=== PATIENT | male | born 1965 | race Caucasian/White ===

== ENCOUNTER 2022-09-09 07:20 | Outpatient (CLI) | payer BC, SELFPAY ==
--- OUTSIDE RECORDS SUMMARY | 2022-09-09 08:22 | XMS_ITS | Clinical Summary ---
:1965 Author Organization [employer] [facility] [facility] [place] [address] Care Team Providers Name Role Phone Gee Knowles MD Primary Care Provider [phone] Allergies No known active allergies Medications Medication Sig Dispensed Refills Start Date End Date Status MULTI-VITAMIN ORAL TAB one tablet daily ? 0 03/31/2004 Active amLODIPine (NORVASC) 5 Take 1 tablet by 0 09/17/2013 Active mg tablet mouth once daily. lisinopril (PRINIVIL; Take 1 tablet by 0 09/17/2013 Active ZESTRIL) 40 mg tablet mouth once daily. Cholecalciferol, Take 4,000 Units 0 Active Vitamin D3, 2,000 unit by mouth once tablet daily. diclofenac (VOLTAREN) Take 1 tablet by 60 tablet 1 09/04/2014 Active 75 mg delayed-release mouth 2 times tabletIndications: daily with meals. Surgery follow-up Active Problems Problem Noted Date Chest pain, unspecified Unspecified essential hypertension Immunizations Name Administration Dates Next Due AMB Influenza, IIV4 PF (=>6 mos Flulaval,Fluzone 08/29/2017 Fluarix)(Flu Clinic Only) Influenza, IIV4 09/17/2018 Family History Medical History Relation Name Comments Genetic Other Both his father and brother had hypertension. Exercise - he walks occas ionally 30 minutes. ~~There is no premature athero sclerotic heart disease in his family. Relation Name Status Comments Other Social History Tobacco Use Types Packs/Day Years Used Date Never Smoker Alcohol Use Standard Drinks/Week Comments No 0 (1 standard drink = 0.6 oz pure alcoho l) Sex Assigned at Date Recorded Not on file Obstetrics History Last Filed Vital Signs Vital Sign Reading Time Taken Comments Blood Pressure 138/78 09/04/2014 11:35 AM CDT Pulse 65 12/20/2013 11:20 AM GUIDANCE AND CONTROL SYSTEM ENGINEER Temperature 36.7 ??C (98 ??F) 12/20/2013 10:45 AM GUIDANCE AND CONTROL SYSTEM ENGINEER Respiratory Rate 16 12/20/2013 11:20 AM GUIDANCE AND CONTROL SYSTEM ENGINEER Oxygen Saturation 98% 12/20/2013 11:20 AM GUIDANCE AND CONTROL SYSTEM ENGINEER Inhaled Oxygen Concentration - - Weight 115.2 kg (254 lb) 12/20/2013 6:50 AM GUIDANCE AND CONTROL SYSTEM ENGINEER Height 189.2 cm (6' 2.49) 12/20/2013 6:50 AM GUIDANCE AND CONTROL SYSTEM ENGINEER Body Mass Index 32.19 12/20/2013 6:50 AM GUIDANCE AND CONTROL SYSTEM ENGINEER Plan of Treatment Health Maintenance Due Date Last Done Comments COVID-19 vaccine series (#1) 01/05/1966 Tdap 1974 Depression screening for age 12+ 1975 BMI (ht and wt on same day) for age 18+ 1981 Hepatitis C screening for age 18-79 1981 Tetanus booster 1983 Colonoscopy through age 75 2008 Lipids for age 45-75 2008 Zoster (shingles) series for age 50+ (1 of 2013 2) Influenza for age 50-64 2022 09/17/2018, 08/29/2017 Medical Devices Implanted Type Area Stock Dealer Device Shelf Model / Identifier Expiration Date Ser ial / Lot [place], Polysorb 3mm [id number] - [id number] Right: R-AUTO SUT [id number] [id number] / Implanted: Qty: 2 on 12/20/2013 by Say Deng, DPJose at [facility] Foot / [id number] Results Not on filefrom Last 3 Months Insurance Payer Benefit Plan / Subscriber ID Effective Dates Phone Addre ss Type Group [employer] [id number] 2013-Present [address] [place] [address] [employer] [id number] 2010-Present [address] [place] [address] Guarantor Name Account Type Relation to Date of Phone Billing Patient Address HERLINDA TIWARI Personal/Family Self 1965 [address] (Home) [place] [id number] Herlinda Tiwari Personal/Family Self 1965 [address] (Home) [place] [id number] Advance Directives Latest Code Status on File Code Status Date Activated Date Inactivated Comments Full Code 12/20/2013 11:03 AM 12/20/2013 4:43 PM Full Code 12/20/2013 6:22 AM 12/20/2013 11:03 AM Care Teams Ragman Relationship Specialty Start Date End Date Gee Knowles MD PCP - General Family Practice 12/20/13
--- OUTSIDE RECORDS SUMMARY | 2022-09-09 08:22 | XMS_ITS | Encounter Summary ---
:1965 Author Organization [facility] Address [address] [place] [address] Care Team Providers Name Role Phone Tavon Obrien M.D. Primary Care Provider Encounter Details Date Type Department Care Team Description 08/18/2021 Clinical Communication Department of Natalie Stanford, Medicine, Louis Espinosa M.D. [facility], in [address] [phone] Social History Tobacco Use Types Packs/Day Years Used Date Smoking Tobacco: Never Smokeless Tobacco: Never Alcohol Use Standard Drinks/Week Comments No 0 (1 standard drink = 0.6 oz pure alcoho l) Sex Assigned at Date Recorded Not on file documented as of this encounter Plan of Treatment Not on filedocumented as of this encounter Visit Diagnoses Not on filedocumented in this encounter Care Teams Director Export Relationship Specialty Start Date End Date Tavon Obrien M.D. PCP - General Family Medicine 10/24/[address] [place] [phone] documented as of this encounter
--- OUTSIDE RECORDS SUMMARY | 2022-09-09 08:22 | XMS_ITS | Encounter Summary ---
:1965 Author Organization [facility] Address [address] [place] [address] Care Team Providers Name Role Phone Tavon Obrien M.D. Primary Care Provider Reason for Visit Physical Therapy (Routine) - Canceled Specialty Diagnoses / Procedures Referred By Contact Refer red To Contact Diagnoses Intervertebral Disc Disorders With Radiculopathy Lumbar Region Tavon Obrien M.D. [facility] Procedures PT Ongoing treatment [address] [place] [phone] Referral ID Status Reason Start Date Expiration Date Visits V isits Requested Authorized [id number] Canceled 06/29/2021 06/29/2022 Encounter Details Date Type Department Care Team Description 08/03/2021 Clinical Support Department of Emelia Obrien M.D. [address] [place] [phone] Intervertebral Disc Rehabilitation Arturo Rader PAdinaTAdina [address] [place] [phone] Disorders With Services in [address] [phone] Social History Tobacco Use Types Packs/Day Years Used Date Smoking Tobacco: Never Smokeless Tobacco: Never Alcohol Use Standard Drinks/Week Comments No 0 (1 standard drink = 0.6 oz pure alcoho l) Sex Assigned at Date Recorded Not on file documented as of this encounter Progress Notes Arturo Rader P.T. - 08/03/2021 6:30 AM CDT Physical Therapy Outpatient Treatment Note SUBJECTIVE Patient's Name: Louie German Referring Provider: Tavon Obrien M.D. Visit Diagnosis: 1. Intervertebral Disc Disorders With Radiculopathy Lumbar Region Reason for Referral: Low back pain with radiculopathy into the right extremity. Payor: / No data recorded Epic Visit Count: 10 Patient comments: Daniel comes into therapy today with similar issues overall. Some days are better than others. He continues to work with both therapy and chiropractic at this time. He is still waiting on his insurance to determine when he can proceed with surgery. Contact monitoring: Appropriate PPE was utilized including face mask/protective eyewear. OBJECTIVE Pain: Pain Assessment Pain Score: 4 Ortho Exam Outcome Measures: TREATMENT Treatment today consisted of: We did treat once again with intermittent pelvic traction cycling on for 60 seconds and off for 5 seconds. This did not exceed 140 lb. This was for 20 minutes. Assessment Clinical Impression: Patient tolerated well overall. Functional Goals and Timeframes: PT Goal #1: To help decrease pain in the low back/radicular symptoms. PT Goal #1 Date: 08/31/21 PT Goal #2: Patient is able to tolerate prolonged sitting/standing PT Goal #2 Date: 08/03/21 PT Goal #3: Patient is independent with home exercise program which will address core strengthening and extension protocol. This was initiated today. PT Goal #3 Date: 06/29/21 No data recorded Plan We will continue if this is helpful for him. Plan for next session: Time Spent with Patient Mechanical Traction (min): 20 min Time Calculation Total Treatment Time (min): 20 min Arturo Rader P.T. Department of Rehabilitation Services in [address] [phone] Dept: [phone] documented in this encounter Plan of Treatment Not on filedocumented as of this encounter Visit Diagnoses Diagnosis Intervertebral Disc Disorders With Radic ulopathy Lumbar Region documented in this encounter Care Teams Drill Sergeant Relationship Specialty Start Date End Date Tavon Obrien M.D. PCP - General Family Medicine 10/24/[address] [place] [phone] documented as of this encounter
--- OUTSIDE RECORDS SUMMARY | 2022-09-09 08:22 | XMS_ITS | Encounter Summary ---
:1965 Author Organization [facility] Address [address] [place] [address] Care Team Providers Name Role Phone Tavon Obrien M.D. Primary Care Provider Reason for Visit Reason Onset Date Comments Outpatient COVID-19 Testing 08/28/2021 Encounter Details Date Type Department Care Team Description 08/28/2021 External Outreach Department of Renato Mac And Internal Medicine in [place], D.O. (Suspected) Exposure [place], [place] [address] To COVID-19 (Primary [address] [place], [place] Dx) [place] [phone] Social History Tobacco Use Types Packs/Day Years Used Date Smoking Tobacco: Never Smokeless Tobacco: Never Alcohol Use Standard Drinks/Week Comments No 0 (1 standard drink = 0.6 oz pure alcoho l) Sex Assigned at Date Recorded Not on file documented as of this encounter Progress Notes Chastity La - 08/28/2021 8:20 AM CDT Encounter created for infectious disease screening. documented in this encounter Plan of Treatment Not on filedocumented as of this encounter Procedures Procedure Name Priority Date/Time Associated Diagnosis Comme nts SARS CORONAVIRUS-2 Routine 08/29/2021 11:19 AM Contact With An d Results for this RNA, V CDT (Suspected) Exposure procedu re are in To COVID-19 the results section. documented in this encounter Results SARS Coronavirus-2 RNA, V Asymptomatic (08/29/2021 11:19 AM CDT) [facility] Method Time Signature SARS-CoV-2 Swab, 08/30/2021 MKTO Specimen Nasopharynx 3:05 PM CDT Source SARS CoV-2 Undetected Undetected 08/30/2021 MKTO RNA, TMA 3:05 PM CDT Comment: SARS-CoV-2 RNA absent. This result does not rule out COVID-19 in the patient, as the sensitivity of the test depends o n the timing of the specimen collection and the quality of the specim en. Result should be correlated with patient's history and clinical presentat ion. ----ADDITIONAL INFORMATION---- This molecular amplification test was pe rformed using the Aptima SARS-CoV-2 assay ([employer] on the eBrevias tem under emergency use authorization (EUA) by the U.S. Food and Drug Administ ration. Fact sheets for this EUA assay can be fo und at the following links: For Healthcare Providers: https://www.fd a.gov/media/883239/download For Patients: https://www.fda.gov/media/ 652602/download Specimen Anatomical Collection Method Collection Time Receive d Time (Source) Location / / Volume Laterality Varies 08/29/2021 11:19 08/30/2021 6:31 (Nasopharynx) AM CDT AM CDT Renato Mac D.O. LAB MICROBIOLOGY - GENERAL O RDERABLES Performing Organization Address City/State/ZIP Code Phon e Number [facility] [address] [place] [phone] [place] [address] [place] [address] System in [address] documented in this encounter Visit Diagnoses Diagnosis Contact With And (Suspected) Exposure To COVID-19 - Primary documented in this encounter Additional Health Concerns Infection Onset Date Last Indicated Resolved Time COVID19 Pending 08/28/2021 08/29/2021 08/30/2021 3:06 PM CDT documented as of this encounter Care Teams Strike On Machine Operator Relationship Specialty Start Date End Date Tavon Obrien M.D. PCP - General Family Medicine 10/24/[address] [place] [phone] documented as of this encounter
--- OUTSIDE RECORDS SUMMARY | 2022-09-09 08:22 | XMS_ITS | Encounter Summary ---
:1965 Author Organization [facility] Address [address] [place] [address] Care Team Providers Name Role Phone Tavon Obrien M.D. Primary Care Provider Encounter Details Date Type Department Care Team Description 08/29/2021 Admin Visit Department of Family Medicine, [address] [phone] [facility] [phone] Social History Tobacco Use Types Packs/Day Years Used Date Smoking Tobacco: Never Smokeless Tobacco: Never Alcohol Use Standard Drinks/Week Comments No 0 (1 standard drink = 0.6 oz pure alcoho l) Sex Assigned at Date Recorded Not on file documented as of this encounter Plan of Treatment Not on filedocumented as of this encounter Visit Diagnoses Not on filedocumented in this encounter Additional Health Concerns Infection Onset Date Last Indicated Resolved Time COVID19 Pending 08/28/2021 08/29/2021 08/30/2021 3:06 PM CDT documented as of this encounter Care Teams Horse Racetrack Manager Relationship Specialty Start Date End Date Tavon Obrien M.D. PCP - General Family Medicine 10/24/[address] [place] [phone] documented as of this encounter
--- OUTSIDE RECORDS SUMMARY | 2022-09-09 08:22 | XMS_ITS | Encounter Summary ---
:1965 Author Organization [facility] Address [address] [place] [address] Care Team Providers Name Role Phone Tavon Obrien M.D. Primary Care Provider Reason for Visit Physical Therapy (Routine) - Canceled Specialty Diagnoses / Procedures Referred By Contact Refer red To Contact Diagnoses Intervertebral Disc Disorders With Radiculopathy Lumbar Region Tavon Obrien M.D. [facility] Procedures PT Ongoing treatment [address] [place] [phone] Referral ID Status Reason Start Date Expiration Date Visits V isits Requested Authorized [id number] Canceled 06/29/2021 06/29/2022 Encounter Details Date Type Department Care Team Description 08/19/2021 Clinical Support Department of Emelia Obrien M.D. [address] [place] [phone] Intervertebral Disc Rehabilitation Arturo Rader PAdinaTAdina [address] [place] [phone] Disorders With Services in [address] [phone] Social History Tobacco Use Types Packs/Day Years Used Date Smoking Tobacco: Never Smokeless Tobacco: Never Alcohol Use Standard Drinks/Week Comments No 0 (1 standard drink = 0.6 oz pure alcoho l) Sex Assigned at Date Recorded Not on file documented as of this encounter Progress Notes Arturo Rader P.T. - 08/19/2021 6:30 AM CDT Physical Therapy Outpatient Treatment Note SUBJECTIVE Patient's Name: Louie German Referring Provider: Tavon Obrien M.D. Visit Diagnosis: 1. Intervertebral Disc Disorders With Radiculopathy Lumbar Region Reason for Referral: Low back pain with radiculopathy into the right extremity. Payor: Pumpic [facility] [employer] / Plan: [facility] [employer] / Product Type: Indemnity / No data recorded Epic Visit Count: 15 Patient comments: Daniel comes into therapy today stating that he is a little more sore secondary to having to sit 8 hours for class yesterday. He has a difficult time sitting in general. Contact monitoring: Appropriate PPE was utilized including face mask/protective eyewear. OBJECTIVE Pain: Pain Assessment Pain Score: 5 - Moderate pain Ortho Exam Outcome Measures: TREATMENT Treatment today consisted of: We continued with intermittent pelvic traction cycling on for 60 seconds and off for 5 seconds. Thiswas for 20 minutes. This did not exceed 125 lb. This does give him some subjective relief. Assessment Clinical Impression: Traction does give patient some relief. However, he continues to have radicular symptoms. He is alsoseen chiropractic to help relieve some of his symptoms. He is still scheduled for surgery in approximately 2 weeks. Functional Goals and Timeframes: PT Goal #1: [...] data recorded Plan We will continue if helpful. Plan for next session: Time Spent with Patient Mechanical Traction (min): 20 min Time Calculation Total Treatment Time (min): 20 min Arturo Rader P.T. Department of Rehabilitation Services in [address] [address] Dept: [phone] documented in this encounter Plan of Treatment Not on filedocumented as of this encounter Visit Diagnoses Diagnosis Intervertebral Disc Disorders With Radic ulopathy Lumbar Region documented in this encounter Care Teams Spring Repairer Helper Hand Relationship Specialty Start Date End Date Tavon Obrien M.D. PCP - General Family Medicine 10/24/[address] [place] [phone] documented as of this encounter
--- OUTSIDE RECORDS SUMMARY | 2022-09-09 08:22 | XMS_ITS | Encounter Summary ---
:[address] [facility] Address [address] [place] [address] Care Team Providers Name Role Phone Tavon Obrien M.D. Primary Care Provider Reason for Visit Physical Therapy (Routine) - Canceled Specialty Diagnoses / Procedures Referred By Contact Refer red To Contact Diagnoses Intervertebral Disc Disorders With Radiculopathy Lumbar Region Tavon Obrien M.D. [facility] Procedures PT Ongoing treatment [address] [place] [phone] Referral ID Status Reason Start Date Expiration Date Visits V isits Requested Authorized [id number] Canceled 06/29/2021 06/29/2022 Encounter Details Date Type Department Care Team Description 08/17/2021 Clinical Support Department of Emelia Obrien M.D. [address] [place] [phone] Intervertebral Disc Rehabilitation Arturo Rader PAdinaTAdina [address] [place] [phone] Disorders With Services in [address] [phone] Social History Tobacco Use Types Packs/Day Years Used Date Smoking Tobacco: Never Smokeless Tobacco: Never Alcohol Use Standard Drinks/Week Comments No 0 (1 standard drink = 0.6 oz pure alcoho l) Sex Assigned at Date Recorded Not on file documented as of this encounter Progress Notes Arturo Rader P.T. - 08/17/2021 6:30 AM CDT Physical Therapy Outpatient Treatment Note SUBJECTIVE Patient's Name: Louie German Referring Provider: Tavon Obrien M.D. Visit Diagnosis: 1. Intervertebral Disc Disorders With Radiculopathy Lumbar Region Reason for Referral: Low back pain with radiculopathy into the right extremity. Payor: lifeIO [facility] [employer] / Plan: [facility] / Product Type: Indemnity / No data recorded Epic Visit Count: 14 Patient comments: Daniel comes into therapy today for continued treatment with traction. This does give him some relief.He will be having surgery in approximately 2 weeks. Contact monitoring: Appropriate PPE was utilized including face mask/protective eyewear. OBJECTIVE Pain: Pain Assessment Pain Score: 4 Ortho Exam Outcome Measures: TREATMENT Treatment today consisted of: We treated once again with intermittent pelvic traction cycling on for 60 seconds and off for 5 seconds. This did not exceed 130 lb. Assessment Clinical Impression: Patient tolerated well. He does get some relief with traction. Functional Goals and Timeframes: PT Goal #1: [...] #3 Date: 06/29/21 No data recorded Plan I we will continue with traction. Plan for next session: Time Spent with Patient Mechanical Traction (min): 20 min Time Calculation Total Treatment Time (min): 20 min Arturo Rader P.T. Department of Rehabilitation Services in [address] [phone] Dept: [phone] documented in this encounter Plan of Treatment Not on filedocumented as of this encounter Visit Diagnoses Diagnosis Intervertebral Disc Disorders With Radic ulopathy Lumbar Region documented in this encounter Care Teams Er Tech Relationship Specialty Start Date End Date Tavon Obrien M.D. PCP - General Family Medicine 10/24/[address] [place] [phone] documented as of this encounter
--- OUTSIDE RECORDS SUMMARY | 2022-09-09 08:22 | XMS_ITS | Encounter Summary ---
:1965 Author Organization [facility] Address [address] [place] [address] Care Team Providers Name Role Phone Tavon Obrien M.D. Primary Care Provider Reason for Visit Physical Therapy (Routine) - Canceled Specialty Diagnoses / Procedures Referred By Contact Refer red To Contact Diagnoses Intervertebral Disc Disorders With Radiculopathy Lumbar Region Tavon bOrien M.D. [facility] Region Procedures PT Ongoing treatment [address] [place] [phone] Referral ID Status Reason Start Date Expiration Date Visits V isits Requested Authorized [id number] Canceled 06/29/2021 06/29/2022 Encounter Details Date Type Department Care Team Description 08/10/2021 Clinical Support Department of Emelia Obrien M.D. [address] [place] [phone] Pain Knee Bilateral (Primary Dx); Rehabilitation Arturo Rader PAdinaTAdina [address] [place] [phone] Intervertebral Disc Disorders With Radic ulopathy Lumbar Region Services in [address] [phone] Social History Tobacco Use Types Packs/Day Years Used Date Smoking Tobacco: Never Smokeless Tobacco: Never Alcohol Use Standard Drinks/Week Comments No 0 (1 standard drink = 0.6 oz pure alcoho l) Sex Assigned at Date Recorded Not on file documented as of this encounter Progress Notes Arturo Rader P.T. - 08/10/2021 6:30 AM CDT Physical Therapy Outpatient Treatment Note SUBJECTIVE Patient's Name: Louie German Referring Provider: Tavon Obrien M.D. Visit Diagnosis: 1. Pain Knee Bilateral 2. Intervertebral Disc Disorders With Radiculopathy Lumbar Region Reason for Referral: Low back pain with radiculopathy into the right extremity. Payor: Sepior [facility] [employer] / Plan: [employer] [facility] [facility] / Product Type: Indemnity / No data recorded Epic Visit Count: 12 Patient comments: Daniel comes into therapy today with similar issues overall. He does have a date set up for surgery. That will be approximately 2 weeks. Contact monitoring: Appropriate PPE was utilized including face mask/protective eyewear. OBJECTIVE Pain: Pain Assessment Pain Score: 4 Ortho Exam Outcome Measures: TREATMENT Treatment today consisted of: We continued with intermittent pelvic traction cycling on for 60 seconds and off for 5 seconds. Thisdid not exceed 140 lb. This was for 20 minutes total. Assessment Clinical Impression: Patient tolerated well overall. He does get some relief with traction. He is also seeking chiropractic cares to help with some of his symptoms. Functional Goals and Timeframes: PT Goal #1: [...] recorded Plan I we will continue with traction if this is helpful. Plan for next session: Time Spent with Patient Mechanical Traction (min): 20 min Time Calculation Total Treatment Time (min): 20 min Arturo Rader P.T. Department of Rehabilitation Services in [address] [phone] Dept: [phone] documented in this encounter Plan of Treatment Not on filedocumented as of this encounter Visit Diagnoses Diagnosis Pain Knee Bilateral - Primary Intervertebral Disc Disorders With Radic ulopathy Lumbar Region documented in this encounter Care Teams Chamfering Machine Operator Relationship Specialty Start Date End Date Tavon Obrien M.D. PCP - General Family Medicine 10/24/[address] [place] [phone] documented as of this encounter
--- OUTSIDE RECORDS SUMMARY | 2022-09-09 08:22 | XMS_ITS | Encounter Summary ---
:[address] [facility] Address [address] [place] [address] Care Team Providers Name Role Phone Tavon Obrien M.D. Primary Care Provider Encounter Details Date Type Department Care Team Description 12/07/2021 Orders Only [facility] Tavon Obrien M.D. Hyperlipidemia [id number] [phone] (Wo rk) Social History Tobacco Use Types Packs/Day Years Used Date Smoking Tobacco: Never Smokeless Tobacco: Never Alcohol Use Standard Drinks/Week Comments No 0 (1 standard drink = 0.6 oz pure alcoho l) Sex Assigned at Date Recorded Not on file documented as of this encounter Plan of Treatment Not on filedocumented as of this encounter Visit Diagnoses Diagnosis Hyperlipidemia documented in this encounter Care Teams Supervisor Facepiece Line Relationship Specialty Start Date End Date Tavon Obrien M.D. PCP - General Family Medicine 10/24/[id number] [phone] documented as of this encounter
--- OUTSIDE RECORDS SUMMARY | 2022-09-09 08:22 | XMS_ITS | Encounter Summary ---
:1965 Author Organization [facility] Address [address] [place] [address] Care Team Providers Name Role Phone Tavon Obrien M.D. Primary Care Provider Reason for Visit Physical Therapy (Routine) - Canceled Specialty Diagnoses / Procedures Referred By Contact Refer red To Contact Diagnoses Pain Knee Bilateral Elio Gary M.D. [facility] Procedures PT Ongoing treatment [address] [place] [phone] Referral ID Status Reason Start Date Expiration Date Visits V isits Requested Authorized [id number] Canceled 08/10/2021 08/10/2022 99 99 Encounter Details Date Type Department Care Team Description 08/31/2021 Clinical Support Department of Elio Gary M.D. [address] [place] [phone] Pain Knee Bilateral Rehabilitation Services Arturo Rader, P.TAdina [address] [place] [phone] [phone] Social History Tobacco Use Types Packs/Day Years Used Date Smoking Tobacco: Never Smokeless Tobacco: Never Alcohol Use Standard Drinks/Week Comments No 0 (1 standard drink = 0.6 oz pure alcoho l) Sex Assigned at Date Recorded Not on file documented as of this encounter Progress Notes Arturo Rader P.T. - 08/31/2021 6:30 AM CDT Physical Therapy Outpatient Treatment Note SUBJECTIVE Patient's Name: Louie German Referring Provider: Elio Gary M.D. Visit Diagnosis: 1. Pain Knee Bilateral Reason for Referral: Low back pain with radiculopathy into the right extremity. Payor: [facility] / Plan: [employer] [place] / Product Type: PPO / No data recorded Epic Visit Count: 17 Patient comments: To have comes into therapy today with symptoms relatively the same overall. He will be having surgery to his low back tomorrow. Contact monitoring: Appropriate PPE was utilized including face mask/protective eyewear. OBJECTIVE Pain: Pain Assessment Pain Score: 5 - Moderate pain Ortho Exam Outcome Measures: TREATMENT Treatment today consisted of: We did treat once again today with intermittent pelvic traction cycling on for 60 seconds and off for 5 seconds. This did not exceed 125 lb. This was for a total of 20 minutes. Assessment Clinical Impression: Traction has given patient some relief over the past several weeks. However, he will now be having surgery to hopefully alleviate his symptoms. Functional Goals and Timeframes: PT [...] 06/29/21 No data recorded Plan We will hold on physical therapy at this time. Plan for next session: Time Spent with Patient Mechanical Traction (min): 20 min Time Calculation Total Treatment Time (min): 20 min documented in this encounter Plan of Treatment Not on filedocumented as of this encounter Visit Diagnoses Diagnosis Pain Knee Bilateral documented in this encounter Care Teams Industrial Equipment Wirer Relationship Specialty Start Date End Date Tavon Obrien M.D. PCP - General Family Medicine 10/24/[address] [place] [address] [place] [phone] documented as of this encounter
--- OUTSIDE RECORDS SUMMARY | 2022-09-09 08:22 | XMS_ITS | Encounter Summary ---
:1965 Author Organization [facility] Address [address] [place] [address] Care Team Providers Name Role Phone Tavon Obrien M.D. Primary Care Provider Reason for Visit Physical Therapy (Routine) - Canceled Specialty Diagnoses / Procedures Referred By Contact Refer red To Contact Diagnoses Intervertebral Disc Disorders With Radiculopathy Lumbar Region Tavon Obrien M.D. [facility] Procedures PT Ongoing treatment [address] [place] [phone] Referral ID Status Reason Start Date Expiration Date Visits V isits Requested Authorized [id number] Canceled 06/29/2021 06/29/2022 Encounter Details Date Type Department Care Team Description 07/30/2021 Clinical Support Department of Emelia Obrien M.D. [address] [place] [phone] Intervertebral Disc Rehabilitation Arturo Rader PAdinaTAdina [address] [place] [phone] Disorders With Services in [address] [phone] Social History Tobacco Use Types Packs/Day Years Used Date Smoking Tobacco: Never Smokeless Tobacco: Never Alcohol Use Standard Drinks/Week Comments No 0 (1 standard drink = 0.6 oz pure alcoho l) Sex Assigned at Date Recorded Not on file documented as of this encounter Progress Notes Arturo Rader P.T. - 07/30/2021 6:30 AM CDT Physical Therapy Outpatient Treatment Note SUBJECTIVE Patient's Name: Louie German Referring Provider: Tavon Obrien M.D. Visit Diagnosis: 1. Intervertebral Disc Disorders With Radiculopathy Lumbar Region Reason for Referral: Low back pain with radiculopathy into the right extremity. Payor: [employer] [place] [employer] / Plan: [employer] [facility] [employer] / Product Type: Indemnity / No data recorded Epic Visit Count: 9 Patient comments: Daniel comes into therapy today for similar issues. His symptoms have been a little less overall. He rates his pain as a 4/10. However, he feels he may be building up tolerance to some of the pain/discomfort. Contact monitoring: OBJECTIVE Pain: Pain Assessment Pain Score: 4 Ortho Exam Outcome Measures: TREATMENT Treatment today consisted of: We continued with intermittent pelvic traction cycling on for 60 seconds and off for 5 seconds. Thisdid not exceed 130 lb. He is on traction for a total of 25 minutes today. Assessment Clinical Impression: Patient tolerated well overall. Traction does give him some relief. Functional Goals and Timeframes: PT Goal #1: To decrease tingling/numbness in the right lower extremity by 50% PT Goal #1 Date: 07/27/21 PT Goal #2: Patient is able to tolerate prolonged sitting/standing PT Goal #2 Date: 08/03/21 PT Goal #3: Patient is independent with home exercise program which will address core strengthening and extension protocol. This was initiated today. PT Goal #3 Date: 06/29/21 No data recorded Plan We will continue if this is effective for him. He is still trying to establish a date for surgery. Plan for next session: Time Spent with Patient Mechanical Traction (min): 20 min Time Calculation Total Treatment Time (min): 20 min Arturo Rader P.T. Department of Rehabilitation Services in [address] [phone] Dept: [phone] documented in this encounter Plan of Treatment Not on filedocumented as of this encounter Visit Diagnoses Diagnosis Intervertebral Disc Disorders With Radic ulopathy Lumbar Region documented in this encounter Care Teams Biotechnician Relationship Specialty Start Date End Date Tavon Obrien M.D. PCP - General Family Medicine 10/24/[address] [place] [phone] documented as of this encounter
--- OUTSIDE RECORDS SUMMARY | 2022-09-09 08:22 | XMS_ITS | Encounter Summary ---
:1965 Author Organization [facility] Address [address] [place] [address] Care Team Providers Name Role Phone Tavon Obrien M.D. Primary Care Provider Encounter Details Date Type Department Care Team Description 09/28/2021 [facility] [id number] [phone] (Wo rk) Social History Tobacco Use Types [...] on filedocumented in this encounter Care Teams Music Director Relationship Specialty Start Date End Date Tavon Obrien M.D. PCP - General Family Medicine 10/24/[address] [phone] documented as of this encounter
--- OUTSIDE RECORDS SUMMARY | 2022-09-09 08:22 | XMS_ITS | Encounter Summary ---
:1965 Author Organization [facility] Address [address] [place] [address] Care Team Providers Name Role Phone Tavon Obrien M.D. Primary Care Provider Encounter Details Date Type Department Care Team Description 09/06/2022 Orders Only [facility] PCP [facility] MNT Tavon Obrien M.D. Hyperlipidemia [address] [phone] (Wo rk) Social History Tobacco Use Types Packs/Day Years Used Date Smoking Tobacco: Never Smokeless Tobacco: Never Alcohol Use Standard Drinks/Week Comments No 0 (1 standard drink = 0.6 oz pure alcoho l) Sex Assigned at Date Recorded Not on file documented as of this encounter Plan of Treatment Scheduled Orders Name Type Priority Associated Diagnoses Order S chedule Lipid Panel Lab Routine Hyperlipidemia Expected: , Expires: 12/07/2023 documented as of this encounter Visit Diagnoses Diagnosis Hyperlipidemia documented in this encounter Care Teams Rn Bsn Relationship Specialty Start Date End Date Tavon Obrien M.D. PCP - General Family Medicine 10/24/[address] [phone] documented as of this encounter
--- OUTSIDE RECORDS SUMMARY | 2022-09-09 08:22 | XMS_ITS | Encounter Summary ---
:1965 Author Organization [facility] Address [address] [place] [address] Care Team Providers Name Role Phone Tavon Obrien M.D. Primary Care Provider Reason for Visit Physical Therapy (Routine) - Canceled Specialty Diagnoses / Procedures Referred By Contact Refer red To Contact Diagnoses Intervertebral Disc Disorders With Radiculopathy Lumbar Region Tavon Obrien M.D. [facility] Procedures PT Ongoing treatment [address] [place] [phone] Referral ID Status Reason Start Date Expiration Date Visits V isits Requested Authorized [id number] Canceled 06/29/2021 06/29/2022 Encounter Details Date Type Department Care Team Description 08/05/2021 Clinical Support Department of Emelia Obrien M.D. [address] [place] [phone] Intervertebral Disc Rehabilitation Arturo Rader PAdinaTAdina [address] [place] [phone] Disorders With Services in [address] [phone] Social History Tobacco Use Types Packs/Day Years Used Date Smoking Tobacco: Never Smokeless Tobacco: Never Alcohol Use Standard Drinks/Week Comments No 0 (1 standard drink = 0.6 oz pure alcoho l) Sex Assigned at Date Recorded Not on file documented as of this encounter Progress Notes Arturo Rader P.T. - 08/05/2021 6:30 AM CDT Physical Therapy Outpatient Treatment Note SUBJECTIVE Patient's Name: Louie German Referring Provider: Tavon Obrien M.D. Visit Diagnosis: 1. Intervertebral Disc Disorders With Radiculopathy Lumbar Region Reason for Referral: Low back pain with radiculopathy into the right extremity. [facility] / Plan[facility] / Product Type: Indemnity / No data recorded Epic Visit Count: 11 Patient comments: Daniel comes into therapy today stating that his insurance has approved his surgery. He will now be meeting with the deployment specialist to determine the date of his surgery. He continues to get reliefwith both therapy and chiropractic. Contact monitoring: Appropriate PPE was utilized including face mask/protective eyewear. OBJECTIVE Pain: Pain Assessment Pain Score: 4 Ortho Exam Outcome Measures: TREATMENT Treatment today consisted of: We continue with intermittent pelvic traction cycling on for 60 seconds and off for 5 seconds. This did not exceed 140 lb. He tolerated this all well. Assessment Clinical Impression: Patient does get relief with therapy. He uses this in conjunction with chiropractic. Functional Goals and Timeframes: PT Goal #1: [...] Plan We will continue if this is affective. Plan for next session: Time Spent with Patient Mechanical Traction (min): 20 min Time Calculation Total Treatment Time (min): 20 min Arturo Rader P.T. Department of Rehabilitation Services in [address] [phone] Dept: [phone] documented in this encounter Plan of Treatment Not on filedocumented as of this encounter Visit Diagnoses Diagnosis Intervertebral Disc Disorders With Radic ulopathy Lumbar Region documented in this encounter Care Teams Hand Dry Cleaner Relationship Specialty Start Date End Date Tavon Obrien M.D. PCP - General Family Medicine 10/24/[address] [place] [phone] documented as of this encounter
--- OUTSIDE RECORDS SUMMARY | 2022-09-09 08:22 | XMS_ITS | Encounter Summary ---
:1965 Author Organization [facility] Address [address] [place] [address] Care Team Providers Name Role Phone Tavon Obrien M.D. Primary Care Provider Reason for Referral Specialty Diagnoses / Procedures Referred By Contact Refer red To Contact Tavon Obrien M. D. [address] [phone] Referral ID Status Reason Start Date Expiration Date Visits Requ ested Visits Authorized Encounter Details Date Type Department Care Team Description 07/25/2022 Orders Only [facility] PCP [facility]NT Tavon Obrien M.D. [address] [place] [phone] (Wo rk) Social History Tobacco Use Types Packs/Day Years Used Date Smoking Tobacco: Never Smokeless Tobacco: Never Alcohol Use Standard Drinks/Week Comments No 0 (1 standard drink = 0.6 oz pure alcoho l) Sex Assigned at Date Recorded Not on file documented as of this encounter Plan of Treatment Scheduled Referrals Name Type Priority Associated Order Schedule Diagnoses Covid immunization Outpatient Referral Routine Ex pected: office visit 07/25/2022 Immuno/Booster (Approximate) , Expires: 07/25/2023 documented as of this encounter Visit Diagnoses Not on filedocumented in this encounter Care Teams Bellows Tester Relationship Specialty Start Date End Date Tavon Obrien M.D. PCP - General Family Medicine 10/24/[address] [place] [phone] documented as of this encounter
--- OUTSIDE RECORDS SUMMARY | 2022-09-09 08:22 | XMS_ITS | Encounter Summary ---
:1965 Author Organization [facility] Address [address] [place] [address] Care Team Providers Name Role Phone Tavon Obrien M.D. Primary Care Provider Reason for Referral Outpatient (Routine) - Closed Specialty Diagnoses / Procedures Referred By Contact Refer red To Contact Diagnoses Herniated Disc Lumbar Radiculopathy Preoperative Exam Tavon Obrien M.D. [facility] Procedures ECG [address] [place] [phone] Referral ID Status Reason Start Date Expiration Date Visits Requ ested Visits Authorized [id number] Closed 08/18/2021 08/18/2022 1 1 Reason for Visit Reason Comments Pre-op Exam 09/01/2021 at [facility] by Dr. Ibarra. Micro lumbar disectomy. Encounter Details Date Type Department Care Team Description 08/18/2021 Office Visit Department of Family Tavon Obrien He rniated Disc Lumbar (Primary Dx); Louis Bolaños M.D. Radiculopathy; [facility], [place] [address] Preopera tive Exam [address] [address] [place], [place] [phone] (Work) [phone] Social History Tobacco Use Types Packs/Day Years Used Date Smoking Tobacco: Never Smokeless Tobacco: Never Tobacco Cessation: Counseling Given: Yes Alcohol Use Standard Drinks/Week Comments No 0 (1 standard drink = 0.6 oz pure alcoho l) Sex Assigned at Date Recorded Not on file documented as of this encounter Last Filed Vital Signs Vital Sign Reading Time Taken Comments Blood Pressure 128/77 08/18/2021 8:27 AM CDT Pulse 71 08/18/2021 8:27 AM CDT Temperature 36.6 ??C (97.9 ??F) 08/18/2021 8:27 AM CDT Respiratory Rate 16 08/18/2021 8:27 AM CDT Oxygen Saturation 98% 08/18/2021 8:27 AM CDT Inhaled Oxygen Concentration - - Weight 108 kg (237 lb 10.5 oz) 08/18/2021 8:27 AM CDT Height 187 cm (6' 1.62) 08/18/2021 8:27 AM CDT Body Mass Index 30.83 08/18/2021 8:27 AM CDT documented in this encounter H&P Notes Tavon Obrien M.D. - 08/18/2021 8:30 AM CDT Louie German [phone] DATE OF SURGERY: 09/01/2021 DATE OF EXAM: 08/18/21 TYPE OF SURGERY: Micro diskectomy lumbar spine, Dr. Ibarra CHIEF COMPLAINT/REASON FOR VISIT: Preoperative consultation. HISTORY OF PRESENT ILLNESS Jeremías is a pleasant 56-year-old gentleman who presents to clinic today for preoperative medical exam prior to undergoing microdiskectomy of the lumbar spine performed by Dr. Patterson. Patient suffered an injury while on work resulting in lumbar disc desiccation and radiculopathy with neurological symptomsto include footdrop on the right. He has undergone conservative management for the past few months has made progress with physical therapy as well as progressive care nurse. His symptoms do persist though is proceeding in next steps of care. SYSTEMS REVIEW There is no history of difficulty with anesthesia, bleeding tendencies, blood clots, congestive heart failure, heart valve disease, heart arrhythmias, chest pain or dyspnea. The patient is able to climb a flight of stairs without any chest pain, dyspnea or extreme fatigue. Patient denies any recent illness. No fevers or signs of upper respiratory tract infection. Review of systems is otherwise negative with the exceptions of the positives/negatives listed above. PAST MEDICAL HISTORY Patient Active Problem List Diagnosis ??? Hypertension ??? Hyperlipidemia ??? Pain Knee Right ??? Herniated Disc Lumbar ??? Radiculopathy PAST SURGICAL HISTORY Past Surgical History: Procedure Laterality Date ??? KNEE ARTHROSCOPY ??? REFRACTIVE SURGERY Bilateral 1998 PRK ??? TONSILLECTOMY ALLERGIES No Known Allergies CURRENT MEDICATIONS Current Outpatient Medications on File Prior to Visit Medication Sig Dispense Refill ??? albuterol (Ventolin HFA) 90 mcg/actuation inhaler 90 puffs. ??? amLODIPine (for_NORVASC) 5 mg tablet Take 5 mg by mouth daily. ??? cholecalciferol (VITAMIN D3) 50 mcg (2,000 Unit) tablet 50 mcg. ??? lisinopril (for_PRINIVIL,ZESTRIL) 40 mg tablet Take 40 mg by mouth daily. ??? multivitamin capsule multivitamin ??? mupirocin (BACTROBAN) 2 % ointment 2 application. ??? ozenoxacin (Xepi) 1 % cream 1 application. ??? sodium chloride (LESLIE-128) 5 % ophthalmic ointment Apply 1/2 inch into both eyes 3 times a day (Patient taking differently: Apply to left eye. As needed ) 3.5 g 11 ??? triamcinolone (KENALOG) 0.1 % cream 0.1 application. ??? [DISCONTINUED] amoxicillin (AMOXIL) 500 mg capsule amoxicillin 500 mg capsule ??? [DISCONTINUED] doxycycline hyclate (VIBRAMYCIN) 100 mg capsule Take 100 mg by mouth 2 (two) times a day. No current facility-administered medications on file prior to visit. SOCIAL HISTORY Social History Social History Narrative ??? Not on file FAMILY HISTORY No family history of difficulty with anesthesia, bleeding tendencies or blood clotting disorders. OBJECTIVE VITAL SIGNS: Vitals: 08/18/21 0827 BP: 128/77 Pulse: 71 Resp: 16 Temp: 36.6 ??C SpO2: 98% Stop Bang Total Score: 4 GENERAL: Awake, alert and oriented x 3, comfortable. Affect normal. HEENT: Pupils equal, round, reactive to light. Extraocular movements intact. Conjunctivae not injected. External auditory canals are clear. Tympanic membranes are normal without erythema. Nasopharynx without erythema. No tonsillar hypertrophy or exudate. Mucous membranes are moist. Dentition and gums intact. Neck supple without lymphadenopathy. HEART: Regular rate and rhythm. No murmurs, gallops or rubs. LUNGS: Clear to auscultation bilaterally. ABDOMEN: Positive bowel sounds in all four quadrants. Soft, nondistended, nontender. No masses. EXTREMITIES: Warm and well perfused. No cyanosis or edema. SKIN: No erythema or rashes. No open sores or ulcers. DIAGNOSTICS Results for orders placed or performed in visit on 05/05/21 Colonoscopy Result Value Ref Range EXT Colonoscopy Abnormal - See Scanned Report for Details (A) Normal - See Scanned Report for Details, HIMS - Report Received and Scanned ASSESSMENT / PLAN #1 Herniated Disc Lumbar #2 Radiculopathy #3 Preoperative Exam Blood work and EKG is WNL today. This patient has been deemed to be MEDICALLY ACCEPTABLE for the planned surgery/procedure, with a low risk of phan-operative cardiac event. Patient is capable of climbing a flight of stairs without unusual dyspnea or chest pain. No additional cardiac testing is needed. Stop Bang Total Score: 4 which puts him at medium risk for any breathing/perioperative complications. Preoperative instructions discussed and understanding indicated: 1. Follow all preop hospital/center instructions. 2. IF TAKING ASPIRIN/NSAIDs: Stop aspirin/NSAIDs 1 week before procedure and resume 1 day after the procedure unless instructed otherwise 3. IF TAKING ANY ANTICOAGULANTS: Stop other anticoagulants per instructions of hospital/center or, if no instructions provided, stop anticoagulants 5 days before procedure and resume 1 day after the procedure unless instructed otherwise 4. IF TAKING METFORMIN: Hold metformin on the day of the procedure and resume 1 day after the procedure unless instructed otherwise 5. IF TAKING SHEILA INHIBITOR OR ARB (LISINOPRIL OR LOSARTAN): Hold SHEILA inhibitor/ARB/diuretic on the day of the procedure and resume 1 day after the procedure unless instructed otherwise 6. IF TAKING INSULIN: Hold basal insulin on the day of the procedure and resume once eating 7. IF TAKING SUPPLEMENTS: Stop all supplements 1 week prior to procedure and may resume 1 day after the procedure unless instructed otherwise. 8. IF TAKING DMARDs as a part of medication regimen: - hydroxychloroquine can be continued uninterrupted. - methotrexate should be held for 2 wks prior if low CRCL - methotrexate can be continued weekly if normal CRCL - azathioprine and sulfasalazine should be held for 1 wk prior 9. IF TAKING ALLOPURINOL: Hold allopurinol on the day of the procedure and resume the following day unless instructed otherwise Patient was instructed to follow up in primary care with concerns. Plan was discussed with patient and is in agreement with plan. All questions were answered, side effects of any/all new medications were discussed. Patient left in no acute distress. Ready to learn. No apparent learning barriers were identified. Learning preferences include listening. Explained diagnosis and treatment plan. Patient/Child/Caregiver expressed understanding of the content. Tavon Obrien M.D. documented in this encounter Plan of Treatment Not on filedocumented as of this encounter Procedures Procedure Name Priority Date/Time Associated Diagnosis Comme nts BASIC METABOLIC Routine 08/18/2021 9:03 AM Herniated Dis c Lumbar Results for this PANEL, S/P CDT Radiculopathy procedure are in Preoperative Exam the result s section. HCV AB SCRN Routine 08/18/2021 9:02 AM Preoperative Exam Resu lts for this W/REFLEX TO HCV CDT procedure ar e in PCR, S the results section. ECG Routine 08/18/2021 8:57 AM Herniated Dis c Lumbar Results for this CDT Radiculopathy procedure are in Preoperative Exam the result s section. documented in this encounter Results Basic Metabolic Panel (08/18/2021 9:03 AM CDT) P athologist Signature Potassium, P 4.1 3.6 - 5.2 08/18/2021 CNFL mmol/L 9:47 AM CDT Comment: Testing performed on serum Sodium, P 139 135 - 145 mmol/L 08/18/2021 9:47 AM CDT CNFL Chloride, P 102 98 - 107 mmol/L 08/18/2021 9:47 AM CDT CNFL Bicarbonate, P 28 22 - 29 mmol/L 08/18/2021 9:47 AM C DT CNFL Anion Gap, P 9 7 - 15 08/18/2021 9:47 AM CDT CNFL BUN (Blood Urea Nitrogen), P 16 8 - 24 mg/dL 08/18/20 9:47 AM CDT CNFL Creatinine 1.06 0.74 - 1.35 mg/dL 08/18/2021 9:47 AM CD T CNFL eGFR-Black/ 89 >=60 mL/min/BSA 2020 9:47 AM CDT CNFL Comment: ----ADDITIONAL INFORMATION---- Estimated GFR calculated using the 2009 CKD_EPI creatinine equation. eGFR Non-Black/ 77 >=60 mL/min/BSA 9:47 AM CDT CNFL Comment: ----ADDITIONAL INFORMATION---- Estimated GFR calculated using the 2009 CKD_EPI creatinine equation. Calcium, Total, P 9.3 8.6 - 10.0 mg/dL 08/18/2021 9:47 AM CDT CNFL Glucose, P 89 70 - 140 mg/dL 08/18/2021 9:47 AM CDT C NFL Specimen Anatomical Collection Method Collection Time Receive d Time (Source) Location / / Volume Laterality Blood (Blood, 08/18/2021 9:03 AM 08/18/20 9:05 Venous) CDT AM CDT Tavon Obrien M.D. LAB BLOOD ADD-ON Performing Organization Address City/State/ZIP Code Phon e Number [facility] [address] [place] [phone] [place] [address] [place] [address] System [address] HCV Ab Scrn w/Reflex to HCV PCR, Serum (08/18/2021 9:02 AM CDT) athologist Signature HCV Ab Screen, Negative Negative 08/18/2021 ECLR S 4:04 PM CDT Comment: Biotin has been identified by the dejuan graham as a potential interfering substance. ??Higher concentr ations of biotin may be found in multivitamins, hair/nail supple ments, and workout supplements. ??If the result does not [facility] clinical observations, repeat testing after patient refrains fr om the use of supplements for at least 12 hours. Specimen Anatomical Collection Method Collection Time Receive d Time (Source) Location / / Volume Laterality Blood (Blood, 08/18/2021 9:02 AM 08/18/20 3:06 Venous) CDT PM CDT Narrative [facility] - 08/18/2021 4:04 PM CDT Specimen Information: Specimen ID: [id number] Specimen Type: Blood Specimen Collection Start Date: 021 ??9:02 AM Specimen Received Date: 08/18/2021 ??3: 06 PM Specimen ID: [id number] Specimen Type: Blood Specimen Collection Start Date: 021 ??9:03 AM Specimen Received Date: 08/18/2021 ??3: 06 PM Tavon Obrien M.D. LAB MICROBIOLOGY - BLOOD ORD ERABLES Performing Organization Address City/State/ZIP Code Phon e Number [facility]- [address] [place] [phone] [facility] [place] [address] System [address] ECG 12 Lead (08/18/2021 8:57 AM CDT) P athologist Signature Ventricular Rate 61 BPM MUSE ECG/Min WA Interval 216 ms MUSE QRSD Interval 116 ms MUSE QT Interval 422 ms MUSE QTC Interval 424 ms MUSE P [place] 34 degrees MUSE R [place] 7 degrees MUSE T Wave [place] 24 degrees MUSE Specimen Anatomical Collection Method Collection Time Receive d Time (Source) Location / / Volume Laterality 08/18/2021 8:57 AM 9:00 CDT AM CDT Impressions MUSE - 08/18/2021 9:00 AM CDT Sinus rhythm with 1st degree A-V block Non-specific intra-ventricular conductio n delay When compared with ECG of 11-OCT-2010 10 :55, QRS duration has increased WA interval has increased Reviewed by NELY Frausto Narrative This result has an attachment that is no t available. Procedure Note Abner Dorsey M.D. - 08/18/2021Formatti ng of this note might be different from the original. IMPRESSION: Sinus rhythm with 1st degree A-V block Non-specific intra-ventricular conductio n delay When compared with ECG of 06-DEC-2010 10 :55, QRS duration has increased WA interval has increased Reviewed by NELY Frausto Tavon Obrien M.D. ECG ORDERABLES Performing Organization Address City/State/ZIP Code Phon e Number MUSE MUSE NA documented in this encounter Visit Diagnoses Diagnosis Herniated Disc Lumbar - Primary Radiculopathy Preoperative Exam documented in this encounter Care Teams Activity Leader Relationship Specialty Start Date End Date Tavon Obrien M.D. PCP - General Family Medicine 10/24/[address] [place] [phone] documented as of this encounter
--- OUTSIDE RECORDS SUMMARY | 2022-09-09 08:22 | XMS_ITS | Encounter Summary ---
:1965 Author Organization [facility] Address [address] [place] [address] Care Team Providers Name Role Phone Tavon Obrien M.D. Primary Care Provider Reason for Visit Physical Therapy (Routine) - Canceled Specialty Diagnoses / Procedures Referred By Contact Refer red To Contact Diagnoses Pain Knee Bilateral Elio Gary M.D. [facility] Procedures PT Ongoing treatment [address] [place] [phone] Referral ID Status Reason Start Date Expiration Date Visits V isits Requested Authorized [id number] Canceled 08/10/2021 08/10/2022 99 99 Encounter Details Date Type Department Care Team Description 08/24/2021 Clinical Support Department of Elio Gary M.D. [address] [place] [phone] Pain Knee Bilateral Rehabilitation Services Arturo Rader, P.TAdina [address] [place] [phone] [phone] Social History Tobacco Use Types Packs/Day Years Used Date Smoking Tobacco: Never Smokeless Tobacco: Never Alcohol Use Standard Drinks/Week Comments No 0 (1 standard drink = 0.6 oz pure alcoho l) Sex Assigned at Date Recorded Not on file documented as of this encounter Progress Notes Arturo Rader P.T. - 08/24/2021 6:30 AM CDT Physical Therapy Outpatient Treatment Note SUBJECTIVE Patient's Name: Louie German Referring Provider: Elio Gary M.D. Visit Diagnosis: 1. Pain Knee Bilateral Reason for Referral: Low back pain with radiculopathy into the right extremity. Payor: [employer] / Plan: [employer] / Product Type: Indemnity / No data recorded Epic Visit Count: 16 Patient comments: Daniel comes into therapy stating that he is doing relatively the same overall. He will be having surgery next week. Contact monitoring: Appropriate PPE was utilized including face mask/protective eyewear. OBJECTIVE Pain: Ortho Exam Outcome Measures: TREATMENT Treatment today consisted of: We provided intermittent pelvic traction cycling on for 60 seconds and off for 5 seconds. This was for 20 minutes. This did not exceed 125 lb. He tolerated this well. Assessment Clinical Impression: Patient does get relief with traction. However, he does seem to be at a baseline for which he still has symptoms. Functional Goals and Timeframes: PT Goal [...] No data recorded Plan We will continue as needed. As mentioned, he will have surgery next week. Plan for next session: Time Spent with Patient Mechanical Traction (min): 20 min Time Calculation Total Treatment Time (min): 20 min Arturo Rader P.T. Department of Rehabilitation Services in [address] [address] Dept: [phone] documented in this encounter Plan of Treatment Not on filedocumented as of this encounter Visit Diagnoses Diagnosis Pain Knee Bilateral documented in this encounter Care Teams Boat Master Relationship Specialty Start Date End Date Tavon Obrien M.D. PCP - General Family Medicine 10/24/[address] [place] [phone] documented as of this encounter
--- OUTSIDE RECORDS SUMMARY | 2022-09-09 08:22 | XMS_ITS | Encounter Summary ---
:1965 Author Organization [facility] Address [address] [place] [address] Care Team Providers Name Role Phone Tavon Obrien M.D. Primary Care Provider Reason for Visit Physical Therapy (Routine) - Canceled Specialty Diagnoses / Procedures Referred By Contact Refer red To Contact Diagnoses Intervertebral Disc Disorders With Radiculopathy Lumbar Region Tavon Obrien M.D. [facility] Procedures PT Ongoing treatment [address] [place] [phone] Referral ID Status Reason Start Date Expiration Date Visits V isits Requested Authorized [id number] Canceled 06/29/2021 06/29/2022 Encounter Details Date Type Department Care Team Description 08/12/2021 Clinical Support Department of Emelia Obrien M.D. [address] [place] [phone] Intervertebral Disc Rehabilitation Arturo Rader PAdinaTAdina [address] [place] [phone] Disorders With Services in [address] [phone] Social History Tobacco Use Types Packs/Day Years Used Date Smoking Tobacco: Never Smokeless Tobacco: Never Alcohol Use Standard Drinks/Week Comments No 0 (1 standard drink = 0.6 oz pure alcoho l) Sex Assigned at Date Recorded Not on file documented as of this encounter Progress Notes Arturo Rader P.T. - 08/12/2021 6:30 AM CDT Physical Therapy Outpatient Treatment Note SUBJECTIVE Patient's Name: Louie German Referring Provider: Tavon Obrien M.D. Visit Diagnosis: 1. Intervertebral Disc Disorders With Radiculopathy Lumbar Region Reason for Referral: Low back pain with radiculopathy into the right extremity. Payor: [employer] / Plan: [employer] [place] / Product Type: PPO / No data recorded Epic Visit Count: 13 Patient comments: Daniel comes into therapy with similar issues overall. He does get relief with traction. However, thisis temporary. Contact monitoring: Appropriate PPE was utilized including face mask/protective eyewear. OBJECTIVE Pain: Pain Assessment Pain Score: 4 Ortho Exam Outcome Measures: TREATMENT Treatment today consisted of: We continue with intermittent pelvic traction cycling on for 60 seconds and off for 5 seconds. This did not exceed 140 lb. This is on for 20 minutes. Assessment Clinical Impression: Patient [...] No data recorded Plan We will continue with traction if this is helpful. He is scheduled for surgery on approximately 2 and half weeks. Plan for next session: Time Spent with Patient Mechanical Traction (min): 20 min Time Calculation Total Treatment Time (min): 20 min Arturo Rader P.T. Department of Rehabilitation Services in [address] [phone] Dept: [phone] documented in this encounter Plan of Treatment Not on filedocumented as of this encounter Visit Diagnoses Diagnosis Intervertebral Disc Disorders With Radic ulopathy Lumbar Region documented in this encounter Care Teams Health Service Worker Relationship Specialty Start Date End Date Tavon Obrien M.D. PCP - General Family Medicine 10/24/[address] [place] [phone] documented as of this encounter
--- OUTSIDE RECORDS SUMMARY | 2022-09-09 08:23 | XMS_ITS | Encounter Summary ---
:1965 Author Organization [facility] Address [address] [place] [address] Care Team Providers Name Role Phone Tavon Obrien M.D. Primary Care Provider Reason for Referral Outpatient (Routine) - Closed Specialty Diagnoses / Procedures Referred By Contact Refer red To Contact Ophthalmology Kevin Irizarry M.D. [facility] [address] [place] [phone] Referral ID Status Reason Start Date Expiration Date Visits Requ ested Visits Authorized [id number] Closed 06/28/2018 06/28/2019 1 1 Reason for Visit Outpatient (Routine) - Closed Specialty Diagnoses / Procedures Referred By Contact Refer red To Contact Diagnoses Degeneration Retinal Lattice Bilateral Kevin Irizarry M.D. [address] [place] [phone] Referral ID Status Reason Start Date Expiration Date Visits Requ ested Visits Authorized [id number] Closed 08/17/2017 02/13/2018 1 1 Encounter Details Date Type Department Care Team Description 06/28/2018 Office Visit Department of Kevin Irizarry, Cataract Se nile Nuclear Sclerosis Bilateral (Primary Dx); Ophthalmology in M.D. Eye Examination Normal; [place], [place] [address] Degeneration Retinal Lattice Bilateral [address] [place] [phone] Social History Tobacco Use Types Packs/Day Years Used Date Smoking Tobacco: Never Smokeless Tobacco: Never Alcohol Use Standard Drinks/Week Comments No 0 (1 standard drink = 0.6 oz pure alcoho l) Sex Assigned at Date Recorded Not on file documented as of this encounter Progress Notes Kevin Irizarry M.D. - 06/28/2018 1:30 PM CDT Louie German was seen today for No chief complaint on file. 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 Plan: Finn 128 5% evita bedtime both eyes for one month. Ocular lubricants. RTC one year. cex/ref documented in this encounter Plan of Treatment Scheduled Referrals Name Type Priority Associated Order Schedule Diagnoses Ophthalmology office Outpatient Referral Routine Expected: visit (clinic) 06/28/2019 (Approximate), Expires: 06/28/2021 documented as of this encounter Visit Diagnoses Diagnosis Cataract Senile Nuclear Sclerosis Bilate ral - Primary Eye Examination Normal Degeneration Retinal Lattice Bilateral documented in this encounter Care Teams Processing Clerk Relationship Specialty Start Date End Date Tavon Obrien M.D. PCP - General Family Medicine 10/24/[address] [place] [phone] documented as of this encounter
--- OUTSIDE RECORDS SUMMARY | 2022-09-09 08:23 | XMS_ITS | Encounter Summary ---
:1965 Author Organization [facility] Address [address] [place] [address] Care Team Providers Name Role Phone Tavon Obrien M.D. Primary Care Provider Reason for Visit Reason Comments Follow-up back, PT helps and chiroprac tic Outpatient (Routine) - Closed Specialty Diagnoses / Procedures Referred By Contact Refer red To Contact Family Medicine Diagnoses rechTavon Novoa M.D. [address] [address] Referral ID Status Reason Start Date Expiration Date Visits Requ ested Visits Authorized [id number] Closed 07/09/2021 07/09/2022 1 1 Encounter Details Date Type Department Care Team Description 07/30/2021 Office Visit Department of Tavon Stanford He rniated Disc Lumbar (Primary Dx); Louis Bolaños M.D. Radiculopathy [address] [address] [place], [place] [phone] (Work) [phone] Social History Tobacco Use Types Packs/Day Years Used Date Smoking Tobacco: Never Smokeless Tobacco: Never Tobacco Cessation: Counseling Given: No Alcohol Use Standard Drinks/Week Comments No 0 (1 standard drink = 0.6 oz pure alcoho l) Sex Assigned at Date Recorded Not on file documented as of this encounter Last Filed Vital Signs Vital Sign Reading Time Taken Comments Blood Pressure 140/84 07/30/2021 9:54 AM CDT Pulse 63 07/30/2021 9:54 AM CDT Temperature 36 ??C (96.8 ??F) 07/30/2021 9:54 AM CDT Respiratory Rate 17 07/30/2021 9:54 AM CDT Oxygen Saturation 99% 07/30/2021 9:54 AM CDT Inhaled Oxygen Concentration - - Weight 109 kg (240 lb 4.8 oz) 07/30/2021 9:54 AM CDT Height - - Body Mass Index 30.84 11/03/2017 1:30 PM PERSONAL LINES APPRAISER documented in this encounter Progress Notes Tavon Obiren M.D. - 07/30/2021 10:00 AM CDT SUBJECTIVE CHIEF COMPLAINT / REASON FOR VISIT Louie is a 56 y.o. male who presents for evaluation of Follow-up (back, PT helps and chiropractic ). HISTORY OF PRESENT ILLNESS Louie is a pleasant 56 y.o. male who presents to clinic today for ongoing management of workplace injury resulting in herniated lumbar disc with radiculopathy specifically on the right resulting in right-sided footdrop and pain. He is continue with physical therapy and date night caregiver which has hel ped manage his symptoms. He has also recently undergone Spine Center evaluation at [facility] and current recommendation is to proceed with surgery. He is awaiting clearance. Symptoms are managed at this time on current regimen. The following portions of the patient's history were reviewed and updated as appropriate: allergies,current medications, family history, medical history, social history, surgical history and problem list. Brief Review of Systems: A brief review of systems was negative except for that mentioned in the history of present of illness. OBJECTIVE PHYSICAL EXAM BP 140/84 (BP Location: Left arm, Patient Position: Sitting, Cuff Size: Regular) Pulse 63 Temp 36 ??C (Temporal) Resp 17 Wt 109 kg SpO2 99% BMI 30.84 kg/m?? Body mass index is 30.84 kg/m??. GENERAL: Patient is in no distress. Capable of full communication without difficulty. Patient is polite and cooperative. EXTREMITIES: Decreased sensation right lower extremity with footdrop noted. Right lumbar paraspinal musculature spasm with pain. PSYCH: Affect is appropriate ASSESSMENT / PLAN #1 Herniated Disc Lumbar #2 Radiculopathy Recommend continue with current restrictions at this time. Awaiting clearance for surgery which willbe definitive care for his current injury. Continue with physical therapy as well as date night caregiver as this is helping manage his symptoms at this time. Follow-up as needed for preop prior to the anticipated surgery. Total time spent 31 minutes. Patient was instructed to follow up in primary care if symptoms are worsening or there is no improvement over the next several days. Plan was discussed with patient and is [...] as of this encounter Visit Diagnoses Diagnosis Herniated Disc Lumbar - Primary Radiculopathy documented in this encounter Care Teams Security Manager Relationship Specialty Start Date End Date Tavon Obrien M.D. PCP - General Family Medicine 10/24/[address] [place] [phone] documented as of this encounter
--- OUTSIDE RECORDS SUMMARY | 2022-09-09 08:23 | XMS_ITS | Encounter Summary ---
:1965 Author Organization [facility] Address [address] [place] [address] Care Team Providers Name Role Phone Tavon Obrien M.D. Primary Care Provider Encounter Details Date Type Department Care Team Description 10/26/2017 Abstract Department of Family Medicine in [place] [address] [address] [place], [place] [phone] Social History Tobacco Use Types Packs/Day Years [...] on filedocumented in this encounter Care Teams Truck Assembler Relationship Specialty Start Date End Date Tavon Obrien M.D. PCP - General Family Medicine 10/24/[address] [place] [phone] documented as of this encounter
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
--- OUTSIDE RECORDS SUMMARY | 2022-09-09 08:23 | XMS_ITS | Encounter Summary ---
:1965 Author Organization [facility] Address [address] [place] [address] Care Team Providers Name Role Phone Tavon Obrien M.D. Primary Care Provider Reason for Referral MRI/CAT/PET Scan (Routine) - Closed Specialty Diagnoses / Procedures Referred By Contact Refer red To Contact Radiology Diagnoses Pain Low Back Unspecified Tavon Obrien M.D. [facility] [place] [facility] Procedures MR Lumbar Spine without IV Contrast [id number] [phone] Referral ID Status Reason Start Date Expiration Date Visits Requ ested Visits Authorized [id number] Closed 06/02/2021 06/02/2022 1 1 Reason for Visit MRI/CAT/PET Scan (Routine) - Closed Specialty Diagnoses / Procedures Referred By Contact Refer red To Contact Radiology Diagnoses Pain Low Back Unspecified Tavon Obrien M.D. [facility] [place] [facility] Procedures MR Lumbar Spine without IV Contrast [id number] [phone] Referral ID Status Reason Start Date Expiration Date Visits Requ ested Visits Authorized [id number] Closed 06/02/2021 06/02/2022 1 1 Encounter Details Date Type Department Care Team Description 06/24/2021 Hospital Encounter Department of Radiology Chano Obrien, Pain Low Back in Stefany Espinosa M.D. [address] [facility] [place] [phone] Social History Tobacco Use Types Packs/Day Years Used Date Smoking Tobacco: Never Smokeless Tobacco: Never Alcohol Use Standard Drinks/Week Comments No 0 (1 standard drink = 0.6 oz pure alcoho l) Sex Assigned at Date Recorded Not on file documented as of this encounter Medications at Time of Discharge Medication Sig Dispensed Refills Start Date End Date albuterol (Ventolin HFA) 90 puffs. 0 90 mcg/actuation inhaler amLODIPine (for_NORVASC) Take 5 mg by mouth 0 5 mg tablet daily. cholecalciferol (VITAMIN 50 mcg. 0 D3) 50 mcg (2,000 Unit) tablet lisinopril Take 40 mg by mouth 0 02/01/2014 (for_PRINIVIL,ZESTRIL) daily. 40 mg tablet multivitamin capsule multivitamin 0 09/14/2010 mupirocin (BACTROBAN) 2 2 application. 0 % ointment ozenoxacin (Xepi) 1 % 1 application. 0 cream sodium chloride Apply 1/2 inch into 3.5 g 11 06/28/2018 (LESLIE-128) 5 % both eyes 3 times a ophthalmic ointment day triamcinolone (KENALOG) 0.1 application. 0 0.1 % cream albuterol 90 90 puffs. 0 05/31/2021 07/09/2021 mcg/actuation inhaler predniSONE (DELTASONE) Take 1 tablet (20 mg 10 tablet 0 06/30/2021 20 mg tablet total) by mouth daily. documented as of this encounter Plan of Treatment Not on filedocumented as of this encounter Procedures Procedure Name Priority Date/Time Associated Comments Diagnosis MR LUMBAR SPINE RAD - Routine 06/24/2021 11:53 Pain Low Back Result s for this WITHOUT IV (most inpatients AM CDT procedure a re in CONTRAST and all the results outpatients) section. documented in this encounter Results MR Lumbar Spine without IV Contrast (06/24/2021 11:53 AM CDT) Anatomical Region Laterality Modality Lumbar Spine, Neuroradiology RST LOS, Neuroradiology N/A Magnetic Resonance ARZ LOS, Neuroradiology FLA LOS Specimen (Source) Anatomical Collection Method Collection Time Re ceived Time Location / / Volume Laterality 06/24/2021 12:29 PM CDT Impressions 06/24/2021 12:38 PM CDT Large right-sided disc extrusion at L4-5 with mass effect upon the traversing right L5 nerve root. This pro bably accounts for the patient's symptoms. Narrative 06/24/2021 12:38 PM CDT EXAM: MR LUMBAR SPINE WITHOUT IV CONTRAST COMPARISON: Noncontrast lumbar spine CT 05/14/2021. FINDINGS: Unchanged since the prior stud y, allowing for technical differences. Again visualized is minimal degenerative disc disease L3-S1. Small Schmorl's nodes in the superior L3, L4 and L5 endp lates. Mild bone marrow edema within the left L5 pedicle and inferior L5 facet (5 /4), degenerative versus traumatic. At L4-5, moderate central and right neural foraminal stenosis due to a disc bulge with superimposed intraforaminal/lateral disc extrusion, with the extrusion coursing inferiorly in the right lateral recess (/, 7/18, 4/9). This extrusion imparts significant mass effec t upon the traversing right L5 nerve root in the lateral recess at this level in conjunction with mild to moderate facet joint and ligamentum flavum hypert rophy. At L5-S1, moderate left neural foraminal stenosis and mild central and right neural foraminal stenosis due to a disc bulge with superimposed right intra foraminal disc protrusion and moderate bilateral facet joint hypertrophy. Small hemangioma in the L1 and S3 vertebral bodies. Remainder normal including ce l lower thoracic cord, conus and cauda equina. Procedure Note Ceasar Jacob M.D., Ph.D. - 06/24/2021Fo rmatting of this note might be different from the original. EXAM: MR LUMBAR SPINE WITHOUT IV CONTRAS T COMPARISON: Noncontrast lumbar spine CT 05/14/2021. FINDINGS: Unchanged since the prior stud y, allowing for technical differences. Again visualized is minimal degenerative disc disease L3-S1. Small Schmorl's nodes in the superior L3, L4 and L5 endp lates. Mild bone marrow edema within the left L5 pedicle and inferior L5 facet (5 /4), degenerative versus traumatic. At L4-5, moderate central and right neural foraminal stenosis due to a disc bulge with superimposed intraforaminal/lateral disc extrusion, with the extrusion coursing inferiorly in the right lateral recess (05/22, 05/23, 02/12). This extrusion imparts significant mass effec t upon the traversing right L5 nerve root in the lateral recess at this level in conjunction with mild to moderate facet joint and ligamentum flavum hypert rophy. At L5-S1, moderate left neural foraminal stenosis and mild central and right neural foraminal stenosis due to a disc bulge with superimposed right intra foraminal disc protrusion and moderate bilateral facet joint hypertrophy. Small hemangioma in the L1 and S3 vertebral bodies. Remainder normal including ce l lower thoracic cord, conus and cauda equina. IMPRESSION: Large right-sided disc extrusion at L4-5 with mass effect upon the traversing right L5 nerve root. This pro bably accounts for the patient's symptoms. Tavon Obrien M.D. IMG MRI PROCEDURES documented in this encounter Visit Diagnoses Diagnosis Pain Low Back Unspecified documented in this encounter Care Teams Potato Chip Fryer Relationship Specialty Start Date End Date Tavon Obrien M.D. PCP - General Family Medicine 10/24/[address] [place] [phone] documented as of this encounter
--- OUTSIDE RECORDS SUMMARY | 2022-09-09 08:23 | XMS_ITS | Encounter Summary ---
:1965 Author Organization [facility] Address [address] [place] [address] Care Team Providers Name Role Phone Tavon Obrien M.D. Primary Care Provider Reason for Referral Outpatient (Routine) - Closed Specialty Diagnoses / Procedures Referred By Contact Refer red To Contact Procedures Crossband Layer Colonoscopy Referral ID Status Reason Start Date Expiration Date Visits Requ ested Visits Authorized [id number] Closed 05/05/2021 05/05/2022 1 1 Encounter Details Date Type Department Care Team Description 05/05/2021 Abstract GROWTH MEDIA MIXER MUSHROOM Chano Obrien M.D. [id number] [phone] (Wo rk) Social History Tobacco Use Types [...] Name Priority Date/Time Associated Diagnosis Comme nts COLONOSCOPY Routine 04/17/2019 8:15 AM Results f or this CDT procedure are i n the results section . documented in this encounter Results (ABNORMAL) Colonoscopy (04/17/2019 8:15 AM CDT) [facility] Method Time Signature EXT Colonoscopy Abnormal - Normal - See See Scanned Scanned Report for Report for Details (A) Details, HIMS - Report Received and Scanned Comment: See Care Everywhere for results : Performing facility: [facility]. Provider: Judi Wynn MD, Results: Two tubular adenomas Impressions Margot Pérez - 04/17/2019 8:15 AM CDT Final dx: A Colon, hepatic flexure, polypectomy: 1. Tubular adenoma 2. Negative for high grade dysplasia 3. Per the colonoscopy report: ?a. Polyp size: 4mm ?b. Resection: Complete ?c. Retrieval complete B Colon, transverse, polypectomy: 1. Tubular adenoma 2. Negative for high grade dysplasia 3. Per the colonoscopy report: ?a. Polyp size: 2mm ?b. Resection: Complete ?c. Retrieval complete Historical Provider GI PROCEDURE ORDERABLES documented in this encounter Visit Diagnoses Not on filedocumented in this encounter Care Teams Stick Inserter Relationship Specialty Start Date End Date Tavon Obrien M.D. PCP - General Family Medicine 10/24/[address] [place] [phone] documented as of this encounter
--- OUTSIDE RECORDS SUMMARY | 2022-09-09 08:23 | XMS_ITS | Encounter Summary ---
:[address] [facility] Address [address] [place] [address] Care Team Providers Name Role Phone Tavon Obrien M.D. Primary Care Provider Reason for Visit Physical Therapy (Routine) - Canceled Specialty Diagnoses / Procedures Referred By Contact Refer red To Contact Diagnoses Intervertebral Disc Disorders With Radiculopathy Lumbar Region Tavon Obrien M.D. [facility] Procedures PT Ongoing treatment [address] [place] [phone] Referral ID Status Reason Start Date Expiration Date Visits V isits Requested Authorized [id number] Canceled 06/29/2021 06/29/2022 Encounter Details Date Type Department Care Team Description 07/08/2021 Clinical Support Department of Emelia Obrien M.D. [address] [place] [phone] Intervertebral Disc Rehabilitation Arturo Rader PAdinaTAdina [address] [place] [phone] Disorders With Services in [address] [phone] Social History Tobacco Use Types Packs/Day Years Used Date Smoking Tobacco: Never Smokeless Tobacco: Never Alcohol Use Standard Drinks/Week Comments No 0 (1 standard drink = 0.6 oz pure alcoho l) Sex Assigned at Date Recorded Not on file documented as of this encounter Progress Notes Arturo Rader P.T. - 07/08/2021 7:00 AM CDT Physical Therapy Outpatient Treatment Note SUBJECTIVE Patient's Name: Louie German Referring Provider: Tavon Obrien M.D. Visit Diagnosis: 1. Intervertebral Disc Disorders With Radiculopathy Lumbar Region Reason for Referral: Low back pain with radiculopathy into the right extremity. Payor: [email or web address] [place] / Plan: [email or web address] [place] [employer] / Product Type: Indemnity / No data recorded Epic Visit Count: 4 Patient comments: Daniel comes into therapy today stating that he feels his leg may be a little weaker overall. His backdoes not have as much pain is it had previously. However, the tingling/numbness is still in the lower extremity. Contact monitoring: Appropriate PPE was utilized including face mask/protective eyewear. OBJECTIVE Pain: Pain Assessment Pain Score: 4 Ortho Exam Outcome Measures: TREATMENT Treatment today consisted of: We treated patient once again with intermittent pelvic traction cycling on for 60 seconds and off for 5 seconds. This did not exceed 120 lb. He tolerated this well. Assessment Clinical Impression: Patient still continues to have symptoms into the lower extremity. His low back pain has decreased over time. However, he does feel that his leg is a little weaker overall. He does have footdrop. Functional Goals and Timeframes: PT Goal #1: [...] #3 Date: 06/29/21 No data recorded Plan He is hoping that traction is giving him some relief. I we will see him once again next week to follow-up with traction he is also seeking chiropractic treatment as well. Plan for next session: Time Spent with Patient Mechanical Traction (min): 20 min Time Calculation Total Treatment Time (min): 20 min Arturo Rader P.T. Department of Rehabilitation Services in [address] [phone] Dept: [phone] documented in this encounter Plan of Treatment Not on filedocumented as of this encounter Visit Diagnoses Diagnosis Intervertebral Disc Disorders With Radic ulopathy Lumbar Region documented in this encounter Care Teams Dietetic Assistant Relationship Specialty Start Date End Date Tavon Obrien M.D. PCP - General Family Medicine 10/24/[address] [place] [phone] documented as of this encounter
--- OUTSIDE RECORDS SUMMARY | 2022-09-09 08:23 | XMS_ITS | Encounter Summary ---
:1965 Author Organization [facility] Address [address] [place] [address] Care Team Providers Name Role Phone Tavon Obrien M.D. Primary Care Provider Reason for Visit Physical Therapy (Routine) - Canceled Specialty Diagnoses / Procedures Referred By Contact Refer red To Contact Diagnoses Intervertebral Disc Disorders With Radiculopathy Lumbar Region Tavon Obrien M.D. [facility] Procedures PT Ongoing treatment [address] [place] [phone] Referral ID Status Reason Start Date Expiration Date Visits V isits Requested Authorized [id number] Canceled 06/29/2021 06/29/2022 Encounter Details Date Type Department Care Team Description 07/20/2021 Clinical Support Department of Emelia Obrien M.D. [address] [place] [phone] Intervertebral Disc Rehabilitation Arturo Rader PAdinaTAdina [address] [place] [phone] Disorders With Services in [address] [phone] Social History Tobacco Use Types Packs/Day Years Used Date Smoking Tobacco: Never Smokeless Tobacco: Never Alcohol Use Standard Drinks/Week Comments No 0 (1 standard drink = 0.6 oz pure alcoho l) Sex Assigned at Date Recorded Not on file documented as of this encounter Progress Notes Arturo Rader P.T. - 07/20/2021 6:30 AM CDT Physical Therapy Outpatient Treatment Note SUBJECTIVE Patient's Name: Louie German Referring Provider: Tavon Obrien M.D. Visit Diagnosis: 1. Intervertebral Disc Disorders With Radiculopathy Lumbar Region Reason for Referral: Low back pain with radiculopathy into the right extremity. Payor: [employer] [place] [employer] / Plan: [facility] [employer] [place] [employer] / Product Type: Indemnity / No data recorded Epic Visit Count: 7 Patient comments: Daniel comes into therapy with similar issues overall he is going to be set up for diskectomy. Appropriate PPE was utilized including face mask/protective eyewear. OBJECTIVE Pain: Pain Assessment Pain Score: 4 Ortho Exam Outcome Measures: TREATMENT Treatment today consisted of: We continued with intermittent pelvic traction cycling on for 60 seconds and off for 5 seconds. Thisdid not exceed 130 lb. Assessment Clinical Impression: Patient tolerated therapy well overall. He does get some relief with traction. He is also receiving chiropractic cares. This is helping on manage his discomfort/pain until as this ectomy. Functional Goals and Timeframes: PT Goal #1: [...] recorded Plan We will continue as needed. Plan for next session: Time Spent with Patient Mechanical Traction (min): 20 min Time Calculation Total Treatment Time (min): 20 min Arturo Rader P.T. Department of Rehabilitation Services in [address] [phone] Dept: [phone] documented in this encounter Plan of Treatment Not on filedocumented as of this encounter Visit Diagnoses Diagnosis Intervertebral Disc Disorders With Radic ulopathy Lumbar Region documented in this encounter Care Teams Dag Coater Relationship Specialty Start Date End Date Tavon Obrien M.D. PCP - General Family Medicine 10/24/[address] [place] [phone] documented as of this encounter
--- OUTSIDE RECORDS SUMMARY | 2022-09-09 08:23 | XMS_ITS | Encounter Summary ---
:1965 Author Organization [facility] Address [address] [place] [address] Care Team Providers Name Role Phone Tavon Obrien M.D. Primary Care Provider Reason for Visit Physical Therapy (Routine) - Canceled Specialty Diagnoses / Procedures Referred By Contact Refer red To Contact Diagnoses Intervertebral Disc Disorders With Radiculopathy Lumbar Region Tavon Obrien M.D. [facility] Procedures PT Ongoing treatment [address] [place] [phone] Referral ID Status Reason Start Date Expiration Date Visits V isits Requested Authorized [id number] Canceled 06/29/2021 06/29/2022 Encounter Details Date Type Department Care Team Description 07/06/2021 Clinical Support Department of Emelia Obrien M.D. [address] [place] [phone] Intervertebral Disc Rehabilitation Arturo Rader PAdinaTAdina [address] [place] [phone] Disorders With Services in [address] [phone] Social History Tobacco Use Types Packs/Day Years Used Date Smoking Tobacco: Never Smokeless Tobacco: Never Alcohol Use Standard Drinks/Week Comments No 0 (1 standard drink = 0.6 oz pure alcoho l) Sex Assigned at Date Recorded Not on file documented as of this encounter Progress Notes Arturo Rader P.T. - 07/06/2021 7:30 AM CDT Physical Therapy Outpatient Treatment Note SUBJECTIVE Patient's Name: Louie German Referring Provider: Tavon Obrien M.D. Visit Diagnosis: 1. Intervertebral Disc Disorders With Radiculopathy Lumbar Region Reason for Referral: Low back pain with radiculopathy into the right extremity. Payor: [employer] [place] [employer] / Plan: [facility] [employer] [place] [employer] / Product Type: Indemnity / No data recorded Epic Visit Count: 3 Patient comments: Daniel comes into therapy today stating that he is quite sore after therapy last time. This lasted forapproximately 3 days. However, today, he is doing better once again. He rates his pain as a 3/10. He was wondering if that was the back extension exercises which may have cause his discomfort. Contact monitoring: Appropriate PPE was utilized including face mask/protective eyewear. OBJECTIVE Pain: Pain Assessment Pain Score: 3 Ortho Exam Outcome Measures: TREATMENT Treatment today consisted of: We provided intermittent pelvic traction cycling on for 60 seconds and off for 5 seconds. This did not exceed 120 lb. This was for 20 minutes total. He tolerated this very well. We did not do any back extension exercises today. Home Exercise Program/Education: Assessment Clinical Impression: Patient tolerated well overall. [...] Date: 06/29/21 No data recorded Plan We continued. He is trying to make an appointment with Dr. Horne in [place] for possible injection. Plan for next session: Time Spent with Patient Mechanical Traction (min): 20 min Time Calculation Total Treatment Time (min): 20 min Arturo Rader P.T. Department of Rehabilitation Services in [address] [address] Dept: [phone] documented in this encounter Plan of Treatment Not on filedocumented as of this encounter Visit Diagnoses Diagnosis Intervertebral Disc Disorders With Radic ulopathy Lumbar Region documented in this encounter Care Teams Core Extruder Relationship Specialty Start Date End Date Tavon Obrien M.D. PCP - General Family Medicine 10/24/[address] [place] [phone] documented as of this encounter
--- OUTSIDE RECORDS SUMMARY | 2022-09-09 08:23 | XMS_ITS | Encounter Summary ---
:1965 Author Organization [facility] Address [address] [place] [address] Care Team Providers Name Role Phone Tavon Obrien M.D. Primary Care Provider Reason for Visit Physical Therapy (Routine) - Canceled Specialty Diagnoses / Procedures Referred By Contact Refer red To Contact Diagnoses Intervertebral Disc Disorders With Radiculopathy Lumbar Region Tvaon Obrien M.D. [facility] Procedures PT Ongoing treatment [address] [place] [phone] Referral ID Status Reason Start Date Expiration Date Visits V isits Requested Authorized [id number] Canceled 06/29/2021 06/29/2022 Encounter Details Date Type Department Care Team Description 07/13/2021 Clinical Support Department of Emelia Obrien M.D. [address] [place] [phone] Intervertebral Disc Rehabilitation Arturo Rader PAdinaTAdina [address] [place] [phone] Disorders With Services in [address] [phone] Social History Tobacco Use Types Packs/Day Years Used Date Smoking Tobacco: Never Smokeless Tobacco: Never Alcohol Use Standard Drinks/Week Comments No 0 (1 standard drink = 0.6 oz pure alcoho l) Sex Assigned at Date Recorded Not on file documented as of this encounter Progress Notes Arturo Rader P.T. - 07/13/2021 6:30 AM CDT Physical Therapy Outpatient Treatment Note SUBJECTIVE Patient's Name: Louie German Referring Provider: Tavon Obrien M.D. Visit Diagnosis: 1. Intervertebral Disc Disorders With Radiculopathy Lumbar Region Reason for Referral: Low back pain with radiculopathy into the right extremity. Payor: [employer] [place] [employer] / Plan: [facility] [employer] / Product Type: Indemnity / No data recorded Epic Visit Count: 5 Patient comments: Of Daniel comes into therapy today stating that he feels that the traction is giving him some relief. Contact monitoring: Appropriate PPE was utilized including face mask/protective eyewear. OBJECTIVE Pain: Pain Assessment Pain Score: 4 Ortho Exam Outcome Measures: TREATMENT Treatment today consisted of: We continue with traction today. We did increased attention to 130 lb. This was for 20 minutes. He tolerated this all well. Home Exercise Program/Education: Assessment Clinical Impression: Patient reports he continues to have the tingling into his lower extremity. Functional Goals and Timeframes: PT Goal #1: [...] 06/29/21 No data recorded Plan We will see him once again on . He does have an appointment for injection as well. Plan for next session: Time Spent with Patient Mechanical Traction (min): 20 min Time Calculation Total Treatment Time (min): 20 min Arturo Rader P.T. Department of Rehabilitation Services in [address] [phone] Dept: [phone] documented in this encounter Plan of Treatment Not on filedocumented as of this encounter Visit Diagnoses Diagnosis Intervertebral Disc Disorders With Radic ulopathy Lumbar Region documented in this encounter Care Teams Order Packer Relationship Specialty Start Date End Date Tavon Obrien M.D. PCP - General Family Medicine 10/24/[address] [place] [phone] documented as of this encounter
--- OUTSIDE RECORDS SUMMARY | 2022-09-09 08:23 | XMS_ITS | Encounter Summary ---
:1965 Author Organization [facility] Address [address] [place] [address] Care Team Providers Name Role Phone Tavon Obrien M.D. Primary Care Provider Reason for Visit Reason Comments Chiropractic referral Encounter Details Date Type Department Care Team Description 06/08/2021 Clinical Communication Department of David Obrien Family MedicineTavon M.D. referral [address], in [address] [phone] [facility] [phone] [place], [place] (Work) [phone] Social History Tobacco Use Types Packs/Day Years Used Date Smoking Tobacco: Never Smokeless Tobacco: Never Alcohol Use Standard Drinks/Week Comments No 0 (1 standard drink = 0.6 oz pure alcoho l) Sex Assigned at Date Recorded Not on file documented as of this encounter Miscellaneous Notes Telephone Encounter - Delores Bey RAdinaNAdina - 06/08/2021 10:18 AM CDT Referral faxed to [facility] Eduardo Arndt . FAX: [phone] documented in this encounter Plan of Treatment Not on filedocumented as of this encounter Visit Diagnoses Not on filedocumented in this encounter Care Teams Software Computer Specialist Relationship Specialty Start Date End Date Tavon Obrien M.D. PCP - General Family Medicine 10/24/[address] [place] [phone] documented as of this encounter
--- OUTSIDE RECORDS SUMMARY | 2022-09-09 08:23 | XMS_ITS | Encounter Summary ---
:1965 Author Organization [facility] Address [address] [place] [address] Care Team Providers Name Role Phone Tavon Obrien M.D. Primary Care Provider Encounter Details Date Type Department Care Team Description 07/13/2018 Clinical Communication Department of Sleep Ez Irizarry, Medicine in [place] [address] [place] [phone] Social History Tobacco Use Types Packs/Day Years Used Date Smoking Tobacco: Never Smokeless Tobacco: Never Alcohol Use Standard Drinks/Week Comments No 0 (1 standard drink = 0.6 oz pure alcoho l) Sex Assigned at Date Recorded Not on file documented as of this encounter Miscellaneous Notes Telephone Encounter - Angela Castillo - 07/16/2018 5:02 PM CDT Called pt and answered his questions about Finn 128 Evita Rx vs OTC. States understanding. He will pick pack worker the evita and try as prescribed. If it does not give relief, he will call back . No other questions. Telephone Encounter - Angela Castillo - 07/13/2018 5:08 PM CDT Attempted to call pt. His mailbox is full and unable to lm at this time. NOTE--Dr. Irizarry did order Finn Evita to Aggie Verdin, at time of pt's exam on 06/28/18. Telephone Encounter - Daina Bhatt - 07/13/2018 3:59 PM CDT Patient calling has questions about rx that was supposed to be sent at 06/28 appt. Said over the counter med was discussed but decided on a prescription strength rx. It was never sent in. Lambert Marcial documented in this encounter Plan of Treatment Not on filedocumented as of this encounter Visit Diagnoses Not on filedocumented in this encounter Care Teams Sound Equipment Mechanic Relationship Specialty Start Date End Date Tavon Obrien M.D. PCP - General Family Medicine 10/24/[address] [place] [phone] documented as of this encounter
--- OUTSIDE RECORDS SUMMARY | 2022-09-09 08:23 | XMS_ITS | Encounter Summary ---
:1965 Author Organization [facility] Address [address] [place] [address] Care Team Providers Name Role Phone Tavon Obrien M.D. Primary Care Provider Reason for Visit Physical Therapy (Routine) - Canceled Specialty Diagnoses / Procedures Referred By Contact Refer red To Contact Diagnoses Pain Knee Right Gee Knowles M.D. [facility] Procedures PT Ongoing treatment [address] [place] [address] Referral ID Status Reason Start Date Expiration Date Visits V isits Requested Authorized [id number] Canceled 03/26/2019 07/06/2019 99 7 Encounter Details Date Type Department Care Team Description 06/14/2019 Clinical Support Department of Dawson Knowles M.D. [address] [place], [place] [phone] Pain Knee Right Rehabilitation Services Melissa Rdz PAdinaTAdina in [address] [phone] Social History Tobacco Use Types Packs/Day Years Used Date Smoking Tobacco: Never Smokeless Tobacco: Never Alcohol Use Standard Drinks/Week Comments No 0 (1 standard drink = 0.6 oz pure alcoho l) Sex Assigned at Date Recorded Not on file documented as of this encounter Progress Notes Melissa Rdz P.T., D.P.T. - 06/14/2019 2:30 PM CDT Physical Therapy Outpatient Treatment Note SUBJECTIVE Patient's Name: Louie German Referring Provider: Brendan Fletcher* Visit Diagnosis: 1. Pain Knee Right Reason for Referral: PT evaluation and treat Onset Date: 03/26/19 Payor: [employer] [facility] [employer] / Plan: [employer] [facility] / Product Type: Indemnity / No data recorded Epic Visit Count: 6 Patient comments: Patient feels that he has made progress since starting physical therapy. He has little to no pain today. However continues to have waxing and waning symptoms, he is in agreement that we have plateaued in therapy. He requests that progress note be sent to his Primary Care Physician. OBJECTIVE Pain: No pain rated on numerical scale today, patient reports that he has minimal to no pain today. Tenderness to R medial tibiofemoral joint line. Hamstring, quadriceps, hip adductor and hip flexor tightness bilateral. Patient has shown progress and to continue with home stretching program. Good Lower extremity strength overall. Hip weakness relative to other major muscle groups inititally. 5/5 MMT hip extension and abduction upon discharge. Decreased tenderness in region of plantar fascia. Hypermobility noted throughout L mid and forefoot in comparison to R foot. Increased great toe flexion on this side as well. - patient to continue L sided strengthening in HEP. TREATMENT Treatment today consisted of: Therapeutic Exercise: Progressed proximal strengthening exercises to lift and standing clam with resistance. Home Exercise Program/Education: Pt reports good compliance with his HEP. Access Code: [email or web address] URL: [email or web address] Date: 06/14/2019 Prepared by: Melissa Rdz Exercises Standing Eccentric Heel Raise - 10 reps - 3 sets - 1x daily - 7x weekly Seated Plantar Fascia Stretch - 3 sets - 30 hold - 1x daily - 7x weekly Ankle Inversion with Anchored Resistance at Table - 10 reps - 3 sets - 1x daily - 7x weekly Towel Scrunches - 10 reps - 3 sets - 1x daily - 7x weekly Seated Hamstring Stretch - 3 sets - 30 hold - 1x daily - 7x weekly Side Lunge Adductor Stretch - 3 sets - 30 hold - 1x daily - 7x weekly Seated Piriformis Stretch with Trunk Bend - 3 sets - 30 hold - 1x daily - 7x weekly Standing Quadricep Stretch with Counter Support - 3 sets - 30 hold - 1x daily - 7x weekly Single Leg Partial Squat with Resistance - 10 reps - 3 sets - 1x daily - 7x weekly Half Lift with Kettlebell - 10 reps - 3 sets - 1x daily - 7x weekly Standing Clam with Resistance Loop - 10 reps - 3 sets - 1x daily - 7x weekly Assessment Clinical Impression: Mr. German is a pleasant 53 y.o. M who presents with lingering L plantar fascitis pain and R medial knee pain. Patient has shown good progress in his L heel and R knee pain withmobility and strengthening program. He shows improved stance stability and strength, as well as progressing LE mobility. His pain continues to wax and wan depending on work related requirements of the day/week. Patient was given home exercise program tailored to his L heel pain and R knee pain. Discussion on continuing program, and that if pain increases he should come back for re-evaluation at that time. We also discussed the best treatment options as a whole for plantar fascitis and pain from meniscal injury. Patient agrees with plan of care. Functional Goals and Timeframes: PT Goal #1: Patient will report 0/10 R knee pain and L heel pain throughout work day. (Goal partially met.) PT Goal #1 Date: 06/14/19 PT Goal #2: Patient will show symmetric stance stability of R lower extremity compared to L. (Goal met.) PT Goal #2 Date: 06/14/19 PT Goal #3: Patient will be independent in home exercise program. (Goal met.) PT Goal #3 Date: 06/14/19 Plan Plan: Discontinue therapy DISCHARGE STATUS STATUS OF GOALS: Goals partially met. REASON FOR DISCHARGE: Pt's therapy progress has plateaued and does not meet criteria for continued skilled care. DISCHARGE PLAN/RECOMMENDATIONS: It is recommended that Mr. German continue with therapeutic recommendations provided in the course of his care. If additional skilled care is indicated in the future, a new physical therapy order and evaluation would be required.. Time Spent with Patient Therapeutic Exercise (min): 20 min Time Calculation Total Timed Units (min): 20 min Total Treatment Time (min): 20 min Melissa Rdz P.T., D.P.T. Department of Rehabilitation Services in [address] [phone] Dept: [phone] documented in this encounter Plan of Treatment Not on filedocumented as of this encounter Visit Diagnoses Diagnosis Pain Knee Right documented in this encounter Care Teams Associate Professor Physician Relationship Specialty Start Date End Date Tavon Obrien M.D. PCP - General Family Medicine 10/24/[address] [place] [address], [place] [phone] documented as of this encounter
--- OUTSIDE RECORDS SUMMARY | 2022-09-09 08:23 | XMS_ITS | Encounter Summary ---
:1965 Author Organization [facility] Address [address] [place] [address] Care Team Providers Name Role Phone Tavon Obrien M.D. Primary Care Provider Reason for Visit Physical Therapy (Routine) - Closed Specialty Diagnoses / Procedures Referred By Contact Refer red To Contact Diagnoses Intervertebral Disc Disorders With Radiculopathy Lumbar Region Pain Low Back Unspecified Tavon Obrien M.D. [facility] Procedures PT Evaluate and treat [address] [place] [phone] Referral ID Status Reason Start Date Expiration Date Visits Requ ested Visits Authorized [id number] Closed 06/02/2021 11/05/2021 1 1 Encounter Details Date Type Department Care Team Description 06/29/2021 Comprehensive Visit Department of Sid Obrien M.D. [address] [place] [phone] Intervertebral Disc Disorders With Radic ulopathy Lumbar Region (Primary Dx); Rehabilitation Arturo Rader, PAdinaTAdina [address] [phone] [facility] in [place], [place] [phone] [place] [phone] Social History Tobacco Use Types Packs/Day Years Used Date Smoking Tobacco: Never Smokeless Tobacco: Never Alcohol Use Standard Drinks/Week Comments No 0 (1 standard drink = 0.6 oz pure alcoho l) Sex Assigned at Date Recorded Not on file documented as of this encounter Consult Notes Arturo Rader P.T. - 06/29/2021 7:00 AM CDT Physical Therapy Outpatient Evaluation/Treatment SUBJECTIVE Patient's Name: Louie German Referring Provider: Tavon Obrien M.D. Visit Diagnosis: 1. Intervertebral Disc Disorders With Radiculopathy Lumbar Region 2. Pain Low Back Reason for Referral: Low back pain with radiculopathy into the right extremity. Payor: [employer] [facility] / Plan: [employer] [facility] [employer] / Product Type: retickr / [employer] Visit Count: 1 PERTINENT MEDICAL / SURGICAL HISTORY: Patient Active Problem List Diagnosis ??? Hypertension ??? Hyperlipidemia ??? Pain Knee Right Past Surgical History: Procedure Laterality Date ??? KNEE ARTHROSCOPY ??? REFRACTIVE SURGERY Bilateral 1998 PRK ??? TONSILLECTOMY Louie German is a 55 y.o. male who presents to outpatient physical therapy for evaluation. His symptoms consist of: 1. Low back pain with right radiculopathy. 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 Presently, he states that he has tingling/numbness down the left lower extremity. He also feels thatthere is weakness in the lower extremity. His date of injury was approximately 6 weeks ago. He is not seeing any improvement thus far. He states that prolonged sitting and standing can be difficult. Hefeels better when he is moving around verses static positions. Previous Treatments: Patient is seen chiropractic cares as well. Family/Caregiver Present: No Patient goals: Contact monitoring: Pre PPE was utilized including face mask/protective eyewear. OBJECTIVE REVIEW OF SYSTEMS PHYSICAL EXAM Pain: Pain Assessment Pain Assessment: 0-10 Numeric Pain Intensity Scale Pain Score: 5 - Moderate pain Ortho Exam Upon observation, patient ambulates into therapy with a noted deviation in his gait. He is protective of his right lower extremity. We did have patient in standing we had him go up onto his toes. Thereis noted weakness with toe raises with his right lower extremity. There is also some noted weakness when trying to stand on his heels. In short sitting, slump test is positive on the right. Straight leg raise is positive in supine. Sensory is affected as well. He is hypo sensitive at the L4-5 dermatomal region. Reflexes are decreased bilaterally. He does present with weakness of the right lower extremity, particularly with dorsiflexion. Outcome Measures: TREATMENT Treatment today consisted of: We treated today with trial intermittent pelvic traction cycling on for 60 seconds and off for 5 seconds. This did not exceed 120 lb. After this, we instructed patient with stabilization exercises as well as extension exercises which she should start doing at home. This included posterior pelvic tiltsin supine. We included bird dog exercises as well as leg raises while maintaining proper stability of the lumbar spine. We recommended that he avoid any static positions. He should avoid a lot of forward bending at this time. Illustrations were provided for him for exercises. Assessment Clinical Impression: Mr. German presents to physical therapy with signs and symptoms consistent with low back pain with right radiculopathy. Rehab Potential: Mr. German has Fair potential to achieve established physical therapy goals within the time frame outlined below, provided he actively participates in his physical therapy treatmentplan and home program. Clinical Presentation: Stable Examination elements: 1-2 Clinical Decision Making: Low complexity clinical decision making Functional Goals and Timeframes: PT Outpatient Goals PT Goal #1: To decrease tingling/numbness in the right lower extremity by 50% PT Goal #1 Date: 07/27/21 PT Goal #2: Patient is able to tolerate prolonged sitting/standing PT Goal #2 Date: 08/03/21 PT Goal #3: Patient is independent with home exercise program which will address core strengthening and extension protocol. This was initiated today. PT Goal #3 Date: 06/29/21 Plan Mr. German was educated regarding evaluative findings, diagnosis, prognosis, potential risks and benefits of rehabilitation interventions. A collaborative effort was used to establish goals and planof care. He was informed of his right to make decisions regarding his care, including refusal of examination or treatment or selection of services from another provider if desired. The treatment plan may be progressed or modified based upon his response to treatment. Treatment Plan: We will continue with therapy on Monday. We may try traction once again that this was helpful. We will review his home exercises. Start of Plan of Care: 06/29/2021 Number of Visits:12 visits PT Duration: 45 days PT Frequency: PT Frequency: 2 times per week Treatment interventions may include: Treatment/Interventions: Therapeutic exercise, Manual therapy Plan for next session: Time Spent with Patient PT Evaluation (min): 25 min Mechanical Traction (min): 20 min Time Calculation Total Treatment Time (min): 45 min Arturo Rader P.T. Department of Rehabilitation Services in [address] [address] Dept: [phone] documented in this encounter Plan of Treatment Not on filedocumented as of this encounter Visit Diagnoses Diagnosis Intervertebral Disc Disorders With Radic ulopathy Lumbar Region - Primary Pain Low Back Unspecified documented in this encounter Care Teams Scrap Preparer Relationship Specialty Start Date End Date Tavon Obrien M.D. PCP - General Family Medicine 10/24/[address] [place] [phone] documented as of this encounter
--- OUTSIDE RECORDS SUMMARY | 2022-09-09 08:23 | XMS_ITS | Encounter Summary ---
:1965 Author Organization [facility] Address [address] [place] [address] Care Team Providers Name Role Phone Tavon Obrien M.D. Primary Care Provider Reason for Visit Outpatient (Routine) - Closed Specialty Diagnoses / Procedures Referred By Contact Refer red To Contact Ophthalmology Kevin Irizarry M.D. [facility] Region [address] [place] [phone] Referral ID Status Reason Start Date Expiration Date Visits Requ ested Visits Authorized [id number] Closed 06/28/2018 06/28/2019 1 1 Encounter Details Date Type Department Care Team Description 08/16/2019 Comprehensive Visit Department of Kevin Irizarry Eye Exa mination Normal (Primary Dx); Ophthalmology in [place] Dry Eye Syndrome Bilateral; [place], [place] [address] Cat[address]act Senile Nuclear Scle rosis Bilateral; [address] [place] [phone] Social History Tobacco Use Types Packs/Day Years Used Date Smoking Tobacco: Never Smokeless Tobacco: Never Alcohol Use Standard Drinks/Week Comments No 0 (1 standard drink = 0.6 oz pure alcoho l) Sex Assigned at Date Recorded Not on file documented as of this encounter Progress Notes Kevin Irizarry M.D. - 08/16/2019 1:15 PM CDT Louie German was seen today for No chief complaint on file. #1 Myopia Bilateral #2 Dry Eye Syndrome Bilateral #3 Cataract Senile Nuclear Sclerosis Bilateral Plan: Update glasses as desired. U/v protection. Ocular lubricants twice daily. F/u one year for routine exam or as needed. cex/ref documented in this encounter Plan of Treatment Scheduled Orders Name Type Priority Associated Diagnoses Order S chedule OPH General eye exam Procedures Routine Expecte d: 08/16/2020 (Approximate), Expires: 08/16/2022 documented as of this encounter Visit Diagnoses Diagnosis Eye Examination Normal - Primary Dry Eye Syndrome Bilateral Cataract Senile Nuclear Sclerosis Bilate ral Myopia Bilateral documented in this encounter Care Teams Manufacturing Business Analyst Relationship Specialty Start Date End Date Tavon Obrien M.D. PCP - General Family Medicine 10/24/[address] [place] [phone] documented as of this encounter
--- OUTSIDE RECORDS SUMMARY | 2022-09-09 08:23 | XMS_ITS | Encounter Summary ---
:1965 Author Organization [facility] Address [address] [place] [address] Care Team Providers Name Role Phone Tavon Obrien M.D. Primary Care Provider Reason for Visit Reason Comments prescription sent to incorrect pharmacy Encounter Details Date Type Department Care Team Description 07/09/2021 Clinical Communication Department of pres Micah cription sent to Family MedicineTavon M.D. incorrect pharmacy [address] [phone] [facility] [phone] [place], [place] (Work) [phone] Social History Tobacco Use Types Packs/Day Years Used Date Smoking Tobacco: Never Smokeless Tobacco: Never Alcohol Use Standard Drinks/Week Comments No 0 (1 standard drink = 0.6 oz pure alcoho l) Sex Assigned at Date Recorded Not on file documented as of this encounter Miscellaneous Notes Telephone Encounter - Luisa Isaac - 07/09/2021 4:30 PM CDT Reason for Communication: prescription sent to incorrect pharmacy Current Can Nursing/Provider leave a detailed message?: yes Did the patient refuse triage through Nurse line? (for symptom based concerns): n/a Action Needed: Katelin from [facility] called in. Pt's prescription for hydrocodone-acetaminophen was sent to the [facility] in [place]. Pt is requesting that this be sent to [facility] in [place]. Thank you! Name of Medication (if relevant): hydrocodone-acetaminophen 5-325 mg Please send all scheduling replies to scheduling pool. documented in this encounter Plan of Treatment Not on filedocumented as of this encounter Visit Diagnoses Not on filedocumented in this encounter Care Teams Pilates Instructor Relationship Specialty Start Date End Date Tavon Obrien M.D. PCP - General Family Medicine 10/24/[address] [place] [phone] documented as of this encounter
--- OUTSIDE RECORDS SUMMARY | 2022-09-09 08:23 | XMS_ITS | Encounter Summary ---
:1965 Author Organization [facility] Address [address] [place] [address] Care Team Providers Name Role Phone Tavon Obrien M.D. Primary Care Provider Reason for Visit Reason Onset Date Comments Scheduled Outreach 06/20/2018 Encounter Details Date Type Department Care Team Description 06/20/2018 Clinical Communication Department of Vy Obrien Family MedicineTavon M.D. [address] [phone] [facility] [phone] [place], [place] (Work) [phone] Social History Tobacco Use Types Packs/Day Years Used Date Smoking Tobacco: Never Smokeless Tobacco: Never Alcohol Use Standard Drinks/Week Comments No 0 (1 standard drink = 0.6 oz pure alcoho l) Sex Assigned at Date Recorded Not on file documented as of this encounter Miscellaneous Notes Telephone Encounter - Katelin Aquino - 06/20/2018 12:11 PM CDT Letter sent. Patient is due for the following: Topic ??? Lipid Panel ??? Diabetes Screening ??? Blood Pressure Check / Re-check documented in this encounter Plan of Treatment Not on filedocumented as of this encounter Visit Diagnoses Not on filedocumented in this encounter Care Teams Shank Tapper Relationship Specialty Start Date End Date Tavon Obrien M.D. PCP - General Family Medicine 10/24/[address] [place] [phone] documented as of this encounter
--- OUTSIDE RECORDS SUMMARY | 2022-09-09 08:23 | XMS_ITS | Encounter Summary ---
:1965 Author Organization [facility] Address [address] [place] [address] Care Team Providers Name Role Phone Tavon Obrien M.D. Primary Care Provider Reason for Visit Physical Therapy (Routine) - Canceled Specialty Diagnoses / Procedures Referred By Contact Refer red To Contact Diagnoses Intervertebral Disc Disorders With Radiculopathy Lumbar Region Tavon Obrien M.D. [facility] Procedures PT Ongoing treatment [address] [place] [phone] Referral ID Status Reason Start Date Expiration Date Visits V isits Requested Authorized [id number] Canceled 06/29/2021 06/29/2022 Encounter Details Date Type Department Care Team Description 07/27/2021 Clinical Support Department of Emelia Obrien M.D. [address] [place] [phone] Intervertebral Disc Rehabilitation Arturo Rader PAdinaTAdina [address] [place] [phone] Disorders With Services in [address] [phone] Social History Tobacco Use Types Packs/Day Years Used Date Smoking Tobacco: Never Smokeless Tobacco: Never Alcohol Use Standard Drinks/Week Comments No 0 (1 standard drink = 0.6 oz pure alcoho l) Sex Assigned at Date Recorded Not on file documented as of this encounter Progress Notes Arturo Rader P.T. - 07/27/2021 6:30 AM CDT Physical Therapy Outpatient Treatment Note SUBJECTIVE Patient's Name: Louie German Referring Provider: Tavon Obrien M.D. Visit Diagnosis: 1. Intervertebral Disc Disorders With Radiculopathy Lumbar Region Reason for Referral: Low back pain with radiculopathy into the right extremity. Payor: [employer] [facility] Possible Web / Plan[facility] / Product Type: Indemnity / No data recorded Epic Visit Count: 8 Patient comments: Daniel comes into therapy today stating that his symptoms may be a little better overall. He feels that the traction does help along with customer care voice consultant. He is scheduling for surgery when he is cleared by his insurance. Contact monitoring: Appropriate PPE was utilized including face mask/protective eyewear. OBJECTIVE Pain: Pain Assessment Pain Score: 4 Ortho Exam Outcome Measures: TREATMENT Treatment today consisted of: We continued with intermittent pelvic traction cycling on for 60 seconds and off for 5 seconds. Thisdid not exceed 130 lb. Assessment Clinical Impression: Patient tolerated well overall. [...] 06/29/21 No data recorded Plan We will continue. Plan for next session: Time Spent with Patient Mechanical Traction (min): 20 min Time Calculation Total Treatment Time (min): 20 min Arturo Rader P.T. Department of Rehabilitation Services in [address] [phone] Dept: [phone] documented in this encounter Plan of Treatment Not on filedocumented as of this encounter Visit Diagnoses Diagnosis Intervertebral Disc Disorders With Radic ulopathy Lumbar Region documented in this encounter Care Teams Accounts Receivable Assistant Relationship Specialty Start Date End Date Tavon Obrien M.D. PCP - General Family Medicine 10/24/[address] [place] [phone] documented as of this encounter
--- OUTSIDE RECORDS SUMMARY | 2022-09-09 08:23 | XMS_ITS | Encounter Summary ---
:1965 Author Organization [facility] Address [address] [place] [address] Care Team Providers Name Role Phone Tavon Obrien M.D. Primary Care Provider Reason for Referral Outpatient (Routine) - Closed Specialty Diagnoses / Procedures Referred By Contact Refer red To Contact Family Medicine Diagnoses recheck Tavon Obrien M.D. [facility] Region [address] [place] [phone] Referral ID Status Reason Start Date Expiration Date Visits Requ ested Visits Authorized [id number] Closed 06/02/2021 06/02/2022 1 1 Physical Therapy (Routine) - Closed Specialty Diagnoses / Procedures Referred By Contact Refer red To Contact Diagnoses Intervertebral Disc Disorders With Radiculopathy Lumbar Region Pain Low Back Unspecified Tavon Obrien M.D. [facility] Region Procedures PT Evaluate and treat [address] [place] [phone] Referral ID Status Reason Start Date Expiration Date Visits Requ ested Visits Authorized [id number] Closed 06/02/2021 11/05/2021 1 1 MRI/CAT/PET Scan (Routine) - Closed Specialty Diagnoses / Procedures Referred By Contact Refer red To Contact Radiology Diagnoses Pain Low Back Unspecified Tavon Obrien M.D. [facility] Region Procedures MR Lumbar Spine without IV Contrast [address] [place] [phone] Referral ID Status Reason Start Date Expiration Date Visits Requ ested Visits Authorized [id number] Closed 06/02/2021 06/02/2022 1 1 Reason for Visit Reason Comments Post Ed Visit Follow-up back pain was givien lido pa tch to get more, nothing was broken take otc meds but not helping pain getting worse, numbness and tingling in leg s started in right hip and goes down leg, pain feels like so mething is pushing on back, right hip and leg sitting makes pa in worse Appointment Request (Routine) - Closed Specialty Diagnoses / Procedures Referred By Contact Refer red To Contact Family Medicine Referral ID Status Reason Start Date Expiration Date Visits Requ ested Visits Authorized [id number] Closed 05/28/2021 05/28/2022 1 1 Encounter Details Date Type Department Care Team Description 06/02/2021 Office Visit Department of Letty Stanford rtebral Disc Disorders With Radiculopathy Lumbar Region (Primary Dx); Medicine, Louis Montes De Oca M.D. [facility], in [address] [place] [phone] [place], [place] [phone] (Work) [phone] Social History Tobacco Use Types Packs/Day Years Used Date Smoking Tobacco: Never Smokeless Tobacco: Never Alcohol Use Standard Drinks/Week Comments No 0 (1 standard drink = 0.6 oz pure alcoho l) Sex Assigned at Date Recorded Not on file documented as of this encounter Last Filed Vital Signs Vital Sign Reading Time Taken Comments Blood Pressure 175/98 06/02/2021 9:47 AM CDT Pulse 66 06/02/2021 9:47 AM CDT Temperature 36.3 ??C (97.3 ??F) 06/02/2021 9:47 AM CDT Respiratory Rate - - Oxygen Saturation 98% 06/02/2021 9:47 AM CDT Inhaled Oxygen Concentration - - Weight 112 kg (246 lb 14.6 oz) 06/02/2021 9:47 AM CDT Height - - Body Mass Index 31.69 11/03/2017 1:30 PM WAITER/WAITRESS [place] documented in this encounter Progress Notes Tavon Obrien M.D. - 06/02/2021 9:45 AM CDT SUBJECTIVE CHIEF COMPLAINT / REASON FOR VISIT Louie is a 55 y.o. male who presents for evaluation of Post Ed Visit Follow-up (back pain was givien lido patch to get more, nothing was broken take otc meds but not helping pain getting worse, numbness and tingling in legs started in right hip and goes down leg, pain feels like something is pushingon back, right hip and leg sitting makes pain worse ). HISTORY OF PRESENT ILLNESS Louie is a pleasant 55 y.o. male who presents to clinic today with ongoing concerns of right sidedlow back pain with radiation down his buttock, back of his leg down to his feet. He has been developing progressive numbness in his feet. States the pain has been excruciating. Described as a intense throbbing ache with intermittent sharp stabbing pain. Worse with walking and standing. Better with lying flat. He has been utilizing Tylenol and ibuprofen with some relief. Intermittent weakness reported. No saddle anesthesia or bowel or bladder dysfunction at this time The following portions of the patient's history were reviewed and updated as appropriate: allergies,current medications, family history, medical history, social history, surgical history and problem list. Brief Review of Systems: A brief review of systems was negative except for that mentioned in the history of present of illness. OBJECTIVE PHYSICAL EXAM BP (!) 175/98 (BP Location: Left arm, Patient Position: Sitting, Cuff Size: Large) Pulse 66 Temp36.3 ??C (Temporal) Wt 112 kg SpO2 98% BMI 31.69 kg/m?? Body mass index is 31.69 kg/m??. GENERAL: Patient is in no distress. Capable of full communication without difficulty. Patient is polite and cooperative. HEENT: Normocephalic. EOMI, PERRL, Canals patent, TMs normal. Oropharynx without lesion of mucosa. Pharyngeal rises symmetrically without exudate. HEART: Regular rate and rhythm. No murmurs, gallops or rubs noted. LUNGS: Clear to auscultation bilaterally. No expiratory wheeze. No accessory muscles of respiration noted. BACK: No erythema, edema or asymmetry. Pain to palpation over the lumbar paraspinal musculature. Forward flexion and rotation is limited secondary to pain. Positive straight leg testing bilateral. Strength 5/5. Sensation intact distally. EXTREMITIES: No neurovascular compromise. No cyanosis, clubbing or edema. PSYCH: Affect is appropriate ASSESSMENT / PLAN #1 Intervertebral Disc Disorders With Radiculopathy Lumbar Region #2 Pain Low Back Reviewed emergency department evaluation to include documentation and CT imaging. Concern at this time for nerve impingement secondary to disc extrusion and likely inflammation. Radiology recommended further imaging with MRI for diagnostic clarity. Will increase patient's regimen to include [id number] mg daily for a 10 day course. Also recommended physical therapy to help with symptom management. Work limitations provided restricting him to light duty with minimal lifting. Recommend against controlling activities at this time as he would put himself and others at danger. Recommend follow-up in 10 days time for further evaluation and treatment options. Patient was instructed to follow up in [...] understanding of the content. Daniel Obrien M.D. documented in this encounter Plan of Treatment Scheduled Referrals Name Type Priority Associated Diagnoses Order S [facility] Medicine Outpatient Referral Routine Expec andra: office visit 06/11/2021 (clinic) (Approximate), Expires: 06/02/2024 documented as of this encounter Results MR Lumbar Spine without [...] in the right lateral recess (05/22, 05/23, /). This extrusion imparts significant mass effec t [...] in the right lateral recess (05/22, 05/23, /). This extrusion imparts significant mass effec t [...] documented in this encounter Visit Diagnoses Diagnosis Intervertebral Disc Disorders With Radic ulopathy Lumbar Region - Primary Pain Low Back Unspecified Pain Low Back Unspecified documented in this encounter Care Teams Telephone Directory Deliverer Relationship Specialty Start Date End Date Tavon Obrien M.D. PCP - General Family Medicine 10/24/[address] [place] [phone] documented as of this encounter
--- OUTSIDE RECORDS SUMMARY | 2022-09-09 08:23 | XMS_ITS | Encounter Summary ---
:1965 Author Organization [facility] Address [address] [place] [address] Care Team Providers Name Role Phone Tavon Obrien M.D. Primary Care Provider Reason for Visit Physical Therapy (Routine) - Closed Specialty Diagnoses / Procedures Referred By Contact Refer red To Contact Diagnoses Pain Knee Right Gee Knowels M.D. [facility] Procedures PT Evaluate and treat [address] [place] [address] Referral ID Status Reason Start Date Expiration Date Visits Requ ested Visits Authorized [id number] Closed 03/21/2019 05/05/2019 1 1 Encounter Details Date Type Department Care Team Description 03/26/2019 Comprehensive Visit Department of Brittany Knowles M.D. [address] [place] [id number] Pain Knee Right Rehabilitation Melissa Rdz P.TAdina Services in [address] [phone] Social History Tobacco Use Types Packs/Day Years Used Date Smoking Tobacco: Never Smokeless Tobacco: Never Alcohol Use Standard Drinks/Week Comments No 0 (1 standard drink = 0.6 oz pure alcoho l) Sex Assigned at Date Recorded Not on file documented as of this encounter Consult Notes Melissa Rdz P.T., D.P.T. - 03/26/2019 1:30 PM CDT Physical Therapy Outpatient Evaluation/Treatment SUBJECTIVE Patient's Name: Louie German Referring Provider: Brendan Fletcher* Visit Diagnosis: 1. Pain Knee Right Reason for Referral: PT evaluation and treat Onset Date: 03/26/19 Payor: [facility] / Plan: [facility] / Product Type: Indemnity / Zero Locus Visit Count: 1 PERTINENT MEDICAL / SURGICAL HISTORY: Patient Active Problem List Diagnosis ??? Hypertension ??? Hyperlipidemia ??? Pain Knee Right Past Surgical History: Procedure Laterality Date ??? KNEE ARTHROSCOPY ??? REFRACTIVE SURGERY Bilateral 1999 PRK ??? TONSILLECTOMY Diagnostic Tests: X-ray: mild arthritic changes R knee per patient report. No MRI performed. Louie German is a 53 y.o. male who presents to outpatient physical therapy for evaluation. His symptoms consist of: 1. R knee pain 2. Decreased motor control, stance stability R lower extremity 3. L heel pain Overall he reports his status remains the same. History of Present Illness:Patient had fall this winter, he landed on his weapon on R hip, and also injured L heel during fall. He was having Sacroiliac pain for ~1 month per patient report, several visits to the chiropractor helped to improve this pain, and he no longer has any back/SI pain. He does still have L heel pain, at insertion for plantar fascia, he has been doing some exercises that his doctor gave him for this. His biggest concern is his R knee pain which he feels is a result of limping for so long. 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 Patient also has history of medial meniscal tear R knee, with arthroscopic debridement per his report. Aggravating Factors: L heel pain worse in morning then loosens up and is sore again at mid-end of day, stairs, too much activity increase knee pain. Relieving Factors: Rubbing his medial knee improves symptoms. 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 OBJECTIVE PHYSICAL EXAM Pain: 6/10 average R knee pain, 3/10 average L heel pain Single limb stance stability: Patient is unable to balance on R lower extremity without loss of balance. Good single limb balance on L lower extremity. Ambulation: mild frontal plan pelvic translation during ambulation (patient wearing belt with work equipment, relatively equally distributed) No pain in R knee with ambulation today. Mild decreased weight bearing R. Varus stress: (-) for pain L medial knee, (-) for instability Valgus stress: (-) for pain L medial knee, (-) for instability Jose Cruz's(-) Anterior drawer (-) Posterior drawer(-) ?? No significant tenderness to palpation of joint line Meryl's testing (+) R for onset of his symptoms. Thessaly's (+) for mild discomfort in area of his symptoms Ortho Exam TREATMENT Treatment today consisted of: Therapeutic Exercise: Reviewed the following for HEP: Patient given handout and we discussed parameters. Sidelying hip abduction Followed by sidelying hip isometric hip abduction with flexion/extension arc of motion Sidestepping with purple Theraband Supine core strengthening- marching. INTERDISCIPLINARY PATIENT EDUCATION RECORD: Assessment of learning challenges of patient/family: No barriers Learning preferences: Verbal, print, demonstration Topic of education: physical therapy plan of care and timeframes Current knowledge assessment: Some understanding Readiness/barriers to learning: Accepting Teaching method: Verbal, print and demonstration Outcomes and reinforcement: Verbalizes understanding Home Exercise Program/Education: Sidelying hip abduction, followed by sidelying hip isometric hip abduction with flexion/extension arc of motion. Sidestepping with purple Theraband, Supine core strengthening- marching. Assessment Clinical Impression: Mr. German presents to physical therapy with signs and symptoms consistent with R knee pain. Impairments: Decreased balance/stance stability R lower extremity, decreased pelvic stability with ambulation. Functional Deficits: Pain with his work-related activities. Rehab Potential: Mr. German has Good potential to achieve established physical therapy goals within the time frame outlined below, provided he actively participates in his physical therapy treatmentplan and home program. Personal Factors: None Clinical Presentation: Stable Examination elements: 1-2 Clinical Decision Making: Low: no complicating factors, 1-2 eval elements, stable clinical presentation Functional Goals and Timeframes: PT Goal #1: Patient will report 0/10 R knee pain and L heel pain throughout work day. PT Goal #1 Date: 05/05/19 PT Goal #2: Patient will show symmetric stance stability of R lower extremity compared to L. PT Goal #2 Date: 05/05/19 PT Goal #3: Patient will be independent in home exercise program. PT Goal #3 Date: 05/05/19 Plan Mr. German was educated regarding evaluative [...] upon his response to treatment. Treatment Plan: Start of Plan of Care: 03/26/2019 Number of Visits: 10 visits PT Duration: Until goals met, tentatively 6-8 weeks PT Frequency: 1-2x/week Treatment interventions may include: Therapeutic exercise, Therapeutic functional activity, Gait training, Neuromuscular re-education Plan for next session: Assess need for mobility and add appropriate stretching exercises.Pelvic strengthening for decreased stress on knee. Time Spent with Patient PT Evaluation (min): 25 min Therapeutic Exercise (min): 15 min Time Calculation Total Timed Units (min): 15 min Total Treatment Time (min): 40 min Melissa Rdz P.T., D.P.T. Department of Rehabilitation Services in [address] [phone] Dept: [phone] documented in this encounter Plan of Treatment Not on filedocumented as of this encounter Visit Diagnoses Diagnosis Pain Knee Right documented in this encounter Care Teams Contracts Administrator Relationship Specialty Start Date End Date Tavon Obrien M.D. PCP - General Family Medicine 10/24/[address] [place] [phone] documented as of this encounter
--- OUTSIDE RECORDS SUMMARY | 2022-09-09 08:23 | XMS_ITS | Encounter Summary ---
:1965 Author Organization [facility] Address [address] [place] [address] Care Team Providers Name Role Phone Tavon bOrien M.D. Primary Care Provider Reason for Referral Outpatient (Routine) - Closed Specialty Diagnoses / Procedures Referred By Contact Refer red To Contact Family Medicine Diagnoses recheck Tavon Obrien M.D. [facility] [address] [address] Referral ID Status Reason Start Date Expiration Date Visits Requ ested Visits Authorized [id number] Closed 06/30/2021 06/30/2022 1 1 Outpatient (Routine) - Closed Specialty Diagnoses / Procedures Referred By Contact Refer red To Contact Diagnoses Intervertebral Disc Disorders With Radiculopathy Lumbar Region Tavon Obrien M.D. [address] [place] [phone] Referral ID Status Reason Start Date Expiration Visits Visits Date Requested Authorized [id number] Closed Patient 06/30/2021 06/30/2022 1 1 Preference Outpatient (Routine) - Closed Specialty Diagnoses / Procedures Referred By Contact Refer red To Contact Orthopedic Surgery Diagnoses Intervertebral Disc Disorders With Radiculopathy Lumbar Region Tavon Obrien [facility] James M.D. [address] [place] [phone] Referral ID Status Reason Start Date Expiration Date Visits Requ ested Visits Authorized [id number] Closed 06/30/2021 06/30/2022 1 1 Scheduling Instructions Ortho internal referral panel order, sara ging before Consult visit Reason for Visit Reason Comments Follow-up Back pain Outpatient (Routine) - Closed Specialty Diagnoses / Procedures Referred By Contact Refer red To Contact Family Medicine Diagnoses Tavon Parr M.D. [address] [address] Referral ID Status Reason Start Date Expiration Date Visits Requ ested Visits Authorized [id number] Closed 06/14/2021 06/14/2022 1 1 Encounter Details Date Type Department Care Team Description 06/30/2021 Office Visit Department of Letty Stanford rtebral Disc Medicine, Louis Montes De Oca M.D. [facility], in [address] [place] [address] Radiculo analia Lumbar [facility] (Primary Dx) [address] [address] [place], [place] [phone] (Work) [phone] Social History Tobacco Use Types Packs/Day Years Used Date Smoking Tobacco: Never Smokeless Tobacco: Never Alcohol Use Standard Drinks/Week Comments No 0 (1 standard drink = 0.6 oz pure alcoho l) Sex Assigned at Date Recorded Not on file documented as of this encounter Last Filed Vital Signs Vital Sign Reading Time Taken Comments Blood Pressure 168/95 06/30/2021 7:31 AM CDT Pulse 75 06/30/2021 7:31 AM CDT Temperature 36.2 ??C (97.2 ??F) 06/30/2021 7:31 AM CDT Respiratory Rate 20 06/30/2021 7:31 AM CDT Oxygen Saturation - - Inhaled Oxygen Concentration - - Weight 109 kg (239 lb 10.2 oz) 06/30/2021 7:31 AM CDT Height - - Body Mass Index 30.75 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 - 06/30/2021 7:30 AM CDT SUBJECTIVE CHIEF COMPLAINT / REASON FOR VISIT Louie is a 55 y.o. male who presents for evaluation of Follow-up (Back pain). HISTORY OF PRESENT ILLNESS Louie is a pleasant 55 y.o. male who presents to clinic today with ongoing concerns of low back pain with nerve involvement have radiculopathy going down his right leg. 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 He states that since our last visit his symptoms have remained the same. Both clinical manager home care as well as physical therapy help in the short term and has provided him some relief of symptoms. He continues with ibuprofen and Tylenol which he has equivocal if it is helping. Changing positions help. Standing is difficult. Static positions cause him difficulty. Intermittent subjective weakness reported. No change in bowel or bladder control. Brief Review of Systems: A brief review of systems was negative except for that mentioned in the history of present of illness. OBJECTIVE PHYSICAL EXAM BP (!) 168/95 (BP Location: Left arm, Patient Position: Sitting, Cuff Size: Regular) Pulse 75 Temp 36.2 ??C (Temporal) Resp 20 Wt 109 kg BMI 30.75 kg/m?? Body mass index is 30.75 kg/m??. GENERAL: Patient is in no distress. Capable of full communication without difficulty. Patient is polite and cooperative. HEART: Regular rate and rhythm. No murmurs, gallops or rubs noted. LUNGS: Clear to auscultation bilaterally. No expiratory wheeze. No accessory muscles of respiration noted. EXTREMITIES: No neurovascular compromise. No cyanosis, clubbing or edema. Positive straight leg testing bilateral. Strength 5/5. Sensation intact. NEURO: Alert and oriented x3, nonfocal, moving all 4 extremities. CN II-XII grossly intact. PSYCH: Affect is appropriate ASSESSMENT / PLAN #1 Intervertebral Disc Disorders With Radiculopathy Lumbar Region Patient's symptoms continue and have not improved over the last few weeks. He is gaining benefit carrie from both chiropractic and physical therapy. Continue as prescribed. Referral provided for ongoing clinical manager home care. Recommended pain medicine Spine consult with Dr. Horne in [place] for consideration of injections. This is currently in the evaluation of worksandi's comp at this time. Also placeconsult for the Spine Center as I know this will take time to gain approval and he is requesting that at this time. Follow-up in 2-4 weeks for ongoing evaluation. Patient was instructed to follow up in [...] Name Type Priority Associated Diagnoses Order S [facility] Orthopedic Surgery Outpatient Referral Routine Intervertebral Disc Expected: - Spine non Disorders With 06/30/2021 surgical consult Radiculopathy Lumbar (Ap proximate), (clinic) Region Expires: 06/30/2024 Family Medicine Outpatient Referral Routine Expec andra: office visit 07/31/2021 (clinic) (Approximate), Expires: 06/30/2024 documented as of this encounter Visit Diagnoses Diagnosis Intervertebral Disc Disorders With Radic ulopathy Lumbar Region - Primary documented in this encounter Care Teams Car Greaser Relationship Specialty Start Date End Date Tavon Obrien M.D. PCP - General Family Medicine 10/24/[address] [place] [phone] documented as of this encounter
--- OUTSIDE RECORDS SUMMARY | 2022-09-09 08:23 | XMS_ITS | Encounter Summary ---
:1965 Author Organization [facility] Address [address] [place] [address] Care Team Providers Name Role Phone Tavon Obrien M.D. Primary Care Provider Reason for Referral Outpatient (Routine) - Closed Specialty Diagnoses / Procedures Referred By Contact Refer red To Contact Family Medicine Diagnoses recheck Tavon Obrien M.D. [address] [address] Referral ID Status Reason Start Date Expiration Date Visits Requ ested Visits Authorized [id number] Closed 07/09/2021 07/09/2022 1 1 Outpatient (Routine) - Closed Specialty Diagnoses / Procedures Referred By Contact Refer red To Contact Diagnoses Herniated Disc Lumbar Radiculopathy Tavon Obrien M.D. [address] [place] [phone] Referral ID Status Reason Start Date Expiration Visits Visits Date Requested Authorized [id number] Closed Patient 07/09/2021 07/09/2022 1 1 Preference Reason for Visit Reason Comments Follow-up Has been approved for Spine Center and Pain Management. Tried to get into Dr. Horne, that is a 6 w moapa wait period. Switching to [facility] from [facility]. Appt set up 07/13 with [facility]. Med Management Vicodin ran out. Would like a refill Appointment Request (Routine) - Incomplete Specialty Diagnoses / Procedures Referred By Contact Refer red To Contact Referral ID Status Reason Start Date Expiration Date Visits V isits Requested Authorized [id number] Incomplete 07/08/2021 07/08/2022 1 1 Encounter Details Date Type Department Care Team Description 07/09/2021 Office Visit Department of Family Tavon Obrien He rniated Disc Lumbar (Primary Dx); Medicine, Louis Thakur Radiculopathy [address] [address] [place], [place] [phone] (Work) [phone] Social History Tobacco Use Types Packs/Day Years Used Date Smoking Tobacco: Never Smokeless Tobacco: Never Alcohol Use Standard Drinks/Week Comments No 0 (1 standard drink = 0.6 oz pure alcoho l) Sex Assigned at Date Recorded Not on file documented as of this encounter Last Filed Vital Signs Vital Sign Reading Time Taken Comments Blood Pressure 155/97 07/09/2021 12:31 PM CDT Pulse 77 07/09/2021 12:31 PM CDT Temperature 36.9 ??C (98.4 ??F) 07/09/2021 12:31 PM CDT Respiratory Rate 18 07/09/2021 12:31 PM CDT Oxygen Saturation - - Inhaled Oxygen Concentration - - Weight 108 kg (237 lb 14 oz) 07/09/2021 12:31 PM CDT Height - - Body Mass Index 30.53 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 - 07/09/2021 12:30 PM CDT SUBJECTIVE CHIEF COMPLAINT / REASON FOR VISIT Louie is a 56 y.o. male who presents for evaluation of Follow-up (Has been approved for Spine Center and Pain Management. Tried to get into Dr. Horne, that is a 6 week wait period. Switching to [facility] from [facility]. Appt set up 07/13 with [facility].) and Med Management (Vicodin ran out. Would like a refill). HISTORY OF PRESENT ILLNESS Louie is a pleasant 56 y.o. male who presents to clinic today for ongoing management of low back pain with radicular symptoms going down his right leg. He continues work with physical therapy and care attendant with improvement in symptoms although no resolution. He is scheduled for pain medicineand Spine Center evaluation at [facility] but unfortunately was going to be extended. Out before he could get an appointment. He was able to obtain an [facility] for July [facility] at this time. He also is in need of renewal of medication for his pain at thistime. The following portions of the patient's history were reviewed and updated as appropriate: allergies,current medications, family history, medical history, social history, surgical history and problem list. Brief Review of Systems: A brief review of systems was negative except for that mentioned in the history of present of illness. OBJECTIVE PHYSICAL EXAM BP (!) 155/97 (BP Location: Left arm, Patient Position: Sitting, Cuff Size: Regular) Pulse 77 Temp 36.9 ??C (Temporal) Resp 18 Wt 108 kg BMI 30.53 kg/m?? Body mass index is 30.53 kg/m??. GENERAL: Patient is in no distress. Capable of full communication without difficulty. Patient is polite and cooperative. EXTREMITIES: No neurovascular compromise. No cyanosis, clubbing or edema. NEURO: Alert and oriented x3, nonfocal, moving all 4 extremities. CN II-XII grossly intact. PSYCH: Affect is appropriate ASSESSMENT / PLAN #1 Herniated Disc Lumbar #2 Radiculopathy Symptoms showing some improvement with physical therapy and care attendant. Continue as prescribed. New referral provided for [facility] for spine evaluation and treatment options. Consider corticosteroid injection. Pain medication renewed. Follow-up in three weeks time for ongoing evaluation. Total time 32 minutes. Patient was instructed to follow up [...] Name Type Priority Associated Diagnoses Order S [facility] Family Medicine Outpatient Referral Routine Expec andra: office visit 07/30/2021 (clinic) (Approximate), Expires: 07/09/2024 documented as of this encounter Visit Diagnoses Diagnosis Herniated Disc Lumbar - Primary Radiculopathy documented in this encounter Care Teams Unclaimed Property Officer Relationship Specialty Start Date End Date Tavon Obrien M.D. PCP - General Family Medicine 10/24/[address] [place] [phone] documented as of this encounter
--- OUTSIDE RECORDS SUMMARY | 2022-09-09 08:23 | XMS_ITS | Encounter Summary ---
:1965 Author Organization [facility] Address [address] [place] [address] Care Team Providers Name Role Phone Tavon Obrien M.D. Primary Care Provider Reason for Visit Physical Therapy (Routine) - Canceled Specialty Diagnoses / Procedures Referred By Contact Refer red To Contact Diagnoses Intervertebral Disc Disorders With Radiculopathy Lumbar Region Tavon Obrien M.D. [facility] Procedures PT Ongoing treatment [address] [place] [phone] Referral ID Status Reason Start Date Expiration Date Visits V isits Requested Authorized [id number] Canceled 06/29/2021 06/29/2022 Encounter Details Date Type Department Care Team Description 07/15/2021 Clinical Support Department of Emelia Obrien M.D. [address] [place] [phone] Intervertebral Disc Rehabilitation Arturo Rader PAdinaTAdina [address] [place] [phone] Disorders With Services in [address] [phone] Social History Tobacco Use Types Packs/Day Years Used Date Smoking Tobacco: Never Smokeless Tobacco: Never Alcohol Use Standard Drinks/Week Comments No 0 (1 standard drink = 0.6 oz pure alcoho l) Sex Assigned at Date Recorded Not on file documented as of this encounter Progress Notes Arturo Rader P.T. - 07/15/2021 6:30 AM CDT Physical Therapy Outpatient Treatment Note } SUBJECTIVE Patient's Name: Louie German Referring Provider: Tavon Obrien M.D. Visit Diagnosis: 1. Intervertebral Disc Disorders With Radiculopathy Lumbar Region Reason for Referral: Low back pain with radiculopathy into the right extremity. Payor: [employer] [place] [employer] / Plan: [employer] (acquired by [employer] in 2014)[facility] [place] [employer] / Product Type: Indemnity / No data recorded Epic Visit Count: 6 Patient comments: Daniel comes into therapy today stating that the tingling/numbness in his lower leg has resolved some.However, he still has some issues in his foot. He did meet with his land acquisition specialist who feels that he may now require surgery. The MRI did show fairly significant disc in the lumbar spine. However, he feels that traction has been giving him some relief as well. Contact monitoring: OBJECTIVE Pain: Pain Assessment Pain Score: 3 Ortho Exam Outcome Measures: TREATMENT Treatment today consisted of: We treated with traction once again cycling on for 60 seconds and off for 5 seconds. This did not exceed 130 lb. Assessment Clinical Impression: Patient tolerated well overall. As mentioned, he did have some relief with traction. However, he feels that he will be requiring surgery in the near future. Functional Goals and Timeframes: PT Goal #1: [...] No data recorded Plan We will continue to treat with traction with him having positive results. Plan for next session: Time Spent with Patient Mechanical Traction (min): 20 min Time Calculation Total Treatment Time (min): 20 min Arturo Rader P.T. Department of Rehabilitation Services in [address] [address] Dept: [phone] documented in this encounter Plan of Treatment Not on filedocumented as of this encounter Visit Diagnoses Diagnosis Intervertebral Disc Disorders With Radic ulopathy Lumbar Region documented in this encounter Care Teams Preschool Associate Teacher Relationship Specialty Start Date End Date Tavon Obrien M.D. PCP - General Family Medicine 10/24/[address] [place] [address] [place] [phone] documented as of this encounter
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
--- OUTSIDE RECORDS SUMMARY | 2022-09-09 08:23 | XMS_ITS | Encounter Summary ---
:1965 Author Organization [facility] Address [address] [place] [address] Care Team Providers Name Role Phone Tavon Obrien M.D. Primary Care Provider Reason for Referral Outpatient (Routine) - Closed Specialty Diagnoses / Procedures Referred By Contact Refer red To Contact Diagnoses Radiculopathy Lumbar Tavon Obrien M.D. [address] [place] [phone] Referral ID Status Reason Start Date Expiration Visits Visits Date Requested Authorized [id number] Closed Patient 06/14/2021 06/14/2022 1 1 Preference Outpatient (Routine) - Closed Specialty Diagnoses / Procedures Referred By Contact Refer red To Contact Family Medicine Diagnoses Tavon Parr M.D. [address] [address] Referral ID Status Reason Start Date Expiration Date Visits Requ ested Visits Authorized [id number] Closed 06/14/2021 06/14/2022 1 1 Reason for Visit Reason Comments Follow-up Would like to discuss his pa in and PT, stated he would not start until 06/07 so in meantime would like to get authorization for chiropractor. Concerned with his nerve pain and numb ness. Outpatient (Routine) - Closed Specialty Diagnoses / Procedures Referred By Contact Refer red To Contact Family Medicine Diagnoses Tavon Parr M.D. [address] [phone] Referral ID Status Reason Start Date Expiration Date Visits Requ ested Visits Authorized [id number] Closed 06/02/2021 06/02/2022 1 1 Encounter Details Date Type Department Care Team Description 06/14/2021 Office Visit Department of Tavon Stanford Ra diculopathy Lumbar MedicineLouis M.D. (Primary Dx) [address] [address] [place], [place] [phone] (Work) [phone] Social History Tobacco Use Types Packs/Day Years Used Date Smoking Tobacco: Never Smokeless Tobacco: Never Alcohol Use Standard Drinks/Week Comments No 0 (1 standard drink = 0.6 oz pure alcoho l) Sex Assigned at Date Recorded Not on file documented as of this encounter Last Filed Vital Signs Vital Sign Reading Time Taken Comments Blood Pressure 145/86 06/14/2021 11:18 AM CDT Pulse 72 06/14/2021 11:18 AM CDT Temperature 36.1 ??C (97 ??F) 06/14/2021 11:18 AM CDT Respiratory Rate 18 06/14/2021 11:18 AM CDT Oxygen Saturation 98% 06/14/2021 11:18 AM CDT Inhaled Oxygen Concentration - - Weight 110 kg (243 lb 6.2 oz) 06/14/2021 11:18 AM CDT Height - - Body Mass Index 31.24 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 - 06/14/2021 11:30 AM CDT SUBJECTIVE CHIEF COMPLAINT / REASON FOR VISIT Louie is a 55 y.o. male who presents for evaluation of Follow-up (Would like to discuss his pain and PT, stated he would not start until 06/07 so in meantime would like to get authorization for chiropractor. Concerned with his nerve pain and numbness. ). HISTORY OF PRESENT ILLNESS Louie is a pleasant 55 y.o. male who presents to clinic today for ongoing evaluation of recent traumatic injury occurred while on the job resulting and low back pain with radiation of symptoms down initially his right leg and now bilateral. He has been successfully undergoing health care law specialist with some improvement in symptoms. Pain improved for a few days and then returns. Patient reports that over the last week he developed a right-sided footdrop and the numbness and tingling seems to be worsening. He has recently been approved for physical therapy which he is scheduled to begin on the 29 of June. Tylenol and ibuprofen helps and he has been using [place] at night to help with sleep. The following portions of the patient's history were reviewed and updated as appropriate: allergies,current medications, family history, medical history, social history, surgical history and problem list. Brief Review of Systems: A brief review of systems was negative except for that mentioned in the history of present of illness. OBJECTIVE PHYSICAL EXAM BP 145/86 (BP Location: Left arm, Patient Position: Sitting, Cuff Size: Regular) Pulse 72 Temp 36.1 ??C (Temporal) Resp 18 Wt 110 kg SpO2 98% BMI 31.24 kg/m?? Body mass index is 31.24 kg/m??. GENERAL: Patient is in no distress. Capable of full communication without difficulty. Patient is polite and cooperative. HEENT: Normocephalic. EOMI, PERRL, Canals patent, TMs normal. Oropharynx without lesion of mucosa. Pharyngeal rises symmetrically without exudate. HEART: Regular rate and rhythm. No murmurs, gallops or rubs noted. LUNGS: Clear to auscultation bilaterally. No expiratory wheeze. No accessory muscles of respiration noted. BACK: Pain to palpation along the lumbar midline. Spasming noted bilateral. No visualized erythema, edema or asymmetry EXTREMITIES: Right-sided footdrop present. Positive straight leg testing bilateral. Sensation intact. No cyanosis, clubbing or edema. NEURO: Alert and oriented x3, nonfocal, moving all 4 extremities. CN II-XII grossly intact. PSYCH: Affect is appropriate ASSESSMENT / PLAN #1 Radiculopathy Lumbar Patient's symptoms seem to be worsening at this time with a new weakness noted on the right. MRI hasbeen requested awaiting approval. Recommend continue with health care law specialist at this time at 3 times a week for the next four weeks until he can re-engage with physical therapy. Continue with medicationregimen as prescribed. Continue with current restrictions as outlined at his last visit. Discussed red flag signs would warrant emergent evaluation. Follow-up in three weeks time. 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 PCP - General Family Medicine 10/24/[address] [place] [phone] documented as of this encounter
--- OUTSIDE RECORDS SUMMARY | 2022-09-09 08:23 | XMS_ITS | Encounter Summary ---
:[address] [facility] Address [address] [place] [address] Care Team Providers Name Role Phone Tavon Obrien M.D. Primary Care Provider Encounter Details Date Type Department Care Team Description 06/24/2021 Orders Only Department of Family Tavon Obrien, In tervertebral Disc MedicineLouis M.D. 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 PCP - General Family Medicine 10/24/[address] [place] [address] [phone] documented as of this encounter
--- OUTSIDE RECORDS SUMMARY | 2022-09-09 08:23 | XMS_ITS | Encounter Summary ---
:1965 Author Organization [facility] Address [address] [place] [address] Care Team Providers Name Role Phone Tavon Obrien M.D. Primary Care Provider Reason for Visit Physical Therapy (Routine) - Canceled Specialty Diagnoses / Procedures Referred By Contact Refer red To Contact Diagnoses Intervertebral Disc Disorders With Radiculopathy Lumbar Region Tavon Obrien M.D. [facility] Procedures PT Ongoing treatment [address] [place] [phone] Referral ID Status Reason Start Date Expiration Date Visits V isits Requested Authorized [id number] Canceled 06/29/2021 06/29/2022 Encounter Details Date Type Department Care Team Description 07/02/2021 Clinical Support Department of Emelia Obrien M.D. [address] [place] [phone] Intervertebral Disc Rehabilitation Arturo Rader PAdinaTAdina [address] [place] [phone] Disorders With Services in [address] [phone] Social History Tobacco Use Types Packs/Day Years Used Date Smoking Tobacco: Never Smokeless Tobacco: Never Alcohol Use Standard Drinks/Week Comments No 0 (1 standard drink = 0.6 oz pure alcoho l) Sex Assigned at Date Recorded Not on file documented as of this encounter Progress Notes Arturo Rader P.T. - 07/02/2021 6:30 AM CDT Physical Therapy Outpatient Treatment Note SUBJECTIVE Patient's Name: Louie German Referring Provider: Tavon Obrien M.D. Visit Diagnosis: 1. Intervertebral Disc Disorders With Radiculopathy Lumbar Region Reason for Referral: Low back pain with radiculopathy into the right extremity. Payor: [employer] [place] [employer] / Plan: [facility] / Product Type: Indemnity / No data recorded Epic Visit Count: 2 Patient comments: Daniel comes into therapy today stating that traction was helpful overall. His symptoms had decreased significantly for a good part of the day. However, his symptoms do return. He continues to see chiropractic. He is also going to try to see Dr. Horne for possible injection. Contact monitoring: Appropriate PPE was utilized including face mask/protective eyewear. OBJECTIVE Pain: Pain Assessment Pain Score: 4 Ortho Exam Outcome Measures: TREATMENT Treatment today consisted of: I we did treat with intermittent pelvic traction once again cycling on for 60 seconds and off for 5 seconds. After this, I we did have patient work on back extension exercises on machine. He tolerated this well. Home Exercise Program/Education: Assessment Clinical Impression: Patient does get some temporary relief with traction. This does decrease the tingling/numbness in his foot. He continues to have some footdrop in his right foot. Functional Goals and Timeframes: PT Goal #1: [...] Plan I we will continue with traction next week. Plan for next session: Time Spent with Patient Mechanical Traction (min): 20 min Time Calculation Total Treatment Time (min): 20 min Arturo Rader P.T. Department of Rehabilitation Services in [address] [phone] Dept: [phone] documented in this encounter Plan of Treatment Not on filedocumented as of this encounter Visit Diagnoses Diagnosis Intervertebral Disc Disorders With Radic ulopathy Lumbar Region documented in this encounter Care Teams Manager Retail Relationship Specialty Start Date End Date Tavon Obrien M.D. PCP - General Family Medicine 10/24/[address] [place] [phone] documented as of this encounter
--- OUTSIDE RECORDS SUMMARY | 2022-09-09 08:23 | XMS_ITS | Encounter Summary ---
:1965 Author Organization [facility] Address [address] [place] [address] Care Team Providers Name Role Phone Tavon Obrien M.D. Primary Care Provider Reason for Visit Physical Therapy (Routine) - Canceled Specialty Diagnoses / Procedures Referred By Contact Refer red To Contact Diagnoses Pain Knee Right Gee Knowles M.D. [facility] Procedures PT Ongoing treatment [address] [place] [address] Referral ID Status Reason Start Date Expiration Date Visits V isits Requested Authorized [id number] Canceled 03/26/2019 07/06/2019 99 7 Encounter Details Date Type Department Care Team Description 04/24/2019 Clinical Support Department of Dawson Knowles M.D. [address] [place], [place] [phone] Pain Knee Right Rehabilitation Services Melissa Rdz PAdinaTAdina in [address] [phone] Social History Tobacco Use Types Packs/Day Years Used Date Smoking Tobacco: Never Smokeless Tobacco: Never Alcohol Use Standard Drinks/Week Comments No 0 (1 standard drink = 0.6 oz pure alcoho l) Sex Assigned at Date Recorded Not on file documented as of this encounter Progress Notes Melissa Rdz P.T., D.P.T. - 04/24/2019 2:30 PM CDT Physical Therapy Outpatient Treatment Note SUBJECTIVE Patient's Name: Louie German Referring Provider: Brendan Fletcher* Visit Diagnosis: 1. Pain Knee Right Reason for Referral: PT evaluation and treat Onset Date: 03/26/19 Payor: [employer] / Plan: [employer] / Product Type: Indemnity / No data recorded Epic Visit Count: 3 Patient comments: Patient reports that he has decreased pain in his R knee and L heel, and has excellent compliance with home exercises. He states that he notices less knee pain when at his desk/throughout day. He does note pain with he sits on R hip in abducted, externally rotated position. OBJECTIVE Pain: not rated on numerical scale. Feels that it is improving, not complaints of pain in today's session, tolerates exercises well. L hip ER: 45 degrees L hip IR: 40 degrees R hip ER: 55 degrees R hip IR: 15 degrees TREATMENT Treatment today consisted of: Therapeutic Exercise: Sidelying hip abduction, followed by sidelying hip isometric hip abduction with flexion/extension arc of motion. Progressed to standing isometric hip abduction into wall. Seated Figure 4 stretch Standing IT band stretch Home Exercise Program/Education: L plantar fascia stretch with STM. Intrinsic L foot strengthening with towel. Sidelying hip abduction, followed by sidelying hip isometric hip abduction with flexion/extension arc of motion. Sidestepping with purple Theraband, Supine core strengthening- marching. Seated hamstring stretch and standing adductor stretch. Added Seated Figure 4 stretch, Standing IT band stretch and standing isometric hip abduction into wall. Pt reports good compliance with his HEP. Assessment Clinical Impression: Patient shows improvements in his compliance with home exercise program and thus has a decrease in his R knee and L heel pain throughout the day. Will continue to progress his planof care. Rehab Potential: Good Personal Factors: None Clinical Presentation: Stable Examination [...] program. PT Goal #3 Date: 05/05/19 Plan Treatment/Interventions: Therapeutic exercise, Therapeutic functional activity, Gait training, Neuromuscular re-education Number of outpatient visits: 10 PT Frequency: 1-2x/week PT Duration: Until goals met, tentatively 6-8 weeks Plan: Continue with current plan Plan for next session: Progress strengthening, progress and add LE stretching/mobility exercises. Time Spent with Patient Therapeutic Exercise (min): 25 min Time Calculation Total Timed Units (min): 25 min Total Treatment Time (min): 25 min Melissa Rdz P.T., D.P.T. Department of Rehabilitation Services in [address] [phone] Dept: [phone] documented in this encounter Plan of Treatment Not on filedocumented as of this encounter Visit Diagnoses Diagnosis Pain Knee Right documented in this encounter Care Teams Charge Accounts Audit Clerk Relationship Specialty Start Date End Date Tavon Obrien M.D. PCP - General Family Medicine 10/24/[address] [place] [phone] documented as of this encounter
--- OUTSIDE RECORDS SUMMARY | 2022-09-09 08:24 | XMS_ITS | Encounter Summary ---
:1965 Author Organization [facility] Address [address] [place] [address] Care Team Providers Name Role Phone Tavon Obrien M.D. Primary Care Provider Encounter Details Date Type Department Care Team Description 06/28/2017 Historical Ophthalmology [facility] Kevin Irizarry M.D. [address] [place], [place] [phone] (Wo rk) Social History Tobacco Use Types Packs/Day Years Used Date Smoking Tobacco: Never Sex Assigned at Date Recorded Not on file documented as of this encounter Progress Notes Kevin Irizarry M.D. - 06/28/2017 2:46 PM CDT Eye General CHIEF COMPLAINT CE HISTORY OF PRESENT ILLNESS Pt here today for annual routine comprehensive eye exam. No concerns; nothing new in general health. 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 #2 Cataraccts nuclear both eyes. Plan: RD precautions reviewed. F/u six months. 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 #2 Cataraccts nuclear both eyes. CD Reports - EYEGEN Id: [id number] Status: Fnl documented in this encounter Plan of Treatment Not on filedocumented as of this encounter Visit Diagnoses Not on filedocumented in this encounter Additional Health Concerns Infection Onset Date Last Indicated Resolved Time COVID19 Pending 08/28/2021 08/29/2021 08/30/2021 3:06 PM CDT documented as of this encounter Care Teams Recreation Activities Coordinator Relationship Specialty Start Date End Date Tavon Obrien M.D. PCP - General Family Medicine 10/24/[address] [place] [phone] documented as of this encounter
--- OUTSIDE RECORDS SUMMARY | 2022-09-09 08:24 | XMS_ITS | Encounter Summary ---
:1965 Author Organization [facility] Address [address] [place] [address] Care Team Providers Name Role Phone Unavailable Primary Care Provider Unavailable Encounter Details Date Type Department Care Team Description 01/14/2014 Hospital Encounter HX [facility] Oscar Watson M.D. [address] [place], [place] [phone] (Wo rk) Social History Tobacco Use Types Packs/Day Years Used Date Smoking Tobacco: Never Assessed Sex Assigned at Date Recorded Not on file documented as of this encounter Medications at Time of Discharge Medication Sig Dispensed Refills Start Date End Date multivitamin capsule multivitamin 0 09/14/2010 documented as of this encounter Progress Notes Fauzia Emery, C.O.A. - 01/14/2014 2:56 PM CDT Eye Services Clinic Exam Eye Services Clinic Exam Entered On: 01/14/2014 15:05 CDT Performed On: 01/14/2014 14:56 CDT by FAUZIA EMERY Chief Complaint and History Chief Complaint : Routine exam Pain Symptoms : No Smoking Status : Never smoker Comment : CE- Pt here for complete exam, wears cheaters as needed. Family History Reviewed : 01/14/2014 CDT FAUZIA EMERY - 01/14/2014 14:56 CDT Optometry Exam Familty History Grid Macular Degeneration : Grandparents Cancer : Grandparents Diabetes : Grandparents Hypertension : Father, Self FAUZIA EMERY - 01/14/2014 14:56 CDT Vision Testing Right Eye Vision Testing : Without correction, 20/20, -1 Left Eye Vision Testing : Without correction, 20/20 Near Vision Right Eye : With glasses - secondary, J-1+ Near Vision Left Eye : With glasses - secondary, J-1+ FAUZIA EMERY 01/14/2014 14:56 CDT Refraction Glasses and/or Prescription : No Rx FAUZIA EMERY 01/14/2014 14:56 CDT Right Eye Manifest Grid Date : 05/02/2011 CDT 10/16/2012 INTERNAL SALESPERSON Sphere : -.50 CYL : +0.50 [place] : 160 = 20/20 ADD : +1.75 Comment : DEFERRED FAUZIA EMERY 01/14/2014 14:56 CDT FAUZIA EMERY 01/14/2014 14:56 CDT Left Eye Manifest Grid Date : 05/02/2011 CDT Sphere : -.75 CYL : +0.50 [place] : 60 = 20/20 ADD : +1.75 FAUZIA EMERY 01/14/2014 14:56 CDT Ocular Testing EOMS : Normal Comment : 4-2 4-2 Pupils : PERRLA Confrontation [place] : RE Normal, LE Normal FAUZIA EMERY 01/14/2014 14:56 CDT Intraoccular Pressures Intraoccular Pressures Grid Date : 05/02/2011 CDT 05/02/2011 CDT 10/16/2012 INTERNAL SALESPERSON 10/16/2012 INTERNAL SALESPERSON Eye : RE LE RE LE Applanation : 15 15 17 17 Eye Drops : Comments : 2:58 2:23 FAUZIA EMERY 01/14/2014 14:56 CDT FAUZIA EMERY 01/14/2014 14:56 CDT FAUZIA EMERY 01/14/2014 14:56 CDT FAUZIA EMERY 01/14/2014 14:56 CDT Date : 01/14/2014 CDT 01/14/2014 CDT Eye : RE LE Applanation : 14 15 Eye Drops : Fluress Fluress Comments : 15:02 15:02 FAUZIA EMERY 01/14/2014 14:56 CDT FAUZIA EMERY 01/14/2014 14:56 CDT Eye Drops Exam Other Medication Eye Drops : N&M Other Medication Eye Drops Eye : Both eyes Other Medication Eye Drops Amnt : One drop Other Medication Eye Drops Time : 15:05 INTERNAL SALESPERSON FAUZIA EMERY 01/14/2014 14:56 CDT Source: [facility] POWERCHART Document Id: [id number] documented in this encounter H&P Notes Kevin De La O M.D. - 01/14/2014 2:39 PM CDT [id number] CHIEF COMPLAINT/REASON FOR VISIT Routine annual exam. IMPRESSION/REPORT/PLAN 1. 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 2. Status post photorefractive keratectomy laser, both eyes. Doing very well, 20/20 uncorrected acuity in each eye. 3. Cataracts without significant change. 4. Newly discovered peripheral retinal hemorrhages each eye, undetermined etiology, but possibly related to diabetes. PLAN: Will check HbA1c. Followup for her dilated exam in 6 months. Kevin De La O M.D./terry Electronically Signed By: KEVIN DE LA O MD On: 01/17/2014 07:15 AM Source: [facility] [id number] Document Id: [id number] documented in this encounter Miscellaneous Notes Miscellaneous - Kevin De La O M.D. - 01/14/2014 3:46 PM CDT Ambulatory Patient Summary [address] [id number] Visit Information Name: HERLINDA TIWARI [facility] Number: [id number] Current Date: 01/14/2014 15:46:48 Physicians Attending Provider: KEVIN DE LA O MD Primary Care Provider: PCPIZZY JEFFREY LAWRENCE has been given the following list of follow-up instructions, medicationlist, and patient education materials: Follow-up Instructions Your Medications Here is a list of your medications. It is important to take your medications as directed. Use a pillbox or chart to help remind you to take your medications. Please let your doctor or nurse know if you have problems taking your medications. Medication/Strength How to Take Indications/Special Instructions/Comments/Notes for Patient Medication Changes/Routing amlodipine (Norvasc 5 mg oral tablet) aspirin (aspirin 81 mg oral tablet) fluocinonide topical (Lidex 0.05% topical ointment) 1 adryan, Topical, two times a day fluorouracil topical (Efudex 5% topical cream) 1 adryan, Topical, once a day (at bedtime) apply to wartat bedtime lisinopril (lisinopril 40 mg oral tablet) 1 Tablet(s), Oral, once a day multivitamin (multivitamin) salicylic acid topical (salicylic acid 17% topical film, extended release) 1 adryan, Topical, once a day apply to wart in AM Stop Taking the Following Medications: Medication list as of 01-14-14 15:46 Attention: If you have any medications at home that are not on this list, DO NOT take them until youcontact your provider for clarification. Give a copy of your medication list to your primary care provider. Update your medication list any time medications or doses are changed and carry your medication list at all times in case of emergency. Your Allergies & Intolerances Substance Reaction Symptoms Category Comments No Known Allergies Drug Your Problem List Problem Status Onset Comments Hyperlipidemia Active 09/22/2008 Verruca Active 01/04/12 unknown date of dx Actinic Keratosis Active 05/27/2011 Hypertension Active 10/06/2010 Lichen simplex chronicus Active 04/03/2013 Your Upcoming Appointments Date Time Location Reason Provider No Appointments found Attention: Contact your local Clinic if further appointment detail needed. Your Goals/Additional instructions: Source: [facility] POWERCHART Document Id: [id number] Miscellaneous - Kevin De La O M.D. - 01/14/2014 3:46 PM CDT Ambulatory Discharge Medication List [facility] [address] [place] [id number] Visit Information Name: HERLINDA TIWARI [facility] Number: [id number] Visit Date: 01/14/2014 15:46:47 Attending Provider: KEVIN DE LA O MD Primary Care Provider: PCP, HERLINDA LANGSTON has been given the following list of medications: Your Medications It is important to take your medications as directed. Use a pill box or chart to help remind you to take your medications. Please let your doctor or nurse know if you have problems taking your medications. Medication/Strength How to Take Indications/Special Instructions/Comments/Notes for Patient Medication Changes/Routing amlodipine (Norvasc 5 mg oral tablet) aspirin (aspirin 81 mg oral tablet) fluocinonide topical (Lidex 0.05% topical ointment) 1 adryan, Topical, two times a day fluorouracil topical (Efudex 5% topical cream) 1 adryan, Topical, once a day (at bedtime) apply to wartat bedtime lisinopril (lisinopril 40 mg oral tablet) 1 Tablet(s), Oral, once a day multivitamin (multivitamin) salicylic acid topical (salicylic acid 17% topical film, extended release) 1 adryan, Topical, once a day apply to wart in AM Stop Taking the Following Medications: Medication list as of 01-14-14 15:46 Attention: If you have any medications at home that are not on this list, DO NOT take them until youcontact your provider for clarification. Give a copy of your medication list to your primary care provider. Update your medication list any time medications or doses are changed and carry your medication list at all times in case of emergency. Additional Information: Source: [facility] POWERCHART Document Id: [id number] documented in this encounter Plan of Treatment Not on filedocumented as of this encounter Visit Diagnoses Not on filedocumented in this encounter
--- OUTSIDE RECORDS SUMMARY | 2022-09-09 08:24 | XMS_ITS | Encounter Summary ---
:1965 Author Organization [facility] Address [address] [place] [address] Care Team Providers Name Role Phone Unavailable Primary Care Provider Unavailable Encounter Details Date Type Department Care Team Description 11/21/2014 Hospital Encounter HX [facility] Zee Collazo M.D. [address] [facility], [place] [address] (Wo rk) Social History Tobacco Use Types Packs/Day Years Used Date Smoking Tobacco: Never Assessed Sex Assigned at Date Recorded Not on file documented as of this encounter Last Filed Vital Signs Vital Sign Reading Time Taken Comments Blood Pressure - - Pulse - - Temperature - - Respiratory Rate - - Oxygen Saturation - - Inhaled Oxygen Concentration - - Weight - - Height 187 cm (6' 1.62) 11/21/2014 2:35 PM DERRICK OPERATOR Body Mass Index - - documented in this encounter Medications at Time of Discharge Medication Sig Dispensed Refills Start Date End Date amLODIPine (for_NORVASC) Take 5 mg by mouth 0 5 mg tablet daily. lisinopril Take 40 mg by mouth 0 02/01/2014 (for_PRINIVIL,ZESTRIL) daily. 40 mg tablet multivitamin capsule multivitamin 0 09/14/2010 documented as of this encounter Consult Notes Chitra Collazo M.D. - 11/21/2014 2:29 PM CST [id number] CHIEF COMPLAINT/REASON FOR VISIT Several skin problems. HISTORY OF PRESENT ILLNESS This 49-year-old male is here for recheck of warts on thumbs. He says they are looking good right now and does not have any spots that need to be treated at this time. He also has a little bump on his right palm that he has been watching and wonders if it is a wart, and he has a little bump on the underside of his nose that keeps reappearing, and fourthly, there is a spot on his right back that has been a little different and kind of itchy. He has noted improvement in the seborrheic dermatitis of the hairline. PHYSICAL EXAMINATION Exam of thumbs shows good resolution of verrucae and nothing to treat today. Exam of palm shows slight erythema, but difficult to say if it is a wart. I do not see any black dots under dermoscopy. We decided to observe this. Exam of the tip of the nose shows a 1 mm slightly raised papule that is flesh- colored on the underside of the nose. This was treated with liquid nitrogen on a Q-tip. Exam of back shows a few inflammatory papules that appeared to be folliculitis. He states that he had been wearing a very hot vest for work over the last couple of weeks and that could have aggravated this. No treatment necessary. IMPRESSION/REPORT/PLAN 1. Resolution of warts on thumbs. 2. Probable small wart on nose treated with liquid nitrogen. 3. Observe spot on the right hand for recurrence of wart. 4. Folliculitis on back. No treatment necessary, and he will follow up as needed. Chitra Collazo M.D./terry Electronically Signed By: CHITRA COLLAZO MD On: 12/03/2014 12:53 PM Source: [facility] MHSDOLBEYNONRADSYS Document Id: [id number] ICK OPERATOR documented in this encounter Miscellaneous Notes Miscellaneous - Chitra Collazo M.D. - 11/21/2014 5:43 PM CST Ambulatory Patient Summary [facility] [address] [place] [id number] Visit Information Name: HERLINDA TIWARI [facility] Number: [id number] Current Date: 11/21/2014 17:43:03 Physicians Attending Provider: CHITRA COLLAZO MD Primary Care Provider: PCP, IZZY HERLINDA TIWARI has been given the following list of [...] Take Indications/Special Instructions/Comments/Notes for Patient Medication Changes/Routing amLODIPine (amLODIPine 5 mg oral tablet) 5 mg, Oral, once a day fluocinonide topical (Lidex 0.05% topical ointment) 1 adryan, Topical, two times a day lisinopril (lisinopril 40 mg oral tablet) 40 mg, Oral, once a day multivitamin (multivitamin) Stop Taking the Following Medications: Medication list as of 11-21-14 17:43 Attention: If you have any medications at home that are not on this list, DO NOT take them until youcontact your provider for clarification. Give a copy of your medication list to your primary care provider. Update your medication list any time medications or doses are changed and carry your medication list at all times in case of emergency. Electronically Signed By: CHITRA COLLAZO MD Signed On:21-NOV-2014 17:42:59 Your Allergies & Intolerances Substance Reaction Symptoms Category Comments No Known Allergies Drug Your Problem List Problem Status Onset Comments Hyperlipidemia Active 09/22/2008 Verruca Active 01/04/12 unknown date of dx Actinic Keratosis Active 05/27/2011 Hypertension Active 10/06/2010 Lichen simplex chronicus Active 04/03/2013 Keratosis Seborrheic Inflamed Active Rash Arm Active Your Upcoming Appointments Date Time Location Provider No Appointments found Attention: Contact your local Clinic if further appointment detail needed. Your Goals/Additional instructions: Source: [facility] POWERCHART Document Id: [id number] ICK OPERATOR Miscellaneous - Chitra Collazo M.D. - 11/21/2014 5:43 PM CST Ambulatory Discharge Medication List [facility] [address] [place] [id number] Visit Information Name: HERLINDA TIWARI [facility] Number: [id number] Visit Date: 11/21/2014 17:43:02 Attending Provider: CHITRA COLLAZO MD Primary Care Provider: PCP, IZZY HERLINDA TIWARI has been given the following list of medications: Your Medications It is important to take your medications as directed. Use a pill box or chart to help remind you to take your medications. Please let your doctor or nurse know if you have problems taking your medications. Medication/Strength How to Take Indications/Special Instructions/Comments/Notes for Patient Medication Changes/Routing amLODIPine (amLODIPine 5 mg oral tablet) 5 mg, Oral, once a day fluocinonide topical (Lidex 0.05% topical ointment) 1 adryan, Topical, two times a day lisinopril (lisinopril 40 mg oral tablet) 40 mg, Oral, once a day multivitamin (multivitamin) Stop Taking the Following Medications: Medication list as of 11-21-14 17:43 Attention: If you have any medications at home that are not on this list, DO NOT take them until youcontact your provider for clarification. Give a copy of your medication list to your primary care provider. Update your medication list any time medications or doses are changed and carry your medication list at all times in case of emergency. Electronically Signed By: CHITRA COLLAZO MD Signed On:21-NOV-2014 17:42:59 Additional Information: Source: [facility] POWERCHART Document Id: [id number] ICK OPERATOR Miscellaneous - Angela Flanagan L.P.NAdina - 11/21/2014 2:35 PM CST Adult Spot Man Intake/History Adult Spot Man Intake/History Entered On: 11/21/2014 14:35 DERRICK OPERATOR Performed On: 11/21/2014 14:35 DERRICK OPERATOR by ANGELA FLANAGAN Intake Chief Complaint : Recheck warts check spots on right hand, right neck and under nose. Height : 187 cm(Converted to: 6 ft 2 inch(es), 74 inch(es)) ANGELA FLANAGAN - 11/21/2014 14:35 DERRICK OPERATOR General Info Information Given By : Patient Languages : Portuguese Is Patient Female and 13-50 no hysterectomy : No ANGELA FLANAGAN 11/21/2014 14:35 DERRICK OPERATOR Subjective Pain Symptoms : No ANGELA FLANAGAN 11/21/2014 14:35 DERRICK OPERATOR Dependent Habits Tobacco Use/Currently Using : No Exposure to Tobacco Smoke : Other: never Smoking Status : Never smoker ANGELA FLANAGAN - 11/21/2014 14:35 DERRICK OPERATOR Tobacco Use Grid Last Use : never ANGELA FLANAGAN 11/21/2014 14:35 DERRICK OPERATOR Caffeine Use Grid Caffeine Use : None ANGELA FLANAGAN 11/21/2014 14:35 DERRICK OPERATOR Recreational Drug Use Grid Drug Use : None ANGELA FLANAGAN 11/21/2014 14:35 DERRICK OPERATOR ID Screen Travel Within Last 21 Days : ANGELA Valle 11/21/2014 14:35 DERRICK OPERATOR Source: [employer] POWERCHART Document Id: [id number] DERRICK OPERATOR!25 ICK OPERATOR documented in this encounter Plan of Treatment Not on filedocumented as of this encounter Visit Diagnoses Not on filedocumented in this encounter
--- OUTSIDE RECORDS SUMMARY | 2022-09-09 08:24 | XMS_ITS | Encounter Summary ---
:1965 Author Organization [facility] Address [address] [place] [address] Care Team Providers Name Role Phone Unavailable Primary Care Provider Unavailable Encounter Details Date Type Department Care Team Description 09/26/2014 Hospital Encounter HX [facility] Zee Collazo M.D. [address] [facility], [place] [address] (Wo rk) Social History Tobacco Use Types [...] - - Height 187 cm (6' 1.62) 09/26/2014 9:43 AM PERSONNEL RECRUITER Body Mass Index - - documented in this encounter Medications at Time of Discharge Medication Sig Dispensed Refills Start Date End Date amLODIPine (for_NORVASC) Take 5 mg by mouth 0 5 mg tablet daily. lisinopril Take 40 mg by mouth 0 02/01/2014 (for_PRINIVIL,ZESTRIL) daily. 40 mg tablet multivitamin capsule multivitamin 0 09/14/2010 documented as of this encounter Progress Notes Chitra Collazo M.D. - 09/26/2014 9:37 AM CST [id number] CHIEF COMPLAINT/REASON FOR VISIT Warts on thumbs and seborrheic keratoses. HISTORY OF PRESENT ILLNESS This 49-year-old male is here with concerns that the warts on his right thumb are getting worse. He has about 4 spots now. 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 He also points out 2 raised papules on the left preauricular skin that we had attempted to treat at last visit but they did not completely go away. He would like them treated again. PHYSICAL EXAMINATION Hands are very dry and have fissures on the fingers and palms. We talked about Super glue for this. He does have 4 small hemorrhagic spots on the right periungual skin of the thumb, difficult to say ifthese are actually warts or just irritated areas but we decided to treat it with liquid nitrogen in any case. On left preauricular skin, there were 2 small seborrheic keratoses treated with liquid nitrogen. IMPRESSION/REPORT/PLAN 1. Warts. 2. Seborrheic keratoses treated with liquid nitrogen. Care instructions were given. He will follow up as needed. Chitra Collazo M.D./terry Electronically Signed By: CHITRA COLLAZO MD On: 10/28/2014 01:09 PM Source: [facility] MHSDOLBEYNONRADSYS Document Id: [id number] ONNEL RECRUITER documented in this encounter Miscellaneous Notes Miscellaneous - Wood Cameron, C.M.A. - 09/26/2014 9:43 AM CST Adult Frame Expander Intake/History Adult Frame Expander Intake/History Entered On: 09/26/2014 9:43 PERSONNEL RECRUITER Performed On: 09/26/2014 9:43 PERSONNEL RECRUITER by WOOD CAMERON Intake Chief Complaint : warts Height : 187 cm(Converted to: 6 ft 2 inch(es), 74 inch(es)) WOOD CAMERON - 09/26/2014 9:43 PERSONNEL RECRUITER General Info Information Given By : Patient Languages : Indonesian Is Patient Female and 13-50 no hysterectomy : No WOOD CAMERON 09/26/2014 9:43 PERSONNEL RECRUITER Subjective Pain Symptoms : No WOOD CAMERON 09/26/2014 9:43 PERSONNEL RECRUITER Dependent Habits Tobacco Use/Currently Using : No Exposure to Tobacco Smoke : Other: never Smoking Status : Never smoker WOOD CAMERON 09/26/2014 9:43 PERSONNEL RECRUITER Tobacco Use Grid Last Use : never WOOD CAMERON 09/26/2014 9:43 PERSONNEL RECRUITER Caffeine Use Grid Caffeine Use : None WOOD CAMERON 09/26/2014 9:43 PERSONNEL RECRUITER Recreational Drug Use Grid Drug Use : None WOOD CAMERON 09/26/2014 9:43 PERSONNEL RECRUITER ID Screen Travel Within Last 21 Days : Vanesa WOOD CAMERON 09/26/2014 9:43 PERSONNEL RECRUITER Source: [facility] [employer] Document Id: [id number] PERSONNEL RECRUITER!25 ONNEL RECRUITER documented in this encounter Plan of Treatment Not on filedocumented as of this encounter Visit Diagnoses Not on filedocumented in this encounter
--- OUTSIDE RECORDS SUMMARY | 2022-09-09 08:24 | XMS_ITS | Encounter Summary ---
:1965 Author Organization [facility] Address [address] [place] [address] Care Team Providers Name Role Phone Elsewhere, Pcp Primary Care Provider Unavailable Encounter Details Date Type Department Care Team Description 09/13/2017 Hospital Encounter Department of Laboratory Ambrosio Sheehan, Drug Screen Medicine in [address] [phone] Social History Tobacco Use Types Packs/Day Years [...] 0 09/14/2010 documented as of this encounter Plan of Treatment Not on filedocumented as of this encounter Visit Diagnoses Diagnosis Drug Screen documented in this encounter Care Teams [employer] Salesperson Relationship Specialty Start Date End Date Elsewhere, Pcp PCP - General Internal Medicine 09/13/17 7 documented as of this encounter
--- OUTSIDE RECORDS SUMMARY | 2022-09-09 08:24 | XMS_ITS | Encounter Summary ---
:[address] [facility] Address [address] [place] [address] Care Team Providers Name Role Phone Unavailable Primary Care Provider Unavailable Encounter Details Date Type Department Care Team Description 03/31/2015 Hospital Encounter HX [facility] Oscar Spicer M.D. [address] [place], [place] [phone] (Wo rk) Social History [...] - - Height 187 cm (6' 1.62) 03/31/2015 1:56 PM CDT Body Mass Index - - documented in this encounter Medications at Time of Discharge Medication Sig Dispensed Refills Start Date End Date amLODIPine (for_NORVASC) Take 5 mg by mouth 0 5 mg tablet daily. lisinopril Take 40 mg by mouth 0 02/01/2014 (for_PRINIVIL,ZESTRIL) daily. 40 mg tablet multivitamin capsule multivitamin 0 09/14/2010 documented as of this encounter Progress Notes Kevin De La O M.D. - 03/31/2015 1:56 PM CDT [id number] The documentation for this visit is available in [employer] IMPRESSION/REPORT/PLAN #1 Lattice degeneration right eye. Stable. Dot hemorrhage unchanged in location and size from previous exam. Plan: RD precautions reviewed. F/u six months. INT Kevin De La O M.D./chino Electronically Signed By: KEVIN DE LA O MD On: 04/07/2015 08:03 AM Source: [facility] MHSDOLBEYNONRADSYS Document Id: [id number] documented in this encounter Miscellaneous Notes Telephone Encounter - Conversion, Historical Provider Ser - 02/29/2016 2:02 PM CDT *Phone Adele/Juan C Document Contains Addenda Addendum by ELIZ CORRLAES on March 03, 2016 15:56:09 CDT I talked to Daniel and he will call back to schedule. I told him to mention the PC note that Dr De La Ohas ok'd 4 family members. Addendum by ELIZ CORRALES on March 02, 2016 16:56:24 CDT I will attempt to reach patients. Eliz Addendum by COSMO DUNNE on March 02, 2016 14:39:54 CDT From: COSMO DUNNE ( [facility]) To: Ophthalmology Public Relations Counselor; ELIZ CORRALES; Sent: 03/02/2016 14:39:54 CDT Subject: RE: *Phone Message/Juan C Per Dr. De La O he will see all 4 family members. Addendum by ELIZ CORRALES on March 02, 2016 08:45:48 CDT From: ELIZ CORRALES ( Ophthalmology Public Relations Counselor) To: [facility]; Sent: 03/02/2016 08:45:48 CDT Subject: RE: *Phone Message/Juan C I called patient and he was upset and stated that we did not ask Dr. De La O and he does let them do that. Please return a call to the patient. Thanks Eliz Addendum by ELIZ CORRALES on February 29, 2016 15:13:57 CDT From: ELIZ CORRALES ( Ophthalmology Public Relations Counselor) To: [facility]; Sent: 02/29/2016 15:13:57 CDT Subject: RE: *Phone Message/Juan C Thanks, he stated we let them do that but need permission. He didn't say they see different doctors. Thanks, Eliz Addendum by HERMAN CALL on February 29, 2016 14:31:52 CDT From: HERMAN CALL ( [facility]) To: Ophthalmology Public Relations Counselor; Sent: 02/29/2016 14:31:52 CDT Subject: FW: *Phone Message/Juan C PSR'S--- I CHECKED WITH LUIS ALBERTO AND SHE CONFIRMED ONLY 2 FAMILY MEMBERS AT THE SAME TIME FOR THE SAME M.D. IF THEY WANT/NEED TO SCHEDULE ALL 4 IN THE SAME TIMEFRAME, THEN 2 WOULD NEED TO BE SCHEDULED WITH ONE MD AND THE OTHER 2 WITH A DIFFERENT MD. HOPE THAT WILL HELP. HERMAN From: ELIZ CORRALES ( Ophthalmology Public Relations Counselor) To: Eye Services; Sent: 02/29/2016 14:02:35 CDT Subject: *Phone Message/Juan C Caller is: ( x ) Patient ( ) Mother ( ) Father ( ) Spouse ( ) Daughter ( ) Son ( ) Pharmacy ( ) Other: Physician: Patient MRN #: Reason for Call: Message: Patient called wanting to know if it is ok to schedule all 4 family members together as they drive from [place]. Please advise Advice/Action: Source used: ( ) Verbalizes understanding of instructions ( ) Instructed to call back if symptoms worsen or do not resolve ( ) Refused to see provider ( ) Appointment Scheduled ( ) OK to leave message on voice mail ( ) Patient told to expect return call: ( ) today ( ) tomorrow ( ) next work day ( ) Patient's email ( ) Patient told physician out of office, will call upon return call on ( ) ( ) Patient told physician out of office, routed to other physician ( ) Other ( ) Call back telephone number ( ) Call back cell phone number ( ) Source: [facility] POWERCHART Document Id: [id number] Miscellaneous - Kevin De La O M.D. - 03/31/2015 2:53 PM CDT Ambulatory Patient Summary [address] [id number] Visit Information Name: HERLINDA TIWARI [facility] Number: [id number] Current Date: 03/31/2015 14:53:01 Physicians Attending Provider: KEVIN DE LA O MD Primary Care Provider: PCP, IZZY HERLINDA [...] the Following Medications: Medication list as of 03-31-15 14:53 Attention: If you have any medications at home that are not on this list, DO NOT take them until youcontact your provider for clarification. Give a copy of your medication list to your primary care provider. Update your medication list any time medications or doses are changed and carry your medication list at all times in case of emergency. Electronically Signed By: KEVIN DE LA O MD Signed On:31-MAR-2015 14:52:48 Your Allergies & Intolerances Substance Reaction Symptoms [...] appointment detail needed. Your Goals/Additional instructions: Source: [facility] POWERCHART Document Id: [id number] Miscellaneous - Kevin De La O M.D. - 03/31/2015 2:53 PM CDT Ambulatory Discharge Medication List [facility] [address] [place], [place] [phone] Visit Information Name: HERLINDA TIWARI [facility] Number: [id number] Visit Date: 03/31/2015 14:53:00 Attending Provider: KEVIN DE LA O MD [...] the Following Medications: Medication list as of 03-31-15 14:53 Attention: If you have any medications at home that are not on this list, DO NOT take them until youcontact your provider for clarification. Give a copy of your medication list to your primary care provider. Update your medication list any time medications or doses are changed and carry your medication list at all times in case of emergency. Electronically Signed By: KEVIN DE LA O MD Signed On:31-MAR-2015 14:52:48 Additional Information: Source: [facility] SurgientCHART Document Id: [id number] documented in this encounter Plan of Treatment Not on filedocumented as of this encounter Visit Diagnoses Not on filedocumented in this encounter
--- OUTSIDE RECORDS SUMMARY | 2022-09-09 08:24 | XMS_ITS | Encounter Summary ---
:1965 Author Organization [facility] Address [address] [place] [address] Care Team Providers Name Role Phone Unavailable Primary Care Provider Unavailable Encounter Details Date Type Department Care Team Description 03/31/2015 Historical Ophthalmology [facility] Kevin Irizarry M.D. [address] [place], [place] [phone] (Wo rk) Social History Tobacco Use Types Packs/Day Years Used Date Smoking Tobacco: Never Assessed Sex Assigned at Date Recorded Not on file documented as of this encounter Progress Notes Kevin Irizarry M.D. - 03/31/2015 2:05 PM CDT Eye General CHIEF COMPLAINT CE HISTORY OF PRESENT ILLNESS Prevenative exam, no eye troubles or concerns. Uses OTC readers sometimes, more often in the last 3-4 months. ROS WNL. 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 Plan: RD precautions reviewed. F/u six months. INT DIAGNOSIS #1 Lattice degeneration right eye. Stable. Dot hemorrhage unchanged in location and size from previous exam. CDM Reports - EYEGEN Id: [id number] Status: Fnl Electronically signed by [facility] Notes [id number] at 04/26/2017 12:09 PM CDT documented in this encounter Plan of Treatment Not on filedocumented as of this encounter Visit Diagnoses Not on filedocumented in this encounter
--- OUTSIDE RECORDS SUMMARY | 2022-09-09 08:24 | XMS_ITS | Encounter Summary ---
:1965 Author Organization [facility] Address [address] [place] [address] Care Team Providers Name Role Phone Unavailable Primary Care Provider Unavailable Encounter Details Date Type Department Care Team Description 05/17/2016 Historical Ophthalmology [facility] Kevin Irizarry M.D. [address], [place] [phone] (Wo rk) Social History Tobacco Use Types Packs/Day Years Used Date Smoking Tobacco: Never Assessed Sex Assigned at Date Recorded Not on file documented as of this encounter Progress Notes Kevin Irizarry M.D. - 05/17/2016 2:51 PM CDT Eye General CHIEF COMPLAINT routine exam HISTORY OF PRESENT ILLNESS Last exam was 1 year ago Pt. denies any changes with distance [facility] but has noticed he needs to use readers more often. Denies any pain or discomfort with the eyes Does not use any eye drops Hx of PRK 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 #2 Cataraccts nuclear both eyes. Plan: RD precautions reviewed. F/u six months. 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 #2 Cataraccts nuclear both eyes. CDM Reports - EYEGEN Id: [id number] Status: Fnl Electronically signed by Nahum [facility] Ophthalmology Notes [id number] at 04/26/2017 3:18 PM CDT documented in this encounter Plan of Treatment Not on filedocumented as of this encounter Visit Diagnoses Not on filedocumented in this encounter
--- OUTSIDE RECORDS SUMMARY | 2022-09-09 08:24 | XMS_ITS | Encounter Summary ---
:1965 Author Organization [facility] Address [address] [place] [address] Care Team Providers Name Role Phone Unavailable Primary Care Provider Unavailable Encounter Details Date Type Department Care Team Description 09/22/2014 Hospital Encounter HX [facility] Tesha Taylor M.D. 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 lisinopril Take 40 mg by mouth 0 02/01/2014 (for_PRINIVIL,ZESTRIL) daily. 40 mg tablet multivitamin capsule multivitamin 0 09/14/2010 documented as of this encounter Progress Notes Tesha Taylor M.D. 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 CHIEF COMPLAINT/REASON FOR VISIT Right nasal vestibular swelling. HISTORY OF PRESENT ILLNESS Approximately 2-1/2 weeks ago he noticed a hard lump on the inside of his right nostril just pointing to and describing his septum. It had moderate swelling, pain and tenderness. In the last week the tenderness has completely resolved, but it still feels like it is present to some extent. I saw him September 11, 2013 last (note reviewed) at which time he had some left anterior epistaxis which resolved with saline and/or Vaseline gel use. PHYSICAL EXAMINATION External nose normal. Intranasal midline septum. The septal mucosa bilaterally is mildly inflamed with some scant purulent mucus stasis. The posterior nasal cavity is patent and healthy (he has been doing a lot of dry wall with a chetna environment). On palpation there is a slight dislocation of the inferior septum to the right which accounts for the only palpable asymmetry. There is no septal or columellar mass. Intraoral normal including upper gingivolabial sulcus. Oropharynx normal. IMPRESSION/REPORT/PLAN 1. Right nostril midline hard lump. Suspect folliculitis or cellulitis which is now resolved. 2. Dry nasal septal mucosa - recommended humidification and hydration. Follow up as needed. Tesha Taylor M.D./terry Electronically Signed By: TESHA TAYLOR MD On: 10/06/2014 02:36 PM Source: [facility] [id number] Document Id: [id number] BACK OPERATOR documented in this encounter Miscellaneous Notes Miscellaneous - Chris Medel, R.N. - 09/22/2014 1:36 PM CST Health Assessment Health Assessment Entered On: 09/22/2014 13:37 PLAYBACK OPERATOR Performed On: 09/22/2014 13:36 PLAYBACK OPERATOR by CHRIS MEDEL RN Health Assessment Complete Health Assessment Complete or Modified : Annual Health Assessment Annual Health Assessment Completed : Yes CHRIS MEDEL RN - 09/22/2014 13:36 PLAYBACK OPERATOR Nutrition Nutrition Risk Factors by History Adult : None CHRIS MEDEL RN - 09/22/2014 13:36 PLAYBACK OPERATOR Functional Current Daily Living Assistance : None CHRIS MEDEL RN - 09/22/2014 13:36 PLAYBACK OPERATOR Dependent Habits Tobacco Use/Currently Using : No Exposure to Tobacco Smoke : Other: never Smoking Status : Never smoker CHRIS MEDEL RN - 09/22/2014 13:36 PLAYBACK OPERATOR Tobacco Use Grid Last Use : never CHRIS MEDEL RN - 09/22/2014 13:36 PLAYBACK OPERATOR Caffeine Use Grid Caffeine Use : None CHRIS MEDEL RN - 09/22/2014 13:36 PLAYBACK OPERATOR Recreational Drug Use Grid Drug Use : None CHRIS MEDEL RN - 09/22/2014 13:36 PLAYBACK OPERATOR Psychosocial Domestic Abuse Concerns : None Rastafari Preference : No qualifying data available. CHRIS MEDEL RN - 09/22/2014 13:36 PLAYBACK OPERATOR Advance Directive Advanced Directives : Yes Advance Directive Type : Living will Advance Directive Location : Other: it is scanned in at primary physician's office, [facility] CHRIS MEDEL RN - 09/22/2014 13:36 PLAYBACK OPERATOR Educ Needs Learning Style Preference Adult Grid Patient : Printed materials, Verbal explanation Family : None CHRIS MEDEL RN - 09/22/2014 13:36 PLAYBACK OPERATOR [facility] [employer] Document Id: [id number] PLAYBACK OPERATOR!32 BACK OPERATOR Miscellaneous - Chris Medel R.N. 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 operator Chief Complaint : hard lump in right nare x 2.5 weeks Height : 187 cm(Converted to: 6 ft 2 inch(es), 74 inch(es)) CHRIS MEDEL RN - 09/22/2014 13:33 PLAYBACK OPERATOR General Info Information Given By : Patient Preferred Communication Mode : Verbal Languages : [place] Citizen Is Patient Female and 13-50 no hysterectomy : No CHRIS MEDEL RN - 09/22/2014 13:33 PLAYBACK OPERATOR Subjective Pain Symptoms : No CHRIS MEDEL RN - 09/22/2014 13:33 PLAYBACK OPERATOR Dependent Habits Tobacco Use/Currently Using : No Exposure to Tobacco Smoke : Other: never Smoking Status : Never smoker CHRIS MEDEL RN - 09/22/2014 13:33 PLAYBACK OPERATOR Tobacco Use Grid Last Use : never CHRIS MEDEL RN - 09/22/2014 13:33 PLAYBACK OPERATOR Caffeine Use Grid Caffeine Use : None CHRIS MEDEL RN - 09/22/2014 13:33 PLAYBACK OPERATOR Recreational Drug Use Grid Drug Use : None CHRIS MEDEL RN - 09/22/2014 13:33 PLAYBACK OPERATOR ID Screen Travel Within Last 21 Days : No CHRIS MEDEL RN - 09/22/2014 13:33 PLAYBACK OPERATOR Source: [facility] Document Id: [id number] PLAYBACK OPERATOR!26 BACK OPERATOR documented in this encounter Plan of Treatment Not on filedocumented as of this encounter Visit Diagnoses Not on filedocumented in this encounter
--- OUTSIDE RECORDS SUMMARY | 2022-09-09 08:24 | XMS_ITS | Encounter Summary ---
:1965 Author Organization [facility] Address [address] [place] [address] Care Team Providers Name Role Phone Unavailable Primary Care Provider Unavailable Encounter Details Date Type Department Care Team Description 06/28/2017 Hospital Encounter HX [facility] Oscar Spicer M.D. [address] [place], [place] [phone] (Wo rk) Social History [...] - - Height 187 cm (6' 1.62) 06/28/2017 1:52 PM CDT Body Mass Index - - [...]
--- OUTSIDE RECORDS SUMMARY | 2022-09-09 08:24 | XMS_ITS | Encounter Summary ---
:1965 Author Organization [facility] Address [address] [place] [address] Care Team Providers Name Role Phone Unavailable Primary Care Provider Unavailable Encounter Details Date Type Department Care Team Description 03/14/2014 - Hospital Encounter HX [facility], 11/24/2014 LELAND Santiago M.D. [address] [place] [phone] Social History Tobacco Use Types Packs/Day Years [...] as of this encounter Progress Notes Arturo Rodriguez, P.T. - 06/09/2014 12:00 AM CDT [id number] IMPRESSION/REPORT/PLAN Daniel comes in today stating that he is doing fairly well overall. He still has pain, this being moredistal now near the insertion of the Achilles tendon. Prior to this, it was higher, more in the tendon rather than the insertion itself. He feels that he has been able to slowly do more and that the pain does not increase until the day has progressed. We did treat once again today with ultrasound at 1.2 bergeron per cm squared to the lateral and medial aspect of the Achilles insertion. From there, we worked on some soft tissue massage. We did check to see what sort of activities kind of increase his symptoms. In so doing, we recommend that he just try some isometric exercises at this time. He is to avoid going through the full range of motion where he may cause too much strain on the Achilles tendon at this time. He will also be going on vacation over the next week. We will see how he is doing when he returns. He is to follow these restrictions at this time. Anam Sanches/terry Electronically Signed By: ARTURO RODRIGUEZ On: 06/12/2014 07:34 AM Source: [facility] Document Id: [id number] Arturo Rodriguez P.T. - 05/23/2014 12:00 AM CDT [id number] PHYSICAL THERAPY DAILY PROGRESS NOTE IMPRESSION/REPORT/PLAN Daniel comes in stating that he feels his calcaneal region and gastroc/Achilles tendon continues to improve. He is trying to do more as time goes on. He is now feeling it is just over the inferior aspectof the Achilles insertion. This is no longer causing a lot of pain up the bursal side of the ankle itself along the tendinous insertion. We did treat once again with ultrasound at 1.3 bergeron per cm squared over this area involved, followed by aggressive stretching. We also did reduce his exercises. We recommend that he work on more eccentric contraction/exercises if possible. We also worked on aggressive stretching of the gastrocs today. Total time today was 15 minutes of manual therapy and 8 minutesof ultrasound. ASSESSMENT Patient tolerated well. Overall, he is with subjective improvement. Plan will be to continue in 2 weeks. Anam Sanches/terry Electronically Signed By: ARTURO RODRIGUEZ On: 05/28/2014 10:25 AM Source: [facility] Document Id: [id number] Arturo Rene PCynthia. - 05/07/2014 12:00 AM CDT [id number] DAILY PROGRESS NOTE IMPRESSION/REPORT/PLAN Daniel comes in today stating that his heel is doing fairly well overall. He still continues to have pain, this just superior to the Achilles tendon. This is on bilateral sides of this tendon. He notes that he can feel it more when he does more excessive walking. He can tell that there is some instability in it at this time especially when he gets into the boat. He felt the ultrasound was helpful. He did not feel the iontophoresis helped a whole lot last time. We did treat once again with ultrasound at 1.3 bergeron per cm squared to bilateral aspects of the upper Achilles tendon. We also worked on aggressive stretching. From there, we worked on some manual resistance for dorsiflexion. There is still some weakness with this. Overall strength is 4 to 5 on a 0 to 5 strength scale. Because of this, we didinstruct patient with further exercises. He is to concentrate on some donkey kicks, just at the edgeof his steps at home. We also gave him some ijyn-qj-nira motions that he can work on with some partial knee bends. This will work on overall stability. Total time today was 8 minutes of ultrasound and 15 minutes of Therex. IMPRESSION/REPORT/PLAN Patient is with continued improvement though this is slow. PLAN: Will be to see him in approximately 2 weeks to see how he is progressing. Anam Sanches/terry Electronically Signed By: ARTURO RODRIGUEZ On: 05/15/2014 08:48 AM Source: [facility] Document Id: [id number] Arturo Rene P.T. - 04/24/2014 12:00 AM CDT [id number] DAILY PROGRESS NOTE IMPRESSION/REPORT/PLAN Daniel comes in today stating that he has been doing a little bit more walking and has been getting down onto his knees and crouching more. This has caused some increase in pain over the lateral aspect of the calcaneal region. He continues to stretch it, however, he thinks he may have overdone this to some extent. Today we did try iontophoresis over this area to see if this would give him any relief atthis time. Total time with this was 20 minutes. He is to continue icing at home as well. He is to continue with the stretches. Total time today was 20 minutes of iontophoresis. ASSESSMENT Patient tolerated well overall. He is with some increase in symptoms. This being more increased painover the lateral aspect of the calcaneal bone. PLAN We will see once again in approximately 2 weeks to see how he is doing. Anam Sanches/terry Electronically Signed By: ARTURO RODRIGUEZ On: 05/01/2014 06:11 AM Source: [facility] Document Id: [id number] Arturo Rene P.T. - 04/07/2014 12:00 AM CDT [id number] DAILY PROGRESS NOTE IMPRESSION/REPORT/PLAN Daniel comes in today stating that he is doing fairly well overall. He did see his physician once again. 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 They feel he is doing well. They wish for him to continue for the next several weeks just to see how he is progressing with everything. At this time, he has some pain, this being over the medial and lateral aspect of the Achilles tendon. We did see him we did continue again with ultrasound at 1.3 bergeron per cm squared over the lateral and medial aspect of the heel. We also worked on aggressive stretching along with transverse friction massage. We did review his exercises once again. All this is looking good. His mobility is basically within normal limits. He does feel a stretch in the gastroc/soleus with stretching. Total time today was 8 minutes of ultrasound and 15 minutes of manual therapy. Assessment, patient is progressing overall. PLAN: Will be to see patient in approximately 2 weeks to see how he is progressing. Anam Sanches/terry Electronically Signed By: ARTURO RODRIGUEZ On: 04/22/2014 07:18 AM Source: [facility] Document Id: [id number] Arturo Rodriguez P.T. - 03/28/2014 12:00 AM CDT [id number] DAILY PROGRESS NOTE IMPRESSION/REPORT/PLAN Daniel comes in today stating that his Achilles insertion region is doing better overall. It is still point tender over the medial and lateral aspect of the insertion of the Achilles tendon. However, he feels it is improving. We did continue with ultrasound at 1.3 bergeron per cm squared over the Achilles tendon and up into the distal aspect of the gastroc/soleus. From there, we worked on aggressive stretching. He does not feel any significant discomfort over the insertion this way. We then instructed patient with some exercises consisting of squatting exercises stretching the Achilles tendon. Much of what he feels is through the insertion this way. However, with aggressive stretching on the leg press machine, he feels most of this in the calf. He does complain of some increase in symptoms when he is trying to go down steps. Therefore, we felt that there may be some inflammatory issues going on at the insertion. We did recommend that he avoid any type of aggressive strengthening at this time for 1 week. We would then reassess after that time. Total time today was 10 minutes of ultrasound along with15 minutes of manual therapy with deep friction massage and stretching. PLAN We will see patient in approximately 10 days to see if there is any noticeable change this way. Anam Sanches/terry Electronically Signed By: ARTURO RODRIGUEZ On: 04/07/2014 07:02 AM [facility] Document Id: [id number] Arturo Rodriguez P.T. - 03/14/2014 12:00 AM CDT [id number] PROGRESS NOTE CHIEF COMPLAINT/REASON FOR VISIT Daniel comes in today stating that he is doing fairly well overall. He has now been given the okay to become more aggressive with some of the activities. He does have some scar tissue which they wish forhim to start working on this over the insertion site itself. Patient states that he has been doing his exercises at home. TREATMENT We did treat today with ultrasound at 1.3 bergeron per centimeter squared over the medial and lateral aspect of the Achilles tendon. We worked on aggressive stretching after that. From there, we instructed patient with more aggressive stretching and also strengthening. This is consisting of donkey kicks.We encouraged him to go all the way down with the dorsiflexion off of a step. He is to work on his donkey kicks equally with his weight. Patient is well aware of this and he is going to start doing this more aggressively now. TOTAL TIME Total time today was 15 minutes of manual therapy and 10 minutes of ultrasound. IMPRESSION/REPORT/PLAN Patient is doing well overall. We will see patient once again in approximately 2 weeks. Will progress with strengthening as able. Anam Sanches/terry Electronically Signed By: ARTURO RODRIGUEZ On: 03/19/2014 06:15 AM Source: [facility] Document Id: [id number] Arturo Rodriguez P.T. - 02/28/2014 12:00 AM CDT [id number] PHYSICAL THERAPY PROGRESS NOTE IMPRESSION/REPORT/PLAN Daniel comes in today stating that he has been doing well overall. He still has some soreness over theposterior aspect of the calcaneal region. This is over the incision itself. We did continue today with some ultrasound at 1.3 bergeron per cm squared over the lateral aspects of the calcaneal region and into the upper part of the calcaneal tendon. We then worked on some stretching of the gastrocs and soleus. We would isolate out the soleus itself with the knee in flexion. This is also with some tightness. We did review patient's home exercises. We recommend that he not do anything too aggressive as of yet for plantar flexion. He is walking right now with no significant deviation in his gait. PLAN We will have patient follow up with his physician again in approximately 1 week. If it is possible, we will probably become more aggressive with this strengthening at that time. We will hold until he sees his physician once again with patient independent with home exercises at this time. Anam Sanches/terry Electronically Signed By: ARTURO RODRIGUEZ On: 03/14/2014 12:41 PM Source: [facility] Document Id: [id number] Arturo Rene PCynthia. - 02/21/2014 12:00 AM CDT [id number] DAILY PROGRESS NOTE IMPRESSION/REPORT/PLAN Daniel comes in after having seen his physician/surgeon. He did get permission to start walking without the boot at this time. He can also start strengthening slowly within his own pain-free range if possible. He is not to get too aggressive with plantar flexion at this time. However, he can start walking as normal as he can. We did continue today with ultrasound at 1.3 W/cm2 over the medial and lateral aspect of the calcaneal region. We worked on stretching of the gastrocs and soleus. He tolerated this all well. We also worked on some joint mobilization of the talocrural joint. Overall, his mobilityis doing quite well. He does lack some plantar flexion, but this is not significant. We did instructpatient with some light donkey kicks. This is just from the floor and up. He is not to hang his heels over the edge of a step at this time. We also instructed patient with some proprioceptive exercisesto work on for balance. He is to do this at home. Total time today was 15 minutes of manual therapy and 10 minutes of ultrasound. ASSESSMENT Patient tolerated well. He is now progressing without the boot. Plan will be to see in approximately1 week. Anam Sanches/terry Electronically Signed By: ARTURO RODRIGUEZ On: 02/25/2014 06:39 AM Source: [facility] Document Id: [id number] Arturo Rodriguez P.T. - 02/14/2014 12:00 AM CDT [id number] PHYSICAL THERAPY PROGRESS NOTE IMPRESSION/REPORT/PLAN Daniel comes in today stating that he is doing well overall. He has been walking without his boot on when he is at home. We did advise that he be cautious with this and that he would not do any type of push-off with this. He is well aware of this. We did continue today with ultrasound at 1.3 bergeron per cm squared over the posterior aspect of the calcaneal region particularly into the Achilles tendon region. We then worked on some manual therapy consisting of stretching of the ankle into dorsiflexion and plantar flexion. We worked on some transverse friction massage around the are of the incision. He is somewhat tender over this area but he is doing well. We also worked on some muscle stripping of the gastrocs in general he tolerated this all well. We decided to hold on any type of strengthening at this time. We are still trying to make contact with his physician to see what some of his restrictionsare. He will be seeing his physician next week. Total time today was 15 minutes of manual therapy and 10 minutes of ultrasound. ASSESSMENT Patient tolerated well overall. PLAN He will see his physician next week. We will hopefully be able to progress from that point on. Anam Sanches/terry Electronically Signed By: ARTURO RODRIGUEZ On: 02/24/2014 10:55 AM Source: [facility] Document Id: [id number] documented in this encounter Consult Notes Arturo Rodriguez P.T. - 02/06/2014 12:00 AM CDT [id number] INITIAL EVALUATION REFERRING PHYSICIAN Say Hong D.P.M. CHIEF COMPLAINT This patient comes being status post calcaneal exostectomy with also a secondary Achilles tendon repair and reinsertion. Patient's date of surgery was on 12/20/2013. He states that he is with minimal pain at this time. He rates it as a 2 out of 10 on a 0 to 10 pain scale. He would describe his pain asbeing intermittent. Walking and standing on it is what would cause increase in symptoms. Rest makes it feel better. Patient states that was initially in a cast for 3 weeks. He has been in a walking boot now for the past 3 weeks. He can be weightbearing as tolerated with this on. Patient states that hehas taken the boot off and he has stood on his foot and walked without the boot at home, basically in the night when he needs to get up and go to the bathroom. Otherwise, he is in the boot at all times. 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 IMPRESSION/REPORT/PLAN Upon observation, patient ambulates into therapy without difficulty. He is not a fall risk at this time. He is able to get up on the treatment table and don and doff the brace without difficulty. In sodoing, we did evaluate his incision. This has healed very well overall. He has minimal to moderate amount of swelling present at this time. There is no discoloration or redness noted. We did check his overall mobility. Presently he is with plantar flexion to within functional limits. This is passively. Dorsiflexion is to approximately 15 degrees at this time. This is very close to what he has on the ipsilateral side. He is with some point tenderness with palpation over the surgical area itself. Otherwise, there is not a lot of discomfort here. There is tightness noted in the gastroc and soleus withstretching. We did treat today with ultrasound at 1.3 bergeron per cm squared x8 minutes just above thecalcaneal bone. From there, we worked on some light stretching and some deep friction massage. He tolerated this all very well. We did instruct patient with some light stretching exercises to be done at home with the tension of Thera-Band around his foot. We recommend that he abstain from any type of aggressive plantar flexion at this time. Ready to learn. No apparent learning barriers were identified. Learning preferences include listening. Explained diagnosis and treatment plan. Patient/Child/Caregiver expressed understanding of the content. GOALS 1. To increase dorsiflexion to 20 degrees or more. 2. To progress with strengthening addressing both plantar and dorsiflexion as well as eversion. He was instructed with eversion exercises today with the Thera-Band as well. 3. Patient able to resume normal activities of walking within 6 weeks. PLAN OF CARE Plan of care will be modalities as necessary along with manual techniques and strengthening. Prognosis is good at this time. ASSESSMENT Patient is doing well status post excision of a bone spur over the posterior aspect of his calcanealbone. It also can be noted that they did do a reinsertion of the Achilles tendon. PLAN See patient 2 times per week for the next 2 to 3 weeks if necessary. We will hopefully get him a home exercise program and he can do this independently at this point. Anam Sanches/terry cc: Say Hong DPM [facility] [address] [place] [address] Electronically Signed By: ARTURO RODRIGUEZ On: 02/17/2014 09:37 AM [facility] Document Id: [id number] documented in this encounter Plan of Treatment Not on filedocumented as of this encounter Visit Diagnoses Not on filedocumented in this encounter
--- OUTSIDE RECORDS SUMMARY | 2022-09-09 08:24 | XMS_ITS | Encounter Summary ---
:1965 Author Organization [facility] Address [address] [place] [address] Care Team Providers Name Role Phone Unavailable Primary Care Provider Unavailable Encounter Details Date Type Department Care Team Description 09/09/[address] [facility] Kevin Irizarry M.D. [address] [place] [address] [phone] (Wo rk) Social History Tobacco Use Types Packs/Day Years Used Date Smoking Tobacco: Never Assessed Sex Assigned at Date Recorded Not on file documented as of this encounter Progress Notes Kevin Irizarry M.D. - 09/09/2014 2:33 PM CST Eye General CHIEF COMPLAINT here for follow up HISTORY OF PRESENT ILLNESS No changes noted. IMPRESSION / REPORT / PLAN #1 Retinal heme, right eye. Persisting but in different location, adjacent to area of newly developing lattice degeneration. Plan: RD precautions reviewed. F/u 6 months CE. INT DIAGNOSIS #1 Retinal heme, right eye. CDM Reports - EYEGEN Id: [id number] Status: Fnl documented in this encounter Plan of Treatment Not on filedocumented as of this encounter Visit Diagnoses Not on filedocumented in this encounter
--- OUTSIDE RECORDS SUMMARY | 2022-09-09 08:24 | XMS_ITS | Encounter Summary ---
:1965 Author Organization [facility] Address [address] [place] [address] Care Team Providers Name Role Phone Unavailable Primary Care Provider Unavailable Encounter Details Date Type Department Care Team Description 08/13/2014 Hospital Encounter HX [facility] Zee Collazo M.D. [address] [facility], [place] [id number] (Wo rk) Social History Tobacco Use Types [...] - - Height 187 cm (6' 1.62) 08/13/2014 11:05 AM CDT Body Mass Index - - documented [...] encounter Progress Notes Chitra Collazo M.D. - 08/13/2014 10:44 AM CDT [id number] CHIEF COMPLAINT/REASON FOR VISIT Several spots to be checked. HISTORY OF PRESENT ILLNESS This 49-year-old male has had a history of warts on his thumbs. He says 1 or 2 on his left thumb have recurred. Also has 1 on his right index finger that has come up recently. In addition to this, he has some spots on the left sideburn area that have been irritating him. He catches them on his razor and they bleed, and then he also has a spot on his knee that he has been using lotion on and it does not go away. MEDICATIONS Were reviewed per EMR. ALLERGIES None. SYSTEMS REVIEW All systems were reviewed and were negative. PAST MEDICAL/SURGICAL HISTORY High blood pressure. High triglycerides. SOCIAL HISTORY He is employed and has 2 small children. He enjoys watching his little girls grow up. He does not smoke or drink alcohol. FAMILY HISTORY Negative. PHYSICAL EXAMINATION GENERAL: Alert and oriented x3 in no acute distress. Pleasant demeanor. Well groomed. SKIN: Exam of the left thumb shows 2 scaly 1 mm patches that were each treated with liquid nitrogen as they appeared to be warts. Also a wart on the second finger treated with liquid nitrogen. On the left preauricular and sideburn skin, there were scattered small, denny, scaly papules consistent with seborrheic keratoses right in the shaving area. These were treated with liquid nitrogen, also 2 on the left baptism and 2 on the right jawline. Exam of the chin where he says there was a bleeding spot showed no lesions visible today. IMPRESSION/REPORT/PLAN Liquid nitrogen therapy of 3 warts and 8 irritated seborrheic keratoses in the cornejo area. Care instructions were given, and he will follow up in 4 to 6 weeks if the warts on his fingers do not go away. Chitra Collazo M.D./terry Electronically Signed By: CHITRA COLLAZO MD On: 08/28/2014 02:19 PM Source: [facility] MHSDOLBEYNONRADSYS Document Id: [id number] documented in this encounter Miscellaneous Notes Miscellaneous - Chitra Collazo M.D. - 08/14/2014 6:45 PM CDT Ambulatory Patient Summary [facility] [address] [place], [place] [id number] Visit Information Name: HERLINDA TIWARI [facility] Number: [id number] Current Date: 08/14/2014 18:45:42 Physicians Attending Provider: CHITRA COLLAZO MD Primary [...] Changes/Routing amlodipine (Norvasc 5 mg oral tablet) amLODIPine (amLODIPine 5 mg oral tablet) 5 mg, Oral, once a day fluocinonide topical (Lidex 0.05% topical ointment) 1 adryan, Topical, two times a day lisinopril (lisinopril 40 mg oral tablet) 1 Tablet(s), Oral, once a day lisinopril (lisinopril 40 mg oral tablet) 40 mg, Oral, once a day multivitamin (multivitamin) petrolatum topical (petrolatum topical ointment) See Instructions Apply to affected nostril 2-4x daily as needed Stop Taking the Following Medications: aspirin (aspirin 81 mg oral tablet) fluorouracil topical (Efudex 5% topical cream) multivitamin with minerals (Multiple Vitamins with Minerals oral tablet) salicylic acid topical (salicylic acid 17% topical film, extended release) sodium chloride nasal (sodium chloride 0.2% nasal gel) Medication list as of 08-14-14 18:45 Attention: If you have any medications at [...] Electronically Signed By: CHITRA COLLAZO MD Signed On:14-AUG-2014 18:45:38 Your Allergies & Intolerances Substance Reaction Symptoms Category Comments No Known Allergies Drug Your Problem List Problem Status Onset Comments Hyperlipidemia Active 09/22/2008 Verruca Active 01/04/12 unknown date of dx Actinic Keratosis Active 05/27/2011 Hypertension Active 10/06/2010 Lichen simplex chronicus Active 04/03/2013 Keratosis Seborrheic Inflamed Active Your Upcoming Appointments Date Time Location Provider 09/09/2014 14:20 [facility] Trinity Irizarry MD, Kevin Peralta 09/26/2014 09:30 [facility] Baron Collazo MD, Chitra Estrada Attention: Contact your local Clinic if further appointment detail needed. Your Goals/Additional instructions: Source: [facility] [employer] Document Id: [id number] Miscellaneous - Chitra Collazo M.D. - 08/14/2014 6:45 PM CDT Ambulatory Discharge Medication List [address] [id number] Visit Information Name: HERLINDA TIWARI [facility] Number: [id number] Visit Date: 08/14/2014 18:45:40 Attending Provider: CHITRA COLLAZO MD Primary Care Provider: PCP, ELSEWHERE HERLINDA TIWARI has been given the following [...] Changes/Routing amlodipine (Norvasc 5 mg oral tablet) amLODIPine (amLODIPine 5 mg oral tablet) 5 mg, Oral, once a day fluocinonide topical (Lidex 0.05% topical ointment) 1 adryan, Topical, two times a day lisinopril (lisinopril 40 mg oral tablet) 1 Tablet(s), Oral, once a day lisinopril (lisinopril 40 mg oral tablet) 40 mg, Oral, once a day multivitamin (multivitamin) petrolatum topical (petrolatum topical ointment) See Instructions Apply to affected nostril 2-4x daily as needed Stop Taking the Following Medications: aspirin (aspirin 81 mg oral tablet) fluorouracil topical (Efudex 5% topical cream) multivitamin with minerals (Multiple Vitamins with Minerals oral tablet) salicylic acid topical (salicylic acid 17% topical film, extended release) sodium chloride nasal (sodium chloride 0.2% nasal gel) Medication list as of 08-14-14 18:45 Attention: If you have any medications at [...] Electronically Signed By: CHITRA COLLAZO MD Signed On:14-AUG-2014 18:45:38 Additional Information: Source: [facility] POWERCHART Document Id: [id number] Miscellaneous - Angela Flanagan, L.P.N. 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 Entered On: 08/13/2014 11:06 CDT Performed On: 08/13/2014 11:05 CDT by ANGELA FLANAGAN Intake Chief Complaint : recheck spots on face spot on right knee problems with fingers Height : 187 cm(Converted to: 6 ft 2 inch(es), 74 inch(es)) ANGELA FLANAGAN - 08/13/2014 11:05 CDT General Info Languages : [place] Is Patient Female and 13-50 no hysterectomy : ANGELA Valle - 08/13/2014 11:05 CDT Subjective Pain Symptoms : ANGELA Valle - 08/13/2014 11:05 CDT Dependent Habits Tobacco Use/Currently Using : No Exposure to Tobacco Smoke : Other: never Smoking Status : Never smoker ANGELA FLANAGAN - 08/13/2014 11:05 CDT Tobacco Use Grid Last Use : never ANGELA FLANAGAN - 08/13/2014 11:05 CDT Caffeine Use Grid Caffeine Use : None ANGELA FLANAGAN - 08/13/2014 11:05 CDT Recreational Drug Use Grid Drug Use : None ANGELA FLANAGAN - 08/13/2014 11:05 CDT Source: [facility] [employer] Document Id: [id number] CDT!22 documented in this encounter Plan of Treatment Not on filedocumented as of this encounter Visit Diagnoses Not on filedocumented in this encounter
--- OUTSIDE RECORDS SUMMARY | 2022-09-09 08:24 | XMS_ITS | Encounter Summary ---
:1965 Author Organization [facility] Address [address] [place] [address] Care Team Providers Name Role Phone Unavailable Primary Care Provider Unavailable Encounter Details Date Type Department Care Team Description 05/17/2016 Hospital Encounter HX [facility] Oscar [place] M.D. [address] [place], [place] [phone] (Wo rk) Social History [...] - - Height 187 cm (6' 1.62) 05/17/2016 2:41 PM CDT Body Mass Index - - [...] Notes Kevin De La O M.D. - 05/17/2016 2:40 PM CDT [id number] The documentation for this visit is available in Synthesis IMPRESSION/REPORT/PLAN #1 Lattice degeneration right eye. Stable. Dot hemorrhage unchanged in location and size from previous exam. #2 Cataraccts nuclear both eyes. Plan: RD precautions reviewed. F/u six months. CE/ref Kevin De La O M.D./chino Electronically Signed By: KEVIN DE LA O MD On: 05/23/2016 07:44 AM Source: [facility] MHSDOLBEYNONRADSYS Document Id: [id number] documented in this encounter Miscellaneous Notes Miscellaneous - Kevin De La O M.D. - 05/17/2016 4:06 PM CDT Ambulatory Patient Summary [address] [id number] Visit Information Name: HERLINDA TIWARI [facility] Number: [id number] Current Date: 05/17/2016 16:06:39 Physicians Attending Provider: KEVIN DE LA O MD Primary Care Provider: PCP, ELSEWHERE HERLINDA [...] the Following Medications: Medication list as of 05-17-16 16:06 Attention: If you have any medications at [...] By: KEVIN DE LA O MD Signed On:17-MAY-2016 16:06:25 Your Allergies & Intolerances Substance Reaction Symptoms [...] local Clinic if further appointment detail needed. Consider Using Patient Online Services Patient Online Services is a secure online and Mobile application that lets you: ?? View lab and test results ?? View portions of your medical record including clinical notes, immunizations and discharge summaries ?? Request an appointment or medication refill ?? Review your appointment schedule ?? Send secure messages to your care team Its easy to create an account if you dont have one. Go to [email or web address] and click on Create Your Account. Then, follow the directions to complete the online form. Youll be asked for your [facility] number which you can find at the top of this document. Your Goals/Additional instructions: Source: [facility] POWERCHART Document Id: [id number] Miscellaneous - Kevin De La O M.D. - 05/17/2016 4:06 PM CDT Ambulatory Discharge Medication List [facility] [address] [place] [id number] Visit Information Name: HERLINDA TIWARI [facility] Number: [id number] Visit Date: 05/17/2016 16:06:39 Attending Provider: KEVIN DE LA O MD [...] the Following Medications: Medication list as of 05-17-16 16:06 Attention: If you have any medications at [...] By: KEVIN DE LA O MD Signed On:17-MAY-2016 16:06:25 Additional Information: Source: [facility] POWERCHART Document Id: [id number] documented in this encounter Plan of Treatment Not on filedocumented as of this encounter Visit Diagnoses Not on filedocumented in this encounter
--- OUTSIDE RECORDS SUMMARY | 2022-09-09 08:24 | XMS_ITS | Encounter Summary ---
:1965 Author Organization [facility] Address [address] [place] [address] Care Team Providers Name Role Phone Unavailable Primary Care Provider Unavailable Encounter Details Date Type Department Care Team Description 09/22/2014 Hospital Encounter HX [facility] Roberta Traore Au.D. 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 lisinopril Take 40 mg by mouth 0 02/01/2014 (for_PRINIVIL,ZESTRIL) daily. 40 mg tablet multivitamin capsule multivitamin 0 09/14/2010 documented as of this encounter Progress Notes Roberta Traore - 09/22/2014 12:31 PM CST [id number] CHIEF COMPLAINT/REASON FOR VISIT Difficulty hearing in background noise. HISTORY OF PRESENT ILLNESS Herlinda had a hearing screening through his employer recently. They noted a change in his hearing and he is looking to have a more comprehensive evaluation. Subjectively his hearing is very good, but he is noticing having difficulty discriminating between words in the presence of background noise. He denies ear pain, drainage, tinnitus, and dizziness. 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 No known family historyof hearing loss. PHYSICAL EXAMINATION Otoscopy shows clear ear canals with normal appearing eardrums bilaterally. Audiometric thresholds are essentially within normal limits bilaterally with a slight 10dB difference between ears for 3000 and 4000 Hz with the right ear better than the left ear. Word discrimination scores are excellent bilaterally. IMPRESSION/REPORT/PLAN Today's results were discussed with Herlinda. He should continue to monitor his hearing through work screenings. He should return for a hearing evaluation if any change in his hearing is noticed. Malinda Benjamin/mihir Electronically Signed By: ROBERTA TRAORE On: 09/30/2014 01:24 PM Source: [facility] MHSDOLBEYNONRADSYS Document Id: [id number] UITE DEVELOPER documented in this encounter Miscellaneous Notes Miscellaneous - Roberta Traore - 09/22/2014 4:05 PM CST Ambulatory Patient Summary [address] [id number] Visit Information Name: HERLINDA TIWARI [facility] Number: [id number] Current Date: 09/22/2014 16:05:36 Physicians Attending Provider: ROBERTA TRAORE Primary Care Provider: PCP, ELSEWHERE HERLINDA TIWARI [...] multivitamin (multivitamin) Stop Taking the Following Medications: petrolatum topical (petrolatum topical ointment) Medication list as of 09-22-14 16:05 Attention: If you have any medications at home that are not on this list, DO NOT take them until youcontact your provider for clarification. Give a copy of your medication list to your primary care provider. Update your medication list any time medications or doses are changed and carry your medication list at all times in case of emergency. Electronically Signed By: Signed On: Your Allergies & Intolerances Substance Reaction Symptoms Category Comments No Known Allergies Drug Your Problem List Problem Status Onset Comments Hyperlipidemia Active 09/22/2008 Verruca Active 01/04/12 unknown date of dx Actinic Keratosis Active 05/27/2011 Hypertension Active 10/06/2010 Lichen simplex chronicus Active 04/03/2013 Keratosis Seborrheic Inflamed Active Your Upcoming Appointments Date Time Location Provider 09/26/2014 09:30 JAROCHO Collazo MD, Kandice Estrada Attention: Contact your local Clinic if further appointment detail needed. Your Goals/Additional instructions: Source: [facility] POWERCHART Document Id: [id number] UITE DEVELOPER Miscellaneous - Roberta Traore - 09/22/2014 4:05 PM CST Ambulatory Discharge Medication List [facility] [address], [address] [place], [place] [id number] Visit Information Name: HERLINDA TIWARI [facility] Number: [id number] Visit Date: 09/22/2014 16:05:35 Attending Provider: ROBERTA TRAORE Primary Care Provider: PCP, ELSEWHERE HERLINDA TIWARI [...] multivitamin (multivitamin) Stop Taking the Following Medications: petrolatum topical (petrolatum topical ointment) Medication list as of 09-22-14 16:05 Attention: If you have any medications at home that are not on this list, DO NOT take them until youcontact your provider for clarification. Give a copy of your medication list to your primary care provider. Update your medication list any time medications or doses are changed and carry your medication list at all times in case of emergency. Electronically Signed By: Signed On: Additional Information: Source: [facility] POWERCHART Document Id: [id number] UITE DEVELOPER documented in this encounter Plan of Treatment Not on filedocumented as of this encounter Visit Diagnoses Not on filedocumented in this encounter
--- OUTSIDE RECORDS SUMMARY | 2022-09-09 08:24 | XMS_ITS | Encounter Summary ---
:1965 Author Organization [facility] Address [address] [place] [address] Care Team Providers Name Role Phone Unavailable Primary Care Provider Unavailable Encounter Details Date Type Department Care Team Description 09/03/2013 Hospital Encounter HX NO MAPPING Provider, Historical Social History Tobacco Use Types Packs/Day Years [...]
--- OUTSIDE RECORDS SUMMARY | 2022-09-09 08:24 | XMS_ITS | Encounter Summary ---
:1965 Author Organization [facility] Address [address] [place] [address] Care Team Providers Name Role Phone Unavailable Primary Care Provider Unavailable Reason for Referral Outpatient (Routine) - Closed Specialty Diagnoses / Procedures Referred By Contact Refer red To Contact Diagnoses Degeneration Retinal Lattice Bilateral Kevin Irizarry M.D. [address] [place] [address] Referral ID Status Reason Start Date Expiration Date Visits Requ ested Visits Authorized [id number] Closed 08/17/2017 02/13/2018 1 1 Encounter Details Date Type Department Care Team Description 08/17/2017 Orders Only Department of Kevin Irizarry Degeneratio n Retinal Ophthalmology in [place] Lattice Bilateral [place], [place] [address] [place] [phone] Social History Tobacco Use Types Packs/Day Years Used Date Smoking Tobacco: Never Sex Assigned at Date Recorded Not on file documented as of this encounter Plan of Treatment Scheduled Referrals Name Type Priority Associated Diagnoses Order [facility] Ophthalmology office Outpatient Routine Degeneration Retinal Expected: visit (clinic) Referral Lattice Bilateral 06/28/20 18 (Approximate), Expires: 07/02/2023 documented as of this encounter Visit Diagnoses Diagnosis Degeneration Retinal Lattice Bilateral documented in this encounter
--- OUTSIDE RECORDS SUMMARY | 2022-09-09 08:24 | XMS_ITS | Encounter Summary ---
:1965 Author Organization [facility] Address [address] [place] [address] Care Team Providers Name Role Phone Unavailable Primary Care Provider Unavailable Encounter Details Date Type Department Care Team Description 01/14/2014 Hospital Encounter HX [facility] Kevin De La O M.D. [address] [place], [place] [phone] (Wo rk) Social History Tobacco Use Types Packs/Day Years Used Date Smoking Tobacco: Never Assessed Sex Assigned at Date Recorded Not on file documented as of this encounter Medications at Time of Discharge Medication Sig Dispensed Refills Start Date End Date multivitamin capsule multivitamin 0 09/14/2010 documented as of this encounter Miscellaneous Notes Miscellaneous - Kevin De La O M.D. - 01/16/2014 8:04 AM CDT Results Notification Document Contains Addenda Addendum by MAO WILLIS on 16 January 2014 09:49:26 CDT Gave pt results per Dr. De La O and he will schedule with PCP. Ranjith From: KEVIN DE LA O MD Sent: 01/16/2014 08:04:24 CDT ! Show up: 01/16/2014 08:04:24 CDT Subject: Results Notification Actions: Notify patient of results Reminder Comments: Glycosylated hemoglobin at the very upper end of the normal range. Should follow-up with PCP in the next few months for further diabetic evaluation. Results: Date Result Name Value Ref Range 01/14/2014 16:07 Hgb A1c 6.0 % (4.0 - 6.0) Source: [facility] POWERCHART Document Id: [id number] Electronically signed by Conversion, [facility] Hide Dropper [id number] at 04/04/2017 6:03 AM CDT documented in this encounter Plan of Treatment Not on filedocumented as of this encounter Procedures Procedure Name Priority Date/Time Associated Diagnosis Comme nts HEMOGLOBIN A1C, B Routine 01/14/2014 4:07 PM Resu lts for this CDT procedure are i n the results section. documented in this encounter Results Hemoglobin A1c (01/14/2014 4:07 PM CDT) P athologist Signature Hemoglobin A1c, 6.0 4.0 - 6.0 POWERCHART B Specimen (Source) Anatomical Collection Method Collection Time Re ceived Time Location / / Volume Laterality Blood 01/14/2014 4:07 PM CDT Kevin De La O M.D. LAB BLOOD ADD-ON Performing Organization Address City/State/ZIP Code Phon e Number POWERCHART documented in this encounter Visit Diagnoses Not on filedocumented in this encounter
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
--- OUTSIDE RECORDS SUMMARY | 2022-09-09 08:24 | XMS_ITS | Encounter Summary ---
:1965 Author Organization [facility] Address [address] [place] [address] Care Team Providers Name Role Phone Unavailable Primary Care Provider Unavailable Encounter Details Date Type Department Care Team Description 09/09/2014 Hospital Encounter [facility] Oscar Watson M.D. [address] [place], [place] [phone] (Wo rk) Social History [...] - - Height 187 cm (6' 1.62) 09/09/2014 2:29 PM LEADERSHIP PROGRAM INTERN Body Mass Index - - documented in [...] Notes Kevin De La O M.D. - 09/09/2014 2:28 PM CST [id number] The documentation for this visit is available in [facility] IMPRESSION/REPORT/PLAN #1 Retinal heme, right eye. Persisting but in different location, adjacent to area of newly developing lattice degeneration. Plan: RD precautions reviewed. F/u 6 months CE. INT Kevin De La O M.D./onel Electronically Signed By: KEVIN DE LA O MD On: 09/15/2014 08:57 AM Source: [facility] MHSDOLBEYNONRADSYS Document Id: [id number] ERSHIP PROGRAM INTERN documented in this encounter Miscellaneous Notes Miscellaneous - Kevin De La O M.D. - 09/09/2014 3:19 PM CST Ambulatory Patient Summary [address] [id number] Visit Information Name: HERLINDA TIWARI [facility] Number: [id number] Current Date: 09/09/2014 15:19:14 Physicians Attending Provider: KEVIN DE LA O [...] mg, Oral, once a day multivitamin (multivitamin) *petrolatum topical (petrolatum topical ointment) See Instructions Apply to affected nostril 2-4x daily as needed * You have let us know that you are not taking this medication as listed. Please talk with your primary care provider or the health care provider who prescribed the medication as soon as possible. Stop Taking the Following Medications: Medication list as of 09-09-14 15:19 Attention: If you have any medications at [...] By: KEVIN DE LA O MD Signed On:09-SEP-2014 15:19:10 Your Allergies & Intolerances Substance Reaction Symptoms [...] appointment detail needed. Your Goals/Additional instructions: Source: [facility] POWERCHART Document Id: [id number] ERSHIP PROGRAM INTERN Miscellaneous - Kevin De La O M.D. - 09/09/2014 3:19 PM CST Ambulatory Discharge Medication List [address] [id number] Visit Information Name: HERLINDA TIWARI [facility] Number: [id number] Visit Date: 09/09/2014 15:19:12 Attending Provider: KEVIN DE LA O MD [...] mg, Oral, once a day multivitamin (multivitamin) *petrolatum topical (petrolatum topical ointment) See Instructions Apply to affected nostril 2-4x daily as needed * You have let us know that you are not taking this medication as listed. Please talk with your primary care provider or the health care provider who prescribed the medication as soon as possible. Stop Taking the Following Medications: Medication list as of 09-09-14 15:19 Attention: If you have any medications at [...] of emergency. Electronically Signed By: KEVIN DE LAO MD Signed On:09-SEP-2014 15:19:10 Additional Information: Source: [facility] POWERCHART Document Id: [id number] ERSHIP PROGRAM INTERN documented in this encounter Plan of Treatment Not on filedocumented as of this encounter Visit Diagnoses Not on filedocumented in this encounter
--- OUTSIDE RECORDS SUMMARY | 2022-09-09 08:25 | XMS_ITS | Encounter Summary ---
:1965 Author Organization [facility] Address [address] [place] [address] Care Team Providers Name Role Phone Unavailable Primary Care Provider Unavailable Encounter Details Date Type Department Care Team Description 01/18/2012 Hospital Encounter HX [facility] Zee Collazo M.D. [address] [facility], [place] [phone] (Wo rk) Social History Tobacco Use Types Packs/Day Years Used Date Smoking Tobacco: Never Assessed Sex Assigned at Date Recorded Not on file documented as of this encounter Last Filed Vital Signs Vital Sign Reading Time Taken Comments Blood Pressure 136/84 01/18/2012 3:36 PM CDT Pulse - - Temperature - - Respiratory Rate - - Oxygen Saturation - - Inhaled Oxygen Concentration - - Weight - - Height - - Body Mass Index - - documented in this encounter Medications at Time of Discharge Medication Sig Dispensed Refills Start Date End Date multivitamin capsule multivitamin 0 09/14/2010 documented as of this encounter Progress Notes Chitra Collazo M.D. - 01/18/2012 12:00 AM CDT [id number] CHIEF COMPLAINT Wart removal HISTORY OF PRESENT ILLNESS Louie is a 46-year-old male who presents for another treatment for his wart on his left finger. The patient reports that his right thumb wart has completely resolved. His left thumb wart still persists but has decreased in size compared to prior visits. SYSTEMS REVIEW No new skin changes since previous visit. All other systems reviewed are negative. VITAL SIGNS Reviewed EMR 01/18/12 PHYSICAL EXAM GENERAL: The patient is a pleasant male in no acute distress. SKIN: I examined the patient's bilateral hands today. The right thumb verruca has resolved. There still is a 3 mm left verrucae that is slightly raised MENTAL: The patient has a normal mood and affect. He is alert and oriented to person, place, and time. IMPRESSION / REPORT / PLAN PROCEDURE Name: Pulsed-dye laser therapy of verrucae Consent: Verbal consent was obtained from the patient. Indication: wart removal Location: left thumb Completed by: Dr. Chitra Collazo Note: The patient's identity was confirmed by no less than two patient identifiers, correct procedure was verified, correct site was verified and marked as applicable and a final pause was completed. Warts were pared, and then anesthetized with 1% lidocaine plain/ 1% lidocaine with epinephrine not anesthetized. The V-beam laser was used at settings 7 mm, 11joules, and 1.5 ms with 30 then 20 cryogen. Total of 3 pulses. Polysporin and bandages applied. The patient tolerated the procedure well Comment: The patient tolerated the procedure well. There were no immediate complications. 1. Pulsed-dye laser therapy of verrucae. [id number]. Plan: Care instructions were given. Follow up in 2 months on laser day. Call if any problems or questions. This document serves as a record of services personally performed by Dr. Chitra Collazo. It was created on their behalf by Avery Herbert, a trained medical insurance biller. The creation of this record is based on the scribe's personal observations and the provider's statements to them. This document has been checked and approved by the attending provider. Blaze Giron Electronically Signed By: CHITRA COLLAZO MD On: 01/25/2012 06:34 PM Source: [facility] MHSDOLBEYNONRADSYS Document Id: [id number] documented in this encounter Miscellaneous Notes Miscellaneous - Carley Peguero R.N. - 01/18/2012 3:36 PM CDT Adult Um Specialist Intake/History Adult Um Specialist Intake/History Entered On: 01/18/2012 15:37 CDT Performed On: 01/18/2012 15:36 CDT by CARLEY PEGUERO Intake Chief Complaint : wart check- possible laser tx and would like to discuss having raised spot on backof calf removed Systolic Blood Pressure : 136mmHg Diastolic Blood Pressure : 84mmHg NIBP Mean : 101mmHg BP Location : Right upper extremity Blood Pressure Cuff Size : Regular CARLEY PEGUERO - 01/18/2012 15:36 CDT General Info Information Given By : Patient Preferred Communication Mode : Verbal Languages : Ukrainian CARLEY PEGUERO - 01/18/2012 15:36 CDT Subjective Pain Symptoms : No CARLEY PEGUERO - 01/18/2012 15:36 CDT Dependent Habits Tobacco Use/Currently Using : No Exposure to Tobacco Smoke : Other: never Smoking Status : Never smoker CARLEY PEGUERO - 01/18/2012 15:36 CDT Caffeine Use Grid Caffeine Use : None CARLEY PEGUERO - 01/18/2012 15:36 CDT Allergy Allergies (Active) NKA Estimated Onset Date: Unspecified ; Created By: ISAAC HAYNES; Reaction Status: Active ; Category: Drug ; Substance: NKA ; Type: Allergy ; Updated By: ISAAC HAYNES; Reviewed Date: 01/18/201215:36 CDT Source: [facility] [employer] Document Id: [id number] CDT!21 documented in this encounter Plan of Treatment Not on filedocumented as of this encounter Visit Diagnoses Not on filedocumented in this encounter
--- OUTSIDE RECORDS SUMMARY | 2022-09-09 08:25 | XMS_ITS | Encounter Summary ---
:1965 Author Organization [facility] Address [address] [place] [address] Care Team Providers Name Role Phone Unavailable Primary Care Provider Unavailable Encounter Details Date Type Department Care Team Description 10/16/2012 Hospital Encounter HX [facility] Oscar Watson M.D. [address] [place], [place] [phone] (Wo rk) Social History Tobacco Use Types Packs/Day Years Used Date Smoking Tobacco: Never Assessed Sex Assigned at Date Recorded Not on file documented as of this encounter Medications at Time of Discharge Medication Sig Dispensed Refills Start Date End Date multivitamin capsule multivitamin 0 09/14/2010 documented as of this encounter Progress Notes Conversion, Historical Provider Ser - 10/16/2012 2:16 PM CST [facility] Exam Entered On: 10/16/2012 14:25 [employer] Performed On: 10/16/2012 14:16 [employer] by DENISE CASTILLO Chief Complaint and History Chief Complaint : Routine exam Pain Symptoms : No Smoking Status : Never smoker Comment : no changes noted. ROS -heart and lungs wnl DENISE CASTILLO - 10/16/2012 14:16 [employer] Optometry Exam Familty History Grid Cancer : Grandparents Diabetes : Grandparents Hypertension : Father, Self Macular Degeneration : Grandparents DENISE CASTILLO - 10/16/2012 14:16 [employer] Vision Testing Right Eye Vision Testing : Without correction, 20/20, -1 Left Eye Vision Testing : Without correction, 20/20 Near Vision Right Eye : Without correction, J-5 Near Vision Left Eye : Without correction, J-5 DENISE CASTILLO - 10/16/2012 14:16 [employer] Refraction Right Eye Manifest Grid Date : 05/02/2011 CDT 10/16/2012 [employer] Sphere : -.50 CYL : +0.50 Moro : 160 = 20/20 ADD : +1.75 Comment : DEFERRED DENISE CASTILLO 10/16/2012 14:16 [employer] DENISE CASTILLO 10/16/2012 14:16 [employer] Left Eye Manifest Grid Date : 05/02/2011 CDT Sphere : -.75 CYL : +0.50 Moro : 60 = 20/20 ADD : +1.75 DENISE CASTILLO 10/16/2012 14:16 [employer] Ocular Testing EOMS : Normal Comment : 4-3 4-3 Pupils : PERRLA Comment : FTCF DENISE CASTILLO 10/16/2012 14:16 [employer] Intraoccular Pressures Intraoccular Pressures Grid Date : 05/02/2011 CDT 05/02/2011 CDT 10/16/2012 [employer] 10/16/2012 [employer] Eye : RE LE RE LE Applanation : 15 15 17 17 Comments : 2:58 2:23 DENISE CASTILLO 10/16/2012 14:16 [employer] DENISE CASTILLO 10/16/2012 14:16 [employer] DENISE CASTILLO 10/16/2012 14:16 [employer] DENISE CASTILLO 10/16/2012 14:16 [employer] Eye Drops Exam Phenylephrine 2.5% Eye Drops Eye : Both eyes Phenylephrine 2.5% Eye Drops Amount : One drop Phenylephrine 2.5% Eye Drops Time : 14:25 [employer] Phenylephrine 2.5% Eye Drops Comment : REV EYES Tropicamide 0.5% Eye Drops Eye : Both eyes Tropicamide 0.5% Eye Drops Amount : One drop Tropicamide 10% Eye Drops Time : 14:25 [employer] DENISE CASTILLO 10/16/2012 14:16 [employer] Source: [facility] Document Id: [id number] documented in this encounter H&P Notes Kevin De La O M.D. - 10/16/2012 1:58 PM CST [id number] CHIEF COMPLAINT / REASON FOR VISIT Routine ophthalmic exam. IMPRESSION / REPORT / PLAN 1. 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 2. Status post refractive corneal laser surgery. Visual acuity remains at the 20/20 level in both eyes. PLAN: Continue with [id number] reading glasses only. Followup in 1 year for complete ophthalmic exam. Kevin De La O M.D./w Electronically Signed By: KEVIN DE LA O MD On: 10/19/2012 07:17 AM Source: [id number] Document Id: [id number] [employer] documented in this encounter Miscellaneous Notes Miscellaneous - Kevin De La O M.D. - 10/16/2012 3:19 PM CST Ambulatory Patient Summary [place] [id number] Visit Information Name: HERLINDA TIWARI [facility] Number: [id number] Current Date: 10/16/2012 15:19:23 Physicians Attending Provider: KEVIN DE LA O MD Primary Care Provider: PCP, ELSEWHERE Your Medications Here is a list of your medications. It is important to take your medications as directed. Use a pillbox or chart to help remind you to take your medications. Please let your doctor or nurse know if you have problems taking your medications. Medication/Strength Dose Route Frequency Indications/Special Instructions/Comments salicylic acid topical (salicylic acid 17% topical film, extended release) 1 adryan Topical once a day apply to wart in AM fluorouracil topical (Efudex 5% topical cream) 1 adryan Topical once a day (at bedtime) apply to wart at bedtime lisinopril (lisinopril 40 mg oral tablet) 40 mg Oral once a day fluocinonide topical (Lidex 0.05% topical ointment) 1 adryan Topical two times a day amlodipine (Norvasc 5 mg oral tablet) multivitamin (multivitamin) aspirin (aspirin 81 mg oral tablet) Attention: If you have any medications at home that are not on this list, DO NOT take them until youcontact your provider for clarification. Your Allergies & Intolerances Substance Reaction Symptoms Category Comments No Known Allergies Drug Your Problem List Problem Status Onset Comments Hyperlipidemia Active 09/22/2008 Verruca Active 01/04/12 unknown date of dx Actinic Keratosis Active 05/27/2011 Hypertension Active 10/06/2010 Your Upcoming Appointments Date Time Location Reason Provider No Appointments found Your Goals/Additional instructions: Source: [facility] P[facility] Document Id: [id number] [employer] Miscellaneous - Kevin De La O M.D. - 10/16/2012 3:19 PM CST Ambulatory Depart Summary [address] [address] Visit Information Name: HERLINDA TIWARI [facility] Number: [id number] Visit Date: 10/16/2012 15:19:22 Attending Provider: KEVIN DE LA O MD Primary Care Provider: PCPIZZY JEFFREY LAWRENCE has been given the following list of medications: Your Medications It is important to take your medications as directed. Use a pill box or chart to help remind you to take your medications. Please let your doctor or nurse know if you have problems taking your medications. Medication/Strength Dose Route Frequency Indications/Special Instructions/Comments salicylic acid topical (salicylic acid 17% topical film, extended release) 1 adryan Topical once a day apply to wart in AM fluorouracil topical (Efudex 5% topical cream) 1 adryan Topical once a day (at bedtime) apply to wart at bedtime lisinopril (lisinopril 40 mg oral tablet) 40 mg Oral once a day fluocinonide topical (Lidex 0.05% topical ointment) 1 adryan Topical two times a day amlodipine (Norvasc 5 mg oral tablet) multivitamin (multivitamin) aspirin (aspirin 81 mg oral tablet) Attention: If you have any medications at home that are not on this list, DO NOT take them until youcontact your provider for clarification. Additional Information: Source: [facility] Document Id: [id number] [employer] documented in this encounter Plan of Treatment Not on filedocumented as of this encounter Visit Diagnoses Not on filedocumented in this encounter
--- OUTSIDE RECORDS SUMMARY | 2022-09-09 08:25 | XMS_ITS | Encounter Summary ---
:1965 Author Organization [facility] Address [address] [place] [address] Care Team Providers Name Role Phone Unavailable Primary Care Provider Unavailable Encounter Details Date Type Department Care Team Description 05/28/2012 Hospital Encounter HX [facility] ED Temo Braga M.D. [address] [place] [address] [phone] (Wo rk) Social History Tobacco Use Types Packs/Day Years Used Date Smoking Tobacco: Never Assessed Sex Assigned at Date Recorded Not on file documented as of this encounter Last Filed Vital Signs Vital Sign Reading Time Taken Comments Blood Pressure 157/106 05/28/2012 1:10 PM CDT Pulse 88 05/28/2012 1:10 PM CDT Temperature - - Respiratory Rate 16 05/28/2012 1:10 PM CDT Oxygen Saturation - - Inhaled Oxygen Concentration - - Weight - - Height 187 cm (6' 1.62) 05/28/2012 1:10 PM CDT Body Mass Index - - documented in this encounter Discharge Summaries Morales Ovalles R.N. - 05/28/2012 1:52 PM CDT ED Discharge Instructions [address] [address] Name: HERLINDA TIWARI Date of : 1965 12:00 AM Visit Date: 05/28/2012 1:00 PM Address: [address] [facility] [phone] Primary Care Provider: PCP, IZZY IMPORTANT: [facility] in [place] would like to thank you for allowing us to assist you with your healthcare needs. The following includes patient education materials and informationregarding your injury/illness. Chief Complaint: Laceration; HEAD INJURY Follow-Up Instructions: With: Address: When: Follow up with primary care provider Within As Needed Comments: Patient Education Materials: [id number] LACERATION, SCALP [sutures or bulmaro] A LACERATION is a cut through the skin. This will require stitches (sutures) or bulmaro if it is deep. HOME CARE: 1) During the first two days you may carefully rinse your hair in the shower to remove blood, glass or dirt particles. After two days you may shower and shampoo your hair normally. 2) Have someone help you clean your wound every day: -- In the shower, wash the area with soap and water. Use a wet cotton swab (Q tip) to loosen and remove any blood or crust that forms. -- After cleaning, apply a thin layer of Polysporin or Bacitracin ointment. This will keep the woundclean and make it easier to remove the stitches or bulmaro. Reapply a fresh bandage. 3) Do not put your head under water (no swimming) until the stitches or bulmaro have been removed. 4) You may use acetaminophen (Tylenol) or ibuprofen (Motrin, Advil) to control pain, unless another pain medicine was prescribed. [ NOTE : If you have chronic liver or kidney disease or ever had a stomach ulcer or GI bleeding, talk with your doctor before using these medicines.] FOLLOW UP with your doctor as directed. Most scalp wounds heal within seven days. However, an infection can sometimes occur. Therefore, check the wound daily for the warning signs listed below. Stitches or bulmaro should be removed from the scalp in about 5-7 days. RETURN PROMPTLY or contact your doctor if any of the following occur: -- Increasing pain in the wound -- Redness, swelling, pus coming from the wound -- Fever over 100.0?? F (37.8?? C) oral, or over 101.0?? F (38.3?? C) rectal -- If stitches or stapes come apart or fall out before your next appointment -- If the wound edges re-open -- Bleeding not controlled by direct pressure ?? [id number] [employer], [address] [place] [address], [place] [address]. All rights reserved. This information is not intended as a substitute for professional medical care. Always follow your healthcare professional's instructions. ED Tests and Procedures: Order Status Discharge Prescriptions & Home Medications: Medication/Strength Dose Route Frequency Indications/Special Instructions/Comments salicylic [...] (multivitamin) aspirin (aspirin 81 mg oral tablet) Comment: Attention: If you have any medications at home not on this list, DO NOT take them until you contact your provider for clarification. Medication Reconciliation: Reconciliation is a process of identifying the most accurate list of all medications a patient is taking - including name, dosage, frequency, and route - and using this list to provide to the patient information about how to take those medications. HERLINDA TIWARI or tony has reviewed the home medications you have listed with us. Review the following instructions: You have NOT received any prescriptions and you have told us you are not currently taking any home medications You have NOT received any prescriptions. You have been provided a discharge medications list and you may CONTINUE taking your medications as previously prescribed by your regular providers. You have received the listed prescriptions and BEGIN all listed prescriptions as directed. Since you have listed no home medications, please check with your family doctor if you are taking any other medications. You have received the listed prescriptions and BEGIN all listed prescriptions as directed. Youhave been provided a discharge medications list and you may CONTINUE all home medications as previously prescribed by your regular providers. You have received the listed prescriptions and BEGIN all listed prescriptions as directed. Youhave been provided a discharge medications list. The following CHANGES have been made to your medication list; Otherwise, CONTINUE all home medications as previously prescribed by your regular provider. IMPORTANT: We examined and treated you today on an emergency basis only. This was not a substitute for, or an effort to provide, complete medical care. In most cases, you must let your doctor check youagain. Tell your doctor about any new or lasting problems. We cannot recognize and treat all injuries or illnesses in one Emergency Department visit. If you had special tests, such as EKG's or X- rays, we will review them again within 24 hours. We will call you if there are any new suggestions. Please follow the instructions above carefully. If you are being transferred to another facility your followup plan of care will be determined by the receiving facility. If you are a patient that is being discharged from the Emergency Department after receiving narcotics or other medications that may impair your judgment you may be a risk to yourself or others if you operate a motor vehicle. We recommend that you arrange a ride home with a responsible republican. I, HERLINDA TIWARI , or responsible republican have received this information and my questions have been answered. I have discussed any challenges I see with this plan with the nurse or physician. Patient Signature or Responsible Republican/Relationship Date/Time Provider Signature Date/Time Medication Reconciliation: Reconciliation is a process of identifying the most accurate list of all medications a patient is taking - including name, dosage, frequency, and route - and using this list to provide to the patient information about how to take those medications. HERLINDA TIWARI or designee has reviewed the home medications you have listed with us. Review the following instructions: You have NOT received any prescriptions and you have told us you are not currently taking any home medications You have NOT received any prescriptions. You have been provided a discharge medications list and you may CONTINUE taking your medications as previously prescribed by your regular providers. You have received the listed prescriptions and BEGIN all listed prescriptions as directed. Since you have listed no home medications, please check with your family doctor if you are taking any other medications. You have received the listed prescriptions and BEGIN all listed prescriptions as directed. Youhave been provided a discharge medications list and you may CONTINUE all home medications as previously prescribed by your regular providers. You have received the listed prescriptions and BEGIN all listed prescriptions as directed. Youhave been provided a discharge medications list. The following CHANGES have been made to your medication list; Otherwise, CONTINUE all home medications as previously prescribed by your regular provider. IMPORTANT: We examined and treated you today on an emergency basis only. This was not a substitute for, or an effort to provide, complete medical care. In most cases, you must let your doctor check youagain. Tell your doctor about any new or lasting problems. We cannot recognize and treat all injuries or illnesses in one Emergency Department visit. If you had special tests, such as EKG's or X- rays, we will review them again within 24 hours. We will call you if there are any new suggestions. Please follow the instructions above carefully. If you are being transferred to another facility your followup plan of care will be determined by the receiving facility. If you are a patient that is being discharged from the Emergency Department after receiving narcotics or other medications that may impair your judgment you may be a risk to yourself or others if you operate a motor vehicle. We recommend that you arrange a ride home with a responsible republican. ITE JEFFREY LAWRENCE , or responsible republican have received this information and my questions have been answered. I have discussed any challenges I see with this plan with the nurse or physician. Patient Signature or Responsible Republican/Relationship Date/Time Provider Signature Date/Time Source: [facility] [place] Document Id: [id number] Morales Ovalles R.N. - 05/28/2012 1:52 PM CDT ED Depart Summary [facility] Emergency Department Clinical Discharge Summary PERSON INFORMATION Name HERLINDA TIWARI Age 46 Years 1965 12:00 AM Sex Male Language Citizen Of [place] PCP PCP, ELSEWHERE Marital Status Visit Id Visit Reason Laceration; HEAD INJURY Specialty Enc Type Emergency Med Service Emergency Medicine Referred by Track Group [facility] ED Discharge 05/28/2012 1:49 PM Tracking Id [id number] Checkout 05/28/2012 1:49 PM Checkin 05/28/2012 1:00 PM Acuity 4 -Less Urgent Dispo Type * Discharged to Home or Self Care Arrival 05/28/2012 1:00 PM Reg Status LOS 000 00:49 Address: [address] [phone] Comment: PROVIDER INFORMATION Provider Role Provider Contact Time TEMO MALLOY MD ED Provider 05/28/12 13:09 MORALES OVALLES [employer] Nurse 05/28/12 13:09 DIAGNOSIS Scalp laceration Comment: PATIENT EDUCATION INFORMATION Instructions: LACERATION, Scalp Follow up: With: Address: When: Follow up with primary care provider Within As Needed Comments: Source: [facility] [place] Document Id: [id number] documented in this encounter Medications at Time of Discharge Medication Sig Dispensed Refills Start Date End Date multivitamin capsule multivitamin 0 09/14/2010 documented as of this encounter Nursing Notes Morales Ovalles R.N. - 05/28/2012 1:39 PM CDT ED Pain Assessment ED Pain Assessment Entered On: 05/28/2012 13:39 CDT Performed On: 05/28/2012 13:39 CDT by MORALES OVALLES RN Pain Assessment Pain Symptoms : Yes MORALES OVALLES RN - 05/28/2012 13:39 CDT Source: [facility] [place] Document Id: [id number] Morales Ovalles R.N. - 05/28/2012 1:10 PM CDT ED Primary Assessment ED Primary Assessment Entered On: 05/28/2012 13:14 CDT Performed On: 05/28/2012 13:10 CDT by MORALES OVALLES RN Reason For Visit Problems(Active) Actinic Keratosis Name of Problem: Actinic Keratosis ; Onset Date: 05/27/2011 ; Recorder: CHITAR GARNER MD; Confirmation: Confirmed ; Classification: Medical ; Code: 1231 ; Last Updated: 05/27/2011 14:53 CDT ; Life Cycle Status: Active ; Responsible Provider: CHITRA GARNER MD; Vocabulary: ICD-9-CM Hyperlipidemia Name of Problem: Hyperlipidemia ; Onset Date: 09/2008 ; Classification: Medical ; Code: 1231 ; Contributor System: OWA_HPP_SYS ; Last Updated: 06/29/2009 0:00 CDT ; Life Cycle Date: 09/22/2008 ; Life Cycle Status: Active ; Vocabulary: ICD-9-CM Hypertension Name of Problem: Hypertension ; Onset Date: 10/06/2010 ; Recorder: HILARY RAMOS NP; Confirmation: Confirmed ; Classification: Medical ; Code: 1231 ; Contributor System: PowerChart ; Last Updated: 01/08/2012 10: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 ; Life Cycle Date: 01/08/2012 ; Life Cycle Status: Active ; Responsible Provider: HILARY RAMOS NP; Vocabulary: ICD-9-CM Verruca Name of Problem: Verruca ; Recorder: CHITRA GARNER MD; Confirmation: Confirmed ; Classification: Medical ; Code: 1231 ; Contributor System: Shopping Buddy ; Last Updated: 01/04/2012 12:38 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; Life Cycle Status: Active ; Responsible Provider: CHITRA GARNER MD; Vocabulary: ICD-9-CM ; Co mments: 01/04/2012 12:38 - ROSA LYLA Valente LPN unknown date of dx Diagnoses(Active) Laceration Date: 05/28/2012 ; Diagnosis Type: Reason For Visit ; Confirmation: Complaint of ; Clinical Dx: Laceration ; Classification: Medical ; Clinical Service: Emergency medicine ; Code: PNED ; Probability: 0 ; Diagnosis Code: [id number] Triage Chief Complaint Description : 46 year old male presents with laceration and neck pain after 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 Information Given By : Patient Accompanied By : Alone Mode of Arrival ED : Private vehicle Track : Trauma Other Languages : Citizen Of [place] Vital Signs Assessed : Yes MORALES OVALLES RN - 05/28/2012 13:10 CDT Vital Signs Temperature Core : 36.8C(Converted to: 98.2DegF) Peripheral Pulse Rate : 88/min Respiratory Rate : 16/min Systolic Blood Pressure : 157mmHg (HI) Diastolic Blood Pressure : 106mmHg (>HHI) NIBP Mean : 123mmHg BP Location : Left upper extremity SpO2 : 98% Oxygen Therapy : Room air Height : 187cm(Converted to: 6ft 2inch(es)) Dosing Weight : 102kg Dosing Weight Conversion to Pounds : 224.400lb Estimated Weight : 102kg Estimated Weight Conversion to Pounds : 224.40lb MORALES OVALLES RN - 05/28/2012 13:10 CDT Pain Assessment Pain Symptoms : Yes MORALES OVALLES RN - 05/28/2012 13:10 CDT Pain Pain Assessment Grid Pain 1 Pain 2 Location : Head Neck Intensity : 5 5 Time Pattern : Acute Acute Onset : Sudden Sudden Quality : Aching, Dull Aching, Dull MORALES OVALLES RN - 05/28/2012 13:10 CDT MORALES OVALLES RN - 05/28/2012 13:10 CDT ED Physician Notification Time ED Physician Notification Time : 05/28/2012 13:13 CDT MORALES OVALLES RN - 05/28/2012 13:10 CDT ALBERTA DCP GENERIC CODE Tracking Acuity : 4 -Less Urgent Tracking Group : [facility] ED MORALES OVALLES RN - 05/28/2012 13:10 CDT Allergy Allergies (Active) NKA Estimated Onset Date: Unspecified ; Created By: ISAAC HAYNES; Reaction Status: Active ; Category: Drug ; Substance: NKA ; Type: Allergy ; Updated By: ISAAC HAYNES; Reviewed Date: 03/21/201214:44 CDT Immunizations Immunizations Current : Yes MORALES OVALLES RN - 05/28/2012 13:10 CDT Respiratory Airway : Patent Respirations : Unlabored Respiratory Pattern : Regular MORALES OVALLES RN - 05/28/2012 13:10 CDT Cardiovascular Heart Rhythm : Regular Skin Color : Normal for ethnicity Skin Description : Dry Skin Temperature : Warm MORALES OVALLES RN - 05/28/2012 13:10 CDT Neurological Last Well Time Known : Not applicable Level of Consciousness : Alert Orientation : Oriented x 3 Characteristics of Speech : Appropriate for age Loss of Consciousness : No MORALES OVALLES RN - 05/28/2012 13:10 CDT ED Psychosocial Affect/Behavior : Calm Domestic Abuse Concerns : None MORALES OVALLES RN - 05/28/2012 13:10 CDT Gastrointestinal Nutrition ED : Adequate MORALES OVALLES RN - 05/28/2012 13:10 CDT Musculoskeletal Fall Prevention Education Provided : Yes MORALES OVALLES RN - 05/28/2012 13:10 CDT Social Habits Tobacco Use/Currently Using : No Exposure to Tobacco Smoke : Other: never Smoking Status : Never smoker MORALES OVALLES RN - 05/28/2012 13:10 CDT Alcohol Use Grid Alcohol Use : No MORALES OVALLES RN - 05/28/2012 13:10 CDT Recreational Drug Use Grid Drug Use : None MORALES OVALLES RN - 05/28/2012 13:10 CDT Source: [facility] Document Id: [id number] documented in this encounter ED Notes Morales Ovalles R.N. - 05/28/2012 1:47 PM CDT ED Treatments and Procedures ED Treatments and Procedures Entered On: 05/28/2012 13:48 CDT Performed On: 05/28/2012 13:47 CDT by MORALES OVALLES RN Incision/Wound Incision/Wound Care Grid Activity : Assessed Type : Laceration Location : Head Laterality : Anterior Color : Red Drainage : Bloody Drainage Amount : Scant Surrounding Tissue : Dry Cleansing/ Irrigation : Cleansed, Wound cleanser Wound Dressing : Prophylactic sacral border foam, Other: bacitracin and left open to air MORALES OVALLES RN - 05/28/2012 13:47 CDT [facility] Document Id: [id number] Morales Ovalles R.N. - 05/28/2012 1:37 PM CDT ED Disposition Summary ED Disposition Summary Entered On: 05/28/2012 13:38 CDT Performed On: 05/28/2012 13:37 CDT by MORALES OVALLES RN ED Disposition Summary Accompanied By : Alone Mode of Discharge : Ambulatory Transportation : Private vehicle Printed Discharge Instructions Given to Patient : Yes Patient Status at Discharge from ED : Unchanged MORALES OVALLES RN - 05/28/2012 13:37 CDT Source: [facility] Document Id: [id number] Temo Braga M.D. - 05/28/2012 1:26 PM CDT Laceration Patient: HERLINDA TIWARI Age: 46 years Sex: Male : 1965 Author: TEMO MALLOY MD Attachments: None Associated Diagnosis: Scalp laceration Basic Information Additional information:: Chief Complaint from Nursing Triage Note : Chief Complaint Description. 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 The onset was just prior to arrival. The course/duration of symptoms is constant. Type of injury: laceration and direct blow. The location where the incident occurred was at work. Location: Left anterior scalp. The character of symptoms is pain and bleeding, not tingling and not numbness. The degree of symptoms is minimal. Exacerbating factors consist of movement. The relieving factor is rest. Risk factors consist of not anticoagulated. Prior episodes: none.Therapy today: none. Associated symptoms: denies focal weakness, denies altered sensation, denies nausea and denies vomiting. Additional history: Patient reports hitting his head on a metal bar at work. No LOC. Mild headache. Neck is a little stiff, but no pain over the bones. Last tetanus before 2006.. Review of Systems Skin symptoms: Laceration. Eye symptoms: no blurred vision ENMT symptoms: no tinnitus. Gastrointestinal symptoms: no nausea no vomiting. Musculoskeletal symptoms: Joint pain. Neurologic symptoms: Headache no dizziness, no numbness, no tingling. Hematologic/Lymphatic symptoms: bleeding tendency negative bruising tendency negative. Health Status Allergies: . Allergic Reactions (Selected) NKA Medications: (Selected). Prescriptions Ordered Efudex 5% topical cream: 1 adryan, Topical, Bedtime, apply to wart at bedtime, 25 gm Lidex 0.05% topical ointment: 1 adryan, Topical, 2xDay, 30 gm salicylic acid 17% topical film, extended release: 1 adryan, Topical, Daily, apply to wart in AM, 30 mL Documented Medications Documented Norvasc 5 mg oral tablet: aspirin 81 mg oral tablet: lisinopril 40 mg oral tablet: 40 mg, 1 tab(s), PO, Daily multivitamin: Past Medical/ Family/ Social History Medical history: Medical history. Active Hyperlipidemia (272.4): Onset in 2007 at 43 years. Surgical history: Surgical history. screening colonoscopy (CPT4 G0121) in 2008 at 42 Years. Family history: Family history. No family history items have been selected or recorded. Physical Examination Vital signs: Vital Signs, 05/28/2012 13:10 CDT Temperature Core 36.8 C Peripheral Pulse Rate 88 /min Respiratory Rate 16 /min SpO2 98 % Systolic Blood Pressure 157 mmHg HI Diastolic Blood Pressure 106 mmHg >HHI Mean Arterial Pressure 123 mmHg BP Location Left upper Measurements, 05/28/2012 13:10 CDT Height 187 cm Dosing Weight 102 kg Estimated Weight 102 kg Oxygen saturation Oxygen Therapy & Oxygenation Information. 05/28/2012 13:10 CDT Oxygen Therapy Room air General: Alert. no acute distress. Skin: Warm. pink. Wound(s): left anterior scalp , laceration, size and depth: length 1 cm,1.2 cm, shape: V-shaped and characteristics: clean, tender. Head: Normocephalic Neck: Supple. no step offs. no stiffness. full range of motion. painful range of motion. Tenderness:right, left, mild and posterior. Eye: Pupils are equal, round and reactive to light. extraocular movements are intact. normal conjunctiva. Ears, nose, mouth and throat: Oral mucosa moist. No pharyngeal erythema or exudate. Cardiovascular: Regular rate and rhythm. No murmur. Normal peripheral perfusion. No edema. Respiratory: Lungs are clear to auscultation Neurological: Alert and oriented to person, place, time, and situation. CN II- XII intact. normal sensory observed. normal motor observed. normal speech observed. normal coordination observed. Lymphatics: No lymphadenopathy Psychiatric: Cooperative. appropriate mood & affect. Medical Decision Making Differential Diagnosis: OrdersLaunch Orders. Patient Care: Orthostatic Vital Signs (Order Processing): 05/28/2012 13:36 CDT, Once Pharmacy: Adacel (Tdap) (Order Processing): 0.5 mL, IM, Once Impression and Plan Diagnosis Scalp laceration (Discharge, Emergency medicine, Medical) Discharge plan Condition: Stable. Dispositioned: To home. Patient was given the following educational materials: LACERATION, Scalp. Follow up with: Primary Care Physician, In: as needed. Counseled: Patient, Regarding diagnosis, Regarding diagnostic results, Regarding treatment plan, Regarding prescription, Patient indicated understanding of instructions. Notes: Patient has some mild tenderness on palpation of paraspinal neck muscles, but full range of motion. Discussed that we could obtain neck xrays, but with mechanism of injury and exam, I have no very little suspicion of a fracture. Patient is comfortable with monitoring and returning if not improving.. Electronically Signed By: TEMO MALLOY MD On: 05/28/2012 01:40 PM Modified by and Electronically Signed by: TEMO MALLOY MD On: 05/28/2012 01:40 PM Source: [facility] [place] [employer] Document Id: [id number] documented in this encounter Miscellaneous Notes Miscellaneous - Morales Ovalles RAdinaNAdina - 05/28/2012 1:39 PM CDT Valuables/Belongings Valuables/Belongings Entered On: 05/28/2012 13:39 CDT Performed On: 05/28/2012 13:39 CDT by MORALES OVALLES RN Valuables/Belongings Home Medication Disposition : None brought in with patient MORALES OVALLES RN - 05/28/2012 13:39 CDT Source: [facility] [place] Document Id: [id number] Miscellaneous - Morales Ovalles R.N. - 05/28/2012 1:00 PM CDT Facility Charge Ticket Facility Charge Ticket Entered On: 05/28/2012 13:38 CDT Performed On: 05/28/2012 13:00 CDT by MORALES OVALLES RN Facility Charge TVL Level for Facility Charge Ticket : Level 2 Mode of Arrival ED : Private vehicle [place] Mode of Arrival Interpreted : Standard [place] Process Management : None [place] Order Management : None 30 Minutes Critical Care : No [place] Nursing Assessment : Triage and 1-2 nursing assessments [place] Disposition : Discharge [place] Total Points with Diagnosis Control : 4 [place] Visit Level : 96766 Level 2 MORALES OVALLES RN - 05/28/2012 13:38 CDT Source: [facility] [place] Document Id: [id number] documented in this encounter Plan of Treatment Not on filedocumented as of this encounter Visit Diagnoses Not on filedocumented in this encounter
--- OUTSIDE RECORDS SUMMARY | 2022-09-09 08:25 | XMS_ITS | Encounter Summary ---
:1965 Author Organization [facility] Address [address] [place] [address] Care Team Providers Name Role Phone Unavailable Primary Care Provider Unavailable Encounter Details Date Type Department Care Team Description 10/08/2010 Hospital Encounter HX [facility] INPT/OBSRV Lavon Tolbert M.D. [address] [place] [phone] (Wo rk) Social History Tobacco Use Types [...]
--- OUTSIDE RECORDS SUMMARY | 2022-09-09 08:25 | XMS_ITS | Encounter Summary ---
:1965 Author Organization [facility] Address [address] [place] [address] Care Team Providers Name Role Phone Unavailable Primary Care Provider Unavailable Encounter Details Date Type Department Care Team Description 05/27/2011 Hospital Encounter HX [facility] Zee Collazo M.D. [address] [facility], [place] [address] (Wo rk) Social History Tobacco Use Types Packs/Day Years Used Date Smoking Tobacco: Never Assessed Sex Assigned at Date Recorded Not on file documented as of this encounter Medications at Time of Discharge Medication Sig Dispensed Refills Start Date End Date multivitamin capsule multivitamin 0 09/14/2010 documented as of this encounter Progress Notes Chitra Collazo M.D. - 05/27/2011 12:00 AM CDT [id number] HISTORY OF PRESENT ILLNESS This 45-year-old male is here for followup of warts on his thumbs. He thinks there is definitely still one on his right thumb. The left one seems okay. He also has a bump on his right cheek near the edge of his eye. That came up about a month ago and just has not gone away. He also has some little bumps on the back of his neck that he would like to have checked. PHYSICAL EXAM SKIN: Exam of the thumbs does show 1 tiny area of remaining wart on the right thumb. The left seems clear. He has a pink scaly papule on the right cheek at the lateral canthus. This was treated with liquid nitrogen. The back of his neck shows folliculitis. IMPRESSION / REPORT / PLAN 1) Warts, continuing. We did not treat them today because I want to see them again when he comes back for laser in July. 2) Actinic keratosis, right cheek, treated with liquid nitrogen. 3) Folliculitis. I told him not to let the nieto shave his neck there, but just to clip it. We will see him in July. Chitra Collazo M.D. nac Electronically Signed By: CHITRA COLLAZO MD On: 06/07/2011 01:34 PM Source: [facility] MHSDOLBEYNONRADSYS Document Id: [id number] documented in this encounter Miscellaneous Notes Miscellaneous - Isaac Haynes, L.P.N. 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 Operator Intake/History Entered On: 05/27/2011 14:36 CDT Performed On: 05/27/2011 14:34 CDT by ISAAC HAYNES Intake Chief Complaint: Recheck warts on both thumbs Check lesion on R cheek and neck Systolic Blood Pressure: 124mmHg Diastolic Blood Pressure: 84mmHg NIBP Mean: 97mmHg BP Location: Right upper extremity ISAAC HAYNES - 05/27/2011 14:34 CDT Subjective Pain Symptoms: No ISAAC HAYNES - 05/27/2011 14:34 CDT Dependent Habits Tobacco Use/Currently Using: No ISAAC HAYNES - 05/27/2011 14:34 CDT Allergy Allergies (Active) NKA Estimated Onset Date: Unspecified ; Created By: ISAAC HAYNES; Reaction Status: Active ; Category: Drug ; Substance: NKA ; Type: Allergy ; Updated By: ISAAC HAYNES; Reviewed Date: 05/02/201114:33 CDT Source: [facility] [employer] Document Id: [id number] CDT!11 documented in this encounter Plan of Treatment Not on filedocumented as of this encounter Visit Diagnoses Not on filedocumented in this encounter
--- OUTSIDE RECORDS SUMMARY | 2022-09-09 08:25 | XMS_ITS | Encounter Summary ---
:1965 Author Organization [facility] Address [address] [place] [address] Care Team Providers Name Role Phone Unavailable Primary Care Provider Unavailable Encounter Details Date Type Department Care Team Description 10/11/2010 Hospital Encounter HX NO MAPPING Social History Tobacco Use Types Packs/Day Years [...] Name Priority Date/Time Associated Diagnosis Comme nts MR BRAIN AND MR Routine 10/11/2010 4:47 PM Result s for this BRAIN ANGIOGRAM AND CONTACT MANAGER procedur e are in MR NECK ANGIOGRAM the result s section. documented in this encounter Results MR BRAIN AND MR BRAIN ANGIOGRAM AND MR NECK ANGIOGRAM (10/11/2010 4:47 PM CONTACT MANAGER) Anatomical Region Laterality Modality Magnetic Resonance Specimen (Source) Anatomical Collection Method Collection Time Re ceived Time Location / / Volume Laterality 10/11/2010 4:47 PM CONTACT MANAGER Narrative 10/11/2010 5:49 PM CONTACT MANAGER 11-Oct-2010 16:47:00 ??Exam: MRI Hd &MRA Nk wo&w &MRA Hd wo Indications: REGIONAL PATIENT; MRI/MRA H ead and MRA Neck; contrast per rad; ?if has any blockages; transient ischemic attack; elevated blood pressure; dizziness; creatinine 1.05 on 10-08-10; pt. weighs 1 05 kg.;Mariya Tate, N.P., [id number]; [facility] - [facility], [place], [place], ; fax: ??[phone] ORIGINAL REPORT - 11-Oct-2010 17:49:00 EXAM: MRI Brain without and with IV cont rast, MR Angiography Head without IV contrast and MR Angiography Neck without and with IV contrast : MR head: Intracranial contents are negat trisha. Diffusion-weighted imaging is normal, with no evidence for recent ischemia. No abnormal contrast enhancement. MRA head: Images are degraded by patient motion, with presumed artifact extending through the same areas of the cavernous ICAs bilaterally. No definite area of focal stenosis or intracranial aneurysm is identified. MRA neck. 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 No evidence for focal vessel narrowing . Left carotid bifurcation is normal. Mild atherosclerotic disease proximal right ICA with no evidence for stenosis or dissection. Mild narrowing of the distal ri ght vertebral artery at the level of the dural reflection. Dominant left vertebral artery is widely patent from its origin without stenosis or dissection. Remainder negative. Electronically signed by: ?? Zack Baez M.D. [id number] 11-Oct-2010 17:49 Procedure Note Lyudmila Baez M.D. - 02/04/2018Fo rmatting of this note might be different from the original. 11-Oct-2010 16:47:00 Exam: MRI Hd &MRA N k wo&w &MRA Hd wo Indications: REGIONAL PATIENT; MRI/MRA H ead and MRA Neck; contrast per rad; ?if has any blockages; transient ischemic attack; elevated blood pressure; dizziness; creatinine 1.05 on 10-08-10; pt. weighs 105 kg.;Mariya Tate, N.P., [id number]; [facility] - [facility], [place], [place], ; fax: [phone] ORIGINAL REPORT - 11-Oct-2010 17:49:00 EXAM: MRI Brain without and with IV cont rast, MR Angiography Head without IV contrast and MR Angiography Neck without and with IV contrast : MR head: Intracranial contents are negat trisha. Diffusion-weighted imaging is normal, with no evidence for recent ischemia. No abnormal contrast enhancement. MRA head: Images are degraded by patient motion, with presumed artifact extending through the same areas of the cavernous ICAs bilaterally. No definite area of focal stenosis or intracranial aneurysm is identified. MRA neck. 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 No evidence for focal vessel narrowing. Left carotid bifurcation is normal. Mild atherosclerotic disease proximal right ICA with no evidence for stenosis or dissection. Mild narrowing of the distal right vertebral artery at the level of the dural reflection. Dominant left vertebral artery is widely patent from its origin without stenosis or dissection. Remainder negative. Electronically signed by: Zack Baez M.D. [id number] 11-Oct-2010 17:49 Historical Provider IMG MRI PROCEDURES documented in this encounter Visit Diagnoses Not on filedocumented in this encounter
--- OUTSIDE RECORDS SUMMARY | 2022-09-09 08:25 | XMS_ITS | Encounter Summary ---
:1965 Author Organization [facility] Address [address] [place] [address] Care Team Providers Name Role Phone Unavailable Primary Care Provider Unavailable Encounter Details Date Type Department Care Team Description 10/12/2010 - Hospital Encounter HX [facility] [place] Howard, 10/13/2010 INPT/OBSRV M.DAdina [id number] [place] [phone] (Wo rk) Social History Tobacco Use [...]
--- OUTSIDE RECORDS SUMMARY | 2022-09-09 08:25 | XMS_ITS | Encounter Summary ---
:1965 Author Organization [facility] Address [address] [place] [address] Care Team Providers Name Role Phone Unavailable Primary Care Provider Unavailable Encounter Details Date Type Department Care Team Description 07/27/2011 Hospital Encounter HX [facility] Zee Collazo M.D. [address] [facility], [place] [address] (Wo rk) Social History Tobacco Use Types Packs/Day Years Used Date Smoking Tobacco: Never Assessed Sex Assigned at Date Recorded Not on file documented as of this encounter Medications at Time of Discharge Medication Sig Dispensed Refills Start Date End Date multivitamin capsule multivitamin 0 09/14/2010 documented as of this encounter Progress Notes Chitra Collazo M.D. - 07/27/2011 12:00 AM CDT [id number] HISTORY OF PRESENT ILLNESS Daniel is here for further treatment of warts on both thumbs. He thinks they might be gone, but he found a new one on his right third finger. He also has a scaly spot on his left anglican that we had treated before and there is just a little bit left. PHYSICAL EXAM SKIN: Exam of thumbs shows complete resolution. On the right third finger there is a 2 mm verruca, which was pared and treated with laser at settings 7 mm, 11 joules, 1.5 milliseconds, 2 pulses. The lesion on the left anglican area showed a little pigment and scaling. It is adjacent to the previous one we treated, so we treated again with liquid nitrogen. IMPRESSION / REPORT / PLAN 1) One wart treated with laser and one actinic keratosis treated with liquid nitrogen. Care instructions were given. He will follow up again in 1 month. 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 Intake/History Entered On: 07/27/2011 15:20 CDT Performed On: 07/27/2011 15:20 CDT by WOOD ADAMS Intake Chief Complaint: f/u warts on hands--laser WOOD ADAMS - 07/27/2011 15:20 CDT Subjective Pain Symptoms: No WOOD ADAMS - 07/27/2011 15:20 CDT Dependent Habits Tobacco Use/Currently Using: No WOOD ADAMS - 07/27/2011 15:20 CDT Caffeine Use Grid Caffeine Use: None WOOD ADAMS - 07/27/2011 15:20 CDT Allergy Allergies (Active) NKA Estimated Onset Date: Unspecified ; Created By: ISAAC HAYNES; Reaction Status: Active ; Category: Drug ; Substance: NKA ; Type: Allergy ; Updated By: ISAAC HAYNES; Reviewed Date: 05/27/201114:36 CDT Source: [facility] [employer] Document Id: [id number] CDT!10 documented in this encounter Plan of Treatment Not on filedocumented as of this encounter Visit Diagnoses Not on filedocumented in this encounter
--- OUTSIDE RECORDS SUMMARY | 2022-09-09 08:25 | XMS_ITS | Encounter Summary ---
:1965 Author Organization [facility] Address [address] [place] [address] Care Team Providers Name Role Phone Unavailable Primary Care Provider Unavailable Encounter Details Date Type Department Care Team Description 05/29/2013 Hospital Encounter HX [facility] Zee Collazo M.D. [address] [facility], [place] [address] (Wo rk) Social History Tobacco Use Types Packs/Day Years Used Date Smoking Tobacco: Never Assessed Sex Assigned at Date Recorded Not on file documented as of this encounter Last Filed Vital Signs Vital Sign Reading Time Taken Comments Blood Pressure 126/78 05/29/2013 2:06 PM CDT Pulse - - Temperature - - Respiratory Rate - - Oxygen Saturation - - Inhaled Oxygen Concentration - - Weight 109 kg (240 lb 11.9 oz) 05/29/2013 2:06 PM CDT Height - - Body Mass Index 31.23 05/28/2012 1:10 PM CDT documented in this encounter Medications at Time of Discharge Medication Sig Dispensed Refills Start Date End Date multivitamin capsule multivitamin 0 09/14/2010 documented as of this encounter Progress Notes Chitra Collazo M.D. - 05/29/2013 1:58 PM CDT [id number] CHIEF COMPLAINT/REASON FOR VISIT Follow up skin problems. HISTORY OF PRESENT ILLNESS Daniel is here for followup of several concerns. We removed the dermatofibroma on his leg at his last visit. He says that is healing well. His ankles are doing much better with occasional Lidex cream. Hehad some bleeding in the cornejo area when he shaved today, but we had known there was an angioma there and he thinks that is all it is. He just wants to have it checked. The warts on his thumb seem to be resolved, but he is not sure on one because the cuticle is broken. Otherwise, he is doing well. PHYSICAL EXAMINATION Exam of the cornejo area shows a small telangiectasia on the chin which is where he said it was bleeding. No pathology noted here. The rest of the cornejo area appears normal. The area where it was treatedwith liquid nitrogen at last visit has healed well. Thumbs, the right thumb appears to be completelyresolved. Left thumb has broken cuticle so it is difficult to say for sure, but the wart appears to be resolved. On his neck, he has an excoriated papule which appears to be an acne or folliculitis . On his left calf, there is a scar which is healing nicely. IMPRESSION/REPORT/PLAN Review of previously treated areas shows no abnormal pathology. PLAN: He will follow up again as needed. Chitra Collazo M.D./richardson Electronically Signed By: CHITRA COLLAZO MD On: 06/05/2013 05:23 PM Source: [facility] MHSDOLBEYNONRADSYS Document Id: [id number] documented in this encounter Miscellaneous Notes Miscellaneous - Chitra Collazo M.D. - 05/30/2013 8:59 AM CDT Ambulatory Patient Summary [facility] [address] [place] [address] Visit Information Name: HERLINDA TIWARI [facility] Number: [id number] Current Date: 05/30/2013 08:59:14 Physicians Attending Provider: CHITRA COLLAZO MD Primary Care Provider: PCP, ELSEWHERE Your Medications Here is a list of your medications. It is important to take your medications as directed. Use a pillbox or chart to help remind you to take your medications. Please let your doctor or nurse know if you have problems taking your medications. Medication/Strength Dose Route Frequency Indications/Special Instructions/Comments/Notes salicylic acid topical (salicylic acid 17% topical [...] No Appointments found Your Goals/Additional instructions: Source: [facility] [employer]OWERCHART Document Id: [id number] Miscellaneous - Chitra Collazo M.D. - 05/30/2013 8:59 AM CDT Ambulatory Depart Summary [facility] [address] [place] [id number] Visit Information Name: HERLINDA TIWARI [facility] Number: [id number] Visit Date: 05/30/2013 08:59:12 Attending Provider: CHITRA COLLAZO MD Primary Care [...] your medications. Medication/Strength Dose Route Frequency Indications/Special Instructions/Comments/Notes salicylic acid topical (salicylic acid 17% topical [...] your provider for clarification. Additional Information: Source: [facility] POWERCHART Document Id: [id number] Miscellaneous - Raeann Jarrett, L.P.N. 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 Especially AKs. 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 Systolic Blood Pressure : 126 mmHg Diastolic Blood Pressure : 78 mmHg NIBP Mean : 94 mmHg BP Location : Right upper extremity Blood Pressure Cuff Size : Large Actual Weight : 109.2 kg(Converted to: 240 lb 12 oz) Dosing Weight Clinic : 109.2 kg RAEANN JARRETT - 05/29/2013 14:06 CDT General Info Information Given By : Patient Preferred Communication Mode : Verbal Languages : Turkish RAEANN JARRETT - 05/29/2013 14:06 CDT Subjective Pain Symptoms : No RAEANN JARRETT 05/29/2013 14:06 CDT Dependent Habits Tobacco Use/Currently Using : No Exposure to Tobacco Smoke : Other: never Smoking Status : Never smoker RAEANN JARRETT - 05/29/2013 14:06 CDT Tobacco Use Grid Last Use : never RAEANN JARRETT - 05/29/2013 14:06 CDT Alcohol Use : Yes RAEANN JARRETT - 05/29/2013 14:06 CDT Caffeine Use Grid Caffeine Use : None RAEANN JARRETT - 05/29/2013 14:06 CDT Recreational Drug Use Grid Drug Use : None RAEANN JARRETT - 05/29/2013 14:06 CDT Source: [facility] [employer] Document Id: [id number] CDT!30 documented in this encounter Plan of Treatment Not on filedocumented as of this encounter Visit Diagnoses Not on filedocumented in this encounter
--- OUTSIDE RECORDS SUMMARY | 2022-09-09 08:25 | XMS_ITS | Encounter Summary ---
:1965 Author Organization [facility] Address [address] [place] [address] Care Team Providers Name Role Phone Unavailable Primary Care Provider Unavailable Encounter Details Date Type Department Care Team Description 06/08/2011 Hospital Encounter HX [facility] Evelyn Garcia M.D. [address] [place], [place] [phone] (Wo rk) Social History Tobacco Use Types [...]
--- OUTSIDE RECORDS SUMMARY | 2022-09-09 08:25 | XMS_ITS | Encounter Summary ---
:1965 Author Organization [facility] Address [address] [place] [address] Care Team Providers Name Role Phone Unavailable Primary Care Provider Unavailable Encounter Details Date Type Department Care Team Description 12/08/2010 Hospital Encounter HX [facility] INPT/OBSRV Re Tate, N.PAdina [address] [place] [phone] (Wo rk) Social History Tobacco Use Types [...]
--- OUTSIDE RECORDS SUMMARY | 2022-09-09 08:25 | XMS_ITS | Encounter Summary ---
:1965 Author Organization [facility] Address [address] [place] [address] Care Team Providers Name Role Phone Unavailable Primary Care Provider Unavailable Encounter Details Date Type Department Care Team Description 03/23/2011 Hospital Encounter HX [facility] Zee Collazo M.D. [address] [facility], [place] [address] (Wo rk) Social History Tobacco Use Types Packs/Day Years Used Date Smoking Tobacco: Never Assessed Sex Assigned at Date Recorded Not on file documented as of this encounter Medications at Time of Discharge Medication Sig Dispensed Refills Start Date End Date multivitamin capsule multivitamin 0 09/14/2010 documented as of this encounter Progress Notes Chitra Collazo M.D. - 03/23/2011 12:00 AM CDT [id number] HISTORY OF PRESENT ILLNESS Daniel is here for his every 2 month treatment of warts on his thumbs. He is not sure if they might be gone. PHYSICAL EXAM SKIN: Both warts were pared. One appears to be gone; the other still shows some black dots underneath, and it was treated with the V-beam laser at settings 7, 11, and 1.5. He tolerated this well, 2 pulses. IMPRESSION / REPORT / PLAN 1) One wart treated. Care instructions were given. He wants to follow up again in 2 months. Chitra Collazo M.D. 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 Intake/History Entered On: 03/23/2011 15:17 CDT Performed On: 03/23/2011 15:17 CDT by JESSICA KIRBY Intake Chief Complaint: laser txment to warts JESSICA KIRBY - 03/23/2011 15:17 CDT Subjective Pain Symptoms: No JESSICA KIRBY - 03/23/2011 15:17 CDT Dependent Habits Tobacco Use/Currently Using: No JESSICA KIRBY - 03/23/2011 15:17 CDT Allergy Allergies (Active) NKA Estimated Onset Date: Unspecified ; Created By: ISAAC HAYNES; Reaction Status: Active ; Category: Drug ; Substance: NKA ; Type: Allergy ; Updated By: ISAAC HAYNSE; Reviewed Date: 01/19/201115:08 CDT Source: [facility] POWERCHART Document Id: [id number] CDT!7 documented in this encounter Plan of Treatment Not on filedocumented as of this encounter Visit Diagnoses Not on filedocumented in this encounter
--- OUTSIDE RECORDS SUMMARY | 2022-09-09 08:25 | XMS_ITS | Encounter Summary ---
:1965 Author Organization [facility] Address [address] [place] [address] Care Team Providers Name Role Phone Unavailable Primary Care Provider Unavailable Encounter Details Date Type Department Care Team Description 10/20/2010 Hospital Encounter HX [facility] Zee Collazo M.D. [address] [facility], [place] [address] (Wo rk) Social History Tobacco Use Types Packs/Day Years Used Date Smoking Tobacco: Never Assessed Sex Assigned at Date Recorded Not on file documented as of this encounter Medications at Time of Discharge Medication Sig Dispensed Refills Start Date End Date multivitamin capsule multivitamin 0 09/14/2010 documented as of this encounter Progress Notes Chitra Collazo M.D. - 10/20/2010 12:00 AM CST [id number] HISTORY OF PRESENT ILLNESS Daniel is here for a second treatment of warts with laser. The ones were treated last month are still not healed. He thinks he has a new one on his right palmar thumb. PHYSICAL EXAM SKIN: Exam of previously treated lesions does not show any remaining wart, but they are not completely healed yet. We decided to forego treatment on them today. There is a possible verruca on the right palmar thumb, but he decided to wait until next month to see what happens with it before we treat it. IMPRESSION / REPORT / PLAN He will follow up again in 1 month. No treatment was given. Chitra Collazo M.D. 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 Intake/History Entered On: 10/20/2010 14:06 DRIVER/GUIDE Performed On: 10/20/2010 14:06 DRIVER/GUIDE by JESSICA KIRBY Intake Chief Complaint: laser wart thumbs JESSICA KIRBY - 10/20/2010 14:06 DRIVER/GUIDE Subjective Pain Symptoms: No JESSICA KIRBY - 10/20/2010 14:06 DRIVER/GUIDE Dependent Habits Tobacco Use/Currently Using: No JESSICA KIRBY - 10/20/2010 14:06 DRIVER/GUIDE Allergies Allergies (Active) NKA Estimated Onset Date: Unspecified ; Created By: ISAAC HAYNES; Reaction Status: Active ; Category: Drug ; Substance: NKA ; Type: Allergy ; Updated By: ISAAC HAYNES; Reviewed Date: 09/14/201010:55 DRIVER/GUIDE Source: [facility] POWERCHART Document Id: [id number] DRIVER/GUIDE!7 documented in this encounter Plan of Treatment Not on filedocumented as of this encounter Visit Diagnoses Not on filedocumented in this encounter
--- OUTSIDE RECORDS SUMMARY | 2022-09-09 08:25 | XMS_ITS | Encounter Summary ---
:1965 Author Organization [facility] Address [address] [place] [address] Care Team Providers Name Role Phone Unavailable Primary Care Provider Unavailable Encounter Details Date Type Department Care Team Description 01/03/2013 - Hospital Encounter HX [facility] Jean Pierrearis Tadeo 01/10/2013 LELAND Olivier M.D. [address] [phone] Social History Tobacco Use Types Packs/Day Years Used Date Smoking Tobacco: Never Assessed Sex Assigned at Date Recorded Not on file documented as of this encounter Discharge Summaries Arturo Rodriguez P.T. - 02/12/2013 12:00 AM CDT [id number] DISCHARGE SUMMARY IMPRESSION/REPORT/PLAN Daniel was first seen for consult on January [id number]. This was related to some shoulder pain he experienced after doing some tactical fighting exercises for work. At that visit we had instructed patient with home exercises to start working on shoulder stabilization. Thera-Band was given to him with exercises and illustrations provided. We are going to follow up with continued therapy but patient felt that he could do much of this on his own at home independently. Patient has not called to make any further schedules or times. Therefore, we will discontinue therapy at this time. Anam Sanches/ken Electronically Signed By: ARTURO RODRIGUEZ On: 02/18/2013 09:55 AM Source: [facility] Document Id: [id number] documented in this encounter Medications at Time of Discharge Medication Sig Dispensed Refills Start Date End Date multivitamin capsule multivitamin 0 09/14/2010 documented as of this encounter Consult Notes Arturo Rodriguez P.T. - 01/03/2013 12:00 AM CST [id number] CHIEF COMPLAINT/REASON FOR VISIT This patient comes in today with complaints of pain in his right shoulder along with some pain in his right elbow. He states that he has pain in both elbows from time to time. He injured himself from what he can determine on 11/03/2012. 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 He was holding the bag and there were some strong blows to the bag which has caused some injury to his shoulder. He feels that he can sleep without difficulty. He notes that specific movements will cause some discomfort to him. He presently describes his pain as 3/10 on 0 - 10 pain scale. It can be as bad as 7/10. It is always there to some extent. This is mostly in the shoulder. He would describe the pain as being intermittent and achy at times. He hasnot had an x-ray or any other radiograph imagery of this at this point. CURRENT MEDICATIONS At this time the patient does not take anything significant for pain. IMPRESSION/REPORT/PLAN Upon observation, patient ambulates into therapy without difficulty. He is not a fall risk at this time. We did have patient in short sitting and we did check his overall activity and motion actively. This is all within normal limits. We checked for rotator cuff involvement as well. There does not appear to be any significant rotator cuff issues at this time. There is some tenderness over the anterior lateral aspect of the right shoulder. This is just superior to the bicipital notch. He will feel this to some extent with resistance to internal rotation. There is also a little pain with external rotation. Also to be noted is that the patient does have some pain in the lateral epicondylar region on the right elbow with some resistance to supination and pronation. There is a little tenderness with palpation to the lateral epicondylar region. Strength, overall, is within normal limits. At this point, it is determined that the patient is experiencing possible impingement syndrome in the right shoulder. He has had a history of some epicondylar pain in the past. Therefore, we started to instruct the patient with shoulder stabilization exercises concentrating on depression of the shoulder. This included pull downs along with rows. We had patient work on scapular retraction. We also instructed the patient with strength of the posterior shoulder musculature addressing external rotation as well as reverse flies. Illustrations were given to him for this. Also, Thera-Band was given to him for resistance when he goes home. He does have some weights at home, but we recommend that he buy a 10 and a 15 pound weight to help assist with this. PATIENT EDUCATION: Ready to learn No apparent learning barriers were identified Learning preferences include listening Explained diagnosis and treatment plan Patient/Child/Caregiver expressed understanding of the content GOALS: 1. To decrease pain in the right shoulder from 3/10 at the present time with it being as bad as 7/10to 2/10 or better. 2. Patient independent with home exercises addressing strengthening of the upper extremities addressing scapular stabilization. 3. Patient able to resume normal work-related activities without difficulty. We also will address the epicondylitis of the elbows. We have already instructed patient with isometric exercises for this. Illustrations were given for this as well. Plan of care will be modalities if necessary along with strengthening exercises. Patient will followup with home exercise program as well. Prognosis is good. ASSESSMENT: At this time, the patient appears to be suffering from some tendonitis related to the injury he sustained with tactical defense fighting. This appears be more tendonitis in nature. Plan will be to see patient 1 - 2 times a week for the next 2-3 weeks. Gee Knowles M.D. Anam Sanches/bill DOCID: [id number] cc: Gee Knowles M.D. 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
--- OUTSIDE RECORDS SUMMARY | 2022-09-09 08:25 | XMS_ITS | Encounter Summary ---
:1965 Author Organization [facility] Address [address] [place] [address] Care Team Providers Name Role Phone Unavailable Primary Care Provider Unavailable Encounter Details Date Type Department Care Team Description 11/24/2010 Hospital Encounter HX [facility] Zee Collazo M.D. [address] [facility] [place] [address] (Wo rk) Social History Tobacco Use Types Packs/Day Years Used Date Smoking Tobacco: Never Assessed Sex Assigned at Date Recorded Not on file documented as of this encounter Medications at Time of Discharge Medication Sig Dispensed Refills Start Date End Date multivitamin capsule multivitamin 0 09/14/2010 documented as of this encounter Progress Notes Chitra Collazo M.D. - 11/24/2010 12:00 AM CST [id number] HISTORY OF PRESENT ILLNESS Daniel is here for another treatment with the V-beam laser of warts on his thumbs. He thinks the one on the right has gone away and the one on the left still seems to be there. PHYSICAL EXAM SKIN: Wart on the left thumb was pared and then treated with V-beam laser, 4 pulses. The patient tolerated this well. IMPRESSION / REPORT / PLAN 1) V-beam laser of 4 warts of the left hand. Care instructions were given. He will follow up in 2 months for recheck. Chitra Collazo M.D. srw Electronically Signed By:CHITRA COLLAZO MD On 11/26/2010 12:06 PM Source: [facility] Document Id: [id number] H RUNNER documented in this encounter Miscellaneous Notes Miscellaneous - Wood Cameron, C.M.A. - 11/24/2010 2:54 PM CST Adult Wine And Spirits Clerk Intake/History Adult Wine And Spirits Clerk Intake/History Entered On: 11/24/2010 14:55 LEACH RUNNER Performed On: 11/24/2010 14:54 LEACH RUNNER by WOOD ADAMS Intake Chief Complaint: f/u warts on B thumbs--poss. laser WOOD ADAMS - 11/24/2010 14:54 LEACH RUNNER Subjective Pain Symptoms: No WOOD ADAMS - 11/24/2010 14:54 LEACH RUNNER Dependent Habits Tobacco Use/Currently Using: No WOOD ADAMS - 11/24/2010 14:54 LEACH RUNNER Allergies Allergies (Active) NKA Estimated Onset Date: Unspecified ; Created By: ISAAC HAYNES; Reaction Status: Active ; Category: Drug ; Substance: NKA ; Type: Allergy ; Updated By: ISAAC HAYNES; Reviewed Date: 11/24/201014:54 LEACH RUNNER Source: [facility] POWERCHART Document Id: [id number] LEACH RUNNER!7 H RUNNER documented in this encounter Plan of Treatment Not on filedocumented as of this encounter Visit Diagnoses Not on filedocumented in this encounter
--- OUTSIDE RECORDS SUMMARY | 2022-09-09 08:25 | XMS_ITS | Encounter Summary ---
:1965 Author Organization [facility] Address [address] [place] [address] Care Team Providers Name Role Phone Unavailable Primary Care Provider Unavailable Encounter Details Date Type Department Care Team Description 09/13/2011 Hospital Encounter HX [facility] Tesha Mallory M.D. [address] [place] [address] (Wo rk) Social History Tobacco Use Types Packs/Day Years Used Date Smoking Tobacco: Never Assessed Sex Assigned at Date Recorded Not on file documented as of this encounter Medications at Time of Discharge Medication Sig Dispensed Refills Start Date End Date multivitamin capsule multivitamin 0 09/14/2010 documented as of this encounter Progress Notes Tesha Mallory M.D. - 09/13/2011 12:00 AM CST [id number] IMPRESSION/REPORT/PLAN IMPRESSION 1) Conjunctivitis. Most likely irritative. PLAN 1) Symptomatic treatment, Naphcon-A drops, PRN. 2) One percent (1%) Hydrocortisone cream on the lower lid, PRN, itching. CHIEF COMPLAINT/REASON FOR VISIT Irritated eye. HISTORY OF PRESENT ILLNESS Mwhww-qtyxy-ifaz-old gentleman who comes in who has noticed an irritated eye starting yesterday, it was mostly on the left. As it began the day, it got worse with more itching and rubbing and by last night was started noticing it to be puffy with the white part of his eye being quite red and his lower lid being a little bit irritated. No history of this. No foreign bodies. No allergies. No other change in medications or other things that would be affecting his eye. Patient does state this morning the eye seems somewhat better. CURRENT MEDICATIONS Medications were reviewed. ALLERGIES No known allergies. VITAL SIGNS Temperature: 36.8-degrees Celsius. Pulse: 84. Blood pressure: 120/82. PHYSICAL EXAM IN GENERAL: A pleasant gentleman, doesn't look acutely ill. EYES: Are PERRLA, EOMI. His discs are sharp. Left conjunctiva is slightly injected. No evidence on exam of any conjunctival foreign body. No mattering. Pupils reactive and equal and extraocular motion is intact. TMs: Are clear bilaterally. PHARYNX: Clear. NECK: Is supple. Tesha Mallory M.D. /ken Electronically Signed By: TESHA MALLORY MD On: 09/22/2011 11:19 AM Source: [facility] MHSDOLBEYNONRADSYS Document Id: [id number] RNATIONAL ACCOUNT REPRESENTATIVE documented in this encounter Miscellaneous Notes Miscellaneous - Conversion, Historical Provider Ser - 09/13/2011 8:41 AM INTERNATIONAL ACCOUNT REPRESENTATIVE Health Assessment Health Assessment Entered On: 09/13/2011 8:42 INTERNATIONAL ACCOUNT REPRESENTATIVE Performed On: 09/13/2011 8:41 INTERNATIONAL ACCOUNT REPRESENTATIVE by SANDY JAFFE LPN Nutrition Perception of Body Size : Just right Nutrition Risk Factors by History Adult : None LD SANDY Ambrosio MORSE - 09/13/2011 8:41 INTERNATIONAL ACCOUNT REPRESENTATIVE Functional Current Daily Living Assistance : None LD SANDY Ambrosio MORSE - 09/13/2011 8:41 INTERNATIONAL ACCOUNT REPRESENTATIVE Dependent Habits Tobacco Use/Currently Using : No Smoking Status : Never smoker Alcohol Use : No LD SANDY Ambrosio MORSE - 09/13/2011 8:41 INTERNATIONAL ACCOUNT REPRESENTATIVE Caffeine Use Grid Caffeine Use : None SANDY JAFFE LPN - 09/13/2011 8:41 INTERNATIONAL ACCOUNT REPRESENTATIVE Psychosocial Domestic Abuse Concerns : None LD SANDY Ambrosio MORSE - 09/13/2011 8:41 INTERNATIONAL ACCOUNT REPRESENTATIVE Advance Directive Advanced Directives : No SANDY JAFFE LPN - 09/13/2011 8:41 INTERNATIONAL ACCOUNT REPRESENTATIVE Educ Needs Learning Style Preference Adult Grid Patient : None Family : None SANDY JAFFE MINI - 09/13/2011 8:41 INTERNATIONAL ACCOUNT REPRESENTATIVE Source: [employer] Document Id: [id number] INTERNATIONAL ACCOUNT REPRESENTATIVE!21 Miscellaneous - Conversion, Historical Provider Ser - 09/13/2011 8:36 AM INTERNATIONAL ACCOUNT REPRESENTATIVE Adult Physician Assistant Intake/History Adult Physician Assistant Intake/History Entered On: 09/13/2011 8:41 INTERNATIONAL ACCOUNT REPRESENTATIVE Performed On: 09/13/2011 8:36 INTERNATIONAL ACCOUNT REPRESENTATIVE by JAIMEANASANDY MANN MINI Intake Chief Complaint : c/o left eye being itchy yesterday - not matted shut this am Onset of Symptoms : yesterday Temperature Core : 36.8C(Converted to: 98.2DegF) Peripheral Pulse Rate : 84/min Respiratory Rate : 16/min Systolic Blood Pressure : 120mmHg Diastolic Blood Pressure : 82mmHg NIBP Mean : 95mmHg BP Location : Left upper extremity Heart Rhythm : Regular Actual Weight : 114.8kg(Converted to: 253lb 1oz) Weight Source : Standing scale Dosing Weight Clinic : 114.80kg SANDY JAFFE MINI - 09/13/2011 8:36 INTERNATIONAL ACCOUNT REPRESENTATIVE Subjective Pain Symptoms : No SANDY JAFFE MINI - 09/13/2011 8:36 INTERNATIONAL ACCOUNT REPRESENTATIVE Dependent Habits Tobacco Use/Currently Using : No Smoking Status : Never smoker Alcohol Use : No SANDY JAFFE MINI - 09/13/2011 8:36 INTERNATIONAL ACCOUNT REPRESENTATIVE Caffeine Use Grid Caffeine Use : None SANDY JAFFE MINI - 09/13/2011 8:36 INTERNATIONAL ACCOUNT REPRESENTATIVE Allergy Allergies (Active) NKA Estimated Onset Date: Unspecified ; Created By: ISAAC HAYNES; Reaction Status: Active ; Category: Drug ; Substance: NKA ; Type: Allergy ; Updated By: ISAAC HAYNES; Reviewed Date: 07/27/201115:20 CDT Source: [employer] Document Id: [id number] INTERNATIONAL ACCOUNT REPRESENTATIVE!24 documented in this encounter Plan of Treatment Not on filedocumented as of this encounter Visit Diagnoses Not on filedocumented in this encounter
--- OUTSIDE RECORDS SUMMARY | 2022-09-09 08:25 | XMS_ITS | Encounter Summary ---
:1965 Author Organization [facility] Address [address] [place] [address] Care Team Providers Name Role Phone Unavailable Primary Care Provider Unavailable Encounter Details Date Type Department Care Team Description 10/25/2010 Hospital Encounter HX NO MAPPING Social History [...]
--- OUTSIDE RECORDS SUMMARY | 2022-09-09 08:25 | XMS_ITS | Encounter Summary ---
:1965 Author Organization [facility] Address [address] [place] [address] Care Team Providers Name Role Phone Unavailable Primary Care Provider Unavailable Encounter Details Date Type Department Care Team Description 06/09/2011 Hospital Encounter HX NO MAPPING Evelyn Kelley M.D. [address] [place], [place] [phone] (Wo rk) Social History Tobacco Use Types Packs/Day Years Used Date Smoking Tobacco: Never Assessed Sex Assigned at Date Recorded Not on file documented as of this encounter Medications at Time of Discharge Medication Sig Dispensed Refills Start Date End Date multivitamin capsule multivitamin 0 09/14/2010 documented as of this encounter Consult Notes Parag Kelley M.D. - 06/09/2011 12:00 AM CDT CARDCONOS IMPRESSION/REPORT/PLAN 1) Dyslipidemia. 2) Hypertension. 3) History of carotid artery dissection. 4) Recurrent atypical chest pain. Mr. German is doing quite well with his medical issues. His lipids are perfect. His weight is down and I have commended him for that. He has a goal to lose 15-20 more pounds and I support that goal. His blood pressure is well controlled and he should continue on his current medical regimen. He wishes to come to [place] for some assessments for his atypical chest pain. I think that is quite appropriate. I would recommend that he have an exercise stress test and a CT calcium scan when he comes to [place]. He told me he could do this in July when he comes for his neurology appointment. I will ask the outreach office to reconcile this with the neurology appointment and to set these tests up and to have him see me and follow-up for the results. His blood pressure is well controlled and he should continue with current medications. I have answered questions and it was a pleasure to see him. Total time with the patient was 45 minutes and counseling time is 20 minutes. MARGIN CODE: E5 CHIEF COMPLAINT/REASON FOR VISIT Cardiology consultation. HISTORY OF PRESENT ILLNESS Mr. German is a 45-year-old gentleman who I have followed for several years. 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 He also has hypertension and had a carotid artery dissection about a year ago. Daniel has done well in the last year since our visit 11/22/2010. He is feeling good and has no major complaints. He has had no further problems with his carotid artery dissection nor has he had any difficulty with his blood pressure. The numbers have continued to run at a normal range. He has lost weight and is exercising regularly. He stopped running about a month ago because of the heat and humidity, but is anxious to resume. He is having an occasional bout of chest discomfort and this has bothered him. He would like to have that evaluated. CURRENT MEDICATIONS Lisinopril. Fluocinonide topical (Lidex 0.5% topical ointment). Amlodipine. Multivitamin. Aspirin. ALLERGIES No known drug allergies. PAST MEDICAL/SURGICAL HISTORY 1) Hypertension. 2) Dyslipidemia. 3) History of carotid artery dissection. 4) History of atypical chest pain. 5) History of obesity now resolved. 6) History of vertigo. SOCIAL HISTORY Completed high school and college. He is and lives in [place] with his . They have one child and on expectant child. No use of tobacco or alcohol. FAMILY HISTORY Negative. VITAL SIGNS BLOOD PRESSURE: 134/70 HEIGHT: 186 cm WEIGHT: 110 kg BODY MASS INDEX: 31.8 PHYSICAL EXAM GENERAL: Normal Body habitus. Well groomed. PSYCHIATRIC: Normal mood and affect. Oriented to person, place, and time. MUSCULOSKELETAL: Gait normal. EXTREMITIES: No clubbing or cyanosis. EYES: No xanthelasma or conjunctivitis. ENT: No oral mucosa pallor or cyanosis. HEART: Normal cardiac palpation. Normal first and second heart sounds. No murmurs, gallops, or rubs. Jugular venous pressure and pulsation normal. No lower extremity edema. VESSELS: No carotid bruits. Normal pedal pulses. LUNGS: Normal respiratory effort and air movement. Clear to auscultation. ABDOMEN: Normal sized liver and spleen. No abdominal masses or tenderness. SKIN: No stasis dermatitis or ulceration. LABS: Lipid profile shows a total cholesterol of 121, triglycerides 137, LDL 63, HDL 31, sodium 137, potassium 3.9, creatinine 1.0. Evelyn Kelley M.D. /bill Electronically Signed By: Parag KELLEY MD On: 06/09/2011 05:01 PM Source: [facility] MHSDOLBEYNONRADSYS Document Id: [id number] documented in this encounter Miscellaneous Notes Miscellaneous - Jacey Phillips R.N. - 06/09/2011 2:32 PM CDT Adult Animal Humane Agent Supervisor Intake/History Adult Animal Humane Agent Supervisor Intake/History Entered On: 06/09/2011 14:35 CDT Performed On: 06/09/2011 14:32 CDT by JACEY PHILLIPS manager document Chief Complaint: Follow up HTN Carotid dissection Peripheral Pulse Rate: 62/min Systolic Blood Pressure: 134mmHg Diastolic Blood Pressure: 70mmHg NIBP Mean: 91mmHg BP Location: Left upper extremity Height: 186.00cm(Converted to: 6ft 1inch(es), 73.23inch(es)) Actual Weight: 110.000kg(Converted to: 242lb 8oz) Dosing Weight Clinic: 110.00kg Clinic BSA: 2.38 Body Mass Index: 31.80kg/m2 JACEY PHILLIPS RN - 06/09/2011 14:32 CDT Subjective Pain Symptoms: No JACEY PHILLIPS RN - 06/09/2011 14:32 CDT Dependent Habits Tobacco Use/Currently Using: No Alcohol Use: No JACEY PHILLIPS RN - 06/09/2011 14:32 CDT Caffeine Use Grid Caffeine Use: None JACEY PHILLIPS RN - 06/09/2011 14:32 CDT Allergy Allergies (Active) NKA Estimated Onset Date: Unspecified ; Created By: ISAAC HAYNES; Reaction Status: Active ; Category: Drug ; Substance: NKA ; Type: Allergy ; Updated By: ISAAC HAYNES; Reviewed Date: 05/27/201114:36 CDT Health History I Cardiovascular Past Medical History Grid High Blood Pressure: Self High Cholesterol: Self Other: Self, carotid artery disection JACEY PHILLIPS RN - 06/09/2011 14:32 CDT Health History II Endocrine/Metabolic Past Med Hx Grid Diabetes: Grandparents JACEY PHILLIPS RN - 06/09/2011 14:32 CDT Diabetes Intake Do You Have Diabetes: No JACEY PHILLIPS RN - 06/09/2011 14:32 CDT Source: [facility] Document Id: [id number]!31 documented in this encounter Plan of Treatment Not on filedocumented as of this encounter Visit Diagnoses Not on filedocumented in this encounter
--- OUTSIDE RECORDS SUMMARY | 2022-09-09 08:25 | XMS_ITS | Encounter Summary ---
:1965 Author Organization [facility] Address [address] [place] [address] Care Team Providers Name Role Phone Unavailable Primary Care Provider Unavailable Encounter Details Date Type Department Care Team Description 10/12/2010 - Hospital Encounter [facility]X [facility] Mariya Tate, 10/13/2010 [facility] N[facility] [address] [place], [place] [address] Social History Tobacco Use Types Packs/Day Years [...]
--- OUTSIDE RECORDS SUMMARY | 2022-09-09 08:25 | XMS_ITS | Encounter Summary ---
:1965 Author Organization [facility] Address [address] [place] [address] Care Team Providers Name Role Phone Unavailable Primary Care Provider Unavailable Encounter Details Date Type Department Care Team Description 09/21/2011 Hospital Encounter [facility]X [facility] Zee Collazo M.D. [address] [facility], [place] [address] (Wo rk) Social History Tobacco Use Types Packs/Day Years Used Date Smoking Tobacco: Never Assessed Sex Assigned at Date Recorded Not on file documented as of this encounter Medications at Time of Discharge Medication Sig Dispensed Refills Start Date End Date multivitamin capsule multivitamin 0 09/14/2010 documented as of this encounter Progress Notes Chitra Collazo M.D. - 09/21/2011 12:00 AM CST [id number] CHIEF COMPLAINT / REASON FOR VISIT Louie is here for further laser therapy of warts on his thumb. HISTORY OF PRESENT ILLNESS He says he cannot tell if it is a wart or not, but there is still a little scaly spot on his left thumb. The one on the right middle finger seems to be gone. PHYSICAL EXAM SKIN: On the left thumb 2 areas were pared and then treated with the Vbeam laser at settings 7 11, 1.5 milliseconds, 4 pulses. The patient tolerated this well. IMPRESSION / REPORT / PLAN 1) Two warts treated. PLAN: Care instructions were given. He will follow up again in 1 month as needed. Chitra Collazo M.D. sks Electronically Signed By: CHITRA COLLAZO MD On: 09/23/2011 04:03 PM Source: [facility] MHSDOLBEYNONRADSYS Document Id: [id number] ER TRIMMER documented in this encounter Miscellaneous Notes Miscellaneous - Susy Regan, R.M.AAdina - 09/21/2011 3:08 PM CST Adult Lean Engineer Intake/History Adult Lean Engineer Intake/History Entered On: 09/21/2011 15:10 MOLDER TRIMMER Performed On: 09/21/2011 15:08 MOLDER TRIMMER by SUSY REGAN Intake Chief Complaint : Laser Systolic Blood Pressure : 140mmHg Diastolic Blood Pressure : 92mmHg (>HHI) (Comment: Pt doesnt think that he took his medications this morning. [SUSY REGAN - 09/21/2011 15:08 MOLDER TRIMMER] ) NIBP Mean : 108mmHg SUSY REGAN - 09/21/2011 15:08 MOLDER TRIMMER Subjective Pain Symptoms : No SUSY REGAN - 09/21/2011 15:08 MOLDER TRIMMER Dependent Habits Tobacco Use/Currently Using : No Smoking Status : Unknown if ever smoke SUSY REGAN - 09/21/2011 15:08 MOLDER TRIMMER Caffeine Use Grid Caffeine Use : None SUSY REGAN - 09/21/2011 15:08 MOLDER TRIMMER Allergy Allergies (Active) NKA Estimated Onset Date: Unspecified ; Created By: ISAAC HAYNES; Reaction Status: Active ; Category: Drug ; Substance: NKA ; Type: Allergy ; Updated By: ISAAC HAYNES; Reviewed Date: 09/21/201115:07 MOLDER TRIMMER Source: [facility] POWERCHART Document Id: [id number] MOLDER TRIMMER!14 ER TRIMMER documented in this encounter Plan of Treatment Not on filedocumented as of this encounter Visit Diagnoses Not on filedocumented in this encounter
--- OUTSIDE RECORDS SUMMARY | 2022-09-09 08:25 | XMS_ITS | Encounter Summary ---
:1965 Author Organization [facility] Address [address] [place] [address] Care Team Providers Name Role Phone Unavailable Primary Care Provider Unavailable Encounter Details Date Type Department Care Team Description 10/12/2010 Hospital Encounter HX [facility] INPT/OBSRV Re Tate, N.PAdina [address] [place] [phone] (Wo rk) Social History Tobacco Use [...]
--- OUTSIDE RECORDS SUMMARY | 2022-09-09 08:25 | XMS_ITS | Encounter Summary ---
:1965 Author Organization [facility] Address [address] [place] [address] Care Team Providers Name Role Phone Unavailable Primary Care Provider Unavailable Encounter Details Date Type Department Care Team Description 07/15/2011 Hospital Encounter HX [facility] EXERCISE [facility] Con Murdock M.D. Social History Tobacco Use Types Packs/Day Years [...] Priority Date/Time Associated Diagnosis Comme nts MR NECK ANGIOGRAM Routine 07/15/2011 2:25 PM Resu lts for this WITHOUT AND WITH IV CDT procedur e are in CONTRAST the results section. CT HEART CALCIUM Routine 07/15/2011 11:10 AM Resu lts for this SCORING LIMITED CDT procedure ar e in WITHOUT IV CONTRAST the resu lts section. EXERCISE ECG Routine 07/15/2011 10:17 AM CDT documented in this encounter Results MR Neck Angiogram without and with IV Contrast (07/15/2011 2:25 PM CDT) Anatomical Region Laterality Modality Neck N/A Magnetic Resonance Specimen (Source) Anatomical Collection Method Collection Time Re ceived Time Location / / Volume Laterality 07/15/2011 2:25 PM CDT Impressions 07/15/2011 3:19 PM CDT Stable exam. FINDINGS: In comparison to the prior myron dy, there is stable focal dilatation of the distal left internal carotid artery vertical and horizontal petrous segments. 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 Stable mild focal stenosis of proximal right internal carotid artery measuring less than 50% by NASCET criteria with otherwise normal caliber o f the right internal carotid artery. Darius tebral arteries arise normally from their respective subclavian arteries without focal stenosis. 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 No abnormal cervical masses. Remainder of study is unchanged. [id number] Electronically signed by: ?? Eri Webb MD [id number] 15-Jul-2011 1 5:19 Narrative 07/15/2011 3:19 PM CDT 15-Jul-2011 14:25:00 ??Exam: MRA/v Nk wo&w Indications: Aneurysm NOS ORIGINAL REPORT - 15-Jul-2011 15:19:00 MR Angiography Neck without and with IV contrast performed on 07/15/2011. COMPARISON: 01/25/2011. CONCLUSION/ Procedure Note Eri Webb M.D. - 02/03/2018Forma tting of this note might be different from the original. 15-Jul-2011 14:25:00 Exam: MRA/v Nk wo&w Indications: Aneurysm NOS ORIGINAL REPORT - 15-Jul-2011 15:19:00 MR Angiography Neck without and with IV contrast performed on 07/15/2011. COMPARISON: 01/25/2011. CONCLUSION/IMPRESSION: Stable exam. FINDINGS: In comparison to the prior myron dy, there is stable focal dilatation of the distal left internal carotid artery vertical and horizontal petrous segments. 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 Stable mild focal stenosis of proximal right internal carotid artery measuring less than 50% by NASCET criteria with otherwise normal caliber of the right internal carotid artery. Vertebral arteries arise normally from their respective subclavian arteries without focal stenosis. 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 No abnormal cervical masses. Remainder of study is unchanged. [id number] Electronically signed by: Eri Webb MD [id number] 15-Jul-2011 1 5:19 Capo Gore M.D. IMG MRI PROCEDURES CT Heart Calcium Scoring Limited without IV Contrast (07/15/2011 11:10 AM CDT) Anatomical Region Laterality Modality Abdomen, Pelvis Computed Tomography Specimen (Source) Anatomical Collection Method Collection Time Re ceived Time Location / / Volume Laterality 07/15/2011 11:10 AM CDT Narrative 07/15/2011 12:23 PM CDT 15-Jul-2011 11:10:00 ??Exam: CT CORONARY wo Lmtd. Indications: Dissection Carotid Artery P ers Hx;Dyslipidemia;Hypertension ORIGINAL REPORT - 15-Jul-2011 12:23:00 CT scan of the heart was done to evaluat e for coronary artery calcifications. The scan is negative for calcium deposits in the coronary arteries. A negative scan makes the presence of atherosclerotic pl aque or significant luminal obstructive disease very unlikely. Electronically signed by: ?? Evelyn Lloyd MD ?? [id number] 15-Jul-2011 12: 23 Procedure Note Inocencio Lloyd M.D. - 02/03/2018Formatt ing of this note might be different from the original. 15-Jul-2011 11:10:00 Exam: CT CORONARY w o Lmtd. Indications: Dissection Carotid Artery P ers Hx;Dyslipidemia;Hypertension ORIGINAL REPORT - 15-Jul-2011 12:23:00 CT scan of the heart was done to evaluat e for coronary artery calcifications. The scan is negative for calcium deposits in the coronary arteries. A negative scan makes the presence of atherosclerotic plaque or significant luminal obstructive disease very unlikely. Electronically signed by: Evelyn Lloyd MD [id number] 15-Jul-2011 12:[address] PROCEDURES Exercise ECG (07/15/2011 10:17 AM CDT) Specimen (Source) Anatomical Collection Method Collection Time Re ceived Time Location / / Volume Laterality 07/15/2011 10:17 AM CDT Carmen Murdock M.D. CV STRESS PROCEDURES Performing Organization Address City/State/ZIP Code Phon e Number HX [place] CONVERSION documented in this encounter Visit Diagnoses Not on filedocumented in this encounter
--- OUTSIDE RECORDS SUMMARY | 2022-09-09 08:25 | XMS_ITS | Encounter Summary ---
:1965 Author Organization [facility] Address [address] [place] [address] Care Team Providers Name Role Phone Unavailable Primary Care Provider Unavailable Encounter Details Date Type Department Care Team Description 03/21/2012 Hospital Encounter HX [facility] DERM Zee Collazo M.D. [address] [facility], [place] [address] (Wo rk) Social History Tobacco Use Types Packs/Day Years Used Date Smoking Tobacco: Never Assessed Sex Assigned at Date Recorded Not on file documented as of this encounter Medications at Time of Discharge Medication Sig Dispensed Refills Start Date End Date multivitamin capsule multivitamin 0 09/14/2010 documented as of this encounter Progress Notes Chitra Collazo M.D. - 03/21/2012 12:00 AM CDT [id number] CHIEF COMPLAINT Wart removal HISTORY OF PRESENT ILLNESS Daniel is a 46 [id number] who presents to the clinic for laser therapy of warts on located on his left hand and fingers. The patient reports that some of his warts are resolved but has notice any increase in the number of warts on his fingers. The patient has been treated with cryosurgery and Lo in the past without complete relief. PHYSICAL EXAMINATION GENERAL: Well developed, well nourished, oriented X3, normal affect and in no acute distress. SKIN: examined the patient's hands and fingers today. Larger wart on the right thumb recurrent warts on the left thumb IMPRESSION / REPORT / PLAN PROCEDURE Verbal and written consent was obtained from the patient, Pulsed-dye laser therapy of verrucae, left and right thumbs warts were pared, not anesthetized. The V-beam laser was used at settings 7 mm, 11joules, and 1.5 ms with 30/20 cryogen. Total of 5 pulses. Polysporin and bandages applied. The patient tolerated the procedure well. There were no immediate complications. 1. Pulsed-dye laser therapy of [place]rucae. [id number]. Plan: Care instructions were given. I thoroughly discussed treating the patient's warts with 5-FU combined with salicylic acid. The risks, benefits, and alternatives were discussed. I prescribed the patient 17% salicylic acid apply once a day in the morning and 5-FU apply once a day in the evening. Return May,. Call if any problems or questions. The patient was offered a depart summary but declined. Informed consent was obtained. All the patient's questions were answered. This document serves as a record of services personally performed by Dr. Chitra Collazo. It was created on their behalf by Avery Herbert, a trained medical receptionist. The creation of this record is based on the scribe's personal observations and the provider's statements to them. This document has been checked and approved by the attending provider. Blaze Giron Electronically Signed By: CHITRA COLLAZO MD On: 03/27/2012 05:06 PM Source: [facility] MHSDOLBEYNONRADSYS Document Id: [id number] documented in this encounter Miscellaneous Notes Telephone Encounter - Conversion, Historical Provider Ser - 05/16/2017 4:20 PM CDT *Phone Message- Dr. Irizarry Document Contains Addenda Addendum by JENNY CHAUHAN on May 17, 2017 15:24:24 CDT Appointments for four family members schedule with Dr. Irizarry for 06/28/17. Jenny Addendum by JENNY CHAUHAN on May 17, 2017 11:45:29 CDT I will take care of this. Jenny Addendum by COSMO DUNNE on May 17, 2017 08:50:41 CDT From: COSMO DUNNE ( [facility]) To: KARINA PARRA; Ophthalmology Stave Block Splitter; Sent: 05/17/2017 08:50:41 CDT Subject: RE: *Phone Message- Dr. Irizarry ok per Dr. Irizarry to schedule. From: KARINA PARRA To: [facility]; Sent: 05/16/2017 16:20:03 CDT Subject: *Phone Message- Dr. Irizarry Caller is: ( x ) Patient ( ) Mother ( ) Father ( ) Spouse ( ) Daughter ( ) Son ( ) Pharmacy ( ) Other: Physician: Dr. Irizarry Patient MRN #: Reason for Call: Message: S: Pt called clinic to talk to nurse B: said in the past he has received permission to have his family of 4 scheduled on the same day, [email or web address] drive from a distance. Is asking for the same permission, would like Dr. Irizarry asked specifically. A: R: Please call pt at [phone] Advice/Action: Source used: ( ) Verbalizes understanding [...] back cell phone number ( ) [facility] POWER[facility] Document Id: [id number] documented in this encounter Plan of Treatment Not on filedocumented as of this encounter Visit Diagnoses Not on filedocumented in this encounter
--- OUTSIDE RECORDS SUMMARY | 2022-09-09 08:25 | XMS_ITS | Encounter Summary ---
:1965 Author Organization [facility] Address [address] [place] [address] Care Team Providers Name Role Phone Unavailable Primary Care Provider Unavailable Encounter Details Date Type Department Care Team Description 05/02/2011 Hospital Encounter HX [facility] PRANAVOC Oscar Watson M.D. [address] [place], [place] [phone] (Wo rk) Social History Tobacco Use Types Packs/Day Years Used Date Smoking Tobacco: Never Assessed Sex Assigned at Date Recorded Not on file documented as of this encounter Medications at Time of Discharge Medication Sig Dispensed Refills Start Date End Date multivitamin capsule multivitamin 0 09/14/2010 documented as of this encounter Progress Notes Conversion, Historical Provider Ser - 05/02/2011 2:36 PM CDT [facility] Exam [facility] Exam Entered On: 05/02/2011 15:01 CDT Performed On: 05/02/2011 14:36 CDT by DENISE CASTILLO Chief Complaint and History Reason for Visit: Routine exam Chief Complaint: Blurred vision, Other: pt states near vision and distance has gotten worse. pt is using readers. ROS - heart and lungs wnl Pain Symptoms: No DENISE CASTILLO - 05/02/2011 14:36 CDT Optometry Exam Familty History Grid Macular Degeneration: Grandparents Cancer: Grandparents Diabetes: Grandparents Hypertension: Father, Self DENISE CASTILLO - 05/02/2011 14:36 CDT Vision Testing Right Eye Vision Testing: Without correction, 20/20 Left Eye Vision Testing: Without correction, 20/20, -1 Near Vision Right Eye: With glasses - primary, J-1 Near Vision Left Eye: With glasses - primary, J-1 DENISE CASTILLO - 05/02/2011 14:36 CDT Refractive Procedure Consult Glasses/RE Glasses/LE ADD: +1.50 +1.50 ANNA DENISE M - 05/02/2011 14:36 CDT NABEELRENAY DENISE - 05/02/2011 14:36 CDT Right Eye Manifest Grid Date: 05/02/2011 CDT Sphere: -.50 CYL: +0.50 [place]: 160 = 20/20 ADD: +1.75 JASSONRACHELLE DENISE M - 05/02/2011 14:36 CDT Left Eye Manifest Grid Date: 05/02/2011 CDT Sphere: -.75 CYL: +0.50 [place]: 60 = 20/20 ADD: +1.75 ANNA DENISE - 05/02/2011 14:36 CDT Ocular Testing EOMS: Normal Comment: 4-3 4-3 Pupils: PERRLA Comment: FTCF JASSONRACHELLEZOILAY - 05/02/2011 14:36 CDT Intraoccular Pressures Intraoccular Pressures Grid Date: 05/02/2011 CDT 05/02/2011 CDT Eye: RE LE Applanation: 15 15 Comments: 2:58 JASSONRACHELLEZOILACurt Garcia - 05/02/2011 14:36 CDT JASSONRACHELLE DENISE - 05/02/2011 14:36 CDT Eye Drops Exam Phenylephrine 2.5% Eye Drops Eye: Both eyes Phenylephrine 2.5% Eye Drops Amount: One drop Phenylephrine 2.5% Eye Drops Time: 14:59 DEGREASER OPERATOR Phenylephrine 2.5% Eye Drops Comment: pt requesting rev Tropicamide 0.5% Eye Drops Eye: Both eyes Tropicamide 0.5% Eye Drops Amount: One drop Tropicamide 10% Eye Drops Time: 14:59 DEGREASER OPERATOR JASSONRACHELLEZOILACurt Garcia - 05/02/2011 14:36 CDT Source: [facility] POWERCHART Document Id: [id number] CDT!59 Kevin De La O M.D. - 05/02/2011 12:00 AM CDT [id number] CHIEF COMPLAINT/REASON FOR VISIT Routine examination. IMPRESSION/REPORT/PLAN 1) Status post photorefractive keratectomy, doing very well. 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 Vision stable. 3) Early onset cataracts, both eyes. Non-visually significant. PLAN: Follow-up in 1 year. Blaze Perez Electronically Signed By: KEVIN DE LA O MD On: 05/04/2011 07:31 AM Source: [facility] MHSDOLBEYNONRADSYS Document Id: [id number] documented in this encounter Miscellaneous Notes Miscellaneous - Kevin De La O M.D. - 05/02/2011 3:26 PM CDT Ambulatory Patient Summary [address] [address] Visit Information Name: HERLINDA TIWARI Current Date: 05/02/2011 15:26:34 Primary Care Provider: KARLY WHEELER Your Medications Here is a list of your medications. It is important to take your medications as directed. Use a pillbox or chart to help remind you to take your medications. Please let your doctor or nurse know if you have problems taking your medications. Medication/Strength Dose Route Frequency Indications/Special Instructions/Comments fluocinonide topical (Lidex 0.05% topical ointment) 1 adryan Topical two times a day amlodipine (Norvasc 5 mg oral tablet) lisinopril (lisinopril 20 mg oral tablet) 1 tab(s) Oral once a day multivitamin (multivitamin) aspirin (aspirin 81 mg oral tablet) Your Allergies & Intolerances Substance Reaction Symptoms Category Comments NKA Drug Your Problem List Problem Status Onset Comments Other and Unspecified Hyperlipidemia Active 09/22/2008 Verruca Active Your Recommendations We want to make sure you get the tests, immunizations, and guidance you need to stay healthy. Here is a customized list of recommendations, based on information we have in your medical record. Your doctor may have additional recommendations for you, based on your personal medical history and risk factors. You can help us by calling us to make an appointment when you are due for your tests. Additional information regarding recommendations: Test/Treatment Last Done Next Due Additional Information Lipid Panel every 5 years Age 20-75 03/30/2004 03/29/2009 Checks blood for good (HDL) and bad (LDL) cholesterol. Know your numbers, they are one indicator of your risk for heart attack and stroke. Vaccine: Tetanus every 10 years 11/06/2002 11/03/2012 Immunization to help prevent you from getting the serious disease Tetanus (Adijaw). Your Upcoming Appointments Date Time Location Reason Provider 05/25/2011 15:30 [facility] Kandice Ortega MD 05/25/2011 15:30 [facility] D[facility] LASER FLORINDA Collazo MD, Kandice Estrada 06/08/2011 08:00 [facility] Lab 06/08/2011 08:15 [facility] 06/09/2011 08:45 [facility] Spec Clin follow-up Your Goals/Additional instructions: Source: [facility] POWERCHART Document Id: [id number] Electronically signed by Nahum [facility] Chopper Gun Operator [id number] at 04/09/2017 10:47 PM CDT Miscellaneous - Kevin De La O M.D. - 05/02/2011 3:26 PM CDT Ambulatory Depart Summary [address] [address] Visit Information Name: HERLINDA TIWARI Current Date: 05/02/2011 15:26:33 Primary Care Provider: KARLY WHEELER HERLINDA TIWARI has been given the following list of medications: Your Medications It is important to take your medications as directed. Use a pill box or chart to help remind you to take your medications. Please let your doctor or nurse know if you have problems taking your medications. Medication/Strength Dose Route Frequency Indications/Special Instructions/Comments fluocinonide topical (Lidex 0.05% topical ointment) 1 adryan Topical two times a day amlodipine (Norvasc 5 mg oral tablet) lisinopril (lisinopril 20 mg oral tablet) 1 tab(s) Oral once a day multivitamin (multivitamin) aspirin (aspirin 81 mg oral tablet) Additional Information: Source: [facility] POWERCHART Document Id: [id number] Electronically signed by Nahum, [facility] Chopper Gun Operator [id number] at 04/09/2017 10:47 PM CDT documented in this encounter Plan of Treatment Not on filedocumented as of this encounter Visit Diagnoses Not on filedocumented in this encounter
--- OUTSIDE RECORDS SUMMARY | 2022-09-09 08:25 | XMS_ITS | Encounter Summary ---
:1965 Author Organization [facility] Address [address] [place] [address] Care Team Providers Name Role Phone Unavailable Primary Care Provider Unavailable Encounter Details Date Type Department Care Team Description 01/19/2011 Hospital Encounter HX [facility] DERM Zee Collazo M.D. [address] [facility], [place] [address] (Wo rk) Social History Tobacco Use Types Packs/Day Years Used Date Smoking Tobacco: Never Assessed Sex Assigned at Date Recorded Not on file documented as of this encounter Medications at Time of Discharge Medication Sig Dispensed Refills Start Date End Date multivitamin capsule multivitamin 0 09/14/2010 documented as of this encounter Progress Notes Chitra Collazo M.D. - 01/19/2011 12:00 AM CDT [id number] HISTORY OF PRESENT ILLNESS Daniel is here for further laser therapy of warts on his thumbs. He thinks they are a little bit better. PHYSICAL EXAM SKIN: Pulse dye laser used at settings 7 and 11 with cryotherapy. Two pulses on each thumb. The patient tolerated this well. IMPRESSION / REPORT / PLAN 1) Wart therapy. Care instructions were given. Follow up again in 1 month. Blaze Giron Electronically Signed By: CHITRA COLLAZO MD On: 02/08/2011 02:40 Source: [facility] MHSDOLBEYNONRADSYS Document Id: [id number] documented in this encounter Miscellaneous Notes Miscellaneous - Susy Regan RAdinaMJessica - 01/19/2011 3:08 PM CDT Adult Shading Painter Intake/History Adult Shading Painter Intake/History Entered On: 01/19/2011 15:08 CDT Performed On: 01/19/2011 15:08 CDT by SUSY REGAN Intake Chief Complaint: Warts SUSY REGAN - 01/19/2011 15:08 CDT Subjective Pain Symptoms: No SUSY REGAN - 01/19/2011 15:08 CDT Dependent Habits Tobacco Use/Currently Using: No SUSY REGAN - 01/19/2011 15:08 CDT Allergies Allergies (Active) NKA Estimated Onset Date: Unspecified ; Created By: ISAAC HAYNES; Reaction Status: Active ; Category: Drug ; Substance: NKA ; Type: Allergy ; Updated By: ISAAC HAYNES; Reviewed Date: 01/19/201115:08 CDT Source: [facility] [email or web address] Document Id: [id number] CDT!7 documented in this encounter Plan of Treatment Not on filedocumented as of this encounter Visit Diagnoses Not on filedocumented in this encounter
--- OUTSIDE RECORDS SUMMARY | 2022-09-09 08:25 | XMS_ITS | Encounter Summary ---
:1965 Author Organization [facility] Address [address] [place] [address] Care Team Providers Name Role Phone Unavailable Primary Care Provider Unavailable Encounter Details Date Type Department Care Team Description 01/04/2012 Hospital Encounter HX [facility] Siva Tate, N.P. [address] [place] [address] (Wo rk) Social History Tobacco Use Types Packs/Day Years Used Date Smoking Tobacco: Never Assessed Sex Assigned at Date Recorded Not on file documented as of this encounter Last Filed Vital Signs Vital Sign Reading Time Taken Comments Blood Pressure 136/80 01/04/2012 12:39 PM TELECOM ENGINEER Pulse 86 01/04/2012 12:39 PM TELECOM ENGINEER Temperature - - Respiratory Rate 16 01/04/2012 12:39 PM TELECOM ENGINEER Oxygen Saturation - - Inhaled Oxygen Concentration - - Weight 114 kg (252 lb 3.3 oz) 01/04/2012 12:39 PM TELECOM ENGINEER Height - - Body Mass Index - - documented in this encounter Medications at Time of Discharge Medication Sig Dispensed Refills Start Date End Date multivitamin capsule multivitamin 0 09/14/2010 documented as of this encounter Progress Notes Hilary Tate, N.P. - 01/04/2012 12:00 AM CST [id number] CHIEF COMPLAINT/REASON FOR VISIT Cough and head congestion. HISTORY OF PRESENT ILLNESS Daniel is 46-year-old male who is here today with complaints of not feeling well for the past three days. He reports that he has had a cough and ear congestion. Has felt slightly dizzy, has had headache and bodyaches. He reports his cough is occasionally productive. His daughter who is almost three years old has been sick with similar symptoms and his has also developed similar symptoms. They took his daughter to be seen by the head of precision targeting two days ago and she tested negative for strep and negative for croup which I am assuming was RSV. Dad feels as though this is most likely a virus. He has not had any significantly high fevers. He is mostly here today requesting some cough syrup. He states he has used tussin in the past at the higher than recommended doses for good relief of his cough and he is requesting that today. He denies any rash, nausea, vomiting, or abdominal complaints. CURRENT MEDICATIONS Medications reviewed. Prescription for Tussionex cough syrup is given to have two teaspoons every 12 hours as needed for cough. ALLERGIES No known drug allergies. PAST MEDICAL HISTORY/SURGICAL HISTORY Actinic keratosis, high blood pressure and hyperlipidemia. VITAL SIGNS Vital signs: Temperature 37.2, pulse 86, respirations 16, blood pressure 136/80. PHYSICAL EXAMINATION GENERAL: Daniel is alert, oriented x3, appears in no acute distress although he does seem ill. HEENT: Head is normocephalic, atraumatic. Bilateral TMs are slightly cloudy. Red reflex remains present but slightly distorted. No erythema or obvious effusion. Nasal mucosa is slightly swollen. He denies any sinus tenderness. Oropharynx is without erythema, exudate or swelling. NECK: Neck is supple. No lymphadenopathy. HEART: Heart rate is regular. S1, S2 is present. No murmur or rub. LUNGS: Lungs are clear to auscultation. IMPRESSION/REPORT/PLAN 1. URI. PLAN: 1. Discussed with Daniel that I agreed most likely his symptoms are viral in nature especially since it has been working its way through his house. I did go ahead and write a prescription for the Tussionex cough syrup. He is to rest and increase his fluids and follow up in the clinic if symptoms are not resolving or improving over the next three to five days. Questions have been addressed and he is agreeable to this plan of care. Patient Education #1 Patient ready to learn. No apparent learning barriers were identified. Learning preferences included listening. Explained diagnosis and treatment plan. Patient expressed understanding of the content. Hilary Tate N.P. / Electronically Signed By: HILARY TATE PRODUCTION TOOL ENGINEER On: 01/11/2012 01:55 PM Source: [facility] MHSDOLBEYNTAYS Document Id: [id number] COM ENGINEER documented in this encounter Miscellaneous Notes Miscellaneous - Hilary Tate NAdinaP. - 01/08/2012 10:15 AM CST Ambulatory Patient Summary [place] [id number] [place] [address] Visit Information Name: HERLINDA TIWARI Current Date: 01/08/2012 10:15:56 Physicians Attending Provider: HILARY TATE NP Primary Care Provider: HILARY TATE NP Your Medications Here is a list of your medications. It is important to take your medications as directed. Use a pillbox or chart to help remind you to take your medications. Please let your doctor or nurse know if you have problems taking your medications. Medication/Strength Dose Route Frequency Indications/Special Instructions/Comments hydrocodone-chlorpheniramine (Tussionex [employer]Kinetic 10 mg-8 mg/5 mL oral suspension, extended release) 10 mL Oral every 12 hours as needed for cough lisinopril (lisinopril 40 mg oral tablet) 40 [...] and Unspecified Hyperlipidemia Active 09/22/2008 Verruca Active unknown date of dx Actinic Keratosis Active 05/27/2011 Hypertension Active 10/06/2010 Your Recommendations We want to make sure [...] Test/Treatment Last Done Next Due Additional Information Health Assessment every 1 year 01/04/2012 01/03/2013 Lipid Panel every 5 years Age 20-75 06/08/2011 06/06/2016 Checks blood for good (HDL) and bad (LDL) cholesterol. Know your numbers, they are one indicator of your risk for heart attack and stroke. Vaccine: Tetanus every 10 years 11/06/2002 11/03/2012 Immunization to help prevent you from getting the serious disease Tetanus (Lockjaw). Your Upcoming Appointments Date Time Location Reason Provider 01/18/2012 15:15 [facility] Derm laser Kandice Magana MD 01/18/2012 15:15 [facility] Derm laser jodi knows may need to rsd if schedule does not fill in Kandice Collazo MD Your Goals/Additional instructions: Source: [facility] POWERCHART Document Id: [id number] COM ENGINEER Miscellaneous - Hilary Tate, N.P. - 01/08/2012 10:15 AM CST Ambulatory Depart Summary [address] [address] Visit Information Name: HERLINDA TIWARI Visit Date: 01/08/2012 10:15:55 Attending Provider: HILARY TATE PRODUCTION TOOL ENGINEER Primary Care Provider: HILARY TATE PRODUCTION TOOL ENGINEER HERLINDA TIWARI has been given the following list of medications: Your Medications It is important to take your medications as directed. Use a pill box or chart to help remind you to take your medications. Please let your doctor or nurse know if you have problems taking your medications. Medication/Strength Dose Route Frequency Indications/Special Instructions/Comments hydrocodone-chlorpheniramine (Tussionex PennKinetic 10 mg-8 mg/5 mL oral suspension, extended release) 10 mL Oral every 12 hours as needed for cough lisinopril (lisinopril 40 mg oral tablet) 40 [...] your provider for clarification. Additional Information: Source: [facility] POWERCHART Document Id: [id number] COM ENGINEER Miscellaneous - Lyla Lim L.P.N. - 01/04/2012 12:39 PM CST Health Assessment Health Assessment Entered On: 01/04/2012 12:39 TELECOM ENGINEER Performed On: 01/04/2012 12:39 TELECOM ENGINEER by LYLA LIM LPN Health Assessment Complete Health Assessment Complete or Modified : Annual Health Assessment Annual Health Assessment Completed : Yes LYLA LIM LPN - 01/04/2012 12:39 TELECOM ENGINEER Nutrition Nutrition Risk Factors by History Adult : None LYLA LIM LPN - 01/04/2012 12:39 TELECOM ENGINEER Functional Current Daily Living Assistance : None LYLA LIM LPN - 01/04/2012 12:39 TELECOM ENGINEER Dependent Habits Tobacco Use/Currently Using : No Tobacco Use/Last 12 months : No Tobacco Use/Advised to Quit : No Exposure to Tobacco Smoke : Other: never Smoking Status : Never smoker Alcohol Use : No LYLA LIM LPN - 01/04/2012 12:39 TELECOM ENGINEER Caffeine Use Grid Caffeine Use : None LYLA LIM LPN - 01/04/2012 12:39 TELECOM ENGINEER Recreational Drug Use Grid Drug Use : None LYLA LIM LPN - 01/04/2012 12:39 TELECOM ENGINEER Psychosocial Domestic Abuse Concerns : None LYLA LIM LPN - 01/04/2012 12:39 TELECOM ENGINEER Advance Directive Advanced Directives : No LYLA LIM LPN - 01/04/2012 12:39 TELECOM ENGINEER Educ Needs Learning Style Preference Adult Grid Patient : None Family : None LYLA LIM LPN - 01/04/2012 12:39 TELECOM ENGINEER Source: [facility] Lipocalyx Document Id: [id number] TELECOM ENGINEER!29 COM ENGINEER Miscellaneous - Lyla Lim L.PAdinaNAdina - 01/04/2012 12:39 PM CST Adult Actimize Architect Intake/History Adult Actimize Architect Intake/History Entered On: 01/04/2012 12:44 TELECOM ENGINEER Performed On: 01/04/2012 12:39 TELECOM ENGINEER by LYLA LIM LPN Intake Chief Complaint : Cough, head congestion x3 days, ears crackling Temperature Core : 37.2C(Converted to: 99.0DegF) Peripheral Pulse Rate : 86/min Respiratory Rate : 16/min Heart Rhythm : Regular Systolic Blood Pressure : 136mmHg Diastolic Blood Pressure : 80mmHg NIBP Mean : 99mmHg BP Location : Right upper extremity Blood Pressure Cuff Size : Regular SpO2 : 98% Oxygen Therapy : Room air Actual Weight : 114.4kg(Converted to: 252lb 3oz) Weight Source : Standing scale Dosing Weight Clinic : 114.40kg LYLA LIM LPN - 01/04/2012 12:39 TELECOM ENGINEER Subjective Pain Symptoms : No LYLA LIM LPN - 01/04/2012 12:39 TELECOM ENGINEER Dependent Habits Tobacco Use/Currently Using : No Exposure to Tobacco Smoke : Other: never Smoking Status : Never smoker Alcohol Use : No LYLA LIM LPN - 01/04/2012 12:39 TELECOM ENGINEER Caffeine Use Grid Caffeine Use : None LYLA LIM LPN - 01/04/2012 12:39 TELECOM ENGINEER Recreational Drug Use Grid Drug Use : None LYLA LIM LPN - 01/04/2012 12:39 TELECOM ENGINEER Allergy Allergies (Active) NKA Estimated Onset Date: Unspecified ; Created By: ISAAC HAYNES; Reaction Status: Active ; Category: Drug ; Substance: NKA ; Type: Allergy ; Updated By: ISAAC HAYNES; Reviewed Date: 01/04/201212:38 TELECOM ENGINEER Source: [facility] Lipocalyx Document Id: [id number] TELECOM ENGINEER!30 COM ENGINEER documented in this encounter Plan of Treatment Not on filedocumented as of this encounter Visit Diagnoses Not on filedocumented in this encounter
--- OUTSIDE RECORDS SUMMARY | 2022-09-09 08:25 | XMS_ITS | Encounter Summary ---
:1965 Author Organization [facility] Address [address] [place] [address] Care Team Providers Name Role Phone Unavailable Primary Care Provider Unavailable Encounter Details Date Type Department Care Team Description 10/26/2011 Hospital Encounter HX [facility] Zee Collazo M.D. [address] [facility], [place] [address] (Wo rk) Social History Tobacco Use Types Packs/Day Years Used Date Smoking Tobacco: Never Assessed Sex Assigned at Date Recorded Not on file documented as of this encounter Medications at Time of Discharge Medication Sig Dispensed Refills Start Date End Date multivitamin capsule multivitamin 0 09/14/2010 documented as of this encounter Progress Notes Chitra Collazo M.D. - 10/26/2011 12:00 AM CST [id number] HISTORY OF PRESENT ILLNESS This 46-year-old male is here for another treatment of warts on his left thumb. He thinks they are almost gone. He had a baby born on October 18. PHYSICAL EXAM SKIN: Warts are slightly possibly visible. We opted to just treat the whole side of his thumb to make sure we get them all. Seven pulses were used at settings 7, 11, 1.5 milliseconds, no anesthesia. IMPRESSION / REPORT / PLAN 1) Warts on left thumb, treated. PLAN: He wants to wait 2 months to come back again and, hopefully, these will be gone. Chitra Collazo M.D. cla Electronically Signed By: CHITRA COLLAZO MD On: 11/11/2011 02:47 PM Source: [facility] MHSDOLBEYNONRADSYS Document Id: [id number] YBOARD ARTIST documented in this encounter Miscellaneous Notes Miscellaneous - Conversion, Historical Provider Ser - 10/26/2011 2:00 PM STORYBOARD ARTIST Adult Balance Truer Intake/History Adult Balance Truer Intake/History Entered On: 10/26/2011 14:01 STORYBOARD ARTIST Performed On: 10/26/2011 14:00 STORYBOARD ARTIST by JESSICA KIRBY Intake Chief Complaint : f/u warts both thumbs JESSICA KIRBY - 10/26/2011 14:00 STORYBOARD ARTIST Subjective Pain Symptoms : No JESSICA KIRBY - 10/26/2011 14:00 STORYBOARD ARTIST Dependent Habits Tobacco Use/Currently Using : No Exposure to Tobacco Smoke : Other: never Smoking Status : Never smoker JESSICA KIRBY - 10/26/2011 14:00 STORYBOARD ARTIST Caffeine Use Grid Caffeine Use : None JESSICA KIRBY - 10/26/2011 14:00 STORYBOARD ARTIST Allergy Allergies (Active) NKA Estimated Onset Date: Unspecified ; Created By: ISAAC HAYNES; Reaction Status: Active ; Category: Drug ; Substance: NKA ; Type: Allergy ; Updated By: ISAAC HAYNES; Reviewed Date: 10/26/201113:58 STORYBOARD ARTIST Source: [facility] POWERCHART Document Id: [id number] STORYBOARD ARTIST!12 documented in this encounter Plan of Treatment Not on filedocumented as of this encounter Visit Diagnoses Not on filedocumented in this encounter
--- OUTSIDE RECORDS SUMMARY | 2022-09-09 08:25 | XMS_ITS | Encounter Summary ---
:1965 Author Organization [facility] Address [address] [place] [address] Care Team Providers Name Role Phone Unavailable Primary Care Provider Unavailable Encounter Details Date Type Department Care Team Description 04/02/2013 Hospital Encounter HX [facility] Zee Collazo M.D. [address] [facility], [place] [address] (Wo rk) Social History Tobacco Use Types Packs/Day Years Used Date Smoking Tobacco: Never Assessed Sex Assigned at Date Recorded Not on file documented as of this encounter Last Filed Vital Signs Vital Sign Reading Time Taken Comments Blood Pressure 138/92 04/02/2013 2:31 PM CDT Pulse - - Temperature - [...] encounter Progress Notes Chitra Collazo M.D. - 04/02/2013 2:23 PM CDT [id number] CHIEF COMPLAINT / REASON FOR VISIT Several skin concerns. HISTORY OF PRESENT ILLNESS This 47-year-old male is here for recheck of the warts on his thumb. He thinks they are gone. He waslast seen 03/21/2012, for this. They have not reappeared since then. He has raised papules on his left cornejo area and a scaly papule next to his eye that he is concernedabout. He has a wart on his left 2nd finger, maybe 2. There is a rash on his left ankle. He has tried cream for psoriasis without any improvement on it because it itches a lot. On his left lower leg, there is a 4-mm firm papule which we had talked about removing before, but now he is ready to do it. PHYSICAL EXAMINATION On the face, left preauricular skin, there are 2 raised seborrheic keratoses, which are directly in cornejo area, and these were treated with Liquid Nitrogen. There is also an actinic keratosis on the left lateral canthal area treated with Liquid Nitrogen. Two warts on the left 2nd finger treated with Liquid Nitrogen. Left lower leg shows a 4-mm raised apparent dermatofibroma. PROCEDURE: Consent was obtained. 1% lidocaine with epi used for anesthesia. This lesion was excised using a 4-mm punch and closed with one 5-0 Vicryl suture. Patient tolerated this well. Vaseline and pressure bandage applied. On the left ankle anteriorly and laterally there are 2 scaly, raised, thick brown patches consistentwith lichen simplex chronicus. After discussion, we decided to treat these with injection of Qteaakk98 mg/mL. IMPRESSION / REPORT / PLAN 1. Seborrheic keratoses in cornejo area treated with Liquid Nitrogen to avoid irritation from razor. 2. Actinic keratosis, left lateral canthus, treated with Liquid Nitrogen. 3. Two warts on left finger treated with Liquid Nitrogen. 4. Excision of a presumed dermatofibroma, left lower leg. Care instructions given. Specimen sent forpathology review. Will contact him with the results. 5. Lichen simplex chronicus, left ankle, injected with Kenalog. Care instructions given. He will follow up again in 2 months. Chitra Collazo M.D./oli Electronically Signed By: CHITRA COLLAZO MD On: 04/05/2013 06:23 PM Source: [facility] MHSDOLBEYNONRADSYS Document Id: [id number] documented in this encounter Miscellaneous Notes Miscellaneous - Chitra Collazo M.D. - 04/05/2013 5:18 PM CDT Results Notification Document Contains Addenda Addendum by HERMAN FLANAGAN on 08 April 2013 08:51:53 CDT Patient notified by mail. From: CHITRA COLLAZO MD To: Dermatology Nurse; SUSY CAMPBELL; Sent: 04/05/2013 17:18:49 CDT ! Show up: 04/05/2013 22:18:49 [facility] Subject: Results Notification Actions: Notify patient of results Reminder Comments: OK Results: Date Result Name Value 04/02/2013 17:19 Drm Exam Accn-[place] [id number] 04/02/2013 17:19 Drm Exam Addr-[place] See Comment 04/02/2013 17:19 Drm Exam Impr-[place] See Comment 04/02/2013 17:19 Drm Exam Refer-[place] See Comment 04/02/2013 17:19 Drm Exam Sign-[place] See Comment 04/02/2013 17:19 Drm Exam Site-[place] See Comment Source: [facility] POWERCHART Document Id: [id number] Electronically signed by Nahum, [facility] Subscription Clerk [id number] at 04/05/2017 2:45 PM CDT Miscellaneous - Chitra Collazo M.D. - 04/03/2013 9:38 AM CDT Ambulatory Patient Summary [address] [address] Visit Information Name: HERLINDA TIWARI [facility] Number: [id number] Current Date: 04/03/2013 09:38:10 Physicians Attending Provider: CHITRA COLLAZO MD Primary [...] Upcoming Appointments Date Time Location Reason Provider 05/29/2013 14:15 [facility] Derm 2 month rck Chitra Collazo MD Your Goals/Additional instructions: Source: [facility] POWERCHART Document Id: [id number] Miscellaneous - Chitra Collazo M.D. - 04/03/2013 9:38 AM CDT Ambulatory Depart Summary [address] [id number] Visit Information Name: HERLINDA TIWARI [facility] Number: [id number] Visit Date: 04/03/2013 09:38:08 Attending Provider: CHITRA COLLAZO MD Primary Care [...] your provider for clarification. Additional Information: Source: [facility] POWERCHART Document Id: [id number] Miscellaneous - Wood Cameron C.M.A. - 04/02/2013 2:31 PM CDT Adult Finance Teacher Intake/History Adult Finance Teacher Intake/History Entered On: 04/02/2013 14:34 CDT Performed On: 04/02/2013 14:31 CDT by WOOD CAMERON Intake Chief Complaint : multiple lesions Systolic Blood Pressure : 138 mmHg Diastolic Blood Pressure : 92 mmHg (>HHI) NIBP Mean : 107 mmHg BP Location : Right upper extremity Blood Pressure Cuff Size : Large WOOD CAMERON - 04/02/2013 14:31 CDT General Info Information Given By : Patient Languages : Turkish WOOD CAMERON - 04/02/2013 14:31 CDT Subjective Pain Symptoms : No WOOD CAMERON 04/02/2013 14:31 CDT Dependent Habits Tobacco Use/Currently Using : No Exposure to Tobacco Smoke : Other: never Smoking Status : Never smoker WOOD CAMERON 04/02/2013 14:31 CDT Tobacco Use Grid Last Use : never WOOD CAMERON - 04/02/2013 14:31 CDT Caffeine Use Grid Caffeine Use : None WOOD CAMERON 04/02/2013 14:31 CDT Recreational Drug Use Grid Drug Use : None WOOD CAMERON 04/02/2013 14:31 CDT Source: [facility] VanuCHART Document Id: [id number] CDT!26 documented in this encounter Plan of Treatment Not on filedocumented as of this encounter Procedures Procedure Name Priority Date/Time Associated Comments Diagnosis DERMATOPATHOLOGY CONSULT Routine 04/02/2013 5:19 Results for this PM CDT procedure are i n the results section. LAB SURG PATH,LEVEL IV Routine 04/02/2013 5:19 Re sults for this PRO AND TECH PM CDT procedure are i n the results section. SURGICAL PATHOLOGY Routine 04/02/2013 12:00 Resul ts for this AM CDT procedure are i n the results section. documented in this encounter Results LAB SURG PATH,LEVEL IV PRO AND TECH (04/02/2013 5:19 PM CDT) [facility] HXLvl IV Surg Performed POWERCHART [facility] Comment: Test Performed by: [place] [id number] Leather Scraper: Marc aragon III, M.D. Specimen Anatomical Collection Method Collection Time Receive d Time (Source) Location / / Volume Laterality Tissue 04/02/2013 5:19 PM 3 6:02 CDT AM CDT Historical Provider [facility] Performing Organization Address City/State/ZIP Code Phon e Number POWERCHART PATHOLOGY DERMPATH CONSULT, WET TISSUE (04/02/2013 5:19 PM CDT) [facility] gist Method Time Signature HXDrm Exam [id number] POWERCHART [facility] HXDrm Exam See Comment POWERCHART [facility] Comment: RESULT: Chitra Collazo M.D. HXDrm Exam Addr-[place] See Comment POWERCH ART Comment: [facility] [address] [place] [phone] HXDrm Exam Site[facility] See Comment POWERCH ART Comment: A. ?? Received in formalin, labeled with the patient's name and and lab eled as left calf is a 0.5 cm in diameter skin punch biopsy excised to a depth of 0.4 cm. There is a 0.1 x 0.1 cm brown pigmented area centrally located on the skin surface. ??The specimen is bise cted and submitted entirely in cassette A1. HXDrm Exam Impr[facility] See Comment POWERCH ART Comment: RESULT: A. Left calf, Skin: Cesar matofibroma HXDrm Exam Sign-[place] See Comment POWERCH ART Comment: RESULT: 04/05/2013 11:57 ??Interpreted by : Saumya Tolbert M.D Report electronically signed by Saumya Tolbert M.D. Transcribed by: [email or web address] 04/05/2013 10:21:19 Test Performed by: [place] [address] Leather Scraper: Marc aragon III, M.D. Specimen (Source) Anatomical Collection Method Collection Time Re ceived Time Location / / Volume Laterality Tissue 04/02/2013 5:19 PM CDT Chitra Collazo M.D. LAB PATH DERM ORDERABLES Performing Organization Address City/State/ZIP Code Phon e Number POWERCHART Pathology Surgical Pathology (04/02/2013 12:00 AM CDT) Specimen (Source) Anatomical Location Collection Method / Collectio n Time Received Time / Laterality Volume 04/02/2013 Narrative [facility] - 04/10/20 13 9:03 AM CDT PATIENT IMAGES Choose the Image button to view related documents. Historical Provider LAB SURG PATH ORDERABLES Performing Organization Address City/[facility]/ZIP Code Phon e Number [facility] documented in this encounter Visit Diagnoses Not on filedocumented in this encounter
--- OUTSIDE RECORDS SUMMARY | 2022-09-09 08:25 | XMS_ITS | Encounter Summary ---
:1965 Author Organization [facility] Address [address] [place] [address] Care Team Providers Name Role Phone Unavailable Primary Care Provider Unavailable Encounter Details Date Type Department Care Team Description 10/08/2010 Hospital Encounter HX [facility] INPT/OBSRV Lavon Tolbert M.D. [address] [place] [id number] (Wo rk) Social History Tobacco Use Types [...]
--- OUTSIDE RECORDS SUMMARY | 2022-09-09 08:26 | XMS_ITS | Encounter Summary ---
:1965 Author Organization [facility] Address [address] [place] [address] Care Team Providers Name Role Phone Unavailable Primary Care Provider Unavailable Encounter Details Date Type Department Care Team Description 10/21/2009 Hospital Encounter HX [facility] Zee Collazo M.D. [address] [facility], [place] [address] (Wo rk) Social History Tobacco Use Types Packs/Day Years Used Date Smoking Tobacco: Never Assessed Sex Assigned at Date Recorded Not on file documented as of this encounter Plan of Treatment Not on filedocumented as of this encounter Visit Diagnoses Not on filedocumented in this encounter
--- OUTSIDE RECORDS SUMMARY | 2022-09-09 08:26 | XMS_ITS | Encounter Summary ---
:1965 Author Organization [facility] Address [address] [place] [address] Care Team Providers Name Role Phone Unavailable Primary Care Provider Unavailable Encounter Details Date Type Department Care Team Description 09/23/2009 Hospital Encounter [facility] Zee Collazo M.D. [address] [facility], [place] [address] (Wo rk) Social History Tobacco Use Types Packs/Day Years Used Date Smoking Tobacco: Never Assessed Sex Assigned at Date Recorded Not on file documented as of this encounter Plan of Treatment Not on filedocumented as of this encounter Visit Diagnoses Not on filedocumented in this encounter
--- OUTSIDE RECORDS SUMMARY | 2022-09-09 08:26 | XMS_ITS | Encounter Summary ---
:1965 Author Organization [facility] Address [address] [place] [address] Care Team Providers Name Role Phone Unavailable Primary Care Provider Unavailable Encounter Details Date Type Department Care Team Description 09/15/2009 Hospital Encounter [facility]X [facility] Zee Collazo M.D. [address] [facility], [place] [address] (Wo rk) Social History Tobacco Use Types Packs/Day Years Used Date Smoking Tobacco: Never Assessed Sex Assigned at Date Recorded Not on file documented as of this encounter Plan of Treatment Not on filedocumented as of this encounter Visit Diagnoses Not on filedocumented in this encounter
--- OUTSIDE RECORDS SUMMARY | 2022-09-09 08:26 | XMS_ITS | Encounter Summary ---
:1965 Author Organization [facility] Address [address] [place] [address] Care Team Providers Name Role Phone Unavailable Primary Care Provider Unavailable Encounter Details Date Type Department Care Team Description 06/22/2009 Hospital Encounter HX [facility] CAM INPT/OBSRV Tej Knowles M.D. [address] [place], [place] [address] (Wo rk) Social History Tobacco Use Types Packs/Day Years Used Date Smoking Tobacco: Never Assessed Sex Assigned at Date Recorded Not on file documented as of this encounter Plan of Treatment Not on filedocumented as of this encounter Visit Diagnoses Not on filedocumented in this encounter
--- OUTSIDE RECORDS SUMMARY | 2022-09-09 08:26 | XMS_ITS | Encounter Summary ---
:1965 Author Organization [facility] Address [address] [place] [address] Care Team Providers Name Role Phone Unavailable Primary Care Provider Unavailable Encounter Details Date Type Department Care Team Description 07/17/2009 Hospital Encounter HX [facility] INPT/OBSRV Tej Knowles M.D. [address] [place], [place] [address] (Wo rk) Social History Tobacco Use Types Packs/Day Years Used Date Smoking Tobacco: Never Assessed Sex Assigned at Date Recorded Not on file documented as of this encounter Plan of Treatment Not on filedocumented as of this encounter Visit Diagnoses Not on filedocumented in this encounter
--- OUTSIDE RECORDS SUMMARY | 2022-09-09 08:26 | XMS_ITS | Encounter Summary ---
:1965 Author Organization [facility] Address [address] [place] [address] Care Team Providers Name Role Phone Unavailable Primary Care Provider Unavailable Encounter Details Date Type Department Care Team Description 09/22/2010 Hospital Encounter [facility]X [facility] Zee Collazo M.D. [address] [facility], [place] [address] (Wo rk) Social History Tobacco Use Types Packs/Day Years Used Date Smoking Tobacco: Never Assessed Sex Assigned at Date Recorded Not on file documented as of this encounter Medications at Time of Discharge Medication Sig Dispensed Refills Start Date End Date multivitamin capsule multivitamin 0 09/14/2010 documented as of this encounter Progress Notes Chitra Collazo M.D. - 09/22/2010 12:00 AM CST [id number] HISTORY OF PRESENT ILLNESS Daniel is here for laser therapy of 2 warts on his thumb. See previous dictation. PHYSICAL EXAM SKIN: On the left thumb, the area was anesthetized with 1% lidocaine with epinephrine, a tiny amount, and then pared and there was one area of wart that was curetted. It was then treated with the laser at settings 7, 12, 1.5, and same with the right thumb, although it was not as deep. There were a total of 11 pulses. IMPRESSION / REPORT / PLAN 1) Two warts treated with pulsed dye laser. Care instructions were given. He will follow up again next month. Chitra Collazo M.D. curtis Electronically Signed By:CHITRA COLLAZO MD On 09/28/2010 01:18 PM Source: [facility] MHSDOLBEYNONRADSYS Document Id: [id number] DYEING MACHINE LOADER documented in this encounter Miscellaneous Notes Miscellaneous - Susy Regan, R.M.A. 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 Intake/History Entered On: 09/22/2010 16:06 TOP DYEING MACHINE LOADER Performed On: 09/22/2010 16:06 TOP DYEING MACHINE LOADER by SUSY REGAN Intake Chief Complaint: Laser Systolic Blood Pressure: 120mmHg Diastolic Blood Pressure: 76mmHg NIBP Mean: 91mmHg SUSY REGAN - 09/22/2010 16:06 TOP DYEING MACHINE LOADER Subjective Pain Symptoms: No SUSY REGAN - 09/22/2010 16:06 TOP DYEING MACHINE LOADER Dependent Habits Tobacco Use/Currently Using: No SUSY REGAN - 09/22/2010 16:06 TOP DYEING MACHINE LOADER Allergies Allergies (Active) NKA Estimated Onset Date: Unspecified ; Created By: ISAAC HAYNES; Reaction Status: Active ; Category: Drug ; Substance: NKA ; Type: Allergy ; Updated By: ISAAC HAYNES; Reviewed Date: 09/14/201010:55 TOP DYEING MACHINE LOADER Source: [facility] POWERCHART Document Id: [id number] TOP DYEING MACHINE LOADER!10 DYEING MACHINE LOADER documented in this encounter Plan of Treatment Not on filedocumented as of this encounter Visit Diagnoses Not on filedocumented in this encounter
--- OUTSIDE RECORDS SUMMARY | 2022-09-09 08:26 | XMS_ITS | Encounter Summary ---
:1965 Author Organization [facility] Address [address] [place] [address] Care Team Providers Name Role Phone Unavailable Primary Care Provider Unavailable Encounter Details Date Type Department Care Team Description 03/10/2009 Hospital Encounter HX [facility] CAM INPT/OBSRV Tej Knowles M.D. [address] [place], [place] [address] (Wo rk) Social History Tobacco Use Types Packs/Day Years Used Date Smoking Tobacco: Never Assessed Sex Assigned at Date Recorded Not on file documented as of this encounter Plan of Treatment Not on filedocumented as of this encounter Visit Diagnoses Not on filedocumented in this encounter
--- OUTSIDE RECORDS SUMMARY | 2022-09-09 08:26 | XMS_ITS | Encounter Summary ---
:1965 Author Organization [facility] Address [address] [place] [address] Care Team Providers Name Role Phone Unavailable Primary Care Provider Unavailable Encounter Details Date Type Department Care Team Description 07/15/2009 Hospital Encounter HX [facility] CAM INPT/OBSRV Elena Nye M.D. [address] [facility] [address] [place], [place] [address] [place] [address] (Wo rk) Social History Tobacco Use Types Packs/Day Years Used Date Smoking Tobacco: Never Assessed Sex Assigned at Date Recorded Not on file documented as of this encounter Plan of Treatment Not on filedocumented as of this encounter Visit Diagnoses Not on filedocumented in this encounter
--- OUTSIDE RECORDS SUMMARY | 2022-09-09 08:26 | XMS_ITS | Encounter Summary ---
:1965 Author Organization [facility] Address [address] [place] [address] Care Team Providers Name Role Phone Unavailable Primary Care Provider Unavailable Encounter Details Date Type Department Care Team Description 10/06/2009 Hospital Encounter HX [facility] Oscar Spicer M.D. [address] [place], [place] [phone] (Wo rk) Social History Tobacco Use Types Packs/Day Years Used Date Smoking Tobacco: Never Assessed Sex Assigned at Date Recorded Not on file documented as of this encounter Plan of Treatment Not on filedocumented as of this encounter Visit Diagnoses Not on filedocumented in this encounter
--- OUTSIDE RECORDS SUMMARY | 2022-09-09 08:26 | XMS_ITS | Encounter Summary ---
:1965 Author Organization [facility] Address [address] [place] [address] Care Team Providers Name Role Phone Unavailable Primary Care Provider Unavailable Encounter Details Date Type Department Care Team Description 08/17/2010 Hospital Encounter HX NO MAPPING Bobby Grajeda, P.A.- C. Social History Tobacco Use Types Packs/Day Years Used Date Smoking Tobacco: Never Assessed Sex Assigned at Date Recorded Not on file documented as of this encounter Plan of Treatment Not on filedocumented as of this encounter Visit Diagnoses Not on filedocumented in this encounter
--- OUTSIDE RECORDS SUMMARY | 2022-09-09 08:26 | XMS_ITS | Encounter Summary ---
:1965 Author Organization [facility] Address [address] [place] [address] Care Team Providers Name Role Phone Unavailable Primary Care Provider Unavailable Encounter Details Date Type Department Care Team Description 08/17/2010 Hospital Encounter [facility] INPT/OBSRV Sky Grajeda, P.A.-C. Social History Tobacco Use Types Packs/Day Years Used Date Smoking Tobacco: Never Assessed Sex Assigned at Date Recorded Not on file documented as of this encounter Plan of Treatment Not on filedocumented as of this encounter Visit Diagnoses Not on filedocumented in this encounter
--- OUTSIDE RECORDS SUMMARY | 2022-09-09 08:26 | XMS_ITS | Encounter Summary ---
:1965 Author Organization [facility] Address [address] [place] [address] Care Team Providers Name Role Phone Unavailable Primary Care Provider Unavailable Encounter Details Date Type Department Care Team Description 10/22/[address] [facility] INPT/OBSRV Tej Knowles M.D. [address] [place], [place] [address] (Wo rk) Social History Tobacco Use Types Packs/Day Years Used Date Smoking Tobacco: Never Assessed Sex Assigned at Date Recorded Not on file documented as of this encounter Plan of Treatment Not on filedocumented as of this encounter Visit Diagnoses Not on filedocumented in this encounter
--- OUTSIDE RECORDS SUMMARY | 2022-09-09 08:26 | XMS_ITS | Encounter Summary ---
:1965 Author Organization [facility] Address [address] [place] [address] Care Team Providers Name Role Phone Unavailable Primary Care Provider Unavailable Encounter Details Date Type Department Care Team Description 03/20/2009 Hospital Encounter [facility]X [facility] Zee Collazo M.D. [address] [facility], [place] [address] (Wo rk) Social History Tobacco Use Types Packs/Day Years Used Date Smoking Tobacco: Never Assessed Sex Assigned at Date Recorded Not on file documented as of this encounter Plan of Treatment Not on filedocumented as of this encounter Visit Diagnoses Not on filedocumented in this encounter
--- OUTSIDE RECORDS SUMMARY | 2022-09-09 08:26 | XMS_ITS | Encounter Summary ---
:1965 Author Organization [facility] Address [address] [place] [address] Care Team Providers Name Role Phone Unavailable Primary Care Provider Unavailable Encounter Details Date Type Department Care Team Description 08/04/2010 Hospital Encounter [facility]X [facility] CAM INPT/OBSRV Tej Knowles M.D. [address] [place], [place] [address] (Wo rk) Social History Tobacco Use Types Packs/Day Years Used Date Smoking Tobacco: Never Assessed Sex Assigned at Date Recorded Not on file documented as of this encounter Plan of Treatment Not on filedocumented as of this encounter Visit Diagnoses Not on filedocumented in this encounter
--- OUTSIDE RECORDS SUMMARY | 2022-09-09 08:26 | XMS_ITS | Encounter Summary ---
:1965 Author Organization [facility] Address [address] [place] [address] Care Team Providers Name Role Phone Unavailable Primary Care Provider Unavailable Encounter Details Date Type Department Care Team Description 09/14/2010 Hospital Encounter [facility]X [facility] Zee Collazo M.D. [address] [facility], [place] [address] (Wo rk) Social History Tobacco Use Types Packs/Day Years Used Date Smoking Tobacco: Never Assessed Sex Assigned at Date Recorded Not on file documented as of this encounter Medications at Time of Discharge Medication Sig Dispensed Refills Start Date End Date multivitamin capsule multivitamin 0 09/14/2010 documented as of this encounter Progress Notes Chitra Collazo M.D. - 09/14/2010 12:00 AM CST [id number] HISTORY OF PRESENT ILLNESS Daniel is here because the warts on his thumbs have returned after quite a long hiatus. He would like to have laser therapy again. Unfortunately, the laser is not here today. He also has a rash on his right ankle, which he has been putting Lidex on and wants to make sure that is okay. PHYSICAL EXAM SKIN: Warts are, indeed, returned on both thumbs, and he has a little eczema on his right ankle. IMPRESSION/REPORT/PLAN 1) Verrucae. We will schedule him for laser therapy next Monday. No treatment was done today. 2) Mild eczema. He may use his Lidex, and he will follow up again next week. Chitra Collazo M.D. agb Electronically Signed By:CHITRA COLLAZO MD On 09/21/2010 02:58 PM Source: [facility] MHSDOLBEYNONRADSYS Document Id: [id number] L BRAIDER documented in this encounter Miscellaneous Notes Miscellaneous - Isaac Haynes, L.P.N. 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 Entered On: 09/14/2010 10:55 WHEEL BRAIDER Performed On: 09/14/2010 10:55 WHEEL BRAIDER by ISAAC HAYNES Intake Chief Complaint: Warts on B thumbs ISAAC HAYNES - 09/14/2010 10:55 WHEEL BRAIDER Subjective Pain Symptoms: No ISAAC HAYNES - 09/14/2010 10:55 WHEEL BRAIDER Dependent Habits Tobacco Use/Currently Using: No ISAAC HAYNES - 09/14/2010 10:55 WHEEL BRAIDER Allergies Source: [facility] POWERCHART Document Id: [id number] WHEEL BRAIDER!7 L BRAIDER documented in this encounter Plan of Treatment Not on filedocumented as of this encounter Visit Diagnoses Not on filedocumented in this encounter
--- OUTSIDE RECORDS SUMMARY | 2022-09-09 08:27 | XMS_ITS | Encounter Summary ---
:1965 Author Organization [facility] Address [address] [place] [address] Care Team Providers Name Role Phone Unavailable Primary Care Provider Unavailable Encounter Details Date Type Department Care Team Description 09/30/2008 Hospital Encounter [facility]X [facility] Zee Collazo M.D. [address] [facility], [place] [address] (Wo rk) Social History Tobacco Use Types Packs/Day Years Used Date Smoking Tobacco: Never Assessed Sex Assigned at Date Recorded Not on file documented as of this encounter Plan of Treatment Not on filedocumented as of this encounter Visit Diagnoses Not on filedocumented in this encounter
--- OUTSIDE RECORDS SUMMARY | 2022-09-09 08:27 | XMS_ITS | Encounter Summary ---
:1965 Author Organization [facility] Address [address] [place] [address] Care Team Providers Name Role Phone Unavailable Primary Care Provider Unavailable Encounter Details Date Type Department Care Team Description 04/09/2008 Hospital Encounter HX [facility] CAM INPT/OBSRV Tej Knowles M.D. [address] [place], [place] [address] (Wo rk) Social History Tobacco Use Types Packs/Day Years Used Date Smoking Tobacco: Never Assessed Sex Assigned at Date Recorded Not on file documented as of this encounter Plan of Treatment Not on filedocumented as of this encounter Visit Diagnoses Not on filedocumented in this encounter
--- OUTSIDE RECORDS SUMMARY | 2022-09-09 08:27 | XMS_ITS | Encounter Summary ---
:1965 Author Organization [facility] Address [address] [place] [address] Care Team Providers Name Role Phone Unavailable Primary Care Provider Unavailable Encounter Details Date Type Department Care Team Description 07/29/2008 Hospital Encounter HX [facility] Oscar Spicer M.D. [address], [place] [phone] (Wo rk) Social History Tobacco Use Types Packs/Day Years Used Date Smoking Tobacco: Never Assessed Sex Assigned at Date Recorded Not on file documented as of this encounter Plan of Treatment Not on filedocumented as of this encounter Visit Diagnoses Not on filedocumented in this encounter
--- OUTSIDE RECORDS SUMMARY | 2022-09-09 08:27 | XMS_ITS | Encounter Summary ---
:1965 Author Organization [facility] Address [address] [place] [address] Care Team Providers Name Role Phone Unavailable Primary Care Provider Unavailable Encounter Details Date Type Department Care Team Description 02/03/[address] [facility] CAM INPT/OBSRV Tej Knowles M.D. [address] [place], [place] [address] (Wo rk) Social History Tobacco Use Types Packs/Day Years Used Date Smoking Tobacco: Never Assessed Sex Assigned at Date Recorded Not on file documented as of this encounter Plan of Treatment Not on filedocumented as of this encounter Visit Diagnoses Not on filedocumented in this encounter
--- OUTSIDE RECORDS SUMMARY | 2022-09-09 08:27 | XMS_ITS | Encounter Summary ---
:1965 Author Organization [facility] Address [address] [place] [address] Care Team Providers Name Role Phone Unavailable Primary Care Provider Unavailable Encounter Details Date Type Department Care Team Description 01/19/2004 Hospital Encounter HX [facility] Oscar Spicer M.D. [address], [place] [phone] (Wo rk) Social History Tobacco Use Types Packs/Day Years Used Date Smoking Tobacco: Never Assessed Sex Assigned at Date Recorded Not on file documented as of this encounter Plan of Treatment Not on filedocumented as of this encounter Visit Diagnoses Not on filedocumented in this encounter
--- OUTSIDE RECORDS SUMMARY | 2022-09-09 08:27 | XMS_ITS | Encounter Summary ---
:1965 Author Organization [facility] Address [address] [place] [address] Care Team Providers Name Role Phone Unavailable Primary Care Provider Unavailable Encounter Details Date Type Department Care Team Description 09/22/2008 Hospital Encounter HX [facility] INPT/OBSRV Tej Knowles M.D. [address] [place], [place] [address] (Wo rk) Social History Tobacco Use Types Packs/Day Years Used Date Smoking Tobacco: Never Assessed Sex Assigned at Date Recorded Not on file documented as of this encounter Plan of Treatment Not on filedocumented as of this encounter Visit Diagnoses Not on filedocumented in this encounter
--- OUTSIDE RECORDS SUMMARY | 2022-09-09 08:27 | XMS_ITS | Encounter Summary ---
:1965 Author Organization [facility] Address [address] [place] [address] Care Team Providers Name Role Phone Unavailable Primary Care Provider Unavailable Encounter Details Date Type Department Care Team Description 04/01/2008 Hospital Encounter HX [facility] CAM INPT/OBSRV Tej Knowles M.D. [address] [place], [place] [address] (Wo rk) Social History Tobacco Use Types Packs/Day Years Used Date Smoking Tobacco: Never Assessed Sex Assigned at Date Recorded Not on file documented as of this encounter Plan of Treatment Not on filedocumented as of this encounter Visit Diagnoses Not on filedocumented in this encounter
--- OUTSIDE RECORDS SUMMARY | 2022-09-09 08:27 | XMS_ITS | Encounter Summary ---
:1965 Author Organization [facility] Address [address] [place] [address] Care Team Providers Name Role Phone Unavailable Primary Care Provider Unavailable Encounter Details Date Type Department Care Team Description 04/23/2004 Hospital Encounter [facility]X [facility] DERM Zee Collazo M.D. [address] [facility], [place] [address] (Wo rk) Social History Tobacco Use Types Packs/Day Years Used Date Smoking Tobacco: Never Assessed Sex Assigned at Date Recorded Not on file documented as of this encounter Plan of Treatment Not on filedocumented as of this encounter Visit Diagnoses Not on filedocumented in this encounter
--- OUTSIDE RECORDS SUMMARY | 2022-09-09 08:27 | XMS_ITS | Encounter Summary ---
:1965 Author Organization [facility] Address [address] [place] [address] Care Team Providers Name Role Phone Unavailable Primary Care Provider Unavailable Encounter Details Date Type Department Care Team Description 03/30/2004 Hospital [facility] Ernie Bear M[facility]. [address] [place], [place] [address] (Wo rk) Social History Tobacco Use Types Packs/Day Years Used Date Smoking Tobacco: Never Assessed Sex Assigned at Date Recorded Not on file documented as of this encounter Plan of Treatment Not on filedocumented as of this encounter Visit Diagnoses Not on filedocumented in this encounter
--- OUTSIDE RECORDS SUMMARY | 2022-09-09 08:27 | XMS_ITS | Encounter Summary ---
:1965 Author Organization [facility] Address [address] [place] [address] Care Team Providers Name Role Phone Unavailable Primary Care Provider Unavailable Encounter Details Date Type Department Care Team Description 10/20/2003 Hospital [facility] Ernie Bear M.D. [address] [place], [place] [address] (Wo rk) Social History Tobacco Use Types Packs/Day Years Used Date Smoking Tobacco: Never Assessed Sex Assigned at Date Recorded Not on file documented as of this encounter Plan of Treatment Not on filedocumented as of this encounter Visit Diagnoses Not on filedocumented in this encounter
--- OUTSIDE RECORDS SUMMARY | 2022-09-09 08:27 | XMS_ITS | Encounter Summary ---
:[address] [facility] Address [address] [place] [address] Care Team Providers Name Role Phone Unavailable Primary Care Provider Unavailable Encounter Details Date Type Department Care Team Description 12/13/2007 Hospital Encounter HX [facility] CAM INPT/OBSRV Tej Knowles M.D. [address] [place], [place] [address] (Wo rk) Social History Tobacco Use Types Packs/Day Years Used Date Smoking Tobacco: Never Assessed Sex Assigned at Date Recorded Not on file documented as of this encounter Plan of Treatment Not on filedocumented as of this encounter Visit Diagnoses Not on filedocumented in this encounter
--- OUTSIDE RECORDS SUMMARY | 2022-09-09 08:27 | XMS_ITS | Encounter Summary ---
:1965 Author Organization [facility] Address [address] [place] [address] Care Team Providers Name Role Phone Unavailable Primary Care Provider Unavailable Encounter Details Date Type Department Care Team Description 08/01/2008 Hospital Encounter [facility]X [facility] DERM Zee Collazo M.D. [address] [facility], [place] [address] (Wo rk) Social History Tobacco Use Types Packs/Day Years Used Date Smoking Tobacco: Never Assessed Sex Assigned at Date Recorded Not on file documented as of this encounter Plan of Treatment Not on filedocumented as of this encounter Visit Diagnoses Not on filedocumented in this encounter
--- OUTSIDE RECORDS SUMMARY | 2022-09-09 08:27 | XMS_ITS | Encounter Summary ---
:1965 Author Organization [facility] Address [address] [place] [address] Care Team Providers Name Role Phone Unavailable Primary Care Provider Unavailable Encounter Details Date Type Department Care Team Description 05/21/2008 Hospital Encounter HX NO MAPPING Tadeo Aggarwal M.D. Social History Tobacco Use Types Packs/Day Years Used Date Smoking Tobacco: Never Assessed Sex Assigned at Date Recorded Not on file documented as of this encounter Plan of Treatment Not on filedocumented as of this encounter Visit Diagnoses Not on filedocumented in this encounter
--- OUTSIDE RECORDS SUMMARY | 2022-09-09 08:27 | XMS_ITS | Encounter Summary ---
:1965 Author Organization [facility] Address [address] [place] [address] Care Team Providers Name Role Phone Unavailable Primary Care Provider Unavailable Encounter Details Date Type Department Care Team Description 02/17/2009 Hospital Encounter [facility] Zee Collazo M.D. [address] [facility], [place] [address] (Wo rk) Social History Tobacco Use Types Packs/Day Years Used Date Smoking Tobacco: Never Assessed Sex Assigned at Date Recorded Not on file documented as of this encounter Plan of Treatment Not on filedocumented as of this encounter Visit Diagnoses Not on filedocumented in this encounter
--- OUTSIDE RECORDS SUMMARY | 2022-09-09 08:27 | XMS_ITS | Encounter Summary ---
:1965 Author Organization [facility] Address [address] [place] [address] Care Team Providers Name Role Phone Unavailable Primary Care Provider Unavailable Encounter Details Date Type Department Care Team Description 01/19/2004 Hospital Encounter HX [facility] ED Provider, Jt estrella Social History Tobacco Use Types Packs/Day Years Used Date Smoking Tobacco: Never Assessed Sex Assigned at Date Recorded Not on file documented as of this encounter Plan of Treatment Not on filedocumented as of this encounter Visit Diagnoses Not on filedocumented in this encounter
--- OUTSIDE RECORDS SUMMARY | 2022-09-09 08:27 | XMS_ITS | Encounter Summary ---
:1965 Author Organization [facility] Address [address] [place] [address] Care Team Providers Name Role Phone Unavailable Primary Care Provider Unavailable Encounter Details Date Type Department Care Team Description 11/05/2008 Hospital Encounter [facility] Zee Collazo M.D. [address] [facility], [place] [address] (Wo rk) Social History Tobacco Use Types Packs/Day Years Used Date Smoking Tobacco: Never Assessed Sex Assigned at Date Recorded Not on file documented as of this encounter Plan of Treatment Not on filedocumented as of this encounter Visit Diagnoses Not on filedocumented in this encounter
--- OUTSIDE RECORDS SUMMARY | 2022-09-09 08:27 | XMS_ITS | Encounter Summary ---
:1965 Author Organization [facility] Address [address] [place] [address] Care Team Providers Name Role Phone Unavailable Primary Care Provider Unavailable Encounter Details Date Type Department Care Team Description 09/03/2008 Hospital Encounter HX [facility] CAM INPT/OBSRV Tej Knowles M.D. [address] [place], [place] [address] (Wo rk) Social History Tobacco Use Types Packs/Day Years Used Date Smoking Tobacco: Never Assessed Sex Assigned at Date Recorded Not on file documented as of this encounter Plan of Treatment Not on filedocumented as of this encounter Visit Diagnoses Not on filedocumented in this encounter
--- OUTSIDE RECORDS SUMMARY | 2022-09-09 08:27 | XMS_ITS | Encounter Summary ---
:1965 Author Organization [facility] Address [address] [place] [address] Care Team Providers Name Role Phone Unavailable Primary Care Provider Unavailable Encounter Details Date Type Department Care Team Description 03/22/2004 Hospital [facility] Ernie Bear M.[facility]. [address] [place], [place] [address] (Wo rk) Social History Tobacco Use Types Packs/Day Years Used Date Smoking Tobacco: Never Assessed Sex Assigned at Date Recorded Not on file documented as of this encounter Plan of Treatment Not on filedocumented as of this encounter Visit Diagnoses Not on filedocumented in this encounter
--- OUTSIDE RECORDS SUMMARY | 2022-09-09 08:27 | XMS_ITS | Encounter Summary ---
:1965 Author Organization [facility] Address [address] [place] [address] Care Team Providers Name Role Phone Unavailable Primary Care Provider Unavailable Encounter Details Date Type Department Care Team Description 01/06/2009 Hospital Encounter [facility] Zee Collazo M.D. [address] [facility], [place] [address] (Wo rk) Social History Tobacco Use Types Packs/Day Years Used Date Smoking Tobacco: Never Assessed Sex Assigned at Date Recorded Not on file documented as of this encounter Plan of Treatment Not on filedocumented as of this encounter Visit Diagnoses Not on filedocumented in this encounter
--- OUTSIDE RECORDS SUMMARY | 2022-09-09 08:27 | XMS_ITS | Encounter Summary ---
:1965 Author Organization [facility] Address [address] [place] [address] Care Team Providers Name Role Phone Unavailable Primary Care Provider Unavailable Encounter Details Date Type Department Care Team Description 04/01/2008 Hospital Encounter HX [facility] CAM INPT/OBSRV Tej Knowles M.D. [address] [place], [place] [address] (Wo rk) Social History Tobacco Use Types Packs/Day Years Used Date Smoking Tobacco: Never Assessed Sex Assigned at Date Recorded Not on file documented as of this encounter Plan of Treatment Not on filedocumented as of this encounter Visit Diagnoses Not on filedocumented in this encounter
--- OUTSIDE RECORDS SUMMARY | 2022-09-09 08:27 | XMS_ITS | Encounter Summary ---
:1965 Author Organization [facility] Address [address] [place] [address] Care Team Providers Name Role Phone Unavailable Primary Care Provider Unavailable Encounter Details Date Type Department Care Team Description 05/21/2008 Hospital Encounter [facility] INPT/OBSRV Akua Aggarwal M.D. Social History Tobacco Use Types Packs/Day Years Used Date Smoking Tobacco: Never Assessed Sex Assigned at Date Recorded Not on file documented as of this encounter Plan of Treatment Not on filedocumented as of this encounter Visit Diagnoses Not on filedocumented in this encounter
--- OUTSIDE RECORDS SUMMARY | 2022-09-09 08:27 | XMS_ITS | Encounter Summary ---
:1965 Author Organization [facility] Address [address] [place] [address] Care Team Providers Name Role Phone Unavailable Primary Care Provider Unavailable Encounter Details Date Type Department Care Team Description 05/21/2008 Hospital Encounter HX [facility] CAM INPT/OBSRV Tej Knowles M.D. [address] [place], [place] [address] (Wo rk) Social History Tobacco Use Types Packs/Day Years Used Date Smoking Tobacco: Never Assessed Sex Assigned at Date Recorded Not on file documented as of this encounter Plan of Treatment Not on filedocumented as of this encounter Visit Diagnoses Not on filedocumented in this encounter
--- OUTSIDE RECORDS SUMMARY | 2022-09-09 08:27 | XMS_ITS | Encounter Summary ---
:1965 Author Organization [facility] Address [address] [place] [address] Care Team Providers Name Role Phone Unavailable Primary Care Provider Unavailable Encounter Details Date Type Department Care Team Description 09/02/2008 Hospital Encounter [facility] Zee Collazo M.D. [address] [facility], [place] [address] (Wo rk) Social History Tobacco Use Types Packs/Day Years Used Date Smoking Tobacco: Never Assessed Sex Assigned at Date Recorded Not on file documented as of this encounter Plan of Treatment Not on filedocumented as of this encounter Visit Diagnoses Not on filedocumented in this encounter
--- OUTSIDE RECORDS SUMMARY | 2022-09-09 08:27 | XMS_ITS | Encounter Summary ---
:1965 Author Organization [facility] Address [address] [place] [address] Care Team Providers Name Role Phone Unavailable Primary Care Provider Unavailable Encounter Details Date Type Department Care Team Description 12/15/2003 Hospital [facility] Ernie Bear M.D. [address] [place], [place] [address] (Wo rk) Social History Tobacco Use Types Packs/Day Years Used Date Smoking Tobacco: Never Assessed Sex Assigned at Date Recorded Not on file documented as of this encounter Plan of Treatment Not on filedocumented as of this encounter Visit Diagnoses Not on filedocumented in this encounter
--- OUTSIDE RECORDS SUMMARY | 2022-09-09 08:27 | XMS_ITS | Encounter Summary ---
:1965 Author Organization [facility] Address [address] [place] [address] Care Team Providers Name Role Phone Unavailable Primary Care Provider Unavailable Encounter Details Date Type Department Care Team Description 12/09/2008 Hospital Encounter [facility] Zee Collazo M.D. [address] [facility], [place] [address] (Wo rk) Social History Tobacco Use Types Packs/Day Years Used Date Smoking Tobacco: Never Assessed Sex Assigned at Date Recorded Not on file documented as of this encounter Plan of Treatment Not on filedocumented as of this encounter Visit Diagnoses Not on filedocumented in this encounter
--- OUTSIDE RECORDS SUMMARY | 2022-09-09 08:27 | XMS_ITS | Encounter Summary ---
:1965 Author Organization [facility] Address [address] [place] [address] Care Team Providers Name Role Phone Unavailable Primary Care Provider Unavailable Encounter Details Date Type Department Care Team Description 01/03/2006 Hospital Encounter [facility]X [facility] Oscar Spicer M.D. [address], [place] [phone] (Wo rk) Social History Tobacco Use Types Packs/Day Years Used Date Smoking Tobacco: Never Assessed Sex Assigned at Date Recorded Not on file documented as of this encounter Plan of Treatment Not on filedocumented as of this encounter Visit Diagnoses Not on filedocumented in this encounter
--- OUTSIDE RECORDS SUMMARY | 2022-09-09 08:28 | XMS_ITS | Encounter Summary ---
:1965 Author Organization [facility] Address [address] [place] [address] Care Team Providers Name Role Phone Unavailable Primary Care Provider Unavailable Encounter Details Date Type Department Care Team Description 12/06/2002 Hospital Encounter [facility] Oscar Spicer M.D. [address], [place] [phone] (Wo rk) Social History Tobacco Use Types Packs/Day Years Used Date Smoking Tobacco: Never Assessed Sex Assigned at Date Recorded Not on file documented as of this encounter Plan of Treatment Not on filedocumented as of this encounter Visit Diagnoses Not on filedocumented in this encounter
--- OUTSIDE RECORDS SUMMARY | 2022-09-09 08:28 | XMS_ITS | Encounter Summary ---
:1965 Author Organization [facility] Address [address] [place] [address] Care Team Providers Name Role Phone Unavailable Primary Care Provider Unavailable Encounter Details Date Type Department Care Team Description 06/26/2001 Hospital Encounter [facility]X [facility] Zee Collazo M.D. [address] [facility], [place] [address] (Wo rk) Social History Tobacco Use Types Packs/Day Years Used Date Smoking Tobacco: Never Assessed Sex Assigned at Date Recorded Not on file documented as of this encounter Plan of Treatment Not on filedocumented as of this encounter Visit Diagnoses Not on filedocumented in this encounter
--- OUTSIDE RECORDS SUMMARY | 2022-09-09 08:28 | XMS_ITS | Encounter Summary ---
:1965 Author Organization [facility] Address [address] [place] [address] Care Team Providers Name Role Phone Unavailable Primary Care Provider Unavailable Encounter Details Date Type Department Care Team Description 11/19/2002 Hospital Encounter [facility]X [facility] Zee Collazo M.D. [address] [facility], [place] [address] (Wo rk) Social History Tobacco Use Types Packs/Day Years Used Date Smoking Tobacco: Never Assessed Sex Assigned at Date Recorded Not on file documented as of this encounter Plan of Treatment Not on filedocumented as of this encounter Visit Diagnoses Not on filedocumented in this encounter
--- OUTSIDE RECORDS SUMMARY | 2022-09-09 08:28 | XMS_ITS | Encounter Summary ---
:1965 Author Organization [facility] Address [address] [place] [address] Care Team Providers Name Role Phone Unavailable Primary Care Provider Unavailable Encounter Details Date Type Department Care Team Description 09/17/2003 Hospital [facility] Ernie Bear M.[facility]. [address] [place], [place] [address] (Wo rk) Social History Tobacco Use Types Packs/Day Years Used Date Smoking Tobacco: Never Assessed Sex Assigned at Date Recorded Not on file documented as of this encounter Plan of Treatment Not on filedocumented as of this encounter Visit Diagnoses Not on filedocumented in this encounter
--- OUTSIDE RECORDS SUMMARY | 2022-09-09 08:28 | XMS_ITS ---
:1965 External Reference #:[id number] Author Care Team Providers Name Role Phone Fer Urbina Primary Care Provider Unavailable Allergies Code Code System Name Reaction Severity Status Onset NKDA ? Medications Name Status Start Date Stop Date ? ? amlodipine 5 mg tablet Active ? Not avail able amoxicillin 500 mg capsule Active ? Not a vailable azithromycin 250 mg tablet Active ? Not a vailable cephalexin 500 mg capsule Active ? Not av ailable doxycycline hyclate 100 mg capsule Active ? Not available TAKE ONE CAPSULE BY MOUTH TWICE DAILY Fluzone Quad 6215-4815 60 mcg (15 mcg x 4)/0.5 mL Active ? Not available intramuscular susp. Guaiatussin AC 10 mg-100 mg/5 mL oral liquid Active ? Not available hydrocodone 5 mg-acetaminophen 325 mg tablet Active ? Not available ihealth 2-pk kit covid-19 Active ? Not av ailable lisinopril 40 mg tablet Active ? Not avai lable mupirocin 2 % topical ointment Active ? N ot available prednisone 20 mg tablet Active ? Not avai lable Shingrix (PF) 50 mcg/0.5 mL intramuscular suspension, kit Active ? Not available triamcinolone acetonide 0.1 % topical cream Active ? Not available Ventolin HFA 90 mcg/actuation aerosol inhaler Active ? Not available Xepi 1 % topical cream Active ? Not avail able APPLY A THIN LAYER TO THE AFFECTED AREA (S) BY TOPICAL ROUTE 2 TIMES PER DAY FOR 5 DAYS Problems None recorded. Procedures None recorded. Results Lab Results None recorded. Past Encounters 08/20/2022 [place] - Lesion Fer Urbina MD: [address], [facility] [[email or web address] [place] [address], Ph. 03/19/2022 [facility] Fer Urbina MD: [address], [facility] [[email or web address] [place] [address], Ph. 06/19/2021 [facility] Fer Urbina MD: [address], [place] [address], Ph. Social History None recorded. Vaccine List None recorded. Plan of Care Reminders Provider Appointments None recorded. ? ? Lab None recorded. ? ? Referral None recorded. ? ? Procedures None recorded. ? ? Surgeries None recorded. ? ? Imaging None recorded. ? ? Vitals None recorded.
--- OUTSIDE RECORDS SUMMARY | 2022-09-09 08:28 | XMS_ITS | Encounter Summary ---
:1965 Author Organization [facility] Address [address] [place] [address] Care Team Providers Name Role Phone Unavailable Primary Care Provider Unavailable Encounter Details Date Type Department Care Team Description 05/07/2001 Hospital Encounter [facility]X [facility] Oscar Spicer M.D. [address], [place] [phone] (Wo rk) Social History Tobacco Use Types Packs/Day Years Used Date Smoking Tobacco: Never Assessed Sex Assigned at Date Recorded Not on file documented as of this encounter Plan of Treatment Not on filedocumented as of this encounter Visit Diagnoses Not on filedocumented in this encounter
--- OUTSIDE RECORDS SUMMARY | 2022-09-09 08:28 | XMS_ITS | Encounter Summary ---
:1965 Author Organization [facility] Address [address] [place] [address] Care Team Providers Name Role Phone Unavailable Primary Care Provider Unavailable Encounter Details Date Type Department Care Team Description 09/18/2002 Hospital Encounter [facility]X [facility] Oscar Spicer M.D. [address], [place] [phone] (Wo rk) Social History Tobacco Use Types Packs/Day Years Used Date Smoking Tobacco: Never Assessed Sex Assigned at Date Recorded Not on file documented as of this encounter Plan of Treatment Not on filedocumented as of this encounter Visit Diagnoses Not on filedocumented in this encounter
--- OUTSIDE RECORDS SUMMARY | 2022-09-09 08:28 | XMS_ITS | Encounter Summary ---
:1965 External Reference #:[id number] Author Reason for Visit None recorded. Assessment and Plan Assessment Note 1. Previous wart. With scarring and sli ght retention hyperkeratosis discussed etiology. Recommend Eucerin roughness relief spot treatment Follow-up as needed 1. [place] - lesion Discussion Note: None recorded.Patient educational handouts: No information available. Plan of Care Reminders Provider Appointments None recorded. ? ? Lab None recorded. ? ? Referral None recorded. ? ? Procedures None recorded. ? ? Surgeries None recorded. ? ? Imaging None recorded. ? ? Medications Name Start Date ? ? amlodipine 5 mg tablet ? amoxicillin 500 mg capsule ? azithromycin 250 mg tablet ? cephalexin 500 mg capsule ? Take 1 capsule twice a day by oral route for 10 days. doxycycline hyclate 100 mg capsule ? TAKE ONE CAPSULE BY MOUTH TWICE DAILY Fluzone Quad 7933-2928 60 mcg (15 mcg x 4)/0.5 mL intr amuscular susp. ? Guaiatussin AC 10 mg-100 mg/5 mL oral liquid ? hydrocodone 5 mg-acetaminophen 325 mg tablet ? ihealth 2-pk kit covid-19 ? lisinopril 40 mg tablet ? mupirocin 2 % topical ointment ? APPLY A SMALL AMOUNT TO THE AFFECTED AR EA BY TOPICAL ROUTE 3 TIMES PER DAY FOR 3 WEEKS prednisone 20 mg tablet ? Shingrix (PF) 50 mcg/0.5 mL intramuscular suspension, kit ? triamcinolone acetonide 0.1 % topical cream ? Ventolin HFA 90 mcg/actuation aerosol inhaler ? Xepi 1 % topical cream ? APPLY A THIN LAYER TO THE AFFECTED AREA (S) BY TOPICAL ROUTE 2 TIMES PER DAY FOR 5 DAYS Medications Administered None recorded. Vitals None recorded. Results Lab Results None recorded. Allergies Code Code System Name Reaction Severity Onset NKDA ? ? ? Problems None recorded. Procedures None recorded. Vaccine List None recorded. Social History None recorded. Functional Status Unknown. Past Encounters 08/20/2022 [place] - Lesion Fer Urbina MD: [address], [facility] [place] [address], Ph. History of Present Illness Note: <span>Returns with a recalcitrant wart he wonders if it still there there is a slight depression on his volar toe and some scaling</span> Review of Systems None recorded. Physical Exam ? Notes: <span>There is a slight scar ring depression there is retention hyperkeratosis there is no verrucous papule .</span>
[2022-09-09 10:01] LABS: Albumin* 4.2 g/dL (3.3-5.0)
[2022-09-09 10:02] LABS: Chloride* 101 mmol/L (96-114); Potassium* 4.3 mmol/L (3.6-5.1); Sodium* 137 mmol/L (135-149)
[2022-09-09 10:04] LABS: Aspartate Amino Transferase* 53 U/L (12-35); Bilirubin Total* 1.2 mg/dL (0.1-1.5); Blood Urea Nitrogen* 27 mg/dL (7-30); Carbon Dioxide* 28 mmol/L (20-32); Cholesterol* 174 mg/dL (90-199); Creatinine* 1.2 mg/dL (0.5-1.5); Estimated Glomerular Filt Rate 70 ml/min; Total Protein* 6.9 g/dL (6.0-8.3)
[2022-09-09 10:05] LABS: Alanine Aminotransferase* 45 U/L (4-50); Alkaline Phosphatase* 62 U/L (40-150); Calcium* 8.9 mg/dL (8.4-10.6); Glucose* 80 mg/dL (60-115); HDL Cholesterol* 42 mg/dL (>=40); LDL Cholesterol Calculated 120 mg/dL (<100); Triglycerides* 62 mg/dL (40-149)
[2022-09-09 10:36] LABS: PSA Screen* 3.68 ng/mL (0.10-4.00)
== END 2022-09-09 07:21 | disposition home or self-care (01) ==
PROVIDERS: PCP Family Medicine; Visit Provider Family Medicine
DX: Z00.00 Encounter for general adult medical examination without abnormal findings (principal); E78.5 Hyperlipidemia, unspecified; Z12.5 Encounter for screening for malignant neoplasm of prostate
CPT/HCPCS: 80053; 80061; 84153

== ENCOUNTER 2023-09-20 07:40 | Outpatient (CLI) | payer BC, SELFPAY | END 2023-09-20 07:41 | disposition home or self-care (01) | LOC: NFLDREF 09-26 11:17 | PROVIDERS: PCP Family Medicine; Referring Provider Family Medicine; Visit Provider Family Medicine | DX: Z00.00 Encounter for general adult medical examination without abnormal findings (principal); E78.5 Hyperlipidemia, unspecified; Z12.5 Encounter for screening for malignant neoplasm of prostate | CPT/HCPCS: 80053; 80061; 84153 ==

== ENCOUNTER 2024-05-01 15:28 | Outpatient (CLI) | payer BC, SELFPAY ==
--- OUTSIDE RECORDS SUMMARY | 2024-05-01 15:31 | XMS_ITS | Clinical Summary ---
Author Organization [facility] Address [place], [place] [address] Care Team Providers Care Head Cashier Name Role Phone Gee Knowles MD Primary Care Provider [phone] Allergies No known active allergies Medications Medication Sig Dispensed Refills Start Date End Date Status MULTI-VITAMIN ORAL TAB one tablet daily ? 0 03/31/2004 Active amLODIPine (NORVASC) 5 mg tablet Take 1 tablet by mouth once daily. 0 09/17/2013 Active lisinopril (PRINIVIL; ZESTRIL) 40 mg tablet Take 1 tablet by mouth once daily. 0 09/17/2013 Active Cholecalciferol, Vitamin D3, 2,000 unit tablet Take 4,000 Units by mouth once daily. Active diclofenac (VOLTAREN) 75 mg delayed-release tabletIndications:Ravin dionne follow-up Take 1 tablet by mouth 2 times daily with meals. 60 tablet 1 09/04/2014 Active Active Problems Problem Noted Date Diagnosed Date Chest pain, unspecified Unspecified essential hypertension Immunizations Name Administration Dates Next Due AMB Influenza, IIV4 PF (=>6 mos Flulaval,Fluzone Fluarix)(Flu Clinic Only) 08/29/2017 Influenza, IIV4 09/17/2018 Family History Medical History Relation Name Comments Genetic Other Both his father and brother had hypertension. Exercise - he walks occasionally 30 minutes. ~~There is no premature atherosclerotic heart disease in his family. Relation Name Status Comments Other Social History Tobacco Use Types Packs/Day Years Used Date Smoking Tobacco: Never Alcohol Use Standard Drinks/Week Comments No 0 (1 standard drink = 0.6 oz pur e alcohol) Sex and Gender Information Value Date Recorded Sex Assigned at Not on file Gender Identity Not on file Sexual Orientation Not on file Obstetrics History Last Filed Vital Signs Vital Sign Reading Time Taken Comments Blood Pressure 138/78 09/04/2014 11:35 AM CDT Pulse 65 12/20/2013 11:20 AM TIE PULLER Temperature 36.7 ??C (98 ??F) 12/20/2013 10:45 AM TIE PULLER Respiratory Rate 16 12/20/2013 11:20 AM TIE PULLER Oxygen Saturation 98% 12/20/2013 11:20 AM TIE PULLER Inhaled Oxygen Concentration - - Weight 115.2 kg (254 lb) 12/20/2013 6:50 AM TIE PULLER Height 189.2 cm (6' 2.49) 12/20/2013 6:50 AM CS T Body Mass Index 32.19 12/20/2013 6:50 AM TIE PULLER Plan of Treatment Health Maintenance Due Date Last Done Comments Tdap 1974 Depression screening for age 12+ 1975 HIV for age 15-65 1978 BMI (ht and wt on same day) for age 18+ 1981 Hepatitis C screening for ag e 18-79 1981 Tetanus booster 1983 Colonoscopy through age 75 2008 Lipids for age 45-75 2008 Zoster (shingles) series for age 50+ (1 of 2) 2013 COVID-19 vaccine series ( - 2022- season) 2023 Influenza for age 50-64 2024 09/17/20 18, 08/29/2017 Pneumococcal series for age 6-64 Aged Out No longer eligible b ased on patient's age to complete this topic Medical Devices Implanted Type Area Academic Associate Device Identifier Shelf Expiration Date Model / Serial / Lot [place], Polysorb 3mm [id number] - [id number] Implanted:Qty: 2 on 12/20/2013 by Say Hong DPM at [facility] Right: Foot R-AUTO SUTURE [id number] / / [id number] Advance Directives * Full Code (Latest Code Status on File) Date Activated Date Inactivated Comments 12/20/2013 11:03 AM 12/20/2013 4:43 PM * Full Code Date Activated Date Inactivated Comments 12/20/2013 6:22 AM 12/20/2013 11:03 AM Care Teams Head Cashier Relationship Specialty Start Date End Date Gee Knowles MD PCP - General Family Practice 12/20/13
--- OUTSIDE RECORDS SUMMARY | 2024-05-01 15:32 | XMS_ITS ---
Author Organization [facility] Address [address] [place] [address] Care Team Providers Care Children'S Lunchroom Supervisor Name Role Phone Unavailable Unavailable Unavailable Surgery Details Not on file Complications Check Surgery Details section. Procedure Estimated Blood Loss Check Surgery Details section. Procedure Findings Check Surgery Details section. Procedure Specimens Taken Check Surgery Details section.
--- OUTSIDE RECORDS SUMMARY | 2024-05-01 15:32 | XMS_ITS | Data Portability ---
Author Organization [place] - [facility], Main Office Address [address] [facility] [address] [place] [address] Assessment Encounter Date Assessment Date Assessment LastModified by Organization Details LastModified Time 09/14/2019 09/14/2019 Verruca plantari s markedly improved after intralesional Lo minimal persistent. 2. Periungual verruca vulgaris on the thumbs questionable recurrence. Discussed options. Anesthetized the toe 1% lidocaine with epinephrine lightly elective desiccation curettage. Start Eucerin roughness relief Spot treatment in 5 days for 3 weeks twice daily. Recommend Eucerin roughness relief Spot treatment to the periungual regions for 3 weeks. Follow-up 3 weeks. API-69 Not available 09/15/2019 00:27:25 10/26/2019 10/26/2019 1. Folliculitis. 2. Questionable history of staph around the nose. 3. Questionable impetigo periungual regions. 4. History of warts. Discussed etiologies. Clinically today I do not see warts I do see what concerns me for folliculitis questionable history of being a staph aureus carrier. We have chosen to start Xepi daily to twice daily for 5 days to the nose under the nails in the affected areas. Including the periorbital regions. Follow-up here in 1 to 2 months. API-69 Not available 10/26/2019 16:04:47 06/19/2021 06/19/2021 Verruca plantari s right volar great toe recalcitrant. Discussed options anesthetized 1% lidocaine with epinephrine cleansed. E D&C x6 cycles. Cautery performed. Pressure dressing applied. Wound care instructions given. In about 1 week he will institute Efudex nightly off label. Discussed redness soreness and inflammation. He will do this for 2 months follow-up as needed API-69 Not available 06/19/2021 10:29:38 03/19/2022 03/19/2022 1. Verruca plantaris. Cleansed with alcohol anesthetized 1% lidocaine with epinephrine light electrodesiccation and curettage performed. Given Xepi sample supply twice daily. Follow-up as needed [email or web address]-69 Not available 03/20/2022 22:37:27 08/20/2022 08/20/2022 1. Previous wart . With scarring and slight retention hyperkeratosis discussed etiology. Recommend Eucerin roughness relief spot treatment Follow-up as needed API-69 Not available 08/21/2022 11:10:47 Plan of Treatment Reminders Order Date Submit Date Provider Last Modified By Organization Details Last Modified Time Details Appointments None recorded. Lab None recorded. Referral None recorded. Procedures None recorded. Surgeries None recorded. Imaging None recorded. Medication Orders mupirocin 2 % topical ointment [address] [facility] [address] [facility] [address] [place] [address], [id number], 9 22:38:47 Keflex 500 mg capsule [address] [facility] [address] [facility] [address] [place] [address], [id number], 9 22:38:47 Xepi 1 % topical cream 2018 019 [facility], [address] [place] [address] , [place], [place], [id number], 9 12:05:01 Patient TargetsNo targets recorded. Patient Instructions Encounter Date Encounter Id Patient Instructions Last Modified By Organization Details Last Modified Time 09/14/2019 [id number] warts: care instructions Not available 09/26/2019 22:55:14 06/19/2021 [id number] warts: care instructions Not available 06/19/2021 10:31:09 03/19/2022 [id number] warts: care instructions Not available 03/20/2022 23:04:47 Reason for Referral None Reported. Medical Equipment None Reported. Allergies No known drug allergies Medications Name Sig Start Date Stop Date Status Note LastModified by Organization Details LastModified Time [facility] 2-pk kit covid-19 active Not Available Not Available Not Available amoxicillin 500 mg capsule active Not Available Not Availab le Not Available doxycycline hyclate 100 mg capsule TAKE ONE CAPSULE BY MOUTH TWICE DAILY active Not Available Not Available No t Available azithromycin 250 mg tablet active Not Available Not Availabl e Not Available hydrocodone 5 mg-acetaminoph en 325 mg tablet active Not Available Not Available Not Available prednisone 20 mg tablet active Not Available Not Available No t Available amlodipine 5 mg tablet active Not Available Not Available No t Available triamcinolone acetonide 0.1 % topical cream active Not Available Not Available Not Available Guaiatussin AC 10 mg-100 mg/5 mL oral liquid active Not Available Not Availab le Not Available cephalexin 500 mg capsule Take 1 capsule twice a day by oral route for 10 days. active Not Available Not Available No t Available mupirocin 2 % topical ointment APPLY A SMALL AMOUNT TO THE AFFECTED AREA BY TOPICAL ROUTE 3 TIMES PER DAY FOR 3 WEEKS active Not Available Not Available No t Available lisinopril 40 mg tablet active Not Available Not Available No t Available Ventolin HFA 90 mcg/actuation aerosol inhaler active Not Available Not Available Not Available Shingrix (PF) 50 mcg/0.5 mL intramuscular suspension, kit active Not Available Not Available Not Available Xepi 1 % topical cream APPLY A THIN LAYER TO THE AFFECTED AREA(S) BY TOPICAL ROUTE 2 TIMES PER DAY FOR 5 DAYS 2018 active Not Available Not Available Not Avai lable Fluzone Quad 60 mcg (15 mcg x 4)/0.5 mL intramuscular susp. active Not Available Not Available Not Available Vitals None Recorded Social History None recorded. Functional Status None recorded. Mental Status None recorded. Family History Nothing Reported. Medical History No medical history recorded. Past Encounters Encounter ID Performer Location Encounter Start Date Encounter Closed Date Diagnosis/Indication Diagnosis SNOMED-CT Code [id number] Fer Urbina MD Main Office [address] [address] 04/06/2019 11:05:08 04/08/2019 00:19:51 Verruca vulgaris [id number] Fer Urbina MD Main Office [address] [facility] [address] [place] [address] 05/01/2019 16:17:08 05/02/2019 22:34:45 Verruca vulgaris [id number] Fer Urbina MD [facility] [address] [facility] [address] [place] [address] 05/27/2019 10:16:57 05/28/2019 22:40:53 Verruca vulgaris [id number] Senile hyperkeratosis 39 [id number] Fer Urbina MD Main Office [address] [facility] [address] [place] [id number] 06/22/2019 10:27:52 06/26/2019 18:42:59 Inflamed seborrheic keratosis [id number] Fer Urbina MD Main Office [address] [facility] [address] [place] [address] 07/13/2019 09:50:44 07/16/2019 23:22:59 Solar lentigo [id number] Verruca vulgaris [id number] Fer Urbina MD Main Office [address] [facility] [address] [place] [id number] 08/03/2019 09:57:54 08/04/2019 13:40:30 Verruca plantaris [id number] Senile hyperkeratosis 39 [id number] Fer Urbina MD Main Office [address] [facility] [address] [place] [address] 09/14/2019 10:48:42 09/26/2019 22:54:28 Infection of skin [id number] Verruca vulgaris [id number] Fer Urbina MD Main Office [address] [facility] S,[facility] [address] [place] [address] 10/26/2019 10:28:34 10/27/2019 20:36:28 Folliculitis [id number] Hand wart [id number] Fer Urbina MD Main Office [address] [facility] [address] [place] [address] 06/19/2021 09:11:29 06/19/2021 10:31:32 Verruca vulgaris [id number] Fer Urbina MD Main Office [address] [facility] [address],[place] [address] 03/19/2022 14:53:57 03/20/2022 23:05:04 Verruca vulgaris [id number] Fer Urbina MD Main Office [address] [facility] [address] [address] 08/20/2022 10:16:24 08/21/2022 16:04:32 [place] - lesion [id number] Health Concerns Section Related Observation LastModified by Organization Detai ls LastModified Time None Recorded Concern Status LastModified by Organization Details LastModified Time None Recorded Advance Directives Directive None Recorded Payers Encounter Date Sequence Insurance Name Policy Number Policy Peterson Covered Member ID Peterson Member ID Guarantor Name 09/14/2019 1 Rayneer [id number] Louie Leeick [id number] Loiue Leeick 10/26/2019 1 Rayneer [id number] Louie Leeick [id number] Louie German 06/19/2021 1 [place] [id number] Jacklyn Leeick [id number] Louie German 03/19/2022 1 [place] [id number] Jacklyn Leeick [id number] Louie German 08/20/2022 1 [place] [id number] Jacklyn Leeick [id number] Louie German Notes Date Note Type Note Provider Name and Address Organization Details Recorded Time 09/14/2019 text/html HPI Notes: Retur ns today for follow-up of the warts. Almost gone on the left volar great toe. Slight recurrence periungual regions. Overall still markedly improved from baseline after cryotherapy, and intralesional Lo. Fer Urbina MD [address] [facility] [address], [address], [facility] 09/26/2019 22:55:17 10/26/2019 text/html HPI Notes: 54-year-old male presents for follow-up of his warts Will be treated by the [facility] for years. We have resolved most what appeared to be warts but he still gets red sore areas. When we ask about intermittent sore lesions in his nose he does get an inflammatory papule there rarely. He does bring up the point of a new subject red inflammatory papules that come and go on the trunk and arms on and off. He is been given Keflex by the [facility] in the past. He has not had his nose cultured. He denies frequent nose inflammatory papules but an occasional 1. Past medical history, social history unchanged Fer Urbina MD [address], [place], [address], [facility] 10/27/2019 20:36:19 06/19/2021 text/html HPI Notes: Prese nts today for a wart on the volar aspect of the right great toe. Duration months. Previous cryotherapy. Previous home salicylic acid. No overall response. He would like electrodesiccation and curettage which has worked previously for their warts. Past medical history is changed he now has herniated disks due to trauma at work in the lower back with radiating pain down the right leg. Social history family history unchanged Fer Urbina MD [address], [place], [address], [facility] 06/19/2021 10:31:25 03/19/2022 text/html HPI Notes: Retur ns for the recalcitrant persistent wart on the right great volar toe. Wants us to make every caution to minimize infection. We did discuss the fact that legs and a recent national study showed a 10% infection make 3 times higher or more than the face. We did cleanse the area with alcohol today. We gave him Xepi samples. It is relatively asymptomatic it has recurred. Numerous multiple treatments Lo, cryo, electrocautery Fer Urbina MD [address], [place], [address], [facility] 03/20/2022 23:04:49 08/20/2022 text/html HPI Notes: Retur ns with a recalcitrant wart he wonders if it still there there is a slight depression on his volar toe and some scaling Fer Urbina MD [address],[facility], [place], [address], [facility] - [facility] 08/21/2022 16:03:39
--- OUTSIDE RECORDS SUMMARY | 2024-05-01 15:32 | XMS_ITS | Clinical Summary ---
Author Organization [facility] Address [address] [place] [address] Care Team Providers Care Powertrain Design Engineer Name Role Phone Elsewhere, Pcp Primary Care Provider Unavailabl e Source Comments Patient records contain information from all sites at [facility]. For routine questions regarding patient records, call [phone] during business hours, M-F 8:00 AM - 5:00 PM Central Time. Record requests for emergency care only can be directed to [phone] at any time.[facility] Allergies No known active allergies Medications Medication Sig Dispensed Refills Start Date End Date Status lisinopril (for_PRINIVIL,ZESTR IL) 40 mg tablet Take 40 mg by mouth daily. 02/01/2014 Active amLODIPine (for_NORVASC) 5 mg tablet Take 5 mg by mouth daily. 02/01/2014 Active multivitamin capsule multivitamin 09/14/2010 Active sodium chloride (LESLIE-128) 5 % ophthalmic ointment Apply 1/2 inch into both eyes 3 times a day 3.5 g 11 06/28/2018 Active Additional Information Patient taking differently: left eye, As needed, Reported on 12/16/2020 albuterol (Ventolin HFA) 90 mcg/actuation inhaler 90 puffs. Active cholecalciferol (VITAMIN D3) 50 mcg (2,000 Unit) tablet 50 mcg. Activ e mupirocin (BACTROBAN) 2 % ointment 2 application. Active ozenoxacin (Xepi) 1 % cream 1 application. Active triamcinolone (KENALOG) 0.1 % cream 0.1 application. Active Active Problems Problem Noted Date Diagnosed Date Herniated Disc Lumbar 07/09/2021 Radiculopathy 07/09/2021 Hypertension 10/19/2010 Hyperlipidemia 09/22/2008 Pain Knee Right Immunizations Name Administration Dates Next Due H1N1 All Forms 09/24/2009 H1N1 Inj 09/24/2009 HepB Adult 11/06/1991 HepB, Unspecified 11/06/1991 Influenza Split 09/17/2003 Influenza, Seasonal, Injectable 08/21/2012,10/24,08/31/2005 Influenza, Unspecified 08/22/2013,2011,10/24/2006,2004 RZV (SHINGRIX) 11/02/2019,09/02/2019 SARS-COV-2 (COVID-19) - MODERNA(Discontinued) 12/11/2020,11/13/2020 Td (Adult), adsorbed 11/06/2002 Td Preservative Free (TENIVA C, DECAVAC) 11/06/2002 Tdap 05/28/2012 influenza vaccine quad (FLUZONE/FLUARIX) (6 months and older)(PF) 07/14/2020,08/31/2019,09/17/2018,2016,09/19/2016,10/08/2015,08/04/2014,0 08/01/2014 Family History Medical History Relation Name Comments Hypertension Father Relation Name Status Comments Father Social History Tobacco Use Types Packs/Day Years Used Date Smoking Tobacco: Never Smokeless Tobacco: Never Tobacco Cessation:Counseling Given: Yes Alcohol Use Standard Drinks/Week Comments No 0 (1 standard drink = 0.6 oz pur e alcohol) PHQ-2 Answer Date Recorded PHQ-2 Score 0 06/02/2021 Nutrition Answer Date Recorded Nutrition: EVOO Fat Source Unknown 01/05 Nutrition: Servings of Fruits/Vegetables per Day Not on file 01/05/2021 Dental Answer Date Recorded Dental: Regular Dentist Unknown 01/06/20 21 Sex and Gender Information Value Date Recorded Sex Assigned at Not on file Gender Identity Not on file Sexual Orientation Not on file Last Filed Vital Signs Vital Sign Reading Time Taken Comments Blood Pressure 128/77 08/18/2021 8:27 AM CDT Pulse 71 08/18/2021 8:27 AM CDT Temperature 36.6 ??C (97.9 ??F) 08/18/2021 8:27 AM CD T Respiratory Rate 16 08/18/2021 8:27 AM CDT Oxygen Saturation 98% 08/18/2021 8:27 AM CDT Inhaled Oxygen Concentration - - Weight 108 kg (237 lb 10.5 oz) 08/18/2021 8:27 A M CDT Height 187 cm (6' 1.62) 08/18/2021 8:27 AM CDT Body Mass Index 30.83 08/18/2021 8:27 AM CDT Plan of Treatment Health Maintenance Due Date Last Done Comments CT Colonography 1963 Cologuard 1963 HIV Screening 1963 Lipid (Cholesterol) Screening 1963 Office Visit for Blood Pressure Check / Re-check 1963 Hepatitis B Vaccines (2 of 3 - 19+ 3-dose series) 12/04/1991 11/06/1991, 11/06/1991 Creatinine Level (Kidney Function Test) 08/18/2022 08/18/2021 Potassium Level 08/18/2022 08/18/2021 Sodium Level 08/18/2022 08/18/2021 Depression Screening (Annual PHQ-2) 11/06/2023 Colonoscopy 04/17/2024 04/17/2019, 01/2011 (Performed elsewhere), 05/11/2008 Colorectal Cancer Surveillance 04/17/2024 Fasting Glucose for Diabetes Screening 08/18/2024 08/18/2021, 01/14/2014 DTaP,Tdap,and Td Vaccines (3 - Td or Tdap) 09/07/2032 09/07/2022, 05/28/2012, 11/06/2002, Additional history exists Zoster Vaccines Completed 11/02/2019, 09/02/2019 Hepatitis C Screening Completed 08/18/2021 Pneumococcal vaccine (0-64 years) Aged Out 09/27/2023 No longer eligible based on patient's age to complete this topic Influenza Vaccine Completed 10/22/2023, , 08/11/2021, Additional history exists COVID-19 Vaccine Completed 10/31/2023, , 05/21/2022, Additional history exists Procedures Procedure Name Priority Date/Time Associated Diagnosis Comments BASIC METABOLIC PANEL, S/P Routine 08/18/2021 9:03 AM CDT Herniated Disc Lumbar Radiculopathy Preoperative Exam HCV AB SCRN W/REFLEX TO HCV PCR, S Routine 08/18/2021 9:02 AM CDT Preoperative Exam COLONOSCOPY Routine 04/17/2019 8:15 AM CDT from Last 3 Months or Most Recently Relevant to Health Maintenance Results * Basic Metabolic Panel (08/18/2021 9:03 AM CDT) Potassium, P 4.1 3.6 - 5.2 mmol/L 08/18/2021 9:47 AM CDT CNFL Comment:Testing performed on serum Sodium, P 139 135 - 145 mmol/L 08/18/2021 9:47 AM CDT CNFL Chloride, P 102 98 - 107 mmol/L 08/18/2021 9:47 AM CDT CNFL Bicarbonate, P 28 22 - 29 mmol/L 08/18/2021 9:47 AM CDT CNFL Anion Gap, P 9 7 - 15 08/18/2021 9:47 AM CDT CNFL BUN (Blood Urea Nitrogen), P 16 8 - 24 mg/dL 08/18/2021 9:47 AM CDT CNFL Creatinine 1.06 0.74 - 1.35 mg/dL 08/18/2021 9:47 AM CDT CNFL eGFR-Black/Afric an Northern Irish 89 >=60 mL/min/BSA 08/18/2021 9:47 AM CDT CNFL Comment: ----ADDITIONAL INFORMATION---- Estimated GFR calculated using the 2009 CKD_EPI creatinine equation. eGFR Non-Black/Kamini n Northern Irish 77 >=60 mL/min/BSA 08/18/2021 9:47 AM CDT CNFL Comment: ----ADDITIONAL INFORMATION---- Estimated GFR calculated using the 2009 CKD_EPI creatinine equation. Calcium, Total, P 9.3 8.6 - 10.0 mg/dL 08/18/2021 9:47 AM CDT CNFL Glucose, P 89 70 - 140 mg/dL 08/18/2021 9:47 AM CDT CNFL Blood (Blood, Venous) 08/18/2021 9:03 AM CDT 08/18/2021 9:05 AM CDT Tavon Obrien M.D. LAB BLOOD ADD-ON [facility] [address] [place] [id number], [facility] CNFL [facility] in [address] [address] * HCV Ab Scrn w/Reflex to HCV PCR, Serum (08/18/2021 9:02 AM CDT) HCV Ab Screen, S Negative Negative 08/18/20 4:04 PM CDT ECLR Comment: Biotin has been identified by the claim representative as a potential interfering substance. ??Higher concentrations of biotin may be found in multivitamins, hair/nail supplements, and workout supplements. ??If the result does not match clinical observations, repeat testing after patient refrains from the use of supplements for at least 12 hours. Blood (Blood, Venous) 08/18/2021 9:02 AM CDT 08/18/2021 3:06 PM CDT Narrative [facility] - 08/18/2021 4:04 PM CDT Specimen Information: Specimen ID: [id number] Specimen Type: Blood Specimen Collection Start Date: 08/18/2021 ??9:02 AM Specimen Received Date: 08/18/2021 ??3:06 PM Specimen ID: [id number] Specimen Type: Blood Specimen Collection Start Date: 08/18/2021 ??9:03 AM Specimen Received Date: 08/18/2021 ??3:06 PM Tavon Obrien M.D. LAB MICROBIOLOGY - BLOOD ORDERABLES [facility] [address] [place] [id number], [facility] ECLR [facility] in [address] [address] * (ABNORMAL) Colonoscopy (04/17/2019 8:15 AM CDT) EXT Colonoscopy Abnormal - See Scanned Report for Details(A) Normal - See Scanned Report for Details, HIMS - Report Received and Scanned Comment:See Care Everywhere for results: Performing facility: [facility]. Provider: Judi Wynn MD, Results: Two tubular adenomas Impressions Margot Pérez Vinod - 04/17/2019 8:15 AM CDT Final dx: [...] ?c. Retrieval complete Historical Provider GI PROCEDURE ORDERAB LES from Last 3 Months or Most Recently Relevant to Health Maintenance Care Teams Powertrain Design Engineer Relationship Specialty Start Date End Date Elsewhere, Pcp PCP - General Internal Medicine 12/29/22
--- OUTSIDE RECORDS SUMMARY | 2024-05-01 15:32 | XMS_ITS | Encounter Summary ---
Author Organization [facility] Address [address] [place] [address] Care Team Providers Care Veneer Sorter Name Role Phone Elsewhere, Pcp Primary Care Provider Unavailabl e Encounter Details Date Type Department Care Team (Late st Contact Info) Description 06/28/2017 Historical Ophthalmology [facility] Kevin Irizarry M.D. [address] [place] [address] Social History Tobacco Use Types Packs/Day Years Used Date Smoking Tobacco: Never Sex and Gender Information Value Date Recorded Sex Assigned at Not on file Gender Identity Not on file Sexual Orientation Not on file documented as of this encounter Progress Notes * Kevin Irizarry M.D. - 06/28/2017 2:46 PM [...] both eyes. CDM Reports - EYEGEN Id: [id number] Status: Fnl documented in this encounter Plan of Treatment Not on file documented as of this encounter Visit Diagnoses Not on filedocumented in this encounter Additional Health Concerns Infection Onset Date Last Indicated Resolved Time COVID19 Pending 08/28/2021 08/29/2021 08/30/2021 3 :06 PM CDT documented as of this encounter Care Teams Veneer Sorter Relationship Specialty Start Date End Date Elsewhere, Pcp PCP - General Internal Medicine 12/29/22 documented as of this encounter
--- OUTSIDE RECORDS SUMMARY | 2024-05-01 15:32 | XMS_ITS | Referral Summary ---
Author Organization [facility] Address [address] [place] [address] Care Team Providers Care Budder Name Role Phone Elsewhere, Pcp Primary Care Provider Unavailabl e Source Comments Patient records contain information from all sites at [facility]. For routine questions regarding patient records, call [phone] during business hours, M-F 8:00 AM - 5:00 PM Central Time. Record requests for emergency care only can be directed to [phone] at any time.[facility] Allergies No known active allergies Medications Medication [...] (FLUZONE/FLUARIX) (6 months and older)(PF) 07/14/2020,08/31/2019,09/17/2018,2016,09/19/2016,10/08/2015,08/04/2014,0 08/01/2014 Social History Tobacco Use Types Packs/Day Years [...] 08/18/2021 8:27 AM CDT Plan of Treatment Not on file Procedures Procedure Name Priority Date/Time Associated Diagnosis [...] 08/18/2021 9:47 AM CDT CNFL eGFR-Black/Afric an Finnish 89 >=60 mL/min/BSA 08/18/2021 9:47 AM CDT CNFL Comment: ----ADDITIONAL INFORMATION---- Estimated GFR calculated using the 2009 CKD_EPI creatinine equation. eGFR Non-Black/Kamini n Finnish 77 >=60 mL/min/BSA 08/18/2021 9:47 AM CDT CNFL Comment: ----ADDITIONAL INFORMATION---- Estimated GFR calculated using the 2009 CKD_EPI creatinine equation. Calcium, Total, P 9.3 8.6 - 10.0 mg/dL 08/18/2021 9:47 AM CDT CNFL Glucose, P 89 70 - 140 mg/dL 08/18/2021 9:47 AM CDT CNFL Blood (Blood, Venous) 08/18/2021 9:03 AM CDT 08/18/2021 9:05 AM CDT Tavon Obrien M.D. LAB BLOOD ADD-ON [facility] [address] [place] [address], [facility] CNFL [facility] [place] [address] * HCV Ab Scrn w/Reflex to HCV PCR, Serum (08/18/2021 9:02 AM CDT) HCV Ab Screen, S Negative Negative 08/18/20 4:04 PM CDT ECLR Comment: Biotin has been identified by the api architect as a potential interfering substance. ??Higher concentrations of biotin may be found in multivitamins, hair/nail supplements, and workout supplements. ??If the result does not match clinical observations, repeat testing after patient refrains from the use of supplements for at least 12 hours. Blood (Blood, Venous) 08/18/2021 9:02 AM CDT 08/18/2021 3:06 PM CDT Narrative [facility] - 08/18/2021 4:04 PM CDT Specimen Information: Specimen ID: [id number] Specimen Type: Blood Specimen Collection Start Date: 08/18/2021 ??9:02 AM Specimen Received Date: 08/18/2021 ??3:06 PM Specimen ID: [id number] Specimen Type: Blood Specimen Collection Start Date: 08/18/2021 ??9:03 AM Specimen Received Date: 08/18/2021 ??3:06 PM Tavon Obrien M.D. LAB MICROBIOLOGY - BLOOD ORDERABLES [facility] [address] [place] [address], [facility] ECLR [facility] [place] [address] [place] [address] * (ABNORMAL) Colonoscopy (04/17/2019 8:15 AM CDT) EXT Colonoscopy Abnormal - See Scanned Report for Details(A) Normal - See Scanned Report for Details, HIMS - Report Received and Scanned Comment:See Care Everywhere for results: Performing facility: [facility]. Provider: Judi Wynn MD, Results: Two tubular [...] Recently Relevant to Health Maintenance Care Teams Budder Relationship Specialty Start Date End Date Elsewhere, Pcp PCP - General Internal Medicine 12/29/22
--- NOTE | 2024-05-01 16:00 | CRLHL7_ITS ---
For Patients: As a result of the Century Cures Act, medical imaging exams and procedure reports are released immediately into your electronic medical record. You may view this report before your referring provider. If you have questions, please contact your health care provider. INDICATION: Diarrhea with blood with LLQ pain TECHNIQUE: CT of the abdomen and pelvis was obtained with 108 mL of Isovue 370 intravenous contrast. Please note that all CT scans at this facility use dose modulation, iterative reconstruction, and/or weight-based dosing when appropriate to reduce radiation dose to as low as reasonably achievable. COMPARISON: None. FINDINGS: Lower thorax: Normal. Liver and biliary tree: Moderate hepatic steatosis. Focal fat is seen adjacent to the falciform ligament. Subcentimeter hypoattenuating lesions are too small to characterize and are favored to represent cysts. Gallbladder: Cholelithiasis. Spleen: Normal. Pancreas: Normal. Adrenal glands: Normal. Kidneys and ureters: No hydronephrosis or obstructing renal calculi. Subcentimeter hypoattenuating lesions are too small to characterize and are favored to represent cysts. Gastrointestinal tract: Moderate sigmoid colonic diverticulosis. Moderate wall thickening of the transverse colon. No evidence of bowel obstruction. No evidence of acute appendicitis. Peritoneal cavity: Mild fat stranding surrounding the transverse colon. Bladder: Normal. Pelvic organs: Normal. Vasculature: Mild to moderate calcification. Lymph nodes: Normal. Abdominal wall: Trace fat containing periumbilical hernia. Musculoskeletal: Normal. IMPRESSION: 1. Moderate wall thickening of the transverse colon is favored to represent infectious or inflammatory colitis in the absence of significant diverticular burden at this location. 2. Moderate sigmoid colonic diverticulosis without CT evidence of acute diverticulitis. 3. Moderate hepatic steatosis. Please note that all CT scans at this facility use dose modulation, iterative reconstruction, and/or weight-based dosing when appropriate to reduce radiation dose to as low as reasonably achievable. Dictated by Luther Garcia MD @ 05/01/2024 5:34:45 PM (Electronically Signed)
[2024-05-01 16:28] LABS: Estimated Glomerular Filt Rate 86 ml/min
== END 2024-05-01 15:29 | disposition home or self-care (01) ==
PROVIDERS: PCP Family Medicine; Visit Provider Family Medicine
DX: R10.814 Left lower quadrant abdominal tenderness (principal); K57.30 Diverticulosis of large intestine without perforation or abscess without bleeding; K76.0 Fatty (change of) liver, not elsewhere classified; K92.1 Melena
CPT/HCPCS: 36415; 74177; 82565; Q9967